=== PATIENT | female | born 1945 | race Caucasian/White ===

== ENCOUNTER 2023-03-12 10:35 | Inpatient (IN) | payer MEDICARE, SELFPAY ==
[2023-03-12] VITALS (13 sets, daily range): BP systolic 139–182; BP diastolic 57–96; PULSE 85–106; RESP 16–30; TEMP 36.4–37.1; O2SAT 91–97; BMI 32.1; BMI 28.9
--- NOTE | 2023-03-12 10:36 | CT_ITS ---
We are attempting to reach an attending provider to discuss findings. An addendum with communication details will be sent when the communication is complete. STUDY: CT HEAD STROKE PROTOCOL W/O CONTRAST INJECTION REASON FOR EXAM: Female, 77 years old. Neuro deficit, acute, stroke suspected RADIATION DOSAGE (If Supplied By Facility): CTDIvol = ( 44.99 ) mGy, DLP = ( 849.54 ) mGycm TECHNIQUE: Transaxial CT imaging of the brain was performed without administration of intravenous contrast material. Individualized dose optimization techniques were used for this CT. COMPARISON: No relevant priors. FINDINGS: Normal soft tissue structures. Normal calvarium. There is mild cerebral atrophy with widening of the extra-axial spaces and ventricular dilatation. There are areas of decreased attenuation within the white matter tracts of the supratentorial brain, consistent with microvascular disease changes. Tiny lacuna is seen in the insular cortex of the left temporal lobe. Normal brainstem. Normal cerebellum. There is no intracranial hemorrhage. There are no findings of an acute ischemic infarction. Atherosclerotic calcific plaques of the vertebral arteries and cavernous portions of the internal carotid arteries bilaterally. Normal visualized paranasal sinuses. ASPECT score: 10 CT/STROKE Brain/Head without Cont IMPRESSION: Chronic involutional changes of the brain. Tiny lacuna is seen in the insular cortex of the left temporal lobe. Electronically Signed: Ramses Sheehan MD at 10:52 EDT ,
--- NOTE | 2023-03-12 10:36 | EKG12_ITS ---
Test Reason : STROKE Blood Pressure : / mmHG Vent. Rate : 105 BPM Atrial Rate : 105 BPM P-R Int : 176 ms QRS Dur : 110 ms QT Int : 356 ms P-R-T Axes : 000 106 155 degrees QTc Int : 470 ms Sinus tachycardia with frequent Premature ventricular complexes Low voltage QRS Right bundle branch block Lateral infarct , age undetermined Inferior infarct , age undetermined Abnormal ECG Confirmed by PANCHITO BARRY, SHARONDA ([id number]), purchasing expeditor ROMEO MERCHANT ([id number]) on 03/13/2023 1:12:12 PM Referred By: PL Confirmed By:SHARONDA FLANAGAN MD
--- NOTE | 2023-03-12 10:36 | CT_ITS ---
STUDY: CTA HEAD AND NECK WITH CONTRAST REASON FOR EXAM: Female, 77 years old. Neuro deficit, acute, stroke suspected RADIATION DOSAGE (If Supplied By Facility): CTDIvol = ( 15.07 ) mGy, DLP = ( 653.01 ) mGycm TECHNIQUE: CT angiography was performed with a multi-detector CT scanner. Data acquisition was obtained from the skull base through the vertex following intravenous administration of IV 100mL [id number]-[id number]. MIP images were reconstructed from the axial data set. Post-processing of the angiographic images was performed, with multiplanar reformation and 3D reconstruction. Individualized dose optimization techniques were used for this CT. COMPARISON: No relevant priors. FINDINGS: Normal bilateral petrous carotid arteries. There is calcified plaque formation of the right cavernous carotid artery, without a cross-sectional luminal stenosis. There is calcified plaque formation of the left cavernous carotid artery, without a cross-sectional luminal stenosis. Normal right A1 segments of the anterior cerebral artery. Normal left A1 segments of the anterior cerebral artery. Normal intact anterior communicating artery (ACOM). Normal bilateral A2 segments of the anterior cerebral arteries. Normal right M1 and M2 segments of the middle cerebral arteries, with a normal M1 bifurcation. Normal left M1 and M2 segments of the middle cerebral arteries, with a normal M1 bifurcation. Normal right posterior communicating artery (PCOM). Normal left posterior communicating artery (PCOM). Normal bilateral vertebral arteries. Normal basilar artery with a normal basilar bifurcation. The visualized bilateral superior cerebellar (SCA) arteries are normal. Normal bilateral P1, P2 and visualized P3 segments of the posterior cerebral arteries. There is no demonstrated aneurysm of the [place]. There is no demonstrated abnormality of the visualized brain. AORTIC ARCH: There is atherosclerotic calcific plaque formation of the aortic arch and great vessels arising from the aortic arch, without a hemodynamically significant stenosis. There is a normal origin of the brachiocephalic, left common carotid, and left subclavian arteries. RIGHT CAROTID ARTERIES: Normal right common carotid artery (CCA). Normal right common carotid bulb. Normal origin of the right internal carotid (ICA) artery without a hemodynamically significant stenosis. Normal visualized cervical portion of the right internal carotid artery. Normal origin of the right external carotid artery (ECA). LEFT CAROTID ARTERIES: Normal left common carotid artery (CCA). Normal left common carotid bulb. There is mild atherosclerotic plaque formation of the origin of the left internal carotid artery with less than 50% cross sectional diameter stenosis. Normal visualized cervical portion of the left internal carotid artery. Normal origin of the left external carotid artery (ECA). VERTEBRAL ARTERIES: Normal bilateral vertebral arteries. CT/STROKE CTA Head AND Neck W/Con IMPRESSION: Mild nonstenotic plaque at the origin of the left internal carotid artery N.B. : The above Results were Read Back by Ramses Sheehan MD to Cisco Wilson and understanding confirmed on 03/12/2023 11:02:57 (ET). Electronically Signed: Ramses Sheehan MD at 11:04 EDT ,
--- NOTE | 2023-03-12 10:37 | EX.ED.DYSGE1 ---
HPI History of Present Illness Chief Complaint: Stroke Alert Informant: patient and EMS Narrative Narrative: I discussed case with patient and directly with EMS providers. Evidently family called due to noting that her breathing sounded differently. But patient states that she is not short of breath and not having any chest pain. EMS arrived. They then noted that she had left facial droop and some weakness of the left arm. They think this developed shortly after getting there. But I am wondering if this might have been part of the whole issue. But in either case it appears as though this just started within the last 30 minutes or hour. I initially saw the patient in the hallway as EMS arrived. She clearly has left-sided weakness and left facial droop. But her lungs are clear. She does not need to be intubated now. We expedited and got her to CT scan to get those studies started. Further details will be obtained soon. Went back to see the patient after she got back from CT. I had already reviewed her CT image. I was talking with the patient and her daughter. Evidently the patient this morning fed her cat. She then felt a little short of breath and dizzy. She fell at the bottom of her steps but did not fall down steps. She hit her head on concrete but did not lose consciousness she did not feel as though she was hurt but she was having trouble getting up and walking. She therefore crawled to the top of the steps where she could activate Crista to call her daughter and asked for help. At this point of the discussion, the stroke neurologist connected in with the screen and initiated the stroke score. We will then come back again and get further details regarding this history because this history is more complex than just neurologic deficit. Patient now stating that she was not somewhat short of breath but that she heard kind of a funny sound when she would breathe. She also did feel weak. She has a new left facial droop. This was not there at about 9 or 930 this morning because the daughter FaceTime to her mother at that moment and her speech and face were normal. At this point patient states that she feels overall weak and the left side feels a little weak. But she has no other symptoms of pain trouble breathing nausea. Of note, she did have excision of a staghorn calculus from her right kidney about 4 to 5 weeks ago at [facility] but has been healing well from this and is not having urinary symptoms. PFSH PFSH Medical History (Updated 03/12/23 @ 12:[address] Josephine Womack, DO) History of hypercholesterolemia HTN (hypertension) Spinal stenosis of lumbar region at multiple levels Thrombocytopenia Home Medications etodolac 500 mg tablet 500 mg PO BID PRN PAIN 04/06/15 [History Last Taken 04/06/15 09:30] hydrochlorothiazide 12.5 mg capsule 12.5 mg PO DAILY EDEMA 04/06/15 [History Last Taken 04/06/15] losartan 100 mg tablet 100 mg PO DAILY BLOOD PRESSURE 04/06/15 [History Last Taken 04/06/15] metoprolol succinate 100 mg tablet,extended release 24 hr 100 mg PO DAILY BLOOD PRESSURE 04/06/15 [History Last Taken 04/06/15] simvastatin 20 mg tablet 20 mg PO QHS CHOLESTEROL 04/06/15 [History Last Taken 04/05/15] amlodipine 5 mg tablet 5 mg PO DAILY 03/12/23 [History Last Taken Unknown] Allergy/AdvReac Type Severity Reaction Status Date / Time latex Allergy Unknown Verified 04/06/15 13:59 Sulfa (Sulfonamide Allergy Unknown Verified 04/06/15 13:59 Antibiotics) Social History Smoking Status: Never smoker [facility] ED Constitutional Constitutional ED: Reports other Details: Patient felt chilled yesterday and nauseated yesterday but those are gone now. ; Denies chills, fever(s) or subjective Eyes Eyes: Denies change in vision or diplopia ENT ENT ED: Reports other Details: Some left facial weakness. ; Denies rhinorrhea or sore throat Cardiovascular Cardiovascular: Denies chest pain, palpitations or racing heartbeat Respiratory/Chest Respiratory/Chest: Reports other Details: See HPI ; Denies cough, dyspnea or sputum Gastrointestinal Gastrointestinal: Reports other Details: She had some nausea yesterday but it is gone today. ; Denies abdominal pain, diarrhea, melena, nausea or vomiting Genitourinary Genitourinary ED: Denies dysuria or hematuria Musculoskeletal Musculoskeletal: Denies myalgias or neck pain Integumentary Denies rash Neurologic Neurologic: Reports weakness; Denies headache(s) Hematologic/Lymphatic Hematologic/Lymphatic: Denies easy bleeding or easy bruising Allergic/Immunologic Allergic/Immunologic ED: Denies urticaria EXAM Physical Exam Narrative Exam Narrative: Patient is awake alert. She is very good informant although is her speech is a little bit slow. Her speech is not normally like this per her daughter. HEENT does show left facial weakness mostly lower portion of the face. Upper portion is not as involved. She has signs of old scars on her upper face and the left lower lip from skin cancer but these are chronic and unchanged. I am not seeing signs of trauma even though she did hit the left side of her forehead. I looked in her throat I see no acute abnormality. No swelling. No exudate. Her voice is a little bit raspy and quiet. Although she is normally quiet per her daughter, this is still not the patient's normal voice. But she complains of no pain. Eyes show normal range of motion and pupillary response. Neck is supple and shows no tenderness. Lungs actually sound clear. No wheezing or rhonchi. She does occasionally have transmitted upper airway sounds though. Saturations are normal at 95% on room air showing no hypoxia. Heart is regular. I hear no murmur. It sounds to be regular and looks like normal sinus with a rate of about 100 on the monitor. Does not appear to be atrial fibrillation. Abdomen is soft is nontender. She has prior scar from what looks like an ostomy. She has a healed small scar in her right back. No sign of infection. Extremities show a few small contusions to the skin of the left forearm but no tenderness. No pain with motion of her hips. Neurologic: She has some mild left facial droop, slow speech but its no sign of expressive or receptive aphasia. No difficulty understanding her at all. It is a little bit raspy but the speech itself is unlabored. Her left hand appears to be a little bit weaker than the right. But she can hold it up for full 10 seconds equal. She does have a fine tremor in both extremities which is evidently chronic. Although there does appear to be some left upper extremity weakness this does not rise to the level of getting a point on the NIH scale. The neurologist from [facility] also gave her an NIH of 1 for the facial droop. Const Vital Signs: 03/12/23 10:37 03/12/23 10:48 03/12/23 10:48 Temperature 97.5 F L Temperature Source Temporal Pulse Rate 104 H 106 H Respiratory Rate 30 H 20 H Respiratory Effort Respiratory Depth Respiratory Pattern Blood Pressure 180/62 H 182/96 H Blood Pressure Mean 101 124 Pulse Ox 96 95 Oxygen Delivery Method Room Air Room Air Nasal Cannula Oxygen Flow Rate (L/min) 2 03/12/23 10:56 03/12/23 11:06 03/12/23 11:30 Temperature Temperature Source Pulse Rate 104 H 92 Respiratory Rate 20 H 18 Respiratory Effort Short of Breath Respiratory Depth Shallow Respiratory Pattern Tachypnea Blood Pressure 173/90 H 155/65 H Blood Pressure Mean 117 95 Pulse Ox 94 95 Oxygen Delivery Method Room Air Room Air Room Air Oxygen Flow Rate (L/min) 03/12/23 12:01 03/12/23 12:00 Temperature 97.8 F Temperature Source Temporal Pulse Rate 92 95 Respiratory Rate 18 21 H Respiratory Effort Respiratory Depth Respiratory Pattern Blood Pressure 139/57 H 139/57 H Blood Pressure Mean 84 84 Pulse Ox 94 96 Oxygen Delivery Method Room Air Oxygen Flow Rate (L/min) MDM MDM MDM Narrative Medical decision making narrative: My independent interpretation the patient's CT of the head shows no acute process. 5 read shows no acute but there is any changes CTA showed old plaque at the origin of the left internal carotid. My independent interpretation of her single view AP chest x-ray shows no acute process and this is insistent with final reading. Patient's CBC showed minimal anemia and minimally low platelets with a normal white count. Patient's electrolytes were overall normal other than potassium of 3.4. Although this is low I do not believe this is the cause of her symptoms. Troponin is negative at 5. Although there is a story of difficulty breathing, patient really states that she had different sounds when she was breathing and I think these are upper airway sounds. I am wondering if these are secondary to vocal cord and laryngeal changes from her stroke as the origin of this. Per [facility] neurologist, with her low NIH of 1 she does not meet criteria for tPA. This also is even more likely not appropriate to give tPA due to her history of trauma this morning. Patient will be admitted. Lab Data Attestation: I reviewed the patient's lab results. Labs: Laboratory Results - last 24 hr 03/12/23 10:50 WBC 7.4 RBC 3.94 L Hgb 11.8 L Hct 36.4 L MCV 92.4 MCH 29.9 MCHC 32.4 RDW Std Deviation 44.2 H RDW Coeff of Darcy 13.1 Plt Count 122 L MPV 9.7 Immature Gran % (Auto) 0.500 Neut % (Auto) 70.7 H Lymph % (Auto) 14.7 L Gove % (Auto) 12.4 H Eos % (Auto) 1.2 Baso % (Auto) 0.5 Absolute Neuts (auto) 5.2 Absolute Lymphs (auto) 1.09 Nucleated RBC % 0 PT 14.0 INR 1.1 APTT 26.9 Sodium 138 Potassium 3.4 L Chloride 105 Carbon Dioxide 29.0 Anion Gap 4 L BUN 20 H Creatinine 0.86 Estim Creat Clear Calc 44.60 Est GFR (MDRD) Af Amer 82 Est GFR (MDRD) Non-Af 68 BUN/Creatinine Ratio 23.2 H Glucose 117 H Calcium 8.8 Troponin I High Sens 5 Radiography Diagnostic Testing: Clinical Impression(s) from Imaging Studies Brain CT 03/12/23 10:36 IMPRESSION: Chronic involutional changes of the brain. Tiny lacuna is seen in the insular cortex of the left temporal lobe. Electronically Signed: Ramses Sheehan MD at 10:52 EDT , ADDENDUM: 03/12/23 1100 IMPRESSION: Chronic involutional changes of the brain. Tiny lacuna is seen in the insular cortex of the left temporal lobe. N.B. : The above Results were Read Back by Ramses Sheehan MD to Dr Katie MD, and understanding confirmed on 03/12/2023 10:53:53 (ET). Electronically Signed: Ramses Sheehan MD at 10:52 EDT , Head/Neck CTA 03/12/23 10:36 IMPRESSION: Mild nonstenotic plaque at the origin of the left internal carotid artery N.B. : The above Results were Read Back by Ramses Sheehan MD to Cisco Wilson and understanding confirmed on 03/12/2023 11:02:57 (ET). Electronically Signed: Ramses Sheehan MD at 11:04 EDT , ADDENDUM: 03/12/23 1111 IMPRESSION: Mild nonstenotic plaque at the origin of the left internal carotid artery N.B. : The above Results were Read Back by Ramses Sheehan MD to Cisco Wilson and understanding confirmed on 03/12/2023 11:02:57 (ET). Electronically Signed: Ramses Sheehan MD at 11:04 EDT , Chest X-Ray 03/12/23 11:15 IMPRESSION: No acute abnormality is seen. Electronically Signed: Ramses Sheehan MD at 11:24 EDT , EKG Initial EKG: Comments: My independent interpretation the patient's EKG done for stroke shows sinus rhythm with tachycardic rate at 105. Computer is reading PVCs but I do not think this is accurate. I think she has right bundle branch block. None specific diffuse changes but no sign of acute infarct or ischemia. AK interval QRS duration and QTc are overall within normal limits. Management Discussion w/another healthcare provider: Hospitalist and [facility] Discharge Plan Dx/Rx/DC Orders Clinical Impression: Facial paralysis on left side, History of hypercholesterolemia, Fall at home, Acute CVA (cerebrovascular accident), History of hypertension Disposition Disposition: Acute Care Hospital [facility]
[2023-03-12 11:08] LABS: Absolute Lymphocyte Count 1.09 X10^3/uL (0.83-4.51); Absolute Neutrophil Count 5.2 X10^3/uL (2.0-7.7); Basophil# 0.04 X10^3/uL; Basophil% 0.5 % (0-1); Eosinophil# 0.09 X10^3/uL; Eosinophils% 1.2 % (0-5); Hematocrit 36.4 % (37-47); Hemoglobin 11.8 g/dL (12.0-15.0); Lymphocyte # 1.09 X10^3/ul (0.83-4.51); Lymphocyte % 14.7 % (19-41); Mean Corp Hgb Conc 32.4 g/dL (32-36); Mean Corpuscular Hgb 29.9 pg (27.0-32.0); Mean Corpuscular Volume 92.4 fL (81-99); Mean Platelet Vol. 9.7 fl (6.2-12.0); Monocyte# 0.92 X10^3/uL; Monocyte% 12.4 % (0-10); NRBC Flagged by Analyzer 0 % (0-5); Neutrophil # 5.22 X10^3/uL (2.7-7.7); Neutrophil % 70.7 % (47-70); Platelet Count 122 K/mm3 (150-450); RBC Distribution Width CV 13.1 % (11.6-14.6); RBC Distribution Width SD 44.2 fl (35.1-43.9); Red Blood Count 3.94 M/mm3 (4.2-5.4); White Blood Count 7.4 K/mm3 (4.4-11.0)
--- NOTE | 2023-03-12 11:15 | RAD_ITS ---
STUDY: X-RAY CHEST REASON FOR EXAM: Female, 77 years old. Neuro deficit, acute, stroke suspected TECHNIQUE: Single AP portable view of the chest. COMPARISON: None. FINDINGS: EKG electrodes are seen. Elevation of the right hemidiaphragm. The lungs are clear. There is no demonstrated pleural abnormality. Normal size heart. Normal mediastinum and karen. Normal visualized pulmonary arteries. There is atherosclerotic tortuosity of the aortic arch and descending thoracic aorta. There are diffuse degenerative changes of the visualized thoracic spine. Normal visualized ribs, clavicles, and shoulders. There is no demonstrated abnormality of the visualized soft tissue structures of the upper abdomen. RAD/Chest 1 View IMPRESSION: No acute abnormality is seen. Electronically Signed: Ramses Sheehan MD at 11:24 EDT ,
[2023-03-12 11:22] LABS: Anion Gap 4 (5-15); BUN 20 mg/dL (7-18); BUN/Creat Ratio 23.2 RATIO (10-20); Calcium,Total 8.8 mg/dL (8.5-10.1); Chloride 105 mmol/L (98-107); Creatinine, Serum 0.86 mg/dL (0.55-1.02); EST Glomerular Filtration Rate 68 mL/min (>60); Est Glom Filt Rate - Afr Amer 82 mL/min (>60); Glucose 117 mg/dL (74-106); International Normalized Ratio 1.1; Partial Thromboplast Time 26.9 Seconds (24.1-36.2); Potassium 3.4 mmol/L (3.5-5.1); Sodium Level 138 mmol/L (136-145); Troponin-I HS 5 pg/mL (3.0-54.0)
[2023-03-12] MEDS: Ondansetron 4 MG/2 ML Vial IV (11:51)
--- NOTE | 2023-03-12 11:59 | MRI_ITS ---
STUDY: MRI BRAIN WITHOUT CONTRAST REASON FOR EXAM: Female, 77 years old. Stroke TECHNIQUE: Standardized multiplanar fat and water weighted pulse sequences were obtained. COMPARISON: 03/12/2023 CT head FINDINGS: There is mild cerebral atrophy with widening of the extra-axial spaces and ventricular dilatation. There are multiple white matter hyperintensities, distributed throughout the deep white matter tracts of the cerebral hemispheres, consistent with moderate chronic white matter ischemic changes. There is increased DWI signal along the right posterior andrew radiata extending to the right mid insular ribbon concerning for acute to subacute posterior small (25%) MCA territory ischemia. Normal T2* images of the brain without demonstrated susceptibility artifact. There is no demonstrated hemosiderin stain. Normal bilateral basal ganglia. Normal thalami. There is no extra-axial fluid accumulation. Normal flow voids within the major intracranial circulation suggesting patency by spin echo criteria. Normal sella turcica, pituitary gland, infundibular stalk, optic chiasm and hypothalamus. Normal tectal plate and pineal gland. Normal midbrain, nicholas and medulla. Normal cerebellum. Normal basal cisterns. Normal bilateral temporal bones. Normal bilateral internal auditory canals. No demonstrated orbital abnormality, within the constraints of a routine brain study. Normal visualized paranasal sinuses. Normal calvarium and skull base. Normal visualized soft tissue structures. Normal visualized upper cervical spine. MRI/Brain without Contrast IMPRESSION: Findings consistent with acute to subacute right posterior MCA infarct measuring approximately 25% by volume within the posterior right andrew radiata and right insular ribbon. No evidence of acute intraparenchymal bleed. Electronically Signed: Albin Pena DO at 17:56 EDT ,
--- NOTE | 2023-03-12 11:59 | ECHOD_ITS ---
Reason For Study: TIA/STROKE Procedure This was a 2D Doppler, Color Flow transthoracic echocardiogram. Technically difficult study due to patient limitations. Definity deferred due to poor apical windows. Exam performed portable in patient room. Left Ventricle Normal LV size. Left ventricular systolic function is normal. The estimated ejection fraction is 65 %. Stage 1 diastolic dysfunction. No regional wall motion abnormalities noted. Right Ventricle Normal RV size. Normal systolic function. Atria Normal left atrium. Normal right atrium. Bubble contrast study negative for right to left interatrial shunt. Mitral Valve Normal mitral valve. Tricuspid Valve Normal tricuspid valve. Mild tricuspid valve insufficiency. Pulmonary artery systolic pressure is 30 mmHg. Aortic Valve Trisinus/trileaflet aortic valve. Pulmonic Valve Normal pulmonic valve. Great Vessels Normal aortic root. The pulmonary artery is normal size. Normal inferior vena cava. Pericardium/Pleural No pericardial effusion. Medication Performed a rapid injection of agitated mix of 9 cc saline and 1cc air to assess for atrial septal defect. MMode/2D Measurements & Calculations LVIDd: 4.1 cm IVSd: 1.1 cm LVIDs: 2.8 cm LVPWd: 1.0 cm FS: 31.4 % Time Measurements MV dec time: 0.13 sec Doppler Measurements & Calculations MV E max jeremy: 74.5 cm/sec Lat Peak E' Jeremy: 12.1 cm/sec Med Peak E' Jeremy: 13.7 cm/sec MV A max jeremy: 113.6 cm/sec E/E' lat: 6.2 E/E' med: 5.4 MV E/A: 0.66 MV V2 max: 118.0 cm/sec Ao V2 max: 154.2 cm/sec MV max P.6 mmHg MV dec slope: 559.0 cm/sec2 Ao max P.5 mmHg MV V2 mean: 75.3 cm/sec Ao V2 mean: 106.4 cm/sec MV mean P.5 mmHg Ao mean P.2 mmHg MV V2 VTI: 19.8 cm Ao V2 VTI: 34.8 cm AV (velocity ratio): 0.76 LV V1 max: 116.9 cm/sec PA V2 max: 88.2 cm/sec TR max jeremy: 250.2 cm/sec LV V1 max P.5 mmHg PA V2 mean: 59.1 cm/sec TR max P.0 mmHg LV V1 mean P.9 mmHg LV V1 mean: 80.3 cm/sec LV V1 VTI: 26.3 cm ECHO/Echo Complete Interpretation Summary Normal LV size. Left ventricular systolic function is normal. The estimated ejection fraction is 65 %. Bubble contrast study negative for right to left interatrial shunt. Stage 1 diastolic dysfunction. Pulmonary artery systolic pressure is 30 mmHg. Ordering Physician: Josephine Womack Referring Physician: NO PCP Performed By: Gabby Todd RCS
--- NOTE | 2023-03-12 12:00 | PN.HOSP_ITS ---
Reason for Visit Reason for Visit: Left-sided weakness and facial droop Objective Data Objective Data Vital Signs: Vital Signs Temp Pulse Resp BP Pulse Ox O2 Del Method O2 Flow Rate 97.5 F L 92 18 155/65 H 95 Room Air 2 03/12/23 10:48 03/12/23 11:30 03/12/23 11:30 03/12/23 11:30 03/12/23 11:30 03/12/23 11:30 03/12/23 10:48 Oxygen Flow Rate (L/min) 2 Oxygen Delivery Method Room Air Weight: 82.4 kg Body Mass Index (BMI) 32.1 Lab / Micro Data 03/12/23 10:50 03/12/23 10:50 Labs: Laboratory Results - last 24 hr 03/12/23 10:50: WBC 7.4, RBC 3.94 L, Hgb 11.8 L, Hct 36.4 L, MCV 92.4, MCH 29.9, MCHC 32.4, RDW Std Deviation 44.2 H, RDW Coeff of Darcy 13.1, Plt Count 122 L, MPV 9.7, Immature Gran % (Auto) 0.500, Neut % (Auto) 70.7 H, Lymph % (Auto) 14.7 L, [place] % (Auto) 12.4 H, Eos % (Auto) 1.2, Baso % (Auto) 0.5, Absolute Neuts (auto) 5.2, Absolute Lymphs (auto) 1.09, Nucleated RBC % 0, PT 14.0, INR 1.1, APTT 26.9, Sodium 138, Potassium 3.4 L, Chloride 105, Carbon Dioxide 29.0, Anion Gap 4 L, BUN 20 H, Creatinine 0.86, Estim Creat Clear Calc 44.60, Est GFR (MDRD) Af Amer 82, Est GFR (MDRD) Non-Af 68, BUN/Creatinine Ratio 23.2 H, Glucose 117 H, Calcium 8.8, Troponin I High Sens 5 Radiography Diagnostic Testing: Radiology Impression Brain CT 03/12/23 10:36 IMPRESSION: Chronic involutional changes of the brain. Tiny lacuna is seen in the insular cortex of the left temporal lobe. Electronically Signed: Ramses Sheehan MD at 10:52 EDT , ADDENDUM: 03/12/23 1100 IMPRESSION: Chronic involutional changes of the brain. Tiny lacuna is seen in the insular cortex of the left temporal lobe. N.B. : The above Results were Read Back by Ramses Sheehan MD to Dr Katie MD, and understanding confirmed on 03/12/2023 10:53:53 (ET). Electronically Signed: Ramses Sheehan MD at 10:52 EDT , Head/Neck CTA 03/12/23 10:36 IMPRESSION: Mild nonstenotic plaque at the origin of the left internal carotid artery N.B. : The above Results were Read Back by Ramses Sheehan MD to Cisco Wilson and understanding confirmed on 03/12/2023 11:02:57 (ET). Electronically Signed: Ramses Sheehan MD at 11:04 EDT , ADDENDUM: 03/12/23 1111 IMPRESSION: Mild nonstenotic plaque at the origin of the left internal carotid artery N.B. : The above Results were Read Back by Ramses Sheehan MD to Cisco Wilson and understanding confirmed on 03/12/2023 11:02:57 (ET). Electronically Signed: Ramses Sheehan MD at 11:04 EDT , Chest X-Ray 03/12/23 11:15 IMPRESSION: No acute abnormality is seen. Electronically Signed: Ramses Sheehan MD at 11:24 EDT , Assessment & Plan Assessment/Plan (1) Facial droop: (2) Left-sided weakness: (3) Fall at home: (4) Hypokalemia: (5) Anemia: (6) Left carotid artery stenosis: Charges/Coding Visit Charges Inpatient E&M: 86559 Init Hosp L2
--- NOTE | 2023-03-12 12:12 | CHAPLAIN ---
Type of Pastoral Visit ___ Initial Visit ___ Follow-up Visit ___ On-call Visit ___ General Patient Visit ___ Spiritual Assessment ___ Family Conference ___ Bereavement _x__ Rapid Response ___ Code Blue ___ Other (describe below) Pastoral Care Referral From ___ Patient ___ Family ___ Nurse ___ Physician ___ Tanker Driver ___ Major Sales Associate _x__ Other (describe below) Sacrament/Intervention ___ Active listening ___ Anointing ___ Alevism ___ Bereavement ___ Communion ___ Anu exploration ___ ___ Life review ___ Prayer ___ Reconciliation ___ Sacrament of Sick _x__ Supportive presence ___ Wedding ___ Other (describe below) Pastoral Comments responded to stroke alert; patient was immediately taken for CT; daughter of patient arrived separately and was taken by this peanut sorter to the room where pt had just been returned; introduced staff to daughter and remained available for support as needed;
--- NOTE | 2023-03-12 12:29 | HP.PCM.HOS_ITS ---
HPI - General General Date of Admission: 03/12/23 Date of Service: 03/12/23 Chief Complaint: Left facial droop/left upper extremity weakness HPI Narrative Mrs. Agudelo 77-year-old white female who presented to the emergency department at [facility] on 03/12/2023 after calling her family because she noted that her breathing sounded differently. Patient states on Friday night she had diarrhea from about 7 PM to 2 AM and then that last night she had nausea and vomiting through the evening and took her temperature and it was noted to be 100.1. She stated she woke up this morning and was feeling fine. States that issues with her breathing started shortly after she had talked to her daughter on FaceTime. Her daughter reported that there was no facial droop at the time she talked her on FaceTime however upon EMS arrival they noted that she had a left facial droop and some weakness of the left arm. Symptoms started within 30-60 minutes of her arrival to the emergency department and a stroke alert was called. She evidently got a little bit of short of breath and dizzy after she had fed her cats and fell at the bottom of her steps but did not fall down her steps. She reported she hit her head on the concrete but did not lose consciousness and did not feel as though she was hurt from this fall. She crawled to the top of the steps where she could activate Crista to call her daughter and ask for help. Stat CT was performed on arrival and showed chronic involutional changes along with tiny lacunar in the insular cortex of the left temporal lobe. CTA of the head and neck demonstrated mild nonstenotic plaque at the origin of the left internal carotid artery that was less than 50%. EKG showed left bundle branch block with no ST-T wave changes concerning for acute ischemia and normal intervals. Her chest x-ray was unremarkable. Stroke neurologist was in contact with the emergency department physician and her initial NIH was 1. With her fall no tPA was recommended but recommendation for admission was made for further work-up. NIH of 1 was related to her left facial droop. She did exhibit some very mild left upper extremity weakness but it was not enough to score her on her NIH per discussion with emergency department physician. Her daughter does report that she has a soft voice at baseline but states that her voice is a little bit softer and not quite at her baseline currently. Vital signs on presentation show a temperature of 97.5, heart rate 106 which has since de-escalated to 92, initial blood pressure was 180/62 but repeat is 139/57, initial respiratory rate was 30 but is now 18 and oxygen saturations were 96% on room air. Her CBC shows a mild anemia with a hemoglobin of 11.8 and thrombocytopenia with a platelet count of 122,000. Thrombocytopenia appears to be chronic and relatively stable. Her differential showed a mild monocytosis. Coags are normal. Her chemistry panel was overall unremarkable other than mild hypokalemia with a potassium of 3.4. Serum glucose was 117. Initial troponin was 5. [facility] Medical History History of hypercholesterolemia HTN (hypertension) Spinal stenosis of lumbar region at multiple levels Thrombocytopenia Home Medications etodolac 500 mg tablet 500 mg PO BID PRN PAIN 04/06/15 [History Last Taken 04/06/15 09:30] hydrochlorothiazide 12.5 mg capsule 12.5 mg PO DAILY EDEMA 04/06/15 [History Last Taken 04/06/15] losartan 100 mg tablet 100 mg PO DAILY BLOOD PRESSURE 04/06/15 [History Last Taken 04/06/15] metoprolol succinate 100 mg tablet,extended release 24 hr 100 mg PO DAILY BLOOD PRESSURE 04/06/15 [History Last Taken 04/06/15] simvastatin 20 mg tablet 20 mg PO QHS CHOLESTEROL 04/06/15 [History Last Taken 04/05/15] amlodipine 5 mg tablet 5 mg PO DAILY 03/12/23 [History Last Taken Unknown] Allergy/AdvReac Type Severity Reaction Status Date / Time latex Allergy Unknown Verified 04/06/15 13:59 Sulfa (Sulfonamide Allergy Unknown Verified 04/06/15 13:59 Antibiotics) no significant family history Surgical History (Updated 03/12/23 @ 12:[address] Josephine Womack DO) History of skin surgery Social History (Updated 03/12/23 @ 12:[address] Josephine Womack DO) household members: none housing: house Smoking Status: Never smoker alcohol intake: never substance use type: does not use ROS Constitutional Constitutional: Denies anorexia, change in weight, chills, fatigue, fever(s), malaise, night sweats, weakness or other Eyes Eyes: Denies blurry vision, change in eye color, change in vision, discharge from eye(s), double vision, erythema, eye pain, loss of vision or other ENT HEENT: Denies abnormal hearing, dysphagia, ear pain, epistaxis, headache(s), hearing loss, nasal congestion, nasal discharge, post nasal drip, sinus pressure, sore throat or other Cardiovascular Cardiovascular: Denies chest pain, claudication, dyspnea on exertion, edema, lightheadedness, orthopnea, palpitations, paroxysmal nocturnal dyspnea, rapid heart rate, syncope or other Respiratory/Chest Respiratory/Chest: Reports other Details: Change in the way her breathing sounded ; Denies cough, dyspnea, excessive phlegm production, hemoptysis, productive cough, shortness of breath at rest, shortness of breath with exertion or wheezing Gastrointestinal Gastrointestinal: Reports diarrhea, nausea and vomiting; Denies abdominal pain, coffee ground emesis, constipation, dyspepsia, hematemesis, hematochezia, loose stools, melena or other Genitourinary Genitourinary: Denies burning urination, difficulty urinating, dysuria, hematuria, nocturia, urinary frequency, urinary hesitancy, urinary incontinence, urinary urgency or other Musculoskeletal Musculoskeletal: Reports back pain; Denies arthralgias, joint pain, joint stiffness, joint swelling, myalgias, neck pain or other Neurologic Neurologic: Reports abnormal speech and focal weakness; Denies abnormal gait, confusion, disequilibrium, dizziness, headache(s), numbness, paresthesias, seizure-like activity, seizures, syncope, tingling, tremor(s) or other Psychiatric Psychiatric: Denies anxiety, depression, homicidal ideation, suicidal ideation or other Endocrine Endocrinology: Denies change in body appearance, cold intolerance, excessive sweating, heat intolerance, polydipsia, polyuria or other Hematologic/Lymphatic Hematologic/Lymphatic: Denies anemia, easy bleeding, easy bruising, lymphadenopathy or other Allergic/Immunologic Allergic/Immunologic: Denies rhinitis, hives, eczemia, asthma or other Vital Signs Vital Signs Vital Signs: 03/12/23 10:37 03/12/23 10:48 03/12/23 10:48 Temperature 97.5 F L Temperature Source Temporal Pulse Rate 104 H 106 H Respiratory Rate 30 H 20 H Respiratory Effort Respiratory Depth Respiratory Pattern Blood Pressure 180/62 H 182/96 H Blood Pressure Mean 101 124 Pulse Ox 96 95 Oxygen Delivery Method Room Air Room Air Nasal Cannula Oxygen Flow Rate (L/min) 2 03/12/23 10:56 03/12/23 11:06 03/12/23 11:30 Temperature Temperature Source Pulse Rate 104 H 92 Respiratory Rate 20 H 18 Respiratory Effort Short of Breath Respiratory Depth Shallow Respiratory Pattern Tachypnea Blood Pressure 173/90 H 155/65 H Blood Pressure Mean 117 95 Pulse Ox 94 95 Oxygen Delivery Method Room Air Room Air Room Air Oxygen Flow Rate (L/min) 03/12/23 12:01 03/12/23 12:00 Temperature 97.8 F Temperature Source Temporal Pulse Rate 92 95 Respiratory Rate 18 21 H Respiratory Effort Respiratory Depth Respiratory Pattern Blood Pressure 139/57 H 139/57 H Blood Pressure Mean 84 84 Pulse Ox 94 96 Oxygen Delivery Method Room Air Oxygen Flow Rate (L/min) Weight Weight: 82.4 kg Body Mass Index (BMI) 32.1 Physical Exam Const alert, oriented x3, no apparent distress and well nourished Constitutional Narrative: Obese, very pleasant, older, white female, lying in bed, appears comfortable and nontoxic, daughter and nursing staff at bedside General Appearance: cooperative HEENT normocephalic, head/scalp atraumatic, hearing grossly normal bilaterally and moist oral mucous membranes HEENT Narrative: Dentition is poor, Mallampati is 2, no thrush Eyes PERRL, EOMs intact bilaterally and conjunctivae normal Eyes Narrative: No scleral Neck no lymphadenopathy, supple, no JVD and no carotid bruits Neck Narrative: Trachea mid line, no thyroid enlargement Resp normal respiratory effort, no retractions, no use of accessory muscles and clear to auscultation bilaterally Auscultation: Negative for rales, rhonchi or wheezes Cardio regular rate, regular rhythm, S1 normal heart sound, S2 normal heart sound, no murmurs, no rub, no gallops and no clicks GI normal to inspection, nondistended, normoactive bowel sounds, soft to palpation and non-tender Extremity no clubbing, cyanosis or edema Extremity Narrative: Pedal pulses are 2+ Neuro oriented x3 Neuro Narrative: Left-sided facial droop with some mild weakness of the left eyelid however eyebrow raise seems to be intact at this time, very minimal left upper extremity weakness with no significant drift noted on exam, lower extremities are within normal limits, lower extremity strength seems to be intact, vocal quality is soft but speech is intelligible Psych affect normal Mood & Affect: anxious Results Lab / Micro Data Attestation: I reviewed the patient's lab results. 03/12/23 10:50 03/12/23 10:50 Labs: Laboratory Results - last 24 hr 03/12/23 10:50: WBC 7.4, RBC 3.94 L, Hgb 11.8 L, Hct 36.4 L, MCV 92.4, MCH 29.9, MCHC 32.4, RDW Std Deviation 44.2 H, RDW Coeff of Darcy 13.1, Plt Count 122 L, MPV 9.7, Immature Gran % (Auto) 0.500, Neut % (Auto) 70.7 H, Lymph % (Auto) 14.7 L, [place] % (Auto) 12.4 H, Eos % (Auto) 1.2, Baso % (Auto) 0.5, Absolute Neuts (auto) 5.2, Absolute Lymphs (auto) 1.09, Nucleated RBC % 0, PT 14.0, INR 1.1, APTT 26.9, Sodium 138, Potassium 3.4 L, Chloride 105, Carbon Dioxide 29.0, Anion Gap 4 L, BUN 20 H, Creatinine 0.86, Estim Creat Clear Calc 44.60, Est GFR (MDRD) Af Amer 82, Est GFR (MDRD) Non-Af 68, BUN/Creatinine Ratio 23.2 H, Glucose 117 H, Calcium 8.8, Troponin I High Sens 5 EKG Initial EKG: Attestation: I personally reviewed and interpreted this EKG as follows: Prior EKG tracings: not available for review EKG Rhythm Intrepretation: Sinus Rhythm (Normal intervals with left bundle branch block, some baseline artifact noted) Radiology Impression Brain CT 03/12/23 10:36 IMPRESSION: Chronic involutional changes of the brain. Tiny lacuna is seen in the insular cortex of the left temporal lobe. Electronically Signed: Ramses Sheehan MD at 10:52 EDT , ADDENDUM: 03/12/23 1100 IMPRESSION: Chronic involutional changes of the brain. Tiny lacuna is seen in the insular cortex of the left temporal lobe. N.B. : The above Results were Read Back by Ramses Sheehan MD to Dr Katie MD, and understanding confirmed on 03/12/2023 10:53:53 (ET). Electronically Signed: Ramses Sheehan MD at 10:52 EDT , Head/Neck CTA 03/12/23 10:36 IMPRESSION: Mild nonstenotic plaque at the origin of the left internal carotid artery N.B. : The above Results were Read Back by Ramses Sheehan MD to Cisco Wilson and understanding confirmed on 03/12/2023 11:02:57 (ET). Electronically Signed: Ramses Sheehan MD at 11:04 EDT , ADDENDUM: 03/12/23 1111 IMPRESSION: Mild nonstenotic plaque at the origin of the left internal carotid artery N.B. : The above Results were Read Back by Ramses Sheehan MD to Cisco Wilson and understanding confirmed on 03/12/2023 11:02:57 (ET). Electronically Signed: Ramses Sheehan MD at 11:04 EDT , Chest X-Ray 03/12/23 11:15 IMPRESSION: No acute abnormality is seen. Electronically Signed: Ramses Sheehan MD at 11:24 EDT , Assessment & Plan Assessment/Plan (1) Left carotid artery stenosis: (2) Anemia: (3) Hypokalemia: (4) Left-sided weakness: (5) Facial droop: (6) Fall at home: PLAN: Plan Left-sided facial droop/left upper extremity weakness -Left upper extremity weakness is extremely mild with facial droop being more pronounced -There does seem to be some left-sided eyelid weakness however eye raising seems to be intact at this time -Patient sounds if she has had recent gastrointestinal viral illness so Nesbitt's palsy could be in the differential depending on progression -Check echocardiogram -Check MRI of brain -Aspirin 81 mg daily -Atorvastatin 80 mg nightly -Check lipids -Check hemoglobin A1c -PT/OT consultation -Bedside swallow and speech consultation if abnormal -N.p.o. until passes bedside swallow Hypokalemia -Potassium replacement -Check a.m. magnesium level -Repeat BMP in a.m. Anemia -This is mild -No recent data in the computer since 2014 to know what her baseline hemoglobin has been running as of recently -Continue to monitor Fall -Etiology seems to be somewhat unclear -PT/OT consultation Left carotid artery stenosis -This was mild and at the origin of the left carotid artery -Stenosis is less than 50% -Continue outpatient follow-up -Address modifiable risk factors -Aspirin 81 mg daily Hypertension -We will hold home antihypertensives and allow for permissive hypertension given the above -As needed's available to address elevated pressures if need be Hyperlipidemia -Continue statin but at increased dose as noted above -Check lipids DVT prophylaxis -Enoxaparin daily CODE STATUS -DNR CCA okay for short-term intubation--> patient would not want trach and PEG Charges/Coding Visit Charges Inpatient E&M: 46354 Init Hosp L3
[2023-03-12 13:04] LABS: Hemoglobin A1c 5.5 % (3.8-5.6)
[2023-03-12] MEDS: Acetaminophen 325 MG Tablet 650 MG PO (15:31)
[2023-03-12] MEDS: Potassium Chloride Oral Tablet 20 MEQ 40 MEQ PO (15:31)
[2023-03-12] MEDS: LORazepam 0.5 MG Tablet PO (16:24)
[2023-03-12] MEDS: Atorvastatin Calcium 80 MG Tablet PO (20:30)
[2023-03-13] VITALS (7 sets, daily range): BP systolic 135–163; BP diastolic 68–77; PULSE 82–89; RESP 16–18; TEMP 36.4–37; O2SAT 92–96; BMI 28.9
[2023-03-13] MEDS: MELATONIN 3 MG TABLET PO (00:31)
[2023-03-13 07:27] LABS: Absolute Neutrophil Count 5.3 X10^3/uL (2.0-7.7); Basophil# 0.04 X10^3/uL; Basophil% 0.5 % (0-1); Eosinophil# 0.02 X10^3/uL; Eosinophils% 0.3 % (0-5); Hematocrit 37.7 % (37-47); Lymphocyte % 14.8 % (19-41); Mean Corp Hgb Conc 31.8 g/dL (32-36); Mean Corpuscular Hgb 29.4 pg (27.0-32.0); Mean Corpuscular Volume 92.4 fL (81-99); Mean Platelet Vol. 9.9 fl (6.2-12.0); Monocyte# 0.99 X10^3/uL; Monocyte% 13.3 % (0-10); NRBC Flagged by Analyzer 0 % (0-5); Neutrophil # 5.27 X10^3/uL (2.7-7.7); Neutrophil % 70.7 % (47-70); Platelet Count 146 K/mm3 (150-450); RBC Distribution Width CV 13.5 % (11.6-14.6); RBC Distribution Width SD 45.5 fl (35.1-43.9); Red Blood Count 4.08 M/mm3 (4.2-5.4); White Blood Count 7.5 K/mm3 (4.4-11.0)
[2023-03-13 08:11] LABS: ALB/GLOB Ratio 0.8 RATIO (0.9-2.4); AST(SGOT) 15 U/L (15-37); Alanine Aminotransfer ALT/SGPT 17 U/L (13-56); Albumin, Serum 3.3 g/dL (3.2-5.0); Alkaline Phosphatase 90 U/L (45-117); Anion Gap 7 (5-15); BUN 19 mg/dL (7-18); BUN/Creat Ratio 24.7 RATIO (10-20); Calcium,Total 9.4 mg/dL (8.5-10.1); Chloride 109 mmol/L (98-107); Cholesterol 145 mg/dL (200); Creatinine, Serum 0.77 mg/dL (0.55-1.02); EST Glomerular Filtration Rate 77 mL/min (>60); Est Glom Filt Rate - Afr Amer 93 mL/min (>60); Estimated Creatinine Clearance 41.72 ml/min; Globulin 4.1 g/dL (2.2-4.2); Glucose 111 mg/dL (74-106); High Density Lipoprotein 45 mg/dL; Magnesium 2.1 mg/dL (1.6-2.6); Potassium 3.8 mmol/L (3.5-5.1); Protein, Total 7.4 g/dL (6.4-8.2); Sodium Level 140 mmol/L (136-145); Triglycerides 140 mg/dL; Very Low Density Lipoprotein 28 mg/dL (5-40)
[2023-03-13] MEDS: Aspirin 81 MG TAB.CHEW PO (08:38)
[2023-03-13] MEDS: Clopidogrel Bisulfate 75 MG Tablet PO (08:43)
[2023-03-13] MEDS: Enoxaparin 40 MG/0.4 ML Syringe SC (08:43)
[2023-03-13] MEDS: Ondansetron 4 MG/2 ML Vial IV (09:04)
--- NOTE | 2023-03-13 09:09 | SP.MBSS_ITS ---
Modified Barium Swallow Patient Information Study Date: 03/13/23 Study Time: 09:30 Direct Billable Minutes: 200 Total Minutes procedure & reportin Diagnosis: I63.9 - Cerebral infarction, unspecified Referring Physician: Josephine Womack Reason for Referral: Objectively assess swallow function, risk for aspiration and to determine recommendations for LRD and compensatory strategies to improve safety of swallow. Medical History: Mitzi Agudelo is a 77yo F who presented to [facility] ED on 03/12/23 w/ chief complaint of facial droop, L sided weakness. Stat CT was performed on arrival and showed chronic involutional changes along with tiny lacunar in the insular cortex of the left temporal lobe. CTA of the head and neck demonstrated mild nonstenotic plaque at the origin of the left internal carotid artery that was less than 50%.? EKG showed a left bundle branch block with no ST-T wave changes concerning acute ischemia and normal intervals.? Her chest x-ray was unremarkable. MRI positive for right posterior MCA infarct. ST consulted for CVA work-up and patient failed RN dysphagia screening. Patient showing overt s/s of aspiration during Bedside Swallow Evaluation completed on 03/12/23 w/ further recommendations for MBSS on 03/13/23 to determine least restrictive diet. Current Diet Ordered: NPO, FFWP Dentition: WNL Mental Status: WNL Respiratory Status: Oxygenating on Room Air Penetration-Aspiration Scale Penetration-Aspiration Scale: OBJECTIVE ASSESSMENT OF SWALLOW FUNCTION (QUANTITATIVE ? PER TRIAL): PENETRATION / ASPIRATION SCALE (WATSON): 1 = does not enter airway 2 = enters airway/above vocal folds/ejected 3 = enters airway/above vocal folds/not ejected 4 = enters airway/contacts vocal folds/ejected 5 = enters airway/contacts vocal folds/not ejected 6 = enters airway/below vocal folds/ejected 7 = enters airway/below vocal folds/not ejected despite effort 8 = enters airway/below vocal folds/no effort VIDEOFLOROSCOPIC SCALE SCORE (WATSON): Grade I = aspiration of material that has penetrated into the laryngeal vestibule, intact cough reflex Grade II = aspiration < 10 % of the bolus, intact cough reflex Grade III = aspiration of < 10 % of the bolus, reduced cough reflex or aspiration of > 10 % of the bolus, intact cough reflex Grade IV = aspiration of > 10 % of the bolus, reduced cough reflex Penetration-Aspiration Scale Score Thin Liquid via small single sip from straw: Result: 1= does not enter airway Thin Liquid via small single sip from straw Trial 2: Result: 1= does not enter airway Thin Liquid via small single sip from cup: Result: 1= does not enter airway Larned Thick Liquid via small single sip from cup: Result: 1= does not enter airway Honey Thick Liquid via tsp: Result: 1= does not enter airway Pudding: Result: 1= does not enter airway Thin Liquid via large single sip from straw: Result: 2= enter airway/above vocal folds/ejected Thin Liquid via small single sip from straw Trial 3: Result: 2= enter airway/above vocal folds/ejected Thin Liquid via small single sip from straw Trial 4: Result: 1= does not enter airway Oral Phase Labial Seal: Escape beyond mid-chin Tongue Control During Bolus Hold: Posterior escape of greater than half of bolus Bolus Preparation/Mastication: Minimal chewing/mashing with majority of bolus unchewed Bolus Transport/Lingual Motion: Delayed initiation of tongue motion Oral Residue: Residue collection on oral structures Pharyngeal Phase Initiation of Pharyngeal Swallow: Bolus head in pyriforms Soft Palate Elevation: Trace column of contrast/air between soft palate and pharyngeal wall Laryngeal Elevation: Comp. Superior move thyroid cart w/comp. apprx arytenoid ca rt-epig pet Anterior Hyoid Excursion: Complete anterior movement Epiglottic Movement: Complete inversion Laryngeal Vestibule Closure at Height of Swallow: Complete; no air/contrast in laryngeal vestibule Pharyngeal Stripping Wave: Present - complete Pharyngoesophageal Segment Opening: Complete distension and complete duration; no obstruction of flow Tongue Base Retraction: Narrow column of contrast between tongue base & post. pharyngeal wall Pharyngeal Residue: Collection of residue within or on pharyngeal structures Diagnosis/Impression Diagnosis: R13.12 - Mild to Moderate Oropharyngeal Dysphagia Impression: Oral phase primarily marked by... - mastication insufficiency w/ solid pieces of Laura Doone cookie left unchewed. EXPLOSIVE ORDNANCE MANAGER had to manually remove cookie from oral cavity. - suboptimal lingual control w/ noted reduced lingual lateralization during mastication resulting in oral residue post deglutition and buccal pocketing (L side). - swallow onset delay resulting in premature bolus loss of >1/2 of bolus. - poor oral clearance secondary to reduced intraoral sensitivity and reduced intraoral strength resulting in poor oral clearance and buccal pocketing (L side). - moderate amount of oral residue present post deglutition which was seen spilling into the vallecula contributing to increased pharyngeal residues. - impaired labial seal d/t L facial droop resulting in moderate anterior spillage w/ trials via tsp and cup. Anterior spillage reduced when straw placed on the R side. Pharyngeal phase primarily marked by... - delayed pharyngeal swallow onset timing resulting in suboptimal bolus location upon swallow onset resulting in prandial penetration of thin liquids. Noted initial penetration of thin liquids via straw was significantly large bolus size. When EXPLOSIVE ORDNANCE MANAGER cued for smaller sips, improved airway closure. - poor pharyngeal motility attributed to narrow tongue base resulting in pharyngeal residues in the vallecula and pyriforms. Increased pharyngeal residues w/ thicker viscosities. Residues did somewhat decrease w/ use of double swallow. - no aspiration was observed during the study. Recommendations Diet: Puree Textures (Patient is appropriate to trial advanced PO trials w/ EXPLOSIVE ORDNANCE MANAGER.) and Thin Liquids Compensatory Strategies: Small Bites, Small Sips, Sips by straw only (Place straw on R side to decrease anterior spillage), Slow Rate, Multiple Swallows, Alternate bites/solids and sips/liquids, Sitting upright, Remain sitting upright for 30 minutes after PO intake, Minimize/decrease distractions and Assist with verbal cues to use recommended strategies (check for pocketing on L side after PO intake ) Supervision: Total Feed and 1:1 Close Supervision Recommend Repeat Modified Barium Swallow: TBD Need for Skilled Speech Therapy Services: Yes Comment: Patient requires intensive skilled speech-language intervention targeting continued diet texture management, training and implementation of recommended compensatory strategies, training and implementation of recommended oropharyngeal strengthening exercises to facilitate improved labial control/strength, lingual control/strength, swallow onset timing and pharyngeal motility. Education Completed: 1. Described result of evaluation., 2. Pt understands evaluation & agrees with goals and treatment plan. and 4. Family/caregivers understand evaluation & agree w/ goals & tx plan. Status Active ST Patient: Active Contact Information [facility] Speech Therapy:: Sophia Arroyo M.A. [facility]-EXPLOSIVE ORDNANCE MANAGER Speech-Language Pathologist [facility] [address] [place] [address] [email or web address] [phone]
--- NOTE | 2023-03-13 13:24 | CASEMGMT ---
Discharge Planning A list of acute rehab providers including quality and resource use data and consistent with the patient?s preferred geographic region, medical needs, and insurance network was created in CarePort Guide. This list was provided to the RN JODIE. Charlee Smith, Discharge Planning Asst.
--- NOTE | 2023-03-13 14:15 | PN.HOSP_ITS ---
Reason for Visit Reason for Visit: Left-sided weakness/left facial droop Subjective Subjective Left leg became weaker overnight and left arm is about the same may be mildly weak than yesterday. Patient went down for cookie swallow and has been approved for an oral diet by speech therapy. They are agreeable to rehab at discharge. Most recent NH is 5. Objective Data Objective Data Vital Signs: Vital Signs Temp Pulse Resp BP Pulse Ox O2 Del Method O2 Flow Rate 98.6 F 84 18 162/72 H 95 Room Air 2 03/13/23 08:00 03/13/23 08:00 03/13/23 08:00 03/13/23 08:00 03/13/23 08:00 03/13/23 08:00 03/12/23 10:48 Oxygen Flow Rate (L/min) 2 Oxygen Delivery Method Room Air Weight: 78.8 kg Body Mass Index (BMI) 28.9 Intake & Output: Intake and Output for Last 24 Hours 03/11/23 03/12/23 03/13/23 23:59 23:59 23:59 Intake Total 0 / 50 50 / 50 Output Total 400 / 600 350 / 350 Balance -400 / -550 -300 / -300 Lab / Micro Data 03/13/23 06:43 03/13/23 06:43 Labs: Laboratory Results - last 24 hr 03/13/23 06:43: WBC 7.5, RBC 4.08 L, Hgb 12.0, Hct 37.7, MCV 92.4, MCH 29.4, MCHC 31.8 L, RDW Std Deviation 45.5 H, RDW Coeff of Darcy 13.5, Plt Count 146 L, MPV 9.9, Immature Gran % (Auto) 0.400, Neut % (Auto) 70.7 H, Lymph % (Auto) 14.8 L, [place] % (Auto) 13.3 H, Eos % (Auto) 0.3, Baso % (Auto) 0.5, Absolute Neuts (auto) 5.3, Absolute Lymphs (auto) 1.10, Nucleated RBC % 0, Sodium 140, Potassium 3.8, Chloride 109 H, Carbon Dioxide 24.0, Anion Gap 7, BUN 19 H, Creatinine 0.77, Estim Creat Clear Calc 41.72, Est GFR (MDRD) Af Amer 93, Est GFR (MDRD) Non-Af 77, BUN/Creatinine Ratio 24.7 H, Glucose 111 H, Calcium 9.4, Phosphorus 3.0, Magnesium 2.1, Total Bilirubin 1.10 H, AST 15, ALT 17, Alkaline Phosphatase 90, Total Protein 7.4, Albumin 3.3, Globulin 4.1, Albumin/Globulin Ratio 0.8 L, Triglycerides 140, Cholesterol 145, LDL Cholesterol 72, VLDL Cholesterol 28, HDL Cholesterol 45 Radiography Diagnostic Testing: Radiology Impression Brain MRI 03/12/23 11:59 IMPRESSION: Findings consistent with acute to subacute right posterior MCA infarct measuring approximately 25% by volume within the posterior right andrew radiata and right insular ribbon. No evidence of acute intraparenchymal bleed. Electronically Signed: Albin Pena DO at 17:56 EDT , Physical Exam Const alert, oriented x3, no apparent distress and well nourished Constitutional Narrative: Obese, very pleasant, older, white female, sitting up in bed, appears comfortable and nontoxic, daughter is at bedside General Appearance: cooperative HEENT normocephalic, head/scalp atraumatic, hearing grossly normal bilaterally and moist oral mucous membranes Eyes PERRL, EOMs intact bilaterally and conjunctivae normal Eyes Narrative: No scleral Neck no lymphadenopathy, supple, no JVD and no carotid bruits Neck Narrative: Trachea mid line, no thyroid enlargement Resp normal respiratory effort, no retractions, no use of accessory muscles and clear to auscultation bilaterally Auscultation: Negative for rales, rhonchi or wheezes Cardio regular rate, regular rhythm, S1 normal heart sound, S2 normal heart sound, no murmurs, no rub, no gallops and no clicks GI normal to inspection, nondistended, normoactive bowel sounds, soft to palpation and non-tender Extremity no clubbing, cyanosis or edema Extremity Narrative: Pedal pulses are 2+ Neuro oriented x3, moves all extremities, No no focal motor deficits and no sensory deficits noted Neuro Narrative: Patient with ongoing facial droop, left upper extremity weakness is very minimal however left lower extremity weakness is considerable compared to yesterday, she is able to move all 4 extremities however movement is limited on the left, speech is somewhat garbled today Sensorium / Orientation: awake and alert Psych affect normal Psych Narrative: Very pleasant, interacts appropriately Mood & Affect: anxious Assessment & Plan Assessment/Plan (1) Left carotid artery stenosis: (2) Anemia: (3) Hypokalemia: (4) Left-sided weakness: (5) Facial droop: (6) Fall at home: PLAN: Plan Right MCA stroke -MRI done shows acute right posterior MCA infarct measuring 25% by volume in the posterior right andrew radiata and right insular ribbon with no evidence of bleeding -NIH on admission was 1 but progressed to a 5 and patient was not a candidate for thrombolytics due to her trauma with fall prior to presentation -Echocardiogram shows an EF of 65% with stage I diastolic dysfunction and pulmonary artery systolic pressure of 30 mmHg with a negative bubble study -Continue aspirin 81 mg daily -Continue atorvastatin 80 mg nightly -Plavix 75 mg daily started last evening by me when MRI resulted positive for stroke -Total cholesterol is 145/LDL 72/HDL 45/triglycerides 140 -Hemoglobin A1c is 5.5 -PT/OT following -Speech therapy is following and modified barium swallow done today -Patient was extremely high functioning prior to stroke and I believe she would be best served by acute rehab -She will need event monitor at discharge -[facility] neurology has evaluated the patient Dysphagia -Speech therapy following -Will need ongoing speech therapy -Was placed on a pur?e with thin liquid diet however she is supposed to be a one-to-one supervised feed with medications whole or crushed in applesauce and liquids by straw Hypokalemia -Resolved Thrombocytopenia -Appears to be chronic -Plan continue to monitor Anemia -Hemoglobin is 12 today Fall -Etiology seems to be somewhat unclear -PT/OT following Left carotid artery stenosis -This was mild and at the origin of the left carotid artery -Stenosis is less than 50% -Continue outpatient follow-up -Address modifiable risk factors -Aspirin 81 mg daily Hypertension -We will hold home antihypertensives and allow for permissive hypertension given the above -Restart home antihypertensives tomorrow -As needed's available to address elevated pressures if need be Hyperlipidemia -Continue DVT prophylaxis -Enoxaparin daily CODE STATUS -DNR CCA okay for short-term intubation--> patient would not want trach and PEG Charges/Coding Visit Charges Inpatient E&M: 30809 [facility] Hosp L3
--- NOTE | 2023-03-13 14:15 | CHAPLAIN ---
Type of Pastoral Visit ___ Initial Visit _x__ Follow-up Visit ___ On-call Visit ___ General Patient Visit ___ Spiritual Assessment ___ Family Conference ___ Bereavement ___ Rapid Response ___ Code Blue ___ Other (describe below) Pastoral Care Referral From _x__ Patient ___ Family ___ Nurse ___ Physician ___ Employment Law Attorney ___ Display Decorator ___ Other (describe below) Sacrament/Intervention _x__ Active listening ___ Anointing ___ Jainism ___ Bereavement ___ Communion _x__ Anu exploration ___ _x__ Life review _x__ Prayer ___ Reconciliation ___ Sacrament of Sick _x__ Supportive presence ___ Wedding ___ Other (describe below) Pastoral Comments patient was a stroke alert yesterday; pt is resting in the recliner now with a daughter at her side; pt is welcoming and acknowledges some anxiety yesterday and some spiritual comfort in prayers yesterday while in the machine for testing; pt has anu and knows that many people are praying for her; pt welcomes presence and prayer; pt will be going to a rehab within the hospital setting and is thankful for that
--- NOTE | 2023-03-13 14:28 | CASEMGMT ---
Addendum entered by Sophia Cain 03/13/23 15:38: KARLA FELICIANO provided patient and her daughter with medical alert system pamphlet and information for their review. Patient and daughter state they have not yet decided on a second choice for an acute rehab facility. KARLA FELICIANO to follow-up on this at a later date. Sophia ZHANG, RN, CM Original Note: RN JODIE behavioral health rn JODIE Face to Face with patient for initial transition planning/care coordination assessment. Patient's daughter, Kaleigh Hidalgo, is also at the bedside, per patent's permission. KARLA FELICIANO introduced self and role at [facility]. Patient sitting up in chair at bedside, alert and oriented. Patient willing to participate in assessment and is able to answer all questions appropriately.? Care providers, pharmacy, and demographics verified. Patient wishes to discharge home, but understands that she may need to discharge to an acute care rehab facility for a while first.?A list of Acute Rehab Facility providers including quality and resource use data and consistent with the patient?s preferred geographical region, medical needs, and insurance network were provided from the CarePort Guide. Patient and daughter state their first choice is [facility] Re[facility], and asked that we check back in a little while for their second choice. NASIM, Bella, updated with this information. Patient states she has no further needs or concerns at this time. CM to follow for discharge planning needs that may arise. PCP:Tali Specialists:Marquise (Manufacturing Executive, [facility]) Preferred Pharmacy: [facility] in [place] Insurance:[facility] Prescription Benefit:?Yes Living Will/HPOA:Yes/Yes: DaughterKaleigh, is HCPOA and daughterDenisse, is contingent LNOK:Daughters Kaleigh and Denisse Living Arrangements:Patient lives alone in a 1 story home, FFSU (except for laundry which is in the basement), 4 steps w/railing to enter, and 11 steps w/railing to basement. Prior to this admission, patient was independent in all ADLs and IADLs. Transportation: self and daughters DME: Raised toilet, cane, grab bars, rollator (states someone was borrowing it but that she can get it back from them), pulse ox, and glucometer (states this does not work well). HHC: Denies previous SNF and HHC. Disposition Plan:Patient would like to discharge home but is understanding that she may need to discharge to an acute rehab facility first. RN CM will continue to follow therapy and plans for a safe discharge. Sophia ZHANG, RN, CM
--- NOTE | 2023-03-13 16:38 | CASEMGMT ---
SW was informed by RN JODIE that patient is interested in [facility] Acute Rehab. SW made a referral and they can accept. Patient will need insurance authorization. NASIM will notify patient and family. Bella MOYA
[2023-03-13] MEDS: Atorvastatin Calcium 80 MG Tablet PO (21:42)
[2023-03-14 01:45] VITALS: BP 128/86; PULSE 88; RESP 18; TEMP 36.7; O2SAT 94
[2023-03-14 02:42] VITALS: BMI 28.9
[2023-03-14 05:43] VITALS: BP 152/73; PULSE 82; RESP 18; TEMP 36.3; O2SAT 95
[2023-03-14] MEDS: Acetaminophen 325 MG Tablet 650 MG PO ×2 (07:30→13:42)
[2023-03-14 07:34] VITALS: O2SAT 92
[2023-03-14 09:31] VITALS: BP 147/61; PULSE 75; RESP 18; TEMP 36.6; O2SAT 95
[2023-03-14] MEDS: Enoxaparin 40 MG/0.4 ML Syringe SC (09:37)
[2023-03-14 09:38] VITALS: PULSE 75
[2023-03-14] MEDS: Metoprolol(XL)Succ 100 MG Tablet PO (09:38)
[2023-03-14] MEDS: amLODIPine 5 MG Tablet PO (09:38)
[2023-03-14] MEDS: Aspirin 81 MG TAB.CHEW PO (09:38)
[2023-03-14] MEDS: Clopidogrel Bisulfate 75 MG Tablet PO (09:38)
--- NOTE | 2023-03-14 11:05 | CASEMGMT ---
SW completed a PHQ 9 with patient as she had a Stroke. Patient scored a 0 which indicates no depression. Patient declined any resources for counseling. Bella MOYA
[2023-03-14 13:12] VITALS: BMI 28.9
[2023-03-14 13:30] VITALS: BP 151/64; PULSE 76; RESP 18; TEMP 36.6; O2SAT 94
--- NOTE | 2023-03-14 14:37 | DS.PCM_ITS ---
Providers Date of Admission: 03/12/23 Primary Care Physician: Dr. Matheus Cesar MD Reason For Visit: L FACIAL DROOP/L UE WEAKNESS Diagnosis Discharge Diagnosis (1) Left carotid artery stenosis: Status: Acute Code(s): I65.22 - Occlusion and stenosis of left carotid artery (2) Anemia: Status: Acute Code(s): D64.9 - Anemia, unspecified (3) Hypokalemia: Status: Acute Code(s): E87.6 - Hypokalemia (4) Left-sided weakness: Status: Acute Code(s): R53.1 - Weakness (5) Facial droop: Status: Acute Code(s): R29.810 - Facial weakness (6) Fall at home: Status: Acute Code(s): W19.XXXA - Unspecified fall, initial encounter; Y92.009 - Unspecified place in unspecified non-institutional (private) residence as the place of occurrence of the external cause Plan Right MCA stroke -MRI done shows acute right posterior MCA infarct measuring 25% by volume in the posterior right andrew radiata and right insular ribbon with no evidence of bleeding -NIH on admission was 1 but progressed to a 5 and patient was not a candidate for thrombolytics due to her trauma with fall prior to presentation -Echocardiogram shows an EF of 65% with stage I diastolic dysfunction and pulmonary artery systolic pressure of 30 mmHg with a negative bubble study -Continue aspirin 81 mg daily -Continue atorvastatin 80 mg nightly -Plavix 75 mg daily started last evening by me when MRI resulted positive for stroke -Total cholesterol is 145/LDL 72/HDL 45/triglycerides 140 -Hemoglobin A1c is 5.5 -PT/OT following -Speech therapy is following and modified barium swallow done today -Patient was extremely high functioning prior to stroke and I believe she would be best served by acute rehab -She will need event monitor at discharge -[facility] neurology has evaluated the patient Dysphagia -Speech therapy following -Will need ongoing speech therapy -Was placed on a pur?e with thin liquid diet however she is supposed to be a one-to-one supervised feed with medications whole or crushed in applesauce and liquids by straw Hypokalemia -Resolved Thrombocytopenia -Appears to be chronic -Plan continue to monitor Anemia -Hemoglobin is 12 today Fall -Etiology seems to be somewhat unclear -PT/OT following Left carotid artery stenosis -This was mild and at the origin of the left carotid artery -Stenosis is less than 50% -Continue outpatient follow-up -Address modifiable risk factors -Aspirin 81 mg daily Hypertension -We will hold home antihypertensives and allow for permissive hypertension given the above -Restart home antihypertensives tomorrow -As needed's available to address elevated pressures if need be Hyperlipidemia -Continue DVT prophylaxis -Enoxaparin daily CODE STATUS -DNR CCA okay for short-term intubation--> patient would not want trach and PEG Medications at Discharge Home Medications hydrochlorothiazide 12.5 mg capsule 12.5 mg PO DAILY EDEMA 04/06/15 losartan 100 mg tablet 100 mg PO DAILY BLOOD PRESSURE 04/06/15 metoprolol succinate 100 mg tablet,extended release 24 hr 100 mg PO DAILY BLOOD PRESSURE 04/06/15 amlodipine 5 mg tablet 5 mg PO DAILY blood pressure 03/12/23 aspirin 81 mg chewable tablet 81 mg PO BREAKFAST #0 tabs 03/14/23 atorvastatin 80 mg tablet 80 mg PO QHS #0 tabs 03/14/23 clopidogrel 75 mg tablet 75 mg PO DAILY #0 tabs 03/14/23 sennosides 8.6 mg-docusate sodium 50 mg tablet (Stool Softener-Stimulant Laxative) 2 tab PO BID PRN PRN Constipation #0 tabs 03/14/23 Weight / BMI Weight Weight: 78.8 kg Body Mass Index (BMI) 28.9 ABG / Lab / Microbiology Data 03/13/23 06:43 03/13/23 06:43 Discharge Plan Admission Admit Date/Time: 03/12/23 11:53 Primary Reason for Your Visit: Stroke Attending Provider: Josephine Womack Primary Care Provider: Matheus Cesar Instructions Additional Instructions / Restrictions: 1. Please follow-up with an in network neurologist within the next 4 to 6 weeks Discharge Orders/Prescriptions Prescriptions: New clopidogrel 75 mg Tablet 75 mg PO DAILY Qty: 0 0RF atorvastatin 80 mg Tablet 80 mg PO QHS Qty: 0 0RF sennosides-docusate sodium [Stool Softener-Stimulant Laxat] 8.6-50 mg Tablet 2 tab PO BID PRN PRN (Reason: Constipation) Qty: 0 0RF aspirin 81 mg Tablet,Chewable 81 mg PO BREAKFAST Qty: 0 0RF Continued hydrochlorothiazide 12.5 MG capsule 12.5 mg PO DAILY losartan 100 MG tablet 100 mg PO DAILY metoprolol succinate 100 MG tablet 100 mg PO DAILY amlodipine 5 mg tablet 5 mg PO DAILY Discontinued simvastatin 20 MG tablet 20 mg PO QHS etodolac 500 MG tablet 500 mg PO BID Referrals / Follow Up: Matheus Cesar MD [Primary Care Provider] - Within 1 Week (after discharge from Rehab) NOT,DEFINED [Non-Staff] - Disposition Disposition (needs filled in before D/C Order can be placed): Inpatient Rehab Unit/Facility Charges/Coding Visit Charges Inpatient E&M: 08387 Disch Hosp >30min
--- NOTE | 2023-03-14 14:37 | PCM.DC.SUM ---
Providers Date of Admission: 03/12/23 Date of Discharge: 03/14/23 Primary Care Physician: Dr. Matheus Cesar MD Reason For Visit: L FACIAL DROOP/L UE WEAKNESS Diagnosis Discharge Diagnosis (1) Left carotid artery stenosis: Status: Acute Code(s): I65.22 - Occlusion and stenosis of left carotid artery (2) Anemia: Status: Acute Code(s): D64.9 - Anemia, unspecified (3) Hypokalemia: Status: Acute Code(s): E87.6 - Hypokalemia (4) Left-sided weakness: Status: Acute Code(s): R53.1 - Weakness (5) Facial droop: Status: Acute Code(s): R29.810 - Facial weakness (6) Fall at home: Status: Acute Code(s): W19.XXXA - Unspecified fall, initial encounter; Y92.009 - Unspecified place in unspecified non-institutional (private) residence as the place of occurrence of the external cause Medications at Discharge Home Medications hydrochlorothiazide 12.5 mg capsule 12.5 mg PO DAILY EDEMA 04/06/15 losartan 100 mg tablet 100 mg PO DAILY BLOOD PRESSURE 04/06/15 metoprolol succinate 100 mg tablet,extended release 24 hr 100 mg PO DAILY BLOOD PRESSURE 04/06/15 amlodipine 5 mg tablet 5 mg PO DAILY blood pressure 03/12/23 aspirin 81 mg chewable tablet 81 mg PO BREAKFAST #0 tabs 03/14/23 atorvastatin 80 mg tablet 80 mg PO QHS #0 tabs 03/14/23 clopidogrel 75 mg tablet 75 mg PO DAILY #0 tabs 03/14/23 sennosides 8.6 mg-docusate sodium 50 mg tablet (Stool Softener-Stimulant Laxative) 2 tab PO BID PRN PRN Constipation #0 tabs 03/14/23 Hospital Course Operations None Procedures 2-D Echocardiogram, EKG and - (CT brain/CTA head neck/chest x-ray/MRI brain/MBS) Summary of Care Provided Minutes Spent on Discharge: 38 Hospital Course: Mrs. Agudelo is a 77-year-old white female who presented to the emergency department at [facility] on 03/12/2023 after calling her family because she noted that her breathing sounded differently. Patient stated on Friday night she had diarrhea from about 7 PM to 2 AM and then the evening prior to presentation she had nausea and vomiting through the evening. She took her temperature and it was noted to be 100.1. She went to bed and woke up feeling fine on the morning of admission. She reported that the issues with her breathing started shortly after she had talked to her daughter on FaceTime. Her daughter reported that there was no facial droop at the time she talked to her however upon EMS arrival they noted that she had left facial droop and some weakness of her left arm. Symptoms started within 30 to 60 minutes of arrival however exact time of initiation of symptoms was unclear. Stroke alert was called on presentation. She reported that she got a little bit short of breath and dizzy after she had fed her cats and fell at the bottom of her steps but did not fall down the steps. She did report that she hit her head on concrete but did not lose consciousness and did not feel as if she was hurt from the fall. She crawled to the top of the steps where she could activate Crista to call her daughter and ask for help. At that time EMS was called. A stat CT of her head was performed on arrival and showed chronic involutional changes along with a tiny lacunar infarct in the insular cortex of the left temporal lobe. A CTA of her head neck demonstrated mild nonstenotic plaque at the origin of the left internal carotid artery that was less than 50%. EKG showed left bundle branch block with no ST-T wave changes concerning for acute ischemia. Her initial troponin was unremarkable. Stroke neurologist was contacted in the emergency department for further recommendations. Her NIH was 1 at the time of her presentation for her facial droop. She did exhibit some mild left upper extremity weakness but it was not enough to score her for her NIH per discussion with the emergency department physician. Vital signs on presentation show a temperature of 97.5, heart rate 106 which has since de-escalated to 92, initial blood pressure was 180/62 but repeat is 139/57, initial respiratory rate was 30 but is now 18 and oxygen saturations were 96% on room air. Her CBC shows a mild anemia with a hemoglobin of 11.8 and thrombocytopenia with a platelet count of 122,000. Thrombocytopenia appears to be chronic and relatively stable. Her differential showed a mild monocytosis. Coags are normal. Her chemistry panel was overall unremarkable other than mild hypokalemia with a potassium of 3.4. Serum glucose was 117. Initial troponin was 5. tPA was not recommended due to the trauma she sustained prior to presentation. She was admitted to the PCU where an MRI was performed. MRI demonstrated findings consistent with acute right posterior MCA infarct that measured approximately 25% by volume within the posterior right andrew radiata in the right insular ribbon with no evidence of intraparenchymal bleeding. Echocardiogram demonstrated normal LV function with an EF of 65%, stage I diastolic dysfunction, pulmonary artery systolic pressure of 30 mmHg and a negative bubble study. Neurology was consulted and they recommended continuing statin but increasing dose to 80 mg which she had already done, continuing with aspirin and Plavix for 21 days and then transitioning to aspirin 81 mg daily. We will also obtain an event monitor for 30 days at the time of discharge to rule out any atrial fibrillation. She did not have any arrhythmia on telemetry here. Unfortunately her symptoms evolved and she developed worsening left upper extremity weakness and some left lower extremity weakness. She was seen by physical and Occupational Therapy and they recommended ongoing rehab at the time of discharge. The patient was extremely high functioning and independent prior to admission. We recommended acute rehab and the patient was excepted. Her antihypertensives were held initially but able to be restarted on 03/14/2023. We held them to allow for permissive hypertension in the setting of suspected stroke. Modified barium swallow was performed by speech therapy and they found findings consistent with mild to moderate oropharyngeal dysphagia and recommended a pur?ed diet and thin liquids with compensatory strategies as noted in the full assessment. I have recommended that she follow-up with the stroke neurologist after discharge when she is completed rehab and follow-up with her primary care physician within a week after discharge. Patient was accepted for rehab and pre-CERT was obtained on 03/14/2023. Discharge diagnoses: Acute ischemic right MCA stroke Left-sided weakness Left-sided facial droop Dysphagia-mild to moderate oropharyngeal left artery carotid stenosis-less than 50% Hypokalemia-resolved Thrombocytopenia-chronic Anemia Fall Hypertension Hyperlipidemia Physical Exam Const alert, oriented x3, no apparent distress, no limitations and well nourished Constitutional Narrative: Overweight, very pleasant, older, white female, sitting up in bed, appears comfortable and nontoxic, family at bedside General Appearance: cooperative, comfortable, well kempt and well developed Orientation / Consciousness: awake, oriented to person, oriented to place and oriented to time Exam Limitations: no limitations Nutritional Appearance: overweight HEENT normocephalic, head/scalp atraumatic, hearing grossly normal bilaterally and moist oral mucous membranes HEENT Narrative: Some pooling of secretions in the left side of the oropharynx Eyes PERRL, EOMs intact bilaterally and conjunctivae normal Eyes Narrative: No scleral Neck no lymphadenopathy, supple, no JVD and no carotid bruits Neck Narrative: Trachea mid line, no thyroid enlargement Resp normal respiratory effort, no retractions, no use of accessory muscles and clear to auscultation bilaterally Auscultation: Negative for rales, rhonchi or wheezes Cardio regular rate, regular rhythm, S1 normal heart sound, S2 normal heart sound, no murmurs, no rub, no gallops and no clicks GI normal to inspection, nondistended, normoactive bowel sounds, soft to palpation and non-tender Extremity no clubbing, cyanosis or edema Extremity Narrative: Pedal pulses are 2+ Skin no rashes or lesions noted, no wounds, skin turgor normal and no jaundice Neuro oriented x3, moves all extremities, No no focal motor deficits and no sensory deficits noted Neuro Narrative: Patient with ongoing facial droop, left upper extremity weakness that is improved compared to yesterday and patient cannot open and close her hand, patient able to independently straight leg raise left lower extremity however still weak when compared to admission, speech is intelligible but slightly slurred Sensorium / Orientation: awake and alert Psych affect normal Psych Narrative: Very pleasant, interacts appropriately Mood & Affect: anxious Weight / BMI Weight Weight: 78.8 kg Body Mass Index (BMI) 28.9 ABG / Lab / Microbiology Data 03/13/23 06:43 03/13/23 06:43 D/C Instructions Discharge Diet: Low fat / Low cholesterol Meaningful Use Info Meaningful Use Diagnoses (Choose all that apply): Ischemic CVA CVA Therapy Assessed for PT,OT and/or ST?: Yes Ischemic Stroke Antithrombotic order at d/c?: Yes Dx of Atrial fib/flutter?: No Anticoagulant at discharge?: No Reason anticoagulant not ordered: Treatment not Indicated Statins at discharge?: Yes Primary Dx Acute Ischemic CVA?: Yes IV thrombolytic ordered during stay?: No Reason IV thrombolytic not ordered: Medical Contraindication Discharge Plan Admission Admit Date/Time: 03/12/23 11:53 Primary Reason for Your Visit: Stroke Attending Provider: Josephine Womack Primary Care Provider: Matheus Cesar Instructions Additional Instructions / Restrictions: 1. Please follow-up with an in network neurologist within the next 4 to 6 weeks as per discussion prior to your discharge Discharge Orders/Prescriptions Prescriptions: New clopidogrel 75 mg Tablet 75 mg PO DAILY Qty: 0 0RF atorvastatin 80 mg Tablet 80 mg PO QHS Qty: 0 0RF sennosides-docusate sodium [Stool Softener-Stimulant Laxat] 8.6-50 mg Tablet 2 tab PO BID PRN PRN (Reason: Constipation) Qty: 0 0RF aspirin 81 mg Tablet,Chewable 81 mg PO BREAKFAST Qty: 0 0RF Continued hydrochlorothiazide 12.5 MG capsule 12.5 mg PO DAILY losartan 100 MG tablet 100 mg PO DAILY metoprolol succinate 100 MG tablet 100 mg PO DAILY amlodipine 5 mg tablet 5 mg PO DAILY Discontinued simvastatin 20 MG tablet 20 mg PO QHS etodolac 500 MG tablet 500 mg PO BID Referrals / Follow Up: Matheus Cesar MD [Primary Care Provider] - Within 1 Week (after discharge from Rehab) NOT,DEFINED [Non-Staff] - Disposition Disposition (needs filled in before D/C Order can be placed): Inpatient Rehab Unit/Facility Charges/Coding Visit Charges Inpatient E&M: 88386 Disch Hosp >30min
--- NOTE | 2023-03-14 14:41 | CASEMGMT ---
Patient was approved to go to [facility] Acute Rehab. NASIM notified physician, RN, rn hemodialysis charge, patient, and her daughter Denisse. NASIM also let Denisse know patient will be able to wear clothes in the Rehab Unit. Denisse will put together some clothes and toiletries for patient. Denisse would like notified when patient is actually being moved over to the Rehab Unit. Plan: d/c to [facility] 4th floor Rehab Unit. Bella MOYA
--- NOTE | 2023-03-14 15:15 | NURSING ---
called report to su in inpatient rehab
--- NOTE | 2023-03-14 15:33 | CASEMGMT ---
NASIM called patient's daughter Denisse and left her a voice mail letting her know patient is being moved to the Rehab Unit right now. NASIM explained to Denisse on the message how to go to the Rehab Unit as well as NASIM's return number. Bella Estrada [employer]
== END 2023-03-14 15:53 | DRG 65 ==
LOC: ED 12:35 → PCU 12:38
PROVIDERS: Admitting Provider Internal Medicine; Emergency Provider Emergency Medicine; PCP Family Medicine; Visit Provider Internal Medicine
DX: I63.81 Other cerebral infarction due to occlusion or stenosis of small artery (principal); G81.94 Hemiplegia, unspecified affecting left nondominant side; D69.6 Thrombocytopenia, unspecified; D64.9 Anemia, unspecified; I10 Essential (primary) hypertension; I65.22 Occlusion and stenosis of left carotid artery; E78.5 Hyperlipidemia, unspecified; E87.6 Hypokalemia; R19.7 Diarrhea, unspecified; D72.821 Monocytosis (symptomatic); I44.7 Left bundle-branch block, unspecified; R53.1 Weakness; Z66 Do not resuscitate; R29.810 Facial weakness; N20.0 Calculus of kidney; Z79.82 Long term (current) use of aspirin; R13.10 Dysphagia, unspecified
CPT/HCPCS: 36415; 70450; 70496; 70498; 70551; 71045; 74230; 80048; 80053; 80061; 83036; 83735; 84100; 84484; 85025; 85610; 85730; 92526; 92610; 92611; 93005; 93306; 94668; 94762; 97110; 97112; 97116; 97162; 97166; 97530; 97535; 97802; 99252; 99285; J7030; Q9967; A4216; G0463; J2405

== ENCOUNTER 2023-03-14 15:40 | Inpatient (IN) | payer MEDICARE, SELFPAY ==
--- NOTE | 2023-03-14 16:11 | HP.PCM_ITS ---
HPI - General General Date of Admission: 03/14/23 Date of Service: 03/14/23 Chief Complaint: Ischemic CVA HPI Narrative JENNY LI, is a 77 YO F with a PMH of hypertension, hyperlipidemia, spinal stenosis of multiple areas in the lumbar spine, thrombocytopenia, nephrolithiasis with a right staghorn calculus recently treated with laser lithotripsy and history of multiple basal cell carcinomas who presented to the Ed at [facility] on 03/12/2023 after a fall at home. She had recently been ill with N/V/diarrhea for 2 days prior to the stroke and she had decreased oral intake. She was down on her landing leaning over and when she stood up she was SOB and very lightheaded and fell. She had been intermittently feeling SOB for 2 days. She denies any hx of AF and she also denies any hx of CAD. She struck her head on the floor and has a goose egg on the Left forehead. She was able to crawl up the steps and call her dtr. When her dtr arrived she noticed a L facial droop and some L arm weakness and called 911. She was taken to the [facility] ED. The stat NC CTB showed chronic involutional changes of the brain and a tiny lacunar in the insular cortex of the left temporal lobe. [facility] teleneurology was consulted and they did not recomnend TNK since her NIHSS was only 1. They requested a CTA be done and if positive the ER was to call back. CTA showed no large vessel occlusion or aneurysms but did show a mild nonstenotic plaque at the origin of the left ICA. She was admitted to the hospitalist service and started on started on ASA 81 mg daily. Her statin was changed to 80 mg of Atorvastatin daily. Significant lab in the emergency room included a potassium of 3.4 and a BUN of 20 with a creatinine of 0.86. Hemoglobin was 11.8 and platelets were 122,000. Chest x-ray showed no acute abnormalities. Lipid panel the morning following admission showed triglycerides of 140, total cholesterol of 145, LDL of 72 and an HDL of 45. MRI of the brain showed findings consistent with acute to subacute right posterior MCA infarct within the posterior right andrew radiata and the right insular ribbon. There was no evidence of bleeding. A modified barium swallow showed mild to moderate oropharyngeal dysphagia. Transthoracic echocardiogram showed a normal ejection fraction with stage I diastolic dysfunction and no wall motion abnormalities. Both atria were of normal size and there was no significant valvular heart disease. The bubble study was negative for right to left shunt. Second neurology consult was obtained with [facility] and at that time her NIH stroke scale score was 5. 2 for partial paralysis of the lower face, 1 for drift of the left upper extremity and 1 for drift of the left lower extremity. She also scored a 1 for mild to moderate dysarthria. The neurologist recommended adding Plavix 75 mg to aspirin 81 mg daily for a total of 21 days. In light of the thrombocytopenia Plavix was not added to the drug regimen initally but, it has been added at DC form the hospital. She was seen by PT/OT/ST in the hospital and a recommendation for acute inpt rehab was made. She was transferred to the acute inpt rehab unit at [facility] on 03/14/23 for 3 hours of therapy daily to restore function/independence at or near her level prior to the stroke. She lives by herself and was independent with all activities of daily living prior to the stroke. She drives. [facility] Medical History Basal cell carcinoma History of hypercholesterolemia HTN (hypertension) Spinal stenosis of lumbar region at multiple levels Staghorn kidney stones Thrombocytopenia Home Medications hydrochlorothiazide 12.5 mg capsule 12.5 mg PO DAILY EDEMA 04/06/15 [History Las t Taken 03/11/23] losartan 100 mg tablet 100 mg PO DAILY BLOOD PRESSURE 04/06/15 [History Last Taken 03/11/23] metoprolol succinate 100 mg tablet,extended release 24 hr 100 mg PO DAILY BLOOD PRESSURE 04/06/15 [History Last Taken 03/14/23] amlodipine 5 mg tablet 5 mg PO DAILY blood pressure 03/12/23 [History Last Taken 03/14/23] aspirin 81 mg chewable tablet 81 mg PO BREAKFAST Heart health #0 tabs 03/14/23 [Rx Last Taken 03/14/23] atorvastatin 80 mg tablet 80 mg PO QHS Cholestrol #0 tabs 03/14/23 [Rx Last Taken 03/13/23] clopidogrel 75 mg tablet 75 mg PO DAILY Blood thiner #0 tabs 03/14/23 [Rx Last Taken 03/13/23] sennosides 8.6 mg-docusate sodium 50 mg tablet (Stool Softener-Stimulant Laxative) 2 tab PO DAILY Constipation 03/14/23 [History Last Taken Unknown] Allergy/AdvReac Type Severity Reaction Status Date / Time latex Allergy Unknown Verified 04/06/15 13:59 Sulfa (Sulfonamide Allergy Unknown Verified 04/06/15 13:59 Antibiotics) Family History (Updated 03/14/23 @ 17:[address] Judit Medina DO) Mother CAD (coronary artery disease) Hypertension Father CAD (coronary artery disease) Hypertension Sister Hypertension Kidney disease due to HTN and she was on dialysis Other Hyperlipidemia Surgical History History of skin surgery Social History household members: none housing: house Smoking Status: Never smoker alcohol intake: never substance use type: does not use ROS Constitutional Constitutional: Reports weakness; Denies anorexia, change in weight, chills, fatigue, fever(s) or night sweats Eyes Eyes: Denies blurry vision, change in vision, eye pain or loss of vision ENT HEENT: Reports dysphagia; Denies abnormal hearing, headache(s), hearing loss, nasal congestion or sore throat Cardiovascular Cardiovascular: Reports lightheadedness; Denies chest pain, dyspnea on exertion, edema, orthopnea, palpitations, paroxysmal nocturnal dyspnea or syncope Respiratory/Chest Respiratory/Chest: Reports shortness of breath at rest; Denies cough, dyspnea, shortness of breath with exertion or wheezing Gastrointestinal Gastrointestinal: Denies abdominal pain, constipation, diarrhea, dyspepsia, hematemesis, hematochezia, nausea or vomiting Genitourinary Genitourinary: Reports other Details: she had a purewick catheter on the acute side of the hospital ; Denies dysuria, hematuria, nocturia, urinary frequency, urinary hesitancy, urinary incontinence or urinary urgency Musculoskeletal Musculoskeletal: Reports back pain; Denies joint pain, joint swelling or neck pain Neurologic Neurologic: Reports focal weakness and paresthesias; Denies confusion, disequilibrium, dizziness, headache(s), seizures or tremor(s) Psychiatric Psychiatric: Reports anxiety and other Details: She tells me that she has been feeling anxious in the hospital and she has not been sleeping well at night. ; Denies depression, homicidal ideation or suicidal ideation Endocrine Endocrinology: Denies change in body appearance, polydipsia or polyuria Hematologic/Lymphatic Hematologic/Lymphatic: Denies easy bleeding, easy bruising or lymphadenopathy Allergic/Immunologic Allergic/Immunologic: Denies rhinitis, eczemia or asthma Indicators for Scoring Admitted with or Primary Diagnosis of CVA/Stroke: Yes Hx of CVA/Stroke: Yes Modified Hobbs Score MRS Score at time of Evaluation: 5-Severe disability NIHSS NIHSS 1a. Level of Consciousness: Alert; keenly responsive 1b. LOC Questions: Answers BOTH questions correctly. 1c. LOC Commands: Performs both tasks correctly. 2. Best Gaze: Normal 3. Visual: No visual loss 4. Facial Palsy: Partial paralysis (total or near-total paralysis of lower face) 5a. Left Arm: Drift; arm drifts downward but doesn?t hit the bed 5b. Right Arm: No drift; arm holds 90 (or 45) degrees for full 10 seconds 6a. Left Leg: No drift; leg holds 30-degree position for full 5 seconds 6b. Right Leg: No drift; leg holds 30-degree position for full 5 seconds 7. Limb Ataxia: Absent 8. Sensory: [id number] sensory loss; (Left leg) 9. Best Language: No aphasia; normal 10. Dysarthria: [id number] dysarthria; 11. Extinction and Inattention: Visual, tactile, auditory, spatial, or personal inattention (tactile left leg) Total: 6 Stroke Questions Stroke Team Activated: Yes (Stroke team was activated from the ER at the time of her admission to [facility]. ) Physical Exam Const alert, oriented x3 and no apparent distress General Appearance: cooperative and well developed Orientation / Consciousness: Negative for confused HEENT normocephalic HEENT Narrative: She has a hematoma on the left forehead from hitting her head on the concrete floor when she fell at home due to lightheadedness. Eyes PERRL and EOMs intact bilaterally Neck No nuchal rigidity, no lymphadenopathy, no JVD and no carotid bruits General: trachea midline Resp clear to auscultation bilaterally Effort and Inspection: Negative for tachypneic or labored Cardio regular rate, regular rhythm, S1 normal heart sound, S2 normal heart sound, no murmurs, no rub and no gallops Cardio Narrative: No ectopy GI normal to inspection, nondistended, normoactive bowel sounds, soft to palpation and non-tender Extremity no calf tenderness General Extremity: Negative for edema Skin no wounds, no jaundice, no petechiae and no mottling General Skin Exam: no breakdown Rashes: no rashes Neuro Neuro Narrative: Left facial droop and weakness of the LUE and the LLE. Decreased sensation left side with extinction on the LLE only. No ataxia. PERRLA, EOMI. Dysarthria but no aphasia. + oropharyngeal dysphagia. Psych thought process normal, cooperative and affect normal Psych Narrative: She has been anxious, devika at night since admission to the hospital. Having a hard time sleeping. Appearance: appropriate Mood & Affect: anxious Thought Content: No suicidality, No homicidality and No hallucination(s) Assessment & Plan Assessment/Plan (1) Debility: (2) Ischemic cerebrovascular accident (CVA): PLAN: Cryptogenic (3) Hematoma: (4) Left-sided weakness: (5) Facial droop: (6) Dysarthria: (7) Dysphagia: QUALIFIERS: Dysphagia type: oropharyngeal phase Qualified Code(s): R13.12 - Dysphagia, oropharyngeal phase (8) History of hypercholesterolemia: (9) HTN (hypertension): QUALIFIERS: Hypertension type: primary hypertension Qualified Code(s): I10 - Essential (primary) hypertension (10) Basal cell carcinoma: PLAN: Multiple excisions in the past. (11) Staghorn kidney stones: PLAN: Treated at [facility] for this with laser lithotripsy (12) Left carotid artery stenosis: PLAN: < 50%, mild (13) Ureteral stent present: PLAN: Right PLAN: Plan PLAN PT for gait stability OT for ADL's ST for evaluation Analgesics as needed Bowel protocol Fall precautions Assess for Anxiety/Depression GI prophylaxis-not necessary at this time. Patient has no history of peptic ulcer disease and denies nausea and vomiting at this time. She also denies epigastric pain. DVT prophylaxis with Lovenox 40 mg subcu daily and MARY collins Follow up with Dr. Cesar and neurology following DC from IP Rehab AM lab including CMP, CBC, Mag and Phos ordered. DC HCTZ - ankle edema due to venous insufficiency and is best treated with compression. 30 day event monitor at DC form rehab since the stroke is cryptogenic. Watch PLT's closely on ASA, Plavix and Lovenox. Add trazodone at HS to help with insomnia Etiology of thrombocytopenia? Obtain Dr. Cesar's records. Charges/Coding Visit Charges Inpatient E&M: 50278 Init Hosp L3
[2023-03-14 16:46] VITALS: BP 145/59; PULSE 64; RESP 18; TEMP 36.6; O2SAT 95; BMI 28.2
[2023-03-14 17:03] VITALS: BMI 28.2
--- NOTE | 2023-03-14 17:59 | REHABEVAL_ITS ---
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 Status Changes from Prescreening?: No changes Identified Actual Problem List:: Alteration in Sleep, Alteration in Nutrition, Mobility Impaired, Self Care Deficit, Alteration/ Air Exchange, Fluid Change-Dehydration and Alteration-Leisure Activ. Potential Problem List:: DVT, Bleeding, Infection, UTI, Aspiration, Falls, Skin Integrity and Depression Risk of Complications DVT: LMWH and MARY Hose Bleeding: Monitor Lab Values, Nursing to Teach Precautions for anti-coagulation therapy., Wound, if applicable, to be assessed every shift. and Stroke patients assessed for lethargy or change in status. Infection: Clinical Staff to Monitor for S/S of infection: and S/S of infection include fever, redness, warmth, etc. Urinary Tract Infection: Monitor for frequency, burning, discomfort, or incontinence. and Nursing will obtain urine sample for urinalysis and C&S when ordered. Aspiration: Clinical staff will monitor for coughing, drooling, congestion., Speech will evaluate swallowing and dsyphasia. and Nursing will monitor patient swallowing during meals. Falls: Patient will be evaluated for Fall Precautions and Patient will be placed on Fall Precautions as indicated per protocol. Skin Breakdown: Nursing will assess skin daily using assessment tool. and Nursing will place on Skin Breakdown Precautions as indicated. Pain: Clinical staff will assess patient's pain level per protocol., Medications will be given, if needed, and the pain level reassessed. and Other methods: Massage, distraction, decrease stimulus, etc. used PRN. Plan of Care Patient requires physician specializing in physical medicine and rehab oversight to provide close medical supervision of rehab issues including: Pain Management, Sleep Problems, Bowel and Bladder, Medical and co-morbidity Management, DVT prophylaxis, Rehabilitation Leadership and Coordination of treatment team Patient needs Physical Therapy: For a minimum of 1 hour and At least 5 out of 7 days Patient needs Physical Therapy to improve:: Mobility, Strengthening, Transfers, Stretching, ROM, Endurance, Stairs, Gait and Balance Patient needs Occupational Therapy: For a minimum of 1 hour and At least 5 out of 7 days Patient needs Occupational Therapy to improve ADL's incl.: Eating, Grooming, Bathing, Dressing, Toileting, Toilet transfers, Community Reintegration, Higher functioning activities, Household tasks, Adaptive Equipment, Splinting and Other activities as determined Patient requires speech therapy: For a minimum of 1 hour and At least 5 out of 7 days Patient requires speech therapy for: Swallowing, Cognition, Language Skills and Compensatory Strategies Patient requires 24/7 Rehabilitation Nursing for: Pain Issues, Identifying and preventing risk factors, Monitoring and reporting current medical conditions, Assisting with ambulation, transfer, and all ADL's, Teaching patients about disease process and medications, Family teaching, Providing safe environment, Bowel and Bladder Issues, Skin integrity and Medication Management Patient needs Sole Molding Machine Operator/ Case Management for: Discharge Planning, Arranging Home Equipment or Services and Family Interventions Patient needs Dietary and Nutrition Services for: Adequate Nutrition, Nutritional Supplements and Nutritional Education Goals Patient will remain: free from falls and or injury at time of discharge. Patient will perform bed mobility at: MOD I level of assist. Patient will complete transfers from bed to chair at: MOD I level of assist. Patient will ambulate: - (150 feet with front wheel walker at mod I) Patient will complete upper body dressing at: MOD I level of assist. (Supervision) Patient will complete lower body dressing at: MOD I level of assist. (Minimal assistance) Patient will complete toileting at: MOD I level of assist. Patient will perform bathing at: Standby Assist. Patient will complete grooming at: MOD I level of assist. Patient will complete home management skills at: MOD I level of assist. Patient will achieve: - (1 curb step and 4 steps with bilateral handrails at mod I) Patient will have pain level of: of 3 or less Patient's skin will: remain intact Patient will receive: adequate nutrition. Discharge Planning Pt Prognosis for Sig. Practical Improv. w/in Reasonable Time: Good Estimated Length of stay (days): 28 Anticipated D/C Destination: TBD Was Preadmission Assessment Accurate?: Yes
[2023-03-14 21:12] VITALS: O2SAT 94
[2023-03-14 21:18] VITALS: BP 138/60; PULSE 62; RESP 18; TEMP 36.8; O2SAT 94
[2023-03-14 21:20] VITALS: PULSE 62; RESP 16; O2SAT 94
[2023-03-14 21:21] LABS: Mucous, Urine 0 SEEN /hpf (<or=2+); Squamous Epithelial Cells - UA 0 SEEN /hpf (5-10)
[2023-03-14 21:22] LABS: Color, Urine Yellow (Yellow); Glucose, Dipstick Normal (Normal); Ketone-Dipstick Negative (Negative); Leukocyte Esterase-Dipstick 500 /ul (Negative); Nitrite-Dipstick Positive (Negative); Occult Blood-Urine 150 /ul (Negative); Protein-Dipstick 100 mg/dl (Negative); Urine Bilirubin Dipstick Negative (Negative); Urine Clarity Sl. Cloudy (Clear); Urine Urobilinogen Normal (Normal)
[2023-03-14 21:28] LABS: Bacteria 2+ /hpf (None Seen); Red Blood Cells-Urine 0-5 SEEN /hpf (0-5); White Blood Cells 50-100 SEEN /hpf (0-5)
[2023-03-14 21:48] VITALS: BP 138/70; PULSE 62; RESP 18; TEMP 36.8; O2SAT 94
[2023-03-14] MEDS: traZODone 50 MG Tablet PO (21:58)
[2023-03-14] MEDS: Atorvastatin Calcium 80 MG Tablet PO (21:58)
[2023-03-15] MEDS: Enoxaparin 40 MG/0.4 ML Syringe SC (08:25)
[2023-03-15] MEDS: Losartan Potassium 100 MG Tablet PO (08:25)
[2023-03-15 08:26] VITALS: BP 135/66; PULSE 64; RESP 16; TEMP 36.6; O2SAT 93
[2023-03-15] MEDS: amLODIPine 5 MG Tablet PO (08:26)
[2023-03-15] MEDS: Aspirin 81 MG TAB.CHEW PO (08:26)
[2023-03-15] MEDS: Clopidogrel Bisulfate 75 MG Tablet PO (08:26)
[2023-03-15] MEDS: Senna/Docusate Sodium 1 Tablet 2 TABLET PO (08:26)
[2023-03-15 08:29] VITALS: PULSE 64
[2023-03-15] MEDS: Metoprolol(XL)Succ 100 MG Tablet PO (08:29)
[2023-03-15 09:01] LABS: Hematocrit 36.9 % (37-47); Hemoglobin 11.8 g/dL (12.0-15.0); Mean Corpuscular Hgb 29.7 pg (27.0-32.0); Mean Corpuscular Volume 92.9 fL (81-99); Mean Platelet Vol. 9.7 fl (6.2-12.0); Platelet Count 179 K/mm3 (150-450); RBC Distribution Width CV 12.9 % (11.6-14.6); RBC Distribution Width SD 44.2 fl (35.1-43.9); Red Blood Count 3.97 M/mm3 (4.2-5.4); White Blood Count 6.4 K/mm3 (4.4-11.0)
[2023-03-15 09:16] LABS: ALB/GLOB Ratio 0.7 RATIO (0.9-2.4); AST(SGOT) 19 U/L (15-37); Alanine Aminotransfer ALT/SGPT 17 U/L (13-56); Alkaline Phosphatase 82 U/L (45-117); Anion Gap 7 (5-15); BUN 24 mg/dL (7-18); BUN/Creat Ratio 25.6 RATIO (10-20); Calcium,Total 9.1 mg/dL (8.5-10.1); Chloride 106 mmol/L (98-107); Creatinine, Serum 0.94 mg/dL (0.55-1.02); EST Glomerular Filtration Rate 61 mL/min (>60); Est Glom Filt Rate - Afr Amer 74 mL/min (>60); Estimated Creatinine Clearance 42.59 ml/min; Globulin 4.2 g/dL (2.2-4.2); Glucose 143 mg/dL (74-106); Magnesium 2.1 mg/dL (1.6-2.6); Phosphorus 3.6 mg/dL (2.5-4.9); Potassium 3.6 mmol/L (3.5-5.1); Protein, Total 7.2 g/dL (6.4-8.2); Sodium Level 138 mmol/L (136-145)
[2023-03-15] MEDS: Potassium Chloride Oral Tablet 20 MEQ 40 MEQ PO (10:22)
[2023-03-15] MEDS: 0.9% Saline Lock 10 ML Syringe IV (10:23)
[2023-03-15] MEDS: 0.9% Normal Saline (1000mL) 1,000 ML 75 ML IV ×2 (10:23→21:49)
[2023-03-15] MEDS: Ceftriaxone 1 GM/50 ML BAG IV (11:43)
[2023-03-15 16:35] VITALS: O2SAT 95
[2023-03-15] MEDS: Ensure Plus High Protein 120 ML LIQUID PO (16:47)
[2023-03-15 19:31] VITALS: BP 133/67; PULSE 57; RESP 17; TEMP 36.7; O2SAT 97
[2023-03-15] MEDS: Atorvastatin Calcium 80 MG Tablet PO (21:19)
[2023-03-15] MEDS: traZODone 50 MG Tablet PO (21:19)
[2023-03-16 07:11] VITALS: O2SAT 95
[2023-03-16 08:00] VITALS: BP 135/57; PULSE 58; RESP 16; TEMP 36.7; O2SAT 95
[2023-03-16 08:14] VITALS: PULSE 70
[2023-03-16] MEDS: Senna/Docusate Sodium 1 Tablet 2 TABLET PO (08:14)
[2023-03-16] MEDS: Metoprolol(XL)Succ 100 MG Tablet PO (08:14)
[2023-03-16] MEDS: Ensure Plus High Protein 120 ML LIQUID PO ×2 (08:14→16:46)
[2023-03-16] MEDS: Aspirin 81 MG TAB.CHEW PO (08:15)
[2023-03-16] MEDS: Enoxaparin 40 MG/0.4 ML Syringe SC (08:15)
[2023-03-16] MEDS: Losartan Potassium 100 MG Tablet PO (08:15)
[2023-03-16] MEDS: Cefadroxil 500 MG CAPSULE 1000 MG PO ×2 (08:15→21:11)
[2023-03-16] MEDS: amLODIPine 5 MG Tablet PO (08:15)
[2023-03-16] MEDS: Clopidogrel Bisulfate 75 MG Tablet PO (08:15)
[2023-03-16] MEDS: 0.9% Normal Saline (1000mL) 1,000 ML 75 ML IV (11:47)
[2023-03-16] MEDS: Magnesium Hydroxide 30 ML UDC PO (15:35)
[2023-03-16 20:05] VITALS: BP 103/55; PULSE 59; RESP 15; TEMP 36.6; O2SAT 98
[2023-03-16] MEDS: traZODone 50 MG Tablet PO (21:12)
[2023-03-16] MEDS: Atorvastatin Calcium 80 MG Tablet PO (21:12)
[2023-03-17] MEDS: 0.9% Normal Saline (1000mL) 1,000 ML 75 ML IV (01:35)
[2023-03-17 05:47] VITALS: BMI 29.2
[2023-03-17 07:05] LABS: Anion Gap 4 (5-15); BUN 17 mg/dL (7-18); BUN/Creat Ratio 26.3 RATIO (10-20); Calcium,Total 8.5 mg/dL (8.5-10.1); Chloride 114 mmol/L (98-107); Creatinine, Serum 0.65 mg/dL (0.55-1.02); EST Glomerular Filtration Rate 94 mL/min (>60); Est Glom Filt Rate - Afr Amer 114 mL/min (>60); Estimated Creatinine Clearance 40.04 ml/min; Glucose 106 mg/dL (74-106); Potassium 3.9 mmol/L (3.5-5.1); Sodium Level 143 mmol/L (136-145)
[2023-03-17] MEDS: Cefadroxil 500 MG CAPSULE 1000 MG PO ×2 (07:34→21:53)
[2023-03-17] MEDS: Senna/Docusate Sodium 1 Tablet 2 TABLET PO (07:34)
[2023-03-17 07:35] VITALS: PULSE 60
[2023-03-17] MEDS: Losartan Potassium 100 MG Tablet PO (07:35)
[2023-03-17] MEDS: Aspirin 81 MG TAB.CHEW PO (07:35)
[2023-03-17] MEDS: amLODIPine 5 MG Tablet PO (07:35)
[2023-03-17] MEDS: Metoprolol(XL)Succ 100 MG Tablet PO (07:35)
[2023-03-17] MEDS: Enoxaparin 40 MG/0.4 ML Syringe SC (07:35)
[2023-03-17] MEDS: Clopidogrel Bisulfate 75 MG Tablet PO (07:35)
[2023-03-17] MEDS: Ensure Plus High Protein 120 ML LIQUID PO (07:36)
[2023-03-17 07:49] VITALS: BP 132/63; PULSE 60; RESP 16; TEMP 36.5; O2SAT 96
--- NOTE | 2023-03-17 10:59 | PCM.PROGNOTE ---
Subjective Subjective Day #4/10 of antibiotics for E. coli UTI, currently on Cefadroxil Afebrile VSS Maintaining appropriate oxygen saturation on RA Oral intake is good Discussed with nursing - Nursing noted that she snores and also has 6-10 second apneic periods. Reviewed the PT/OT/ST notes Medication list reviewed. All lab from the weekend was reviewed again.......reviewed with nursing on Friday. All lab from today was personally reviewed as well. Sodium is 143 and the potassium is 3.9 today. BUN is down to 17 from 24 and the creatinine is 0.65, down from 0.94. Mitzi denies lightheadedness, vertigo, CP, SOB at rest, SOB with exertion, cough, nausea, vomiting, abd pain, diarrhea, constipation, dysuria, calf pain and ankle swelling. She sleeps well for a few hours and then awakens at 2:30 AM and can not go back to sleep for a few hours. No hangover with the 50 mg of Trazodone. Objective Data Objective Data Vital Signs: Vital Signs Temp Pulse Resp BP Pulse Ox O2 Del Method 97.7 F L 60 16 132/63 H 96 Room Air 03/17/23 07:49 03/17/23 07:49 03/17/23 07:49 03/17/23 07:49 03/17/23 07:49 03/17/23 07:49 Oxygen Delivery Method Room Air Weight: 175 lb 14.862 oz Body Mass Index (BMI) 29.2 Intake & Output: Intake and Output for Last 24 Hours 03/15/23 03/16/23 03/17/23 23:59 23:59 23:59 Intake Total 2047.5 / 2047.5 2230 / 2470 1390 / 1390 Output Total 1200 / 1200 1400 / 1400 500 / 500 Balance 847.5 / 847.5 830 / 1070 890 / 890 Medical Nutrition Assessment Dietitian: Malnutrition Criteria Met Start: 03/15/23 13:23 Freq: Status: Active Protocol: Document 03/15/23 13:23 YAZAN (Rec: 03/15/23 13:23 YAZAN Desktop) Nutrition Malnutrition Evidence of Malnutrition Exists Yes Malnutrition (severe): Acute Illness/Injury Evidenced By Suboptimal Energy Intake ( Severe),Weight Loss (Severe) Clinical Problem Acute Disease or Injury Related Malnutrition Etiology related to issues w/ dysphagia and inadequate energy intake Signs/Symptoms as evidenced by 8.6% unintended wt loss and po intake meeting <50% of est nutritional needs x ~ 1 month Status Active Problem Recommendation Dietitian Recommendations/Changes Will continue liberal regular diet - consistency per JUNIOR SYSTEMS ANALYST - with ensure pudding w/ lunch, magic cup w/ dinner Continue ensure plus high protein 3x/day w/ medpass Continue to follow and monitor for changes in pt nutritional status and make additional rec as indicated Lab / Micro Data 03/15/23 08:35 03/17/23 05:35 Labs: Laboratory Results - last 24 hr 03/17/23 05:35: Sodium 143, Potassium 3.9, Chloride 114 H, Carbon Dioxide 25.0, Anion Gap 4 L, BUN 17, Creatinine 0.65, Estim Creat Clear Calc 40.04, Est GFR (MDRD) Af Amer 114, Est GFR (MDRD) Non-Af 94, BUN/Creatinine Ratio 26.3 H, Glucose 106, Calcium 8.5 Micro: Microbiology 03/14/23 21:10 Urine, Catheterized Urine Culture - Final Escherichia coli Physical Exam Const alert, oriented x3 and no apparent distress General Appearance: cooperative Orientation / Consciousness: Negative for confused HEENT moist oral mucous membranes Resp normal respiratory effort, normal air movement and clear to auscultation bilaterally Effort and Inspection: Negative for tachypneic Cardio regular rhythm, no murmurs, no rub and no gallops Rate: tachycardic GI normal to inspection, nondistended, normoactive bowel sounds, soft to palpation and non-tender Extremity no calf tenderness General Extremity: Negative for edema Skin General Skin Exam: Negative for no breakdown Rashes: No no rashes Psych thought process normal, cooperative and affect normal Assessment & Plan Assessment/Plan (1) Debility: (2) Ischemic cerebrovascular accident (CVA): (3) Hematoma: (4) Left-sided weakness: (5) Facial droop: (6) Dysarthria: (7) Dysphagia: QUALIFIERS: Dysphagia type: oropharyngeal phase Qualified Code(s): R13.12 - Dysphagia, oropharyngeal phase (8) History of hypercholesterolemia: (9) HTN (hypertension): QUALIFIERS: Hypertension type: primary hypertension Qualified Code(s): I10 - Essential (primary) hypertension (10) Basal cell carcinoma: (11) Staghorn kidney stones: (12) Left carotid artery stenosis: (13) Ureteral stent present: (14) UTI (urinary tract infection), bacterial: PLAN: Due to E. Coli PLAN: Plan 1. Continue therapy 2. Discontinue IV fluids 3. Overnight trending pulse ox 4. Continue antibiotics for E. coli urinary tract infection for 10 days since she recently had laser lithotripsy of a staghorn calculus and still has a 1 cm stone and a stent in the R ureter. 5. Increase the Trazodone at HS to 100 mg Charges/Coding Visit Charges Inpatient E&M: 08540 Subs Hosp L2
--- NOTE | 2023-03-17 16:34 | NURSING ---
Faxed medical record request to Dr Cesar's office.
[2023-03-17 19:53] VITALS: BP 125/65; PULSE 62; RESP 16; TEMP 36.8; O2SAT 96
[2023-03-17] MEDS: traZODone 100 MG Tablet PO (21:53)
[2023-03-17] MEDS: Atorvastatin Calcium 80 MG Tablet PO (21:53)
[2023-03-17 22:05] VITALS: PULSE 55; O2SAT 98
[2023-03-18 02:11] VITALS: BMI 29.2
--- NOTE | 2023-03-18 03:19 | NURSING ---
Reviewed and agree with Bola DUKES, documentation and assessment charting.
[2023-03-18 06:27] VITALS: O2SAT 98
[2023-03-18] MEDS: Aspirin 81 MG TAB.CHEW PO (09:39)
[2023-03-18] MEDS: amLODIPine 5 MG Tablet PO (09:40)
[2023-03-18] MEDS: Losartan Potassium 100 MG Tablet PO (09:40)
[2023-03-18] MEDS: Enoxaparin 40 MG/0.4 ML Syringe SC (09:40)
[2023-03-18] MEDS: Cefadroxil 500 MG CAPSULE 1000 MG PO ×2 (09:40→20:22)
[2023-03-18 09:41] VITALS: BP 138/51; PULSE 60
[2023-03-18] MEDS: Metoprolol(XL)Succ 100 MG Tablet PO (09:41)
[2023-03-18] MEDS: Clopidogrel Bisulfate 75 MG Tablet PO (09:41)
[2023-03-18] MEDS: Ensure Plus High Protein 120 ML LIQUID PO ×3 (09:53→17:42)
[2023-03-18 10:00] VITALS: BP 138/54; PULSE 60; RESP 18; TEMP 36.4; O2SAT 96
--- NOTE | 2023-03-18 11:42 | PCM.PROGNOTE ---
Subjective Subjective Day #4/10 antibiotics for complicated UTI. Afebrile VSS Maintaining appropriate oxygen saturation on RA Oral intake is good for nutrition and fluids. Discussed with nursing - no problems that need addressed. Had significant bradycardia on the overnight trending pulse ox but, only desaturated once to 89% for 8 sec. The HR was less than 59 > 67% 0f the time and less than 50 32% of the monitoring period. She is taking Metoprolol XL 100 mg daily. Reviewed the PT/OT/ST notes Medication list reviewed. She is sleeping better with the increase in the Trazodone. Objective Data Objective Data Vital Signs: Vital Signs Temp Pulse Resp BP Pulse Ox O2 Del Method FiO2 97.6 F L 60 18 138/54 H 96 Room Air 21 03/18/23 10:00 03/18/23 10:00 03/18/23 10:00 03/18/23 10:00 03/18/23 10:00 03/18/23 10:00 03/17/23 22:05 Oxygen Delivery Method Room Air Weight: 175 lb 14.862 oz Body Mass Index (BMI) 29.2 Intake & Output: Intake and Output for Last 24 Hours 03/16/23 03/17/23 03/18/23 23:59 23:59 23:59 Intake Total 2230 / 2470 2978.75 / 2978.75 Output Total 1400 / 1400 500 / 500 Balance 830 / 1070 2478.75 / 2478.75 Medical Nutrition Assessment Dietitian: Malnutrition Criteria Met Start: 03/15/23 13:23 Freq: Status: Active Protocol: Document 03/15/23 13:23 SLA (Rec: 03/15/23 13:23 SLA Desktop) Nutrition Malnutrition Evidence of Malnutrition Exists Yes Malnutrition (severe): Acute Illness/Injury Evidenced By Suboptimal Energy Intake ( Severe),Weight Loss (Severe) Clinical Problem Acute Disease or Injury Related Malnutrition Etiology related to issues w/ dysphagia and inadequate energy intake Signs/Symptoms as evidenced by 8.6% unintended wt loss and po intake meeting <50% of est nutritional needs x ~ 1 month Status Active Problem Recommendation Dietitian Recommendations/Changes Will continue liberal regular diet - consistency per ROUTE DRIVER COIN MACHINES - with ensure pudding w/ lunch, magic cup w/ dinner Continue ensure plus high protein 3x/day w/ medpass Continue to follow and monitor for changes in pt nutritional status and make additional rec as indicated Lab / Micro Data 03/15/23 08:35 03/17/23 05:35 Micro: Microbiology 03/14/23 21:10 Urine, Catheterized Urine Culture - Final Escherichia coli Physical Exam Const alert, oriented x3 and no apparent distress General Appearance: cooperative HEENT Mouth: dry mucous membranes Resp normal respiratory effort, no use of accessory muscles and clear to auscultation bilaterally Effort and Inspection: Negative for tachypneic or labored Cardio regular rate, regular rhythm and no gallops GI normal to inspection, nondistended, normoactive bowel sounds, non-tender and non-distended GI Narrative: no guarding with palpation Extremity Negative for no calf tenderness General Extremity: Negative for edema Skin General Skin Exam: no breakdown Rashes: no rashes Psych affect normal Assessment & Plan Assessment/Plan (1) Debility: (2) Ischemic cerebrovascular accident (CVA): (3) Hematoma: (4) Left-sided weakness: (5) Facial droop: (6) Dysarthria: (7) Dysphagia: QUALIFIERS: Dysphagia type: oropharyngeal phase Qualified Code(s): R13.12 - Dysphagia, oropharyngeal phase (8) History of hypercholesterolemia: (9) HTN (hypertension): QUALIFIERS: Hypertension type: primary hypertension Qualified Code(s): I10 - Essential (primary) hypertension (10) Basal cell carcinoma: (11) Staghorn kidney stones: (12) Left carotid artery stenosis: (13) Ureteral stent present: (14) UTI (urinary tract infection), bacterial: (15) Essential tremor: (16) Bradycardia: PLAN: Plan 1. Continue therapy 2. BP not at goal........the goal is < 130/80. Diastolics are good but, systolic is elevated. It is only mildly elevated.......may improve with a few good nights of sleep.......will continue to monitor. 3. She slept better with the increase in trazodone to 100 mg p.o. nightly last night. No hangover effect this morning. Charges/Coding Visit Charges Inpatient E&M: 81777 Subs Hosp L2
[2023-03-18] MEDS: Menthol/Lanolin/Calamine/Znox 113 GM Tube 1 APPLIC TOPICAL ×2 (12:24→20:23)
[2023-03-18 13:17] VITALS: BMI 29.2
[2023-03-18] MEDS: Miconazole Nitrate 43 GM Bottle 1 APPLIC TOPICAL ×2 (17:43→20:22)
[2023-03-18 20:00] VITALS: BP 137/57; PULSE 63; RESP 17; TEMP 37.1; O2SAT 96; BMI 29.2
[2023-03-18] MEDS: Atorvastatin Calcium 80 MG Tablet PO (20:22)
[2023-03-18] MEDS: traZODone 100 MG Tablet PO (21:45)
--- NOTE | 2023-03-19 02:16 | NURSING ---
Reviewed and agree with Deng DUKES, documentation and assessment charting.
[2023-03-19 07:56] VITALS: BP 128/64; PULSE 61; RESP 16; TEMP 36.3; O2SAT 97
[2023-03-19] MEDS: Menthol/Lanolin/Calamine/Znox 113 GM Tube 1 APPLIC TOPICAL ×2 (09:08→21:09)
[2023-03-19 09:09] VITALS: BP 128/64; PULSE 61
[2023-03-19] MEDS: Clopidogrel Bisulfate 75 MG Tablet PO (09:09)
[2023-03-19] MEDS: Losartan Potassium 100 MG Tablet PO (09:09)
[2023-03-19] MEDS: amLODIPine 5 MG Tablet PO (09:09)
[2023-03-19] MEDS: Metoprolol(XL)Succ 100 MG Tablet PO (09:09)
[2023-03-19] MEDS: Miconazole Nitrate 43 GM Bottle 1 APPLIC TOPICAL ×2 (09:09→21:09)
[2023-03-19] MEDS: Aspirin 81 MG TAB.CHEW PO (09:09)
[2023-03-19] MEDS: Cefadroxil 500 MG CAPSULE 1000 MG PO ×2 (09:09→21:09)
[2023-03-19] MEDS: Enoxaparin 40 MG/0.4 ML Syringe SC (09:10)
[2023-03-19] MEDS: Ensure Plus High Protein 120 ML LIQUID PO (09:13)
[2023-03-19 10:00] VITALS: PULSE 68; RESP 18; O2SAT 96
[2023-03-19 19:35] VITALS: BP 134/47; PULSE 53; RESP 16; TEMP 36.1; O2SAT 95
[2023-03-19] MEDS: Atorvastatin Calcium 80 MG Tablet PO (21:08)
[2023-03-19] MEDS: traZODone 100 MG Tablet PO (21:08)
[2023-03-19 23:18] VITALS: BMI 29.2
[2023-03-20 07:14] VITALS: BP 135/50; PULSE 53; RESP 16; TEMP 36.5; O2SAT 93
[2023-03-20 08:50] VITALS: PULSE 57; O2SAT 96
[2023-03-20] MEDS: Aspirin 81 MG TAB.CHEW PO (09:33)
[2023-03-20] MEDS: Losartan Potassium 100 MG Tablet PO (09:34)
[2023-03-20] MEDS: Cefadroxil 500 MG CAPSULE 1000 MG PO ×2 (09:34→21:59)
[2023-03-20] MEDS: amLODIPine 5 MG Tablet PO (09:34)
[2023-03-20] MEDS: Clopidogrel Bisulfate 75 MG Tablet PO (09:35)
[2023-03-20] MEDS: Menthol/Lanolin/Calamine/Znox 113 GM Tube 1 APPLIC TOPICAL ×2 (09:36→22:01)
[2023-03-20] MEDS: Miconazole Nitrate 43 GM Bottle 1 APPLIC TOPICAL ×2 (09:37→21:59)
[2023-03-20] MEDS: Enoxaparin 40 MG/0.4 ML Syringe SC (09:38)
[2023-03-20] MEDS: Senna/Docusate Sodium 1 Tablet 2 TABLET PO (09:43)
[2023-03-20 09:45] VITALS: BP 110/48; PULSE 55
[2023-03-20] MEDS: Metoprolol(XL)Succ 100 MG Tablet PO (09:45)
[2023-03-20 09:49] VITALS: BP 110/48; PULSE 55
--- NOTE | 2023-03-20 12:41 | CASEMGMT ---
Social Work IDT met with patient and dtrKaleigh, for Team meeting. Discussed patient's progress in PT/OT/ST/SN. Educated to [facility] with NRD 03/20 and continued stay is not guaranteed with each review. Pt lives home alone, but pt is making good progress. Educated to HHC vs OP therapy and DME options at DC. SW will continue to follow for DC planning. Will ReTeam weekly. Aga Bucio, FIELDWORK COORDINATOR DENSITY CONTROL PUNCHER
--- NOTE | 2023-03-20 15:21 | PCM.PROGNOTE ---
Subjective Subjective Juan Daniel was seen on team rounds today. Her daughter Kaleigh was present in the room. Afebrile VSS Maintaining appropriate oxygen saturation on RA Oral intake is good Discussed with nursing - no problems that need addressed Reviewed the PT/OT/ST notes - Making good progress. Medication list reviewed. Juan Daniel denies lightheadedness, chest pain, shortness of breath, cough, nausea/vomiting/abdominal pain, dysuria, calf pain. Has slept well the past 2 nights. Objective Data Objective Data Vital Signs: Vital Signs Temp Pulse Resp BP Pulse Ox O2 Del Method FiO2 97.7 F L 55 L 16 110/48 L 96 Room Air 03/20/23 07:14 03/20/23 09:49 03/20/23 07:14 03/20/23 09:49 03/20/23 08:50 03/20/23 08:50 03/17/23 22:05 Oxygen Delivery Method Room Air Weight: 175 lb 14.862 oz Body Mass Index (BMI) 29.2 Intake & Output: Intake and Output for Last 24 Hours 03/18/23 03/19/23 03/20/23 23:59 23:59 23:59 Intake Total 1020 / 1020 860 / 860 120 / 120 Balance 1020 / 1020 860 / 860 120 / 120 Medical Nutrition Assessment Dietitian: Malnutrition Criteria Met Start: 03/15/23 13:23 Freq: Status: Active Protocol: Document 03/15/23 13:23 SLA (Rec: 03/15/23 13:23 SLA Desktop) Nutrition Malnutrition Evidence of Malnutrition Exists Yes Malnutrition (severe): Acute Illness/Injury Evidenced By Suboptimal Energy Intake ( Severe),Weight Loss (Severe) Clinical Problem Acute Disease or Injury Related Malnutrition Etiology related to issues w/ dysphagia and inadequate energy intake Signs/Symptoms as evidenced by 8.6% unintended wt loss and po intake meeting <50% of est nutritional needs x ~ 1 month Status Active Problem Recommendation Dietitian Recommendations/Changes Will continue liberal regular diet - consistency per MACHINE ADJUSTER LEADER CASE TRIM - with ensure pudding w/ lunch, magic cup w/ dinner Continue ensure plus high protein 3x/day w/ medpass Continue to follow and monitor for changes in pt nutritional status and make additional rec as indicated Lab / Micro Data 03/15/23 08:35 03/17/23 05:35 Micro: Microbiology 03/14/23 21:10 Urine, Catheterized Urine Culture - Final Escherichia coli Physical Exam Const alert, oriented x3 and no apparent distress General Appearance: cooperative Orientation / Consciousness: Negative for confused Resp normal respiratory effort, normal air movement and clear to auscultation bilaterally Effort and Inspection: Negative for tachypneic or labored Cardio regular rate, regular rhythm, no rub and no gallops Cardio Narrative: MM at the apex is unchanged. GI normal to inspection, nondistended, normoactive bowel sounds, soft to palpation and non-tender Extremity no calf tenderness Skin General Skin Exam: no breakdown Rashes: no rashes Neuro Neuro Narrative: Less facial droop. Speech is less slurred. Psych affect normal Assessment & Plan Assessment/Plan (1) Debility: (2) Ischemic cerebrovascular accident (CVA): (3) Hematoma: (4) Left-sided weakness: (5) Facial droop: (6) Dysarthria: (7) Dysphagia: QUALIFIERS: Dysphagia type: oropharyngeal phase Qualified Code(s): R13.12 - Dysphagia, oropharyngeal phase (8) History of hypercholesterolemia: (9) HTN (hypertension): QUALIFIERS: Hypertension type: primary hypertension Qualified Code(s): I10 - Essential (primary) hypertension (10) Basal cell carcinoma: (11) Staghorn kidney stones: (12) Left carotid artery stenosis: (13) Ureteral stent present: (14) UTI (urinary tract infection), bacterial: PLAN: Due to E. Coli (15) Essential tremor: (16) Bradycardia: PLAN: Plan 1. Continue therapy 2. Decrease metoprolol XL to 50 mg daily starting in the AM 3. May need to do another overnight trending pulse ox or sleep study to see if she is still getting severely bradycardic at night. She is taking the beta fany for essential tremor. Prescribed by her PCP. 4. Add hydralazine 10 mg p.o. every 4 hours as needed systolic greater than 170 or diastolic greater than 90. 5. If the essential tremor recurs with decreasing the beta fany dose will try Primidone. Consider decreasing the Citalopram dose......SSRI's can cause an essential tremor although her tremor is most likely inherited. Charges/Coding Visit Charges Inpatient E&M: 95123 Subs Hosp L2
--- NOTE | 2023-03-20 15:33 | CHAPLAIN ---
Type of Pastoral Visit ___ Initial Visit _x__ Follow-up Visit ___ On-call Visit ___ General Patient Visit ___ Spiritual Assessment ___ Family Conference ___ Bereavement ___ Rapid Response ___ Code Blue ___ Other (describe below) Pastoral Care Referral From _x__ Patient ___ Family ___ Nurse ___ Physician ___ Public Transportation Inspector ___ Quality Supervisor ___ Other (describe below) Sacrament/Intervention __x_ Active listening ___ Anointing ___ Catholic ___ Bereavement ___ Communion _x__ Anu exploration ___ ___ Life review _x__ Prayer ___ Reconciliation ___ Sacrament of Sick ___ Supportive presence ___ Wedding ___ Other (describe below) Pastoral Comments patient reports updates on her progress and is encouraged by what has taken place and the personal care she is receiving; pt has a positive outlook and optimistic spirit which she attributes to her anu in God; pt has family support as well; pt enjoys talking with this solar installation foreman and requests prayer for further support
[2023-03-20 15:36] VITALS: BMI 29.2
--- NOTE | 2023-03-20 17:04 | CASEMGMT ---
Social Work Pt agreed to notify dtr to provide copies of advanced directives. Aga Bucio SAWMILL SUPERVISOR CREDIT UNION FIELD EXAMINER
[2023-03-20 21:00] VITALS: BP 120/60; PULSE 60; RESP 16; TEMP 37; O2SAT 95
[2023-03-20] MEDS: Atorvastatin Calcium 80 MG Tablet PO (21:59)
[2023-03-20] MEDS: traZODone 100 MG Tablet PO (21:59)
[2023-03-21 01:33] VITALS: BMI 29.2
[2023-03-21 07:49] VITALS: BP 127/60; PULSE 53
[2023-03-21] MEDS: Metoprolol(XL)Succ 50 MG Tablet PO (07:49)
[2023-03-21] MEDS: Losartan Potassium 100 MG Tablet PO (07:49)
[2023-03-21] MEDS: Cefadroxil 500 MG CAPSULE 1000 MG PO ×2 (07:51→23:06)
[2023-03-21] MEDS: Menthol/Lanolin/Calamine/Znox 113 GM Tube 1 APPLIC TOPICAL ×2 (07:52→23:09)
[2023-03-21] MEDS: Aspirin 81 MG TAB.CHEW PO (07:52)
[2023-03-21] MEDS: amLODIPine 5 MG Tablet PO (07:52)
[2023-03-21] MEDS: Clopidogrel Bisulfate 75 MG Tablet PO (07:52)
[2023-03-21] MEDS: Senna/Docusate Sodium 1 Tablet 2 TABLET PO (07:52)
[2023-03-21] MEDS: Enoxaparin 40 MG/0.4 ML Syringe SC (07:52)
[2023-03-21 07:54] VITALS: BP 127/60; PULSE 53; RESP 17; TEMP 36.4; O2SAT 95
[2023-03-21] MEDS: Miconazole Nitrate 43 GM Bottle 1 APPLIC TOPICAL ×2 (10:50→23:09)
[2023-03-21 17:00] VITALS: BMI 29.2
[2023-03-21 19:44] VITALS: BP 137/64; PULSE 56; RESP 16; TEMP 37; O2SAT 96
[2023-03-21] MEDS: Atorvastatin Calcium 80 MG Tablet PO (23:06)
[2023-03-21] MEDS: traZODone 100 MG Tablet PO (23:07)
[2023-03-22 08:00] VITALS: BP 140/58; PULSE 65; RESP 16; TEMP 37; O2SAT 96
[2023-03-22 09:56] VITALS: PULSE 60
[2023-03-22] MEDS: Metoprolol(XL)Succ 50 MG Tablet PO (09:56)
[2023-03-22] MEDS: Enoxaparin 40 MG/0.4 ML Syringe SC (09:57)
[2023-03-22] MEDS: amLODIPine 5 MG Tablet PO (09:57)
[2023-03-22] MEDS: Aspirin 81 MG TAB.CHEW PO (09:57)
[2023-03-22] MEDS: Losartan Potassium 100 MG Tablet PO (09:57)
[2023-03-22] MEDS: Clopidogrel Bisulfate 75 MG Tablet PO (09:57)
[2023-03-22] MEDS: Cefadroxil 500 MG CAPSULE 1000 MG PO ×2 (09:57→21:04)
[2023-03-22] MEDS: Miconazole Nitrate 43 GM Bottle 1 APPLIC TOPICAL ×2 (10:00→21:02)
[2023-03-22] MEDS: Menthol/Lanolin/Calamine/Znox 113 GM Tube 1 APPLIC TOPICAL ×2 (10:00→21:02)
[2023-03-22 17:00] VITALS: BMI 29.2
[2023-03-22] MEDS: Flu Vacc QS2023-24(65YR UP)/PF 240 MCG/0.7 ML Syringe IM (18:23)
[2023-03-22 20:57] VITALS: BP 131/71; PULSE 60; RESP 16; TEMP 36.1; O2SAT 97
[2023-03-22 21:00] VITALS: BMI 29.2
[2023-03-22] MEDS: traZODone 100 MG Tablet PO (21:03)
[2023-03-22] MEDS: Atorvastatin Calcium 80 MG Tablet PO (21:04)
[2023-03-22 22:00] VITALS: PULSE 60; RESP 16; O2SAT 97
[2023-03-23 08:32] VITALS: BP 135/65; PULSE 68; RESP 16; TEMP 36.7; O2SAT 94
[2023-03-23 09:11] VITALS: BP 135/65; PULSE 68
[2023-03-23] MEDS: Losartan Potassium 100 MG Tablet PO (09:11)
[2023-03-23] MEDS: Cefadroxil 500 MG CAPSULE 1000 MG PO ×2 (09:11→21:57)
[2023-03-23] MEDS: Metoprolol(XL)Succ 50 MG Tablet PO (09:11)
[2023-03-23] MEDS: amLODIPine 5 MG Tablet PO (09:12)
[2023-03-23] MEDS: Menthol/Lanolin/Calamine/Znox 113 GM Tube 1 APPLIC TOPICAL (09:12)
[2023-03-23] MEDS: Aspirin 81 MG TAB.CHEW PO (09:12)
[2023-03-23] MEDS: Enoxaparin 40 MG/0.4 ML Syringe SC (09:12)
[2023-03-23] MEDS: Miconazole Nitrate 43 GM Bottle 1 APPLIC TOPICAL ×2 (09:13→21:55)
[2023-03-23] MEDS: Clopidogrel Bisulfate 75 MG Tablet PO (09:13)
[2023-03-23 19:25] VITALS: BP 147/67; PULSE 60; RESP 15; TEMP 36.7; O2SAT 97
[2023-03-23 20:10] VITALS: BMI 29.2
[2023-03-23] MEDS: Atorvastatin Calcium 80 MG Tablet PO (21:57)
[2023-03-23] MEDS: traZODone 100 MG Tablet PO (21:57)
[2023-03-23 22:00] VITALS: PULSE 68; RESP 15; O2SAT 95
[2023-03-24 07:00] VITALS: BP 126/61; PULSE 60; RESP 16; TEMP 36.2; O2SAT 96
[2023-03-24 08:31] VITALS: PULSE 60
[2023-03-24] MEDS: amLODIPine 5 MG Tablet PO (08:31)
[2023-03-24] MEDS: Aspirin 81 MG TAB.CHEW PO (08:31)
[2023-03-24] MEDS: Clopidogrel Bisulfate 75 MG Tablet PO (08:31)
[2023-03-24] MEDS: Metoprolol(XL)Succ 50 MG Tablet PO (08:31)
[2023-03-24] MEDS: Losartan Potassium 100 MG Tablet PO (08:31)
[2023-03-24] MEDS: Enoxaparin 40 MG/0.4 ML Syringe SC (08:32)
[2023-03-24] MEDS: Miconazole Nitrate 43 GM Bottle 1 APPLIC TOPICAL ×2 (08:33→21:50)
[2023-03-24] MEDS: Menthol/Lanolin/Calamine/Znox 113 GM Tube 1 APPLIC TOPICAL (08:33)
[2023-03-24 11:28] VITALS: BMI 29.2
--- NOTE | 2023-03-24 16:11 | PCM.PROGNOTE ---
Subjective Subjective Afebrile VSS Maintaining appropriate oxygen saturation on RA Oral intake is good Discussed with nursing - no problems that need addressed Reviewed the PT/OT/ST notes Medication list reviewed. Mitzi denies lightheadedness, vertigo, CP, SOB at rest, SOB with exertion, cough, nausea, vomiting, abd pain, diarrhea, constipation, dysuria, calf pain and ankle swelling. she is sleeping well at night. Objective Data Objective Data Vital Signs: Vital Signs Temp Pulse Resp BP Pulse Ox O2 Del Method FiO2 97.1 F L 60 16 126/61 H 96 Room Air 21 03/24/23 07:00 03/24/23 08:31 03/24/23 07:00 03/24/23 07:00 03/24/23 07:00 03/24/23 07:00 03/17/23 22:05 Oxygen Delivery Method Room Air Weight: 175 lb 14.862 oz Body Mass Index (BMI) 29.2 Intake & Output: Intake and Output for Last 24 Hours 03/22/23 03/23/23 03/24/23 23:59 23:59 23:59 Intake Total 2210 / 2210 1120 / 1120 310 / 310 Output Total 300 / 300 420 / 420 Balance 1910 / 1910 1120 / 1120 -110 / -110 Medical Nutrition Assessment Dietitian: Malnutrition Criteria Met Start: 03/15/23 13:23 Freq: Status: Active Protocol: Document 03/15/23 13:23 SLA (Rec: 03/15/23 13:23 SLA Desktop) Nutrition Malnutrition Evidence of Malnutrition Exists Yes Malnutrition (severe): Acute Illness/Injury Evidenced By Suboptimal Energy Intake ( Severe),Weight Loss (Severe) Clinical Problem Acute Disease or Injury Related Malnutrition Etiology related to issues w/ dysphagia and inadequate energy intake Signs/Symptoms as evidenced by 8.6% unintended wt loss and po intake meeting <50% of est nutritional needs x ~ 1 month Status Active Problem Recommendation Dietitian Recommendations/Changes Will continue liberal regular diet - consistency per SUPERVISOR SINTERING PLANT - with ensure pudding w/ lunch, magic cup w/ dinner Continue ensure plus high protein 3x/day w/ medpass Continue to follow and monitor for changes in pt nutritional status and make additional rec as indicated Lab / Micro Data 03/15/23 08:35 03/17/23 05:35 Micro: Microbiology 03/14/23 21:10 Urine, Catheterized Urine Culture - Final Escherichia coli Physical Exam Const alert, oriented x3 and no apparent distress General Appearance: cooperative Resp normal respiratory effort, normal air movement and clear to auscultation bilaterally Effort and Inspection: Negative for tachypneic or labored Cardio regular rate, regular rhythm and no gallops Cardio Narrative: MM at the apex is unchanged. GI normal to inspection, nondistended, normoactive bowel sounds, soft to palpation and non-tender Extremity no calf tenderness General Extremity: Negative for edema Skin no wounds and no jaundice General Skin Exam: no breakdown Rashes: no rashes Neuro Neuro Narrative: Less facial droop. Speech is less slurred. Psych thought process normal, cooperative and affect normal Assessment & Plan Assessment/Plan (1) Debility: (2) Ischemic cerebrovascular accident (CVA): (3) Hematoma: (4) Left-sided weakness: (5) Facial droop: (6) Dysarthria: (7) Dysphagia: QUALIFIERS: Dysphagia type: oropharyngeal phase Qualified Code(s): R13.12 - Dysphagia, oropharyngeal phase (8) History of hypercholesterolemia: (9) HTN (hypertension): QUALIFIERS: Hypertension type: primary hypertension Qualified Code(s): I10 - Essential (primary) hypertension (10) Basal cell carcinoma: (11) Staghorn kidney stones: (12) Left carotid artery stenosis: (13) Ureteral stent present: (14) UTI (urinary tract infection), bacterial: PLAN: Due to E. Coli (15) Essential tremor: (16) Bradycardia: PLAN: Plan 1. Continue therapy Charges/Coding Visit Charges Inpatient E&M: 95029 Subs Hosp L2
[2023-03-24 19:32] VITALS: BP 132/70; PULSE 64; RESP 18; TEMP 35.8; O2SAT 93
[2023-03-24] MEDS: traZODone 100 MG Tablet PO (21:50)
[2023-03-24] MEDS: Atorvastatin Calcium 80 MG Tablet PO (21:50)
[2023-03-25 08:33] VITALS: PULSE 62
[2023-03-25] MEDS: Clopidogrel Bisulfate 75 MG Tablet PO (08:33)
[2023-03-25] MEDS: amLODIPine 5 MG Tablet PO (08:33)
[2023-03-25] MEDS: Metoprolol(XL)Succ 50 MG Tablet PO (08:33)
[2023-03-25] MEDS: Losartan Potassium 100 MG Tablet PO (08:33)
[2023-03-25] MEDS: Enoxaparin 40 MG/0.4 ML Syringe SC (08:33)
[2023-03-25] MEDS: Aspirin 81 MG TAB.CHEW PO (08:33)
[2023-03-25] MEDS: Menthol/Lanolin/Calamine/Znox 113 GM Tube 1 APPLIC TOPICAL (08:35)
[2023-03-25] MEDS: Miconazole Nitrate 43 GM Bottle 1 APPLIC TOPICAL ×2 (08:36→22:08)
[2023-03-25 08:38] VITALS: BP 139/69; PULSE 62; RESP 16; TEMP 36.6; O2SAT 94
[2023-03-25 13:05] VITALS: BMI 29.2
--- NOTE | 2023-03-25 15:22 | CASEMGMT ---
Advanced Directives Pt agreed to asked dtr to bring in copies of advanced directives. Aga Bucio, URBAN REDEVELOPMENT SPECIALIST OPERATIONS RESEARCH GROUP MANAGER
[2023-03-25 19:49] VITALS: BP 139/46; PULSE 60; RESP 16; TEMP 36.4; O2SAT 97
[2023-03-25 21:42] VITALS: BMI 29.2
[2023-03-25] MEDS: traZODone 100 MG Tablet PO (21:58)
[2023-03-25 22:00] VITALS: PULSE 72; RESP 16; O2SAT 98
[2023-03-25] MEDS: Atorvastatin Calcium 80 MG Tablet PO (22:08)
[2023-03-26 09:07] VITALS: BP 140/61; PULSE 61
[2023-03-26] MEDS: Metoprolol(XL)Succ 50 MG Tablet PO (09:07)
[2023-03-26] MEDS: Clopidogrel Bisulfate 75 MG Tablet PO (09:08)
[2023-03-26] MEDS: Enoxaparin 40 MG/0.4 ML Syringe SC (09:08)
[2023-03-26] MEDS: amLODIPine 5 MG Tablet PO (09:08)
[2023-03-26] MEDS: Aspirin 81 MG TAB.CHEW PO (09:08)
[2023-03-26] MEDS: Losartan Potassium 100 MG Tablet PO (09:08)
[2023-03-26 09:32] VITALS: BP 140/61; PULSE 61; RESP 16; TEMP 36.6; O2SAT 94
[2023-03-26] MEDS: Miconazole Nitrate 43 GM Bottle 1 APPLIC TOPICAL ×2 (11:19→21:22)
--- NOTE | 2023-03-26 11:58 | PN_ITS ---
Subjective Subjective Afebrile VSS-blood pressure is still fairly consistently mildly elevated. The diastolics have been within goal but the systolics have ranged from 132-140. Maintaining appropriate oxygen saturation on RA Oral intake is good Discussed with nursing - no problems that need addressed Reviewed the PT/OT/ST notes Medication list reviewed. She denies MARTINS, lightheadedness, CP, SOB, cough, abd pain, dysuria and calf pain. Sleeping much better at night. Tells me she feels she is making good progress in therapy. Objective Data Objective Data Vital Signs: Vital Signs Temp Pulse Resp BP Pulse Ox O2 Del Method FiO2 97.8 F 61 16 140/61 H 94 Room Air 21 03/26/23 09:32 03/26/23 09:32 03/26/23 09:32 03/26/23 09:32 03/26/23 09:32 03/26/23 10:00 03/17/23 22:05 Oxygen Delivery Method Room Air Weight: 175 lb 14.862 oz Body Mass Index (BMI) 29.2 Intake & Output: Intake and Output for Last 24 Hours 03/24/23 03/25/23 03/26/23 23:59 23:59 23:59 Intake Total 910 / 910 720 / 720 180 / 180 Output Total 300 / 300 Balance 610 / 610 720 / 720 180 / 180 Medical Nutrition Assessment Dietitian: Malnutrition Criteria Met Start: 03/15/23 13:23 Freq: Status: Active Protocol: Document 03/15/23 13:23 SLA (Rec: 03/15/23 13:23 SLA Desktop) Nutrition Malnutrition Evidence of Malnutrition Exists Yes Malnutrition (severe): Acute Illness/Injury Evidenced By Suboptimal Energy Intake ( Severe),Weight Loss (Severe) Clinical Problem Acute Disease or Injury Related Malnutrition Etiology related to issues w/ dysphagia and inadequate energy intake Signs/Symptoms as evidenced by 8.6% unintended wt loss and po intake meeting <50% of est nutritional needs x ~ 1 month Status Active Problem Recommendation Dietitian Recommendations/Changes Will continue liberal regular diet - consistency per CHIEF SCHOOL FINANCE OFFICER - with ensure pudding w/ lunch, magic cup w/ dinner Continue ensure plus high protein 3x/day w/ medpass Continue to follow and monitor for changes in pt nutritional status and make additional rec as indicated Lab / Micro Data 03/15/23 08:35 09/18/23 05:35 Micro: Microbiology 03/14/23 21:10 Urine, Catheterized Urine Culture - Final Escherichia coli Physical Exam Const alert and no apparent distress General Appearance: cooperative HEENT head/scalp atraumatic Resp normal respiratory effort, no use of accessory muscles and clear to auscultation bilaterally Effort and Inspection: Negative for tachypneic or labored Cardio regular rate, regular rhythm and no gallops GI normal to inspection, nondistended, normoactive bowel sounds, non-tender and non-distended GI Narrative: no guarding with palpation Extremity Negative for no calf tenderness General Extremity: Negative for edema Skin General Skin Exam: no breakdown Rashes: no rashes Psych affect normal Assessment & Plan Assessment/Plan (1) Debility: (2) Ischemic cerebrovascular accident (CVA): (3) Hematoma: (4) Left-sided weakness: (5) Facial droop: (6) Dysarthria: (7) Dysphagia: QUALIFIERS: Dysphagia type: oropharyngeal phase Qualified Code(s): R13.12 - Dysphagia, oropharyngeal phase (8) History of hypercholesterolemia: (9) HTN (hypertension): QUALIFIERS: Hypertension type: primary hypertension Qualified Code(s): I10 - Essential (primary) hypertension (10) Basal cell carcinoma: (11) Staghorn kidney stones: (12) Left carotid artery stenosis: (13) Ureteral stent present: (14) UTI (urinary tract infection), bacterial: PLAN: Due to E. Coli (15) Essential tremor: (16) Bradycardia: PLAN: Plan 1. Continue therapy 2. CBC, BMP in the AM 3. DC Amlodipine and Cozaar and start Lisinopril 10 mg BID. Continue Hydralazine PRN. Charges/Coding Visit Charges Inpatient E&M: 91035 Subs Hosp L2
[2023-03-26 15:36] VITALS: BMI 29.2
[2023-03-26] MEDS: Menthol/Lanolin/Calamine/Znox 113 GM Tube 1 APPLIC TOPICAL (21:21)
[2023-03-26] MEDS: traZODone 100 MG Tablet PO ×2 (21:21)
[2023-03-26] MEDS: Atorvastatin Calcium 80 MG Tablet PO (21:21)
[2023-03-26] MEDS: Lisinopril 10 MG Tablet PO (21:21)
[2023-03-26 21:32] VITALS: BP 99/51; PULSE 64; RESP 16; TEMP 36.8; O2SAT 97
[2023-03-26 22:00] VITALS: RESP 16
[2023-03-27 05:50] LABS: Hematocrit 34.3 % (37-47); Mean Corp Hgb Conc 32.1 g/dL (32-36); Mean Corpuscular Hgb 29.9 pg (27.0-32.0); Mean Corpuscular Volume 93.2 fL (81-99); Mean Platelet Vol. 10.1 fl (6.2-12.0); Platelet Count 274 K/mm3 (150-450); RBC Distribution Width SD 44.5 fl (35.1-43.9); Red Blood Count 3.68 M/mm3 (4.2-5.4); White Blood Count 6.4 K/mm3 (4.4-11.0)
[2023-03-27 06:27] LABS: Anion Gap 3 (5-15); BUN 17 mg/dL (7-18); BUN/Creat Ratio 19.8 RATIO (10-20); Calcium,Total 8.9 mg/dL (8.5-10.1); Chloride 111 mmol/L (98-107); Creatinine, Serum 0.86 mg/dL (0.55-1.02); EST Glomerular Filtration Rate 68 mL/min (>60); Est Glom Filt Rate - Afr Amer 82 mL/min (>60); Estimated Creatinine Clearance 46.56 ml/min; Glucose 112 mg/dL (74-106); Potassium 3.8 mmol/L (3.5-5.1); Sodium Level 142 mmol/L (136-145)
[2023-03-27 07:17] VITALS: BP 135/48; PULSE 60; RESP 16; TEMP 36.9; O2SAT 95
[2023-03-27] MEDS: Aspirin 81 MG TAB.CHEW PO (08:55)
[2023-03-27] MEDS: Enoxaparin 40 MG/0.4 ML Syringe SC (08:55)
[2023-03-27 08:56] VITALS: PULSE 64
[2023-03-27] MEDS: Metoprolol(XL)Succ 50 MG Tablet PO (08:56)
[2023-03-27] MEDS: Clopidogrel Bisulfate 75 MG Tablet PO (08:56)
[2023-03-27] MEDS: Lisinopril 10 MG Tablet PO ×2 (08:56→21:33)
[2023-03-27] MEDS: Menthol/Lanolin/Calamine/Znox 113 GM Tube 1 APPLIC TOPICAL ×2 (08:58→21:34)
[2023-03-27] MEDS: Miconazole Nitrate 43 GM Bottle 1 APPLIC TOPICAL ×2 (08:58→21:34)
[2023-03-27] MEDS: Senna/Docusate Sodium 1 Tablet 2 TABLET PO (08:59)
[2023-03-27 12:46] VITALS: BMI 29.2
--- NOTE | 2023-03-27 13:18 | CASEMGMT ---
Social Work IDT met with patient and dtr for Team meeting. Discussed patient's progress in PT/OT/ST/SN. Educated to [facility] insurance with NRD 04/02 and continued stay is not guaranteed with each review. Pt's goal is to return home alone. Pt will need 3-in-1 commode at DC and two handrails leading into basement. SW provided resources to dtr. Dtr will purchase shower chair. SW also educated and provided stroke support group brochure. Dtr provided advanced directives. Copies placed on chart. SW will continue to follow. ReTeam weekly. ELEANOR Joshua FRONT OFFICE ASSISTANT
[2023-03-27 19:38] VITALS: BP 120/44; PULSE 55; RESP 17; TEMP 36.8; O2SAT 97
[2023-03-27] MEDS: Atorvastatin Calcium 80 MG Tablet PO (21:33)
[2023-03-27] MEDS: traZODone 100 MG Tablet PO (21:35)
[2023-03-27 21:54] VITALS: BMI 29.2
[2023-03-28 08:02] VITALS: BP 133/61; PULSE 58; RESP 16; TEMP 36.9; O2SAT 95
[2023-03-28 08:37] VITALS: PULSE 58
[2023-03-28] MEDS: Clopidogrel Bisulfate 75 MG Tablet PO (08:37)
[2023-03-28] MEDS: Lisinopril 10 MG Tablet PO ×2 (08:37→22:50)
[2023-03-28] MEDS: Metoprolol(XL)Succ 50 MG Tablet PO (08:37)
[2023-03-28] MEDS: Aspirin 81 MG TAB.CHEW PO (08:37)
[2023-03-28] MEDS: Enoxaparin 40 MG/0.4 ML Syringe SC (08:37)
[2023-03-28] MEDS: Miconazole Nitrate 43 GM Bottle 1 APPLIC TOPICAL ×2 (08:40→22:52)
[2023-03-28] MEDS: Menthol/Lanolin/Calamine/Znox 113 GM Tube 1 APPLIC TOPICAL ×2 (08:40→22:52)
--- NOTE | 2023-03-28 11:37 | PCM.PROGNOTE ---
Subjective Subjective Mitzi was seen on team rounds yesterday. Her daughter was present for rounds in the room. Afebrile VSS - The HR is still on the low side. She denies lightheadedness and SOB with exertion. Maintaining appropriate oxygen saturation on RA Oral intake is good Discussed with nursing - no problems that need addressed. She is sleeping well at night. Reviewed the PT/OT/ST notes Medication list reviewed. Mitzi denies lightheadedness, vertigo, CP, SOB at rest, SOB with exertion, cough, nausea, vomiting, abd pain, diarrhea, constipation, dysuria, calf pain and ankle swelling. She feels as though she is making good progress and is doing much better this week than last. Objective Data Objective Data Vital Signs: Vital Signs Temp Pulse Resp BP Pulse Ox O2 Del Method FiO2 98.5 F 58 L 16 133/61 H 95 Room Air 21 03/28/23 08:02 03/28/23 08:37 03/28/23 08:02 03/28/23 08:02 03/28/23 08:02 03/28/23 08:02 03/17/23 22:05 Oxygen Delivery Method Room Air Weight: 175 lb 14.862 oz Body Mass Index (BMI) 29.2 Intake & Output: Intake and Output for Last 24 Hours 03/26/23 03/27/23 03/28/23 23:59 23:59 23:59 Intake Total 1020 / 1020 1200 / 1200 440 / 440 Output Total 2 / 2 Balance 1018 / 1018 1200 / 1200 440 / 440 Medical Nutrition Assessment Dietitian: Malnutrition Criteria Met Start: 03/15/23 13:23 Freq: Status: Active Protocol: Document 03/15/23 13:23 YAZAN (Rec: 03/15/23 13:23 YAZAN Desktop) Nutrition Malnutrition Evidence of Malnutrition Exists Yes Malnutrition (severe): Acute Illness/Injury Evidenced By Suboptimal Energy Intake ( Severe),Weight Loss (Severe) Clinical Problem Acute Disease or Injury Related Malnutrition Etiology related to issues w/ dysphagia and inadequate energy intake Signs/Symptoms as evidenced by 8.6% unintended wt loss and po intake meeting <50% of est nutritional needs x ~ 1 month Status Active Problem Recommendation Dietitian Recommendations/Changes Will continue liberal regular diet - consistency per ELECTRICIAN SUPERVISOR - with ensure pudding w/ lunch, magic cup w/ dinner Continue ensure plus high protein 3x/day w/ medpass Continue to follow and monitor for changes in pt nutritional status and make additional rec as indicated Lab / Micro Data 03/27/23 05:14 03/27/23 05:14 Micro: Microbiology 03/14/23 21:10 Urine, Catheterized Urine Culture - Final Escherichia coli Physical Exam Const alert, oriented x3 and no apparent distress General Appearance: cooperative Orientation / Consciousness: Negative for confused HEENT moist oral mucous membranes Resp normal respiratory effort, normal air movement and clear to auscultation bilaterally Effort and Inspection: Negative for tachypneic or labored Cardio regular rate, regular rhythm, no rub and no gallops Cardio Narrative: MM at the apex is unchanged. GI normal to inspection, nondistended, normoactive bowel sounds, soft to palpation, non-tender and non-distended GI Narrative: no guarding with palpation Extremity Negative for no calf tenderness General Extremity: Negative for edema Skin no wounds General Skin Exam: no breakdown Rashes: no rashes Psych thought process normal, cooperative and affect normal Assessment & Plan Assessment/Plan (1) Debility: (2) Ischemic cerebrovascular accident (CVA): (3) Hematoma: (4) Left-sided weakness: (5) Facial droop: (6) Dysarthria: (7) Dysphagia: QUALIFIERS: Dysphagia type: oropharyngeal phase Qualified Code(s): R13.12 - Dysphagia, oropharyngeal phase (8) History of hypercholesterolemia: (9) HTN (hypertension): QUALIFIERS: Hypertension type: primary hypertension Qualified Code(s): I10 - Essential (primary) hypertension (10) Basal cell carcinoma: (11) Staghorn kidney stones: (12) Left carotid artery stenosis: (13) Ureteral stent present: (14) UTI (urinary tract infection), bacterial: (15) Essential tremor: (16) Bradycardia: PLAN: Plan 1. Continue therapy 2. We discussed the goal for LDL and BP on rounds today. She is tolerating Lisinopril without a cough. I am still not happy with the bradycardia.......the only way we discovered the really low HR's less than 40 was on the overnight trending pulse ox. She had a episode of essential tremors when she was concentrating very hard on properly performing an exercise.........resolved when she rested. She is currently on a cardioselective beta fany, Metoprolol. I am going to try switching her to propanolol and maybe we can get by with a lower dose than the Metoprolol. If she is still bradycardic I may consider switching her to Primidone. ET is definitely exacerbated by anxiety. Start propanolol 20 mg BID Charges/Coding Visit Charges Inpatient E&M: 12579 Subs Hosp L2
[2023-03-28 14:46] VITALS: BMI 29.2
[2023-03-28 20:19] VITALS: BP 147/46; PULSE 61; RESP 16; TEMP 36.7; O2SAT 98
[2023-03-28 21:20] VITALS: BP 138/66; PULSE 68
[2023-03-28] MEDS: Propranolol 10 MG Tablet 20 MG PO (22:50)
[2023-03-28] MEDS: traZODone 100 MG Tablet PO (22:51)
[2023-03-28] MEDS: Atorvastatin Calcium 80 MG Tablet PO (22:51)
[2023-03-29] MEDS: Enoxaparin 40 MG/0.4 ML Syringe SC (05:00)
[2023-03-29 07:17] VITALS: BP 141/47; PULSE 54; RESP 16; TEMP 36.2; O2SAT 96
[2023-03-29] MEDS: Aspirin 81 MG TAB.CHEW PO (09:13)
[2023-03-29] MEDS: Menthol/Lanolin/Calamine/Znox 113 GM Tube 1 APPLIC TOPICAL (09:14)
[2023-03-29] MEDS: Lisinopril 10 MG Tablet PO ×2 (09:14→22:01)
[2023-03-29] MEDS: Clopidogrel Bisulfate 75 MG Tablet PO (09:14)
[2023-03-29] MEDS: Senna/Docusate Sodium 1 Tablet 2 TABLET PO (09:16)
[2023-03-29] MEDS: Miconazole Nitrate 43 GM Bottle 1 APPLIC TOPICAL (09:17)
[2023-03-29 12:13] VITALS: BMI 29.2
[2023-03-29 20:31] VITALS: BP 148/51; PULSE 63; RESP 16; TEMP 36.7; O2SAT 96
[2023-03-29 20:36] VITALS: BMI 29.2
[2023-03-29] MEDS: Propranolol 10 MG Tablet 20 MG PO (22:01)
[2023-03-29] MEDS: Atorvastatin Calcium 80 MG Tablet PO (22:01)
[2023-03-29] MEDS: traZODone 100 MG Tablet PO (22:01)
[2023-03-30] MEDS: Enoxaparin 40 MG/0.4 ML Syringe SC (06:11)
[2023-03-30 07:54] VITALS: BP 134/69; PULSE 53; RESP 16; TEMP 36.6; O2SAT 94
[2023-03-30] MEDS: Aspirin 81 MG TAB.CHEW PO (08:41)
[2023-03-30] MEDS: Lisinopril 10 MG Tablet PO ×2 (08:41→21:33)
[2023-03-30] MEDS: Clopidogrel Bisulfate 75 MG Tablet PO (08:41)
[2023-03-30] MEDS: Senna/Docusate Sodium 1 Tablet 2 TABLET PO (08:42)
[2023-03-30] MEDS: Propranolol 10 MG Tablet 20 MG PO ×2 (08:42→21:33)
[2023-03-30 08:52] VITALS: BMI 29.2
[2023-03-30 20:09] VITALS: BP 127/52; PULSE 58; RESP 18; TEMP 36.8; O2SAT 95
[2023-03-30 20:15] VITALS: BMI 29.2
[2023-03-30] MEDS: traZODone 100 MG Tablet PO (21:33)
[2023-03-30] MEDS: Atorvastatin Calcium 80 MG Tablet PO (21:33)
[2023-03-31] MEDS: Enoxaparin 40 MG/0.4 ML Syringe SC (06:19)
[2023-03-31 07:15] VITALS: BP 143/50; PULSE 54; RESP 16; TEMP 36.5; O2SAT 98
[2023-03-31] MEDS: Clopidogrel Bisulfate 75 MG Tablet PO (09:04)
[2023-03-31] MEDS: Aspirin 81 MG TAB.CHEW PO (09:04)
[2023-03-31] MEDS: Lisinopril 10 MG Tablet PO (09:04)
[2023-03-31] MEDS: Propranolol 10 MG Tablet 20 MG PO ×2 (09:05→21:10)
[2023-03-31 13:31] VITALS: BMI 29.2
--- NOTE | 2023-03-31 18:32 | PCM.PROGNOTE ---
Subjective Subjective Afebrile VSS-the systolic blood pressure is still consistently above goal. Diastolics are within normal limits. Maintaining appropriate oxygen saturation on RA Oral intake is good Discussed with nursing - no problems that need addressed Reviewed the PT/OT/ST notes Medication list reviewed. Mitzi denies lightheadedness, vertigo, CP, SOB at rest, SOB with exertion, cough, nausea, vomiting, abd pain, diarrhea, constipation, dysuria, calf pain and ankle swelling. She is sleeping well at night. Objective Data Objective Data Vital Signs: Vital Signs Temp Pulse Resp BP Pulse Ox O2 Del Method FiO2 97.7 F L 54 L 16 143/50 H 98 Room Air 21 03/31/23 07:15 03/31/23 07:15 03/31/23 07:15 03/31/23 07:15 03/31/23 07:15 03/31/23 07:15 03/17/23 22:05 Oxygen Delivery Method Room Air Weight: 175 lb 14.862 oz Body Mass Index (BMI) 29.2 Intake & Output: Intake and Output for Last 24 Hours 03/29/23 03/30/23 03/31/23 23:59 23:59 23:59 Intake Total 1440 / 1440 1140 / 1140 720 / 720 Balance 1440 / 1440 1140 / 1140 720 / 720 Medical Nutrition Assessment Dietitian: Malnutrition Criteria Met Start: 03/15/23 13:23 Freq: Status: Active Protocol: Document 03/15/23 13:23 SLA (Rec: 03/15/23 13:23 SLA Desktop) Nutrition Malnutrition Evidence of Malnutrition Exists Yes Malnutrition (severe): Acute Illness/Injury Evidenced By Suboptimal Energy Intake ( Severe),Weight Loss (Severe) Clinical Problem Acute Disease or Injury Related Malnutrition Etiology related to issues w/ dysphagia and inadequate energy intake Signs/Symptoms as evidenced by 8.6% unintended wt loss and po intake meeting <50% of est nutritional needs x ~ 1 month Status Active Problem Recommendation Dietitian Recommendations/Changes Will continue liberal regular diet - consistency per INTERNATIONAL MARKETING EXECUTIVE - with ensure pudding w/ lunch, magic cup w/ dinner Continue ensure plus high protein 3x/day w/ medpass Continue to follow and monitor for changes in pt nutritional status and make additional rec as indicated Lab / Micro Data 03/27/23 05:14 04/01/23 05:09 Micro: Microbiology 03/14/23 21:10 Urine, Catheterized Urine Culture - Final Escherichia coli Physical Exam Const alert, oriented x3 and no apparent distress General Appearance: cooperative Resp normal respiratory effort, normal air movement and clear to auscultation bilaterally Effort and Inspection: Negative for tachypneic or labored Cardio regular rate, regular rhythm, no murmurs, no rub and no gallops Cardio Narrative: MM at the apex is unchanged. GI normal to inspection, nondistended, normoactive bowel sounds, soft to palpation, non-tender and non-distended GI Narrative: no guarding with palpation Extremity Negative for no calf tenderness General Extremity: Negative for edema Skin General Skin Exam: no breakdown Rashes: no rashes Neuro Neuro Narrative: Less facial droop. Speech is less slurred. Psych thought process normal, cooperative and affect normal Assessment & Plan Assessment/Plan (1) Debility: (2) Ischemic cerebrovascular accident (CVA): (3) Hematoma: (4) Left-sided weakness: (5) Facial droop: (6) Dysarthria: (7) Dysphagia: QUALIFIERS: Dysphagia type: oropharyngeal phase Qualified Code(s): R13.12 - Dysphagia, oropharyngeal phase (8) History of hypercholesterolemia: (9) HTN (hypertension): QUALIFIERS: Hypertension type: primary hypertension Qualified Code(s): I10 - Essential (primary) hypertension (10) Basal cell carcinoma: (11) Staghorn kidney stones: (12) Left carotid artery stenosis: (13) Ureteral stent present: (14) UTI (urinary tract infection), bacterial: (15) Essential tremor: (16) Bradycardia: PLAN: Plan 1. Continue therapy 2. Increase lisinopril to 15 mg p.o. twice daily 3. BMP in the a.m. Charges/Coding Visit Charges Inpatient E&M: 43129 Subs Hosp L2
[2023-03-31 19:38] VITALS: BP 117/51; PULSE 60; RESP 16; TEMP 37.2; O2SAT 96
[2023-03-31] MEDS: traZODone 100 MG Tablet PO (21:10)
[2023-03-31] MEDS: Atorvastatin Calcium 80 MG Tablet PO (21:10)
[2023-03-31] MEDS: Lisinopril 5 MG Tablet 15 MG PO (21:15)
[2023-03-31 21:16] VITALS: BMI 29.2
[2023-04-01] MEDS: Enoxaparin 40 MG/0.4 ML Syringe SC (06:04)
[2023-04-01 06:11] LABS: Anion Gap 4 (5-15); BUN 15 mg/dL (7-18); BUN/Creat Ratio 20.7 RATIO (10-20); Calcium,Total 8.7 mg/dL (8.5-10.1); Chloride 109 mmol/L (98-107); Creatinine, Serum 0.72 mg/dL (0.55-1.02); EST Glomerular Filtration Rate 83 mL/min (>60); Est Glom Filt Rate - Afr Amer 100 mL/min (>60); Estimated Creatinine Clearance 40.04 ml/min; Glucose 106 mg/dL (74-106); Potassium 3.5 mmol/L (3.5-5.1); Sodium Level 143 mmol/L (136-145)
[2023-04-01] MEDS: Clopidogrel Bisulfate 75 MG Tablet PO (08:21)
[2023-04-01] MEDS: Propranolol 10 MG Tablet 20 MG PO ×2 (08:21→20:44)
[2023-04-01] MEDS: Aspirin 81 MG TAB.CHEW PO (08:21)
[2023-04-01] MEDS: Lisinopril 5 MG Tablet 15 MG PO ×2 (08:22→20:44)
[2023-04-01 09:08] VITALS: BP 146/65; PULSE 59; RESP 16; TEMP 36.7; O2SAT 94
[2023-04-01] MEDS: Acetaminophen 325 MG Tablet 650 MG PO (11:01)
[2023-04-01 17:00] VITALS: BMI 29.2
[2023-04-01] MEDS: traZODone 100 MG Tablet PO (20:43)
[2023-04-01] MEDS: Atorvastatin Calcium 80 MG Tablet PO (20:44)
[2023-04-01 21:13] VITALS: BP 107/57; PULSE 58; RESP 16; TEMP 37; O2SAT 95
[2023-04-02 05:00] VITALS: BMI 29.2
[2023-04-02] MEDS: Enoxaparin 40 MG/0.4 ML Syringe SC (05:25)
[2023-04-02 07:38] VITALS: BP 124/52; PULSE 56; RESP 16; TEMP 37; O2SAT 94
[2023-04-02] MEDS: Lisinopril 5 MG Tablet 15 MG PO ×2 (08:33→21:01)
[2023-04-02] MEDS: Clopidogrel Bisulfate 75 MG Tablet PO (08:33)
[2023-04-02] MEDS: Aspirin 81 MG TAB.CHEW PO (08:33)
[2023-04-02] MEDS: Propranolol 10 MG Tablet 20 MG PO ×2 (08:33→21:01)
--- NOTE | 2023-04-02 15:09 | PCM.PROGNOTE ---
Subjective Subjective Afebrile VSS-blood pressures well controlled. Heart rate is ranged from 53-59 over the past 4 days. She denies lightheadedness. Maintaining appropriate oxygen saturation on RA Oral intake is good Discussed with nursing - no problems that need addressed. Reviewed the PT/OT/ST notes Medication list reviewed. Mitzi tells me that she is sleeping well at night. She has a good appetite and feels like she has made good progress while on rehab. She gets an occasional frontal headache that is relieved with Tylenol. She denies rhinitis, sore throat, cough, chest pain, palpitations, shortness of breath, nausea/vomiting/abdominal pain, diarrhea, constipation, dysuria and calf tenderness. She feels more steady when she is ambulating and is not losing her balance. She is not anxious or depressed. Objective Data Objective Data Vital Signs: Vital Signs Temp Pulse Resp BP Pulse Ox O2 Del Method FiO2 98.6 F 56 L 16 124/52 H 94 Room Air 21 04/02/23 07:38 04/02/23 07:38 04/02/23 07:38 04/02/23 07:38 04/02/23 07:38 04/02/23 07:38 03/17/23 22:05 Oxygen Delivery Method Room Air Weight: 175 lb 14.862 oz Body Mass Index (BMI) 29.2 Intake & Output: Intake and Output for Last 24 Hours 03/31/23 04/01/23 04/02/23 23:59 23:59 23:59 Intake Total 840 / 840 1280 / 1280 800 / 800 Balance 840 / 840 1280 / 1280 800 / 800 Medical Nutrition Assessment Dietitian: Malnutrition Criteria Met Start: 03/15/23 13:23 Freq: Status: Active Protocol: Document 03/15/23 13:23 YAZAN (Rec: 03/15/23 13:23 YAZAN Desktop) Nutrition Malnutrition Evidence of Malnutrition Exists Yes Malnutrition (severe): Acute Illness/Injury Evidenced By Suboptimal Energy Intake ( Severe),Weight Loss (Severe) Clinical Problem Acute Disease or Injury Related Malnutrition Etiology related to issues w/ dysphagia and inadequate energy intake Signs/Symptoms as evidenced by 8.6% unintended wt loss and po intake meeting <50% of est nutritional needs x ~ 1 month Status Active Problem Recommendation Dietitian Recommendations/Changes Will continue liberal regular diet - consistency per INSPECTOR RAG SORTING - with ensure pudding w/ lunch, magic cup w/ dinner Continue ensure plus high protein 3x/day w/ medpass Continue to follow and monitor for changes in pt nutritional status and make additional rec as indicated Lab / Micro Data 03/27/23 05:14 04/01/23 05:09 Micro: Microbiology 03/14/23 21:10 Urine, Catheterized Urine Culture - Final Escherichia coli Physical Exam Const alert, oriented x3 and no apparent distress Constitutional Narrative: Pleasant and appropriate. Makes excellent eye contact. General Appearance: cooperative Eyes PERRL and EOMs intact bilaterally Neck supple Resp normal respiratory effort, normal air movement and clear to auscultation bilaterally Effort and Inspection: Negative for tachypneic or labored Cardio regular rate, regular rhythm and no gallops Rate: bradycardia GI normal to inspection, nondistended, normoactive bowel sounds, soft to palpation and non-tender Extremity no calf tenderness General Extremity: Negative for edema Skin General Skin Exam: no breakdown Rashes: no rashes Neuro Neuro Narrative: Still with a Left facial droop. No dysarthria. No aphasia. No extinction of the LLE today. Better sensation in the LUE than at admission. No ataxia. Psych thought process normal, cooperative and affect normal Psych Narrative: She is calm and making good eye contact. Appearance: appropriate Attitude: No agitated Assessment & Plan Assessment/Plan (1) Debility: (2) Ischemic cerebrovascular accident (CVA): (3) Hematoma: (4) Left-sided weakness: (5) Facial droop: (6) Dysarthria: (7) Dysphagia: QUALIFIERS: Dysphagia type: oropharyngeal phase Qualified Code(s): R13.12 - Dysphagia, oropharyngeal phase (8) History of hypercholesterolemia: (9) HTN (hypertension): QUALIFIERS: Hypertension type: primary hypertension Qualified Code(s): I10 - Essential (primary) hypertension (10) Basal cell carcinoma: (11) Staghorn kidney stones: (12) Left carotid artery stenosis: (13) Ureteral stent present: (14) UTI (urinary tract infection), bacterial: (15) Essential tremor: (16) Bradycardia: PLAN: Plan 1. Continue therapy 2. DC Plavix after 21 days on DAPT - this would make the last day of ASA and Plavix 04/04/23. She will continue on ASA 81 mg daily after the 6th. 3. will discuss the DC date tomorrow on TEAM rounds. 4. Will follow up with PCP and neurology post DC and would benefit more from OP therapy going forward rather than C. DTR will be staying with her at least 1-2 weeks. 5. Needs Lipid panel and liver profile 1 month post DC. Charges/Coding Visit Charges Inpatient E&M: 91081 Subs Hosp L2
[2023-04-02 16:48] VITALS: BMI 29.2
[2023-04-02 19:14] VITALS: BP 155/57; PULSE 63; RESP 16; TEMP 36.7; O2SAT 98
[2023-04-02] MEDS: traZODone 100 MG Tablet PO (21:00)
[2023-04-02] MEDS: Atorvastatin Calcium 80 MG Tablet PO (21:01)
[2023-04-02 21:18] VITALS: PULSE 54; O2SAT 97
[2023-04-02 21:26] VITALS: O2SAT 98
[2023-04-02 21:30] VITALS: BMI 29.2
[2023-04-03] MEDS: Enoxaparin 40 MG/0.4 ML Syringe SC (05:33)
--- NOTE | 2023-04-03 08:36 | CASEMGMT ---
Social Work IDT met with patient and dtr for Team meeting. Discussed patient's progress in PT/OT/ST/SN. Educated to [facility] insurance with NRD 04/04, requesting DC date set. Pt and dtr agreeable to DC 04/05. Requesting outpatient therapy at [facility]. Dtr obtained all needed DME. Dtr to transport at [place]. No other needs noted. SW faxed referral to [place] for PT/OT/ST. Plan: DC home 04/05, [facility] PT/OT/ST Aga Bucio, PRICE ACCURACY SUPERVISOR SOLAR SITE ASSESSMENT SPECIALIST
[2023-04-03] MEDS: Clopidogrel Bisulfate 75 MG Tablet PO (08:45)
[2023-04-03] MEDS: Propranolol 10 MG Tablet 20 MG PO ×2 (08:45→21:08)
[2023-04-03] MEDS: Aspirin 81 MG TAB.CHEW PO (08:45)
[2023-04-03] MEDS: Lisinopril 5 MG Tablet 15 MG PO ×2 (08:46→21:08)
[2023-04-03 10:00] VITALS: BP 147/47; PULSE 59; RESP 16; TEMP 37; O2SAT 95
[2023-04-03 15:33] VITALS: BMI 29.2
[2023-04-03] MEDS: Acetaminophen 325 MG Tablet 650 MG PO (18:29)
--- NOTE | 2023-04-03 19:16 | PN_ITS ---
Subjective Subjective Patient seen, examined on team rounds. Her daughter was present. She has no new problems, concerns, issues, complaints. She is progressing in therapy, will be discharging home soon. Objective Data Objective Data Vital Signs: Vital Signs Temp Pulse Resp BP Pulse Ox O2 Del Method O2 Flow Rate 98.6 F 59 L 16 147/47 H 95 Room Air 0 04/03/23 10:00 04/03/23 10:00 04/03/23 10:00 04/03/23 10:00 04/03/23 10:00 04/03/23 10:00 04/02/23 21:18 FiO2 21 04/02/23 21:18 Oxygen Flow Rate (L/min) 0 Oxygen Delivery Method Room Air Weight: 79.8 kg Body Mass Index (BMI) 29.2 Intake & Output: Intake and Output for Last 24 Hours 04/01/23 04/02/23 04/03/23 23:59 23:59 23:59 Intake Total 1280 / 1280 920 / 920 780 / 780 Balance 1280 / 1280 920 / 920 780 / 780 Medical Nutrition Assessment Dietitian: Malnutrition Criteria Met Start: 03/15/23 13:23 Freq: Status: Active Protocol: Document 03/15/23 13:23 SLA (Rec: 03/15/23 13:23 SLA Desktop) Nutrition Malnutrition Evidence of Malnutrition Exists Yes Malnutrition (severe): Acute Illness/Injury Evidenced By Suboptimal Energy Intake ( Severe),Weight Loss (Severe) Clinical Problem Acute Disease or Injury Related Malnutrition Etiology related to issues w/ dysphagia and inadequate energy intake Signs/Symptoms as evidenced by 8.6% unintended wt loss and po intake meeting <50% of est nutritional needs x ~ 1 month Status Active Problem Recommendation Dietitian Recommendations/Changes Will continue liberal regular diet - consistency per FLAP LINING BINDER - with ensure pudding w/ lunch, magic cup w/ dinner Continue ensure plus high protein 3x/day w/ medpass Continue to follow and monitor for changes in pt nutritional status and make additional rec as indicated Lab / Micro Data 03/27/23 05:14 04/01/23 05:09 Micro: Microbiology 03/14/23 21:10 Urine, Catheterized Urine Culture - Final Escherichia coli Physical Exam Const alert General Appearance: cooperative HEENT normocephalic Eyes PERRL and EOMs intact bilaterally Neck supple, no JVD and no carotid bruits Resp normal respiratory effort, normal air movement and clear to auscultation bilaterally Cardio regular rate and regular rhythm GI normal to inspection, nondistended, normoactive bowel sounds, non-tender and non-distended Extremity normal capillary refill General Extremity: Negative for edema Skin no rashes or lesions noted General Skin Exam: no breakdown Psych affect normal Appearance: appropriate Assessment & Plan Assessment/Plan (1) Debility: (2) Ischemic cerebrovascular accident (CVA): (3) Dysphagia: QUALIFIERS: Dysphagia type: oropharyngeal phase Qualified Code(s): R13.12 - Dysphagia, oropharyngeal phase (4) HTN (hypertension): QUALIFIERS: Hypertension type: primary hypertension Qualified Co de(s): I10 - Essential (primary) hypertension (5) Essential tremor: (6) Left-sided weakness: PLAN: Plan 77 year old female with below past history hospitalized for right MCA stroke with left hemiparesis, admitted to for 3 hours daily rehabilitation, strengthening, prior to discharge home. * Debility - PT/OT. * Dysphagia - ST. * Pain - Tylenol 650mg q6 prn. * Bowel - Senna/colace 2 tablets daily, Dulcolax 10mg pr prn, MOM 30ml po prn. * DVT prophylaxis - Lovenox 40mg sc daily. * Stroke - Aspirin 81mg daily indefinitely, Plavix 75mg daily thru 04/04/2023. * Hyperlipidemia - Atorvastatin 80mg qhs. * Hypertension - Propranolol 20mg bid, Lisinopril 15mg bid, Hydralazine 10mg q4h prn. * Tinea corporis - Miconazole topical bid prn. * Essential tremor - Propranolol 20mg bid. * Insomnia - Trazodone 100mg qhs.
[2023-04-03 20:00] VITALS: BP 136/60; PULSE 60; RESP 16; TEMP 36.3; O2SAT 95
[2023-04-03 20:47] VITALS: BMI 29.2
[2023-04-03] MEDS: traZODone 100 MG Tablet PO (21:08)
[2023-04-03] MEDS: Atorvastatin Calcium 80 MG Tablet PO (21:08)
[2023-04-03 22:00] VITALS: PULSE 78; RESP 16; O2SAT 97
[2023-04-04] MEDS: Enoxaparin 40 MG/0.4 ML Syringe SC (06:37)
[2023-04-04] MEDS: Acetaminophen 325 MG Tablet 650 MG PO (06:54)
--- NOTE | 2023-04-04 08:08 | DS.PCM_ITS ---
Providers Date of Admission: 03/14/23 Primary Care Physician: Dr. Matheus Cesar MD Reason For Visit: RIGHT MCA Diagnosis Discharge Diagnosis (1) Debility: Status: Acute Code(s): R53.81 - Other malaise (2) Ischemic cerebrovascular accident (CVA): Status: Acute Code(s): I63.9 - Cerebral infarction, unspecified (3) Dysphagia: Status: Acute Code(s): R13.10 - Dysphagia, unspecified Qualifiers: Dysphagia type: oropharyngeal phase Qualified Code(s): R13.12 - Dysphagia, oropharyngeal phase (4) HTN (hypertension): Status: Chronic Code(s): I10 - Essential (primary) hypertension Qualifiers: Hypertension type: primary hypertension Qualified Code(s): I10 - Essential (primary) hypertension (5) Essential tremor: Status: Chronic Code(s): G25.0 - Essential tremor (6) Left-sided weakness: Status: Acute Code(s): R53.1 - Weakness Plan 77 year old female with below past history hospitalized for right MCA stroke with left hemiparesis, admitted to for 3 hours daily rehabilitation, strengthening, prior to discharge home. * Debility - PT/OT. * Dysphagia - ST. * Pain - Tylenol 650mg q6 prn. * Bowel - Senna/colace 2 tablets daily, Dulcolax 10mg pr prn, MOM 30ml po prn. * DVT prophylaxis - Lovenox 40mg sc daily. * Stroke - Aspirin 81mg daily indefinitely, Plavix 75mg daily thru 04/04/2023. * Hyperlipidemia - Atorvastatin 80mg qhs. * Hypertension - Propranolol 20mg bid, Lisinopril 15mg bid, Hydralazine 10mg q4h prn. * Tinea corporis - Miconazole topical bid prn. * Essential tremor - Propranolol 20mg bid. * Insomnia - Trazodone 100mg qhs. Medications at Discharge Home Medications hydrochlorothiazide 12.5 mg capsule 12.5 mg PO DAILY EDEMA 04/06/15 amlodipine 5 mg tablet 5 mg PO DAILY blood pressure 03/12/23 aspirin 81 mg chewable tablet 81 mg PO BREAKFAST [facility] #0 tabs 03/14/23 acetaminophen 325 mg tablet 650 mg (2 x 325 mg) PO Q6H PRN PRN Pain Score 4-10 #0 tabs 04/04/23 atorvastatin 80 mg tablet 80 mg PO QHS 30 days #30 tabs 04/04/23 lisinopril 5 mg tablet 15 mg (3 x 5 mg) PO BID 30 days #180 tabs 04/04/23 propranolol 10 mg tablet 20 mg (2 x 10 mg) PO BID 30 days #120 tabs 04/04/23 trazodone 100 mg tablet 100 mg PO QHS 30 days #30 tabs 04/04/23 Hospital Course Operations None Procedures None Summary of Care Provided Minutes Spent on Discharge: 35 Hospital Course: 77 year old female with below past medical history hospitalized for right MCA stroke, admitted to for 3 hours daily rehabilitation, strengthening, prior to discharge home. Discharge home with daughter(s) support 04/05/2023, [facility] PT/OT/ST. Physical Exam Const alert General Appearance: cooperative HEENT normocephalic Eyes PERRL and EOMs intact bilaterally Neck supple, no JVD and no carotid bruits Resp normal respiratory effort, normal air movement and clear to auscultation bilaterally Cardio regular rate and regular rhythm GI normal to inspection, nondistended, normoactive bowel sounds, non-tender and non-distended Extremity normal capillary refill General Extremity: Negative for edema Skin no rashes or lesions noted General Skin Exam: no breakdown Psych affect normal Appearance: appropriate Medical Records Data Medical Nutrition Assessment Dietitian: Malnutrition Criteria Met Start: 03/15/23 13:23 Freq: Status: Active Protocol: Document 03/15/23 13:23 SLA (Rec: 03/15/23 13:23 SLA Desktop) Nutrition Malnutrition Evidence of Malnutrition Exists Yes Malnutrition (severe): Acute Illness/Injury Evidenced By Suboptimal Energy Intake ( Severe),Weight Loss (Severe) Clinical Problem Acute Disease or Injury Related Malnutrition Etiology related to issues w/ dysphagia and inadequate energy intake Signs/Symptoms as evidenced by 8.6% unintended wt loss and po intake meeting <50% of est nutritional needs x ~ 1 month Status Active Problem Recommendation Dietitian Recommendations/Changes Will continue liberal regular diet - consistency per [employer] - with ensure pudding w/ lunch, magic cup w/ dinner Continue ensure plus high protein 3x/day w/ medpass Continue to follow and monitor for changes in pt nutritional status and make additional rec as indicated Weight / BMI Weight Weight: 79.8 kg Body Mass Index (BMI) 29.2 ABG / Lab / Microbiology Data 03/27/23 05:14 04/01/23 05:09 Microbiology: Microbiology 03/14/23 21:10 Urine, Catheterized Urine Culture - Final Escherichia coli Indicators for Scoring Admitted with or Primary Diagnosis of CVA/Stroke: Yes Hx of CVA/Stroke: Yes Modified Jorge A Score MRS Score at time of Evaluation: 5-Severe disability NIHSS NIHSS 1a. Level of Consciousness: Alert; keenly responsive 1b. LOC Questions: Answers BOTH questions correctly. 1c. LOC Commands: Performs both tasks correctly. 2. Best Gaze: Normal 3. Visual: No visual loss 4. Facial Palsy: Normal symmetrical movements 5a. Left Arm: Drift; arm drifts downward but doesn?t hit the bed 5b. Right Arm: No drift; arm holds 90 (or 45) degrees for full 10 seconds 6a. Left Leg: No drift; leg holds 30-degree position for full 5 seconds 6b. Right Leg: No drift; leg holds 30-degree position for full 5 seconds 7. Limb Ataxia: Absent 8. Sensory: Normal; no sensory loss 9. Best Language: No aphasia; normal 10. Dysarthria: [id number]-[id number]-[id number] dysarthria; 11. Extinction and Inattention: No abnormality Total: 2 Stroke Questions Stroke Team Activated: Yes a.Reviewed Inclusion/Exclusion criteria: Yes Was Patient considered for Endovascular Intervention?: No IV Thrombolytic Administered: No No contraindications from thrombolytic administration: Yes Risks, Benefits, Alternatives Discussed: Yes Not given: Patient refusal: No D/C Instructions Discharge Diet: No restrictions Discharge Activity: Return to Normal Activity, May Shower and Use Walker Weight Bearing Status: Weight bearing as tolerated Call your doctor if you observe: Fever of 101 or Higher, Inability to urinate, Inability to have a bowel movement, Shortness of breath, Dizziness, Fainting spells, Swelling in the ankles, Chest pain and Uncontrolled pain Additional Instructions: Discharge home with daughter(s) support 04/05/2023, [facility] PT/OT/ST. Meaningful Use Info Meaningful Use Diagnoses (Choose all that apply): Ischemic CVA CVA Therapy Assessed for PT,OT and/or ST?: Yes Ischemic Stroke Antithrombotic order at d/c?: Yes Dx of Atrial fib/flutter?: No Statins at discharge?: Yes Primary Dx Acute Ischemic CVA?: Yes Discharge Plan Admission Admit Date/Time: 03/14/23 15:40 Primary Reason for Your Visit: Debility. Attending Provider: Judit Medina Primary Care Provider: Matheus Cesar Instructions Additional Instructions / Restrictions: Discharge home with daughter(s) support 04/05/2023, [facility] PT/OT/ST. Discharge Orders/Prescriptions Prescriptions: New atorvastatin 80 mg Tablet 80 mg PO QHS 30 Days Qty: 30 0RF acetaminophen 325 mg Tablet 650 mg PO Q6H PRN PRN (Reason: Pain Score 4-10) Qty: 0 0RF propranolol 10 mg Tablet 20 mg PO BID 30 Days Qty: 120 0RF trazodone 100 mg Tablet 100 mg PO QHS 30 Days Qty: 30 0RF lisinopril 5 mg Tablet 15 mg PO BID 30 Days Qty: 180 0RF Continued amlodipine 5 mg tablet 5 mg PO DAILY aspirin 81 mg Tablet,Chewable 81 mg PO BREAKFAST Qty: 0 0RF Discontinued losartan 100 MG tablet 100 mg PO DAILY metoprolol succinate 100 MG tablet 100 mg PO DAILY clopidogrel 75 mg Tablet 75 mg PO DAILY Qty: 0 0RF atorvastatin 80 mg Tablet 80 mg PO QHS Qty: 0 0RF sennosides-docusate sodium [Stool Softener-Stimulant Laxat] 8.6-50 mg Tablet 2 tab PO DAILY No Action hydrochlorothiazide 12.5 MG capsule 12.5 mg PO DAILY Hold Instructions: Ordered Referrals / Follow Up: Matheus Cesar MD [Primary Care Provider] - 04/10/23 11:40 am Disposition Disposition (needs filled in before D/C Order can be placed): Home, Self Care
[2023-04-04] MEDS: Clopidogrel Bisulfate 75 MG Tablet PO (08:22)
[2023-04-04] MEDS: Lisinopril 5 MG Tablet 15 MG PO ×2 (08:23→20:59)
[2023-04-04] MEDS: Aspirin 81 MG TAB.CHEW PO (08:23)
[2023-04-04] MEDS: Propranolol 10 MG Tablet 20 MG PO ×2 (08:23→20:59)
[2023-04-04 10:00] VITALS: BP 151/41; PULSE 65; RESP 18; TEMP 36.6; O2SAT 98
[2023-04-04 12:17] VITALS: BMI 29.2
--- NOTE | 2023-04-04 12:28 | NURSING ---
pt stated that she wants to wait and talk to her PCP before deciding on a neurologist to f/u with. Dr Jimenez aware.
[2023-04-04 19:22] VITALS: BP 151/52; PULSE 58; RESP 16; TEMP 36.9; O2SAT 97
[2023-04-04] MEDS: traZODone 100 MG Tablet PO (20:59)
[2023-04-04 21:00] VITALS: PULSE 58; RESP 16; O2SAT 97; BMI 29.2
[2023-04-04] MEDS: Atorvastatin Calcium 80 MG Tablet PO (21:00)
[2023-04-04 21:32] VITALS: BMI 29.2
[2023-04-05] MEDS: Enoxaparin 40 MG/0.4 ML Syringe SC (06:19)
[2023-04-05 07:06] VITALS: BP 151/77; PULSE 63; RESP 16; TEMP 36.6; O2SAT 95
[2023-04-05] MEDS: Aspirin 81 MG TAB.CHEW PO (08:31)
[2023-04-05] MEDS: Propranolol 10 MG Tablet 20 MG PO (08:32)
[2023-04-05] MEDS: Lisinopril 5 MG Tablet 15 MG PO (08:32)
[2023-04-05 10:00] VITALS: BMI 29.2
[2023-04-05 10:40] VITALS: BP 151/77; PULSE 63; RESP 16; TEMP 36.6; O2SAT 95
--- NOTE | 2023-04-05 10:40 | NURSING ---
Patient and family aware of discharge instructions.
== END 2023-04-05 10:40 | disposition home or self-care (01) | DRG 57 ==
PROVIDERS: Admitting Provider Internal Medicine; PCP Family Medicine; Referring Provider Internal Medicine; Visit Provider Internal Medicine
DX: I69.354 Hemiplegia and hemiparesis following cerebral infarction affecting left non-dominant side (principal); N39.0 Urinary tract infection, site not specified; B35.4 Tinea corporis; I10 Essential (primary) hypertension; G25.0 Essential tremor; E78.00 Pure hypercholesterolemia, unspecified; I69.322 Dysarthria following cerebral infarction; I87.2 Venous insufficiency (chronic) (peripheral); I69.392 Facial weakness following cerebral infarction; B96.20 Unspecified Escherichia coli [E. coli] as the cause of diseases classified elsewhere; Z79.82 Long term (current) use of aspirin; R13.12 Dysphagia, oropharyngeal phase; Z23 Encounter for immunization; Z79.899 Other long term (current) drug therapy
CPT/HCPCS: 36415; 80048; 80053; 81001; 83735; 84100; 85027; 87077; 87086; 87088; 87186; 92507; 92523; 92526; 92610; 94668; 94762; 97110; 97112; 97116; 97129; 97130; 97162; 97165; 97530; 97535; 97802; 97803; J7030; 90662; A4216

== ENCOUNTER 2023-04-07 13:47 | Outpatient (RCR) | payer MEDICARE, SELFPAY ==
--- NOTE | 2023-04-07 17:08 | HP.PTEVAL ---
Patient's Visit Information Visit Information Visit Information: JENNY LI is a 77 year old F referred to Physical Therapy by Dr. Bright Jimenez MD with a diagnosis of STROKE. Date of Evaluation: 04/07/23 Physical Therapist: Mic Ricks, PT, Cert MDT, OCS Visit Plan Frequency: 2x /Week Duration: 4 Weeks Plan: LATEX ALLERGY PT INTERVTIONS PROGRESSIVE GAIT TRAINING /BALANCE TRAINING ,BLE STRENGTHENING , FUNCTIONAL STRENGTHENING AND ENDURANCE PROGRAM Subjective Subjective: This 77 y/o female presents to physical therapy with CVA with left side weakness. Patient had CVA Mar 12 , at home with difficulty with walking. Patient went to ER at [facility] . Patient had CATSCAN and MRI showed patient had blood clot of right MCA artery. Patient was transferred to Rehab on Mar 14 patient then d/c to home 04/05/23 . Patient uses FWW progressed to cane. Patient has difficulty with ADLS and housework tasks with decrease endurance. Patient lives in 1 story home with on step and 4steps and rail. Patient has tube/shower with seat grab bars. Patient denies paresthesia/tingling. Patient sleeping okay . No falls . Patient condition affects QOL and function. Patient goals to get stronger and walk better. VOCATION: retired SOCIAL: single Objective Objective: POSTURE: mild forward posture GAIT: reciprocal pattern with 2 point gait with cane slow bridgette PALPATION: unremarkable NEURO: intact ,denies paresthesia/tingling ,tone normal ,reflexes Achilles ,patella 2/3 STAIRS: one step at time MMT: quads/hams 4/5 ,hip flexion/abduction 4-/5 ,ankle 4/5 Balance/Special Test Scores Functional Gait Assessment Score: 16 % Disability: 46.6700 CATSIB Score (Max score 120 seconds): 56 Lower Extremity Functional Score: 32 30 Second Chair Rise Test Seconds: 8 Goals Goal 1:: Patient to be I with HEP Goal Time Frame: 2-4 Weeks Goal 2:: Patient to improve CATSIB by 5-10 points to improve balance and function Goal Time Frame: 4-6 Weeks Goal 3:: Patient to improve LFES score by 5-10 points to improve function and GAIT Goal Time Frame: 4-6 Weeks Goal 4:: Patient to improve functional gait assessment score by 5-10 points to improve QOL and function Goal Time Frame: 4-6 Weeks Goal 5:: Patient to ambulation with device at community distances Goal Time Frame: 4-6 Weeks Rehabilitation Potential Physical Therapy Diagnosis: This patient had CVA with impairments of decrease gait ,balance and endurance affects ADLS and housework chores thus benefit from skilled PT Rehabilitation Potential: Good Anticipated Interventions Patient/Client Instruction: Educate patient on: Condition and Plan of Care For the Purpose of:: To decrease pain, To increase ROM, To improve muscle performance and motor function, To improve ability to perform ADL's, To increase tolerance to activity/condition/position, To improve ability of physical actions for home/community/work/leisure, To improve gait and locomotor functions, To improve health of tissue and To improve tolerance to ADL's Therapeutic Exercise to Include: Strength training, Endurance training, Balance training, Flexibilty training, Gait and locomotor training and Active ROM Comment: BLE For the Purpose of:: To decrease pain, To improve muscle performance and motor function, To improve ability to perform ADL's, To increase tolerance to activity/condition/position, To improve ability of physical actions for home/community/work/leisure, To improve gait and locomotor functions, To improve endurance, To improve balance, To improve safety with gait and To improve tolerance to ADL's Text: Thank you for the opportunity to evaluate your patient. For Medicare and Medicare HMO plans, please review the plan of care and approve it. It will need to be FAXED BACK to us at [phone] for Medicare purposes. For Medicare only, by signing this I certify the plan of care. Please let me know if there are questions or concerns regarding this plan of care. Physician Signature: Date:
--- NOTE | 2023-04-07 17:08 | HP.SP.EVAL ---
History History Date of Eval: 04/07/23 Attending Doctor: Referring Doctor: Reason for Referral: STROKE. RX HERE Previous speech therapy: Yes Results: Rehab Admitted Date: 03/14/23 D/C Date: 04/04/23 Other Relevant Medical History/Diagnoses/Surgery: JENNY LI is a 77 year old female who presents to [facility] on 04/07/23 following d/c from the hospital on 04/05/23 following dx of ischemic stroke. Jenny spent 3 weeks on rehab where she participated in PT, OT, and ST. Jenny accompanied this date with daughter, Kaleigh. Jenny reports that she is in charge of finances (write checks and keeps a checkbook of bills and other expenses) and medications at home independently, but her daughters do double check the medicines since being home (5 prescriptions, plus a few as needed). Pt has a calendar on her computer that then connects to the calendar on her phone. Pt's daughter reporting Pt is rather tech-savvy. Prior to CVA Pt was fully independent and living alone. Pt's daughters plan to check on her throughout the next few weeks, fully assist with showers, and have prepared meals for her to heat up. Jenny reports being cleared to drive, however does not want to at this time. Smoking Status: Never smoker Hx Smoking: No Hx Tobacco Use: No Pain Is pain an issue with your current prescribed condition?: No Personal Preferred language: Indonesian Patient Allergies Allergies Allergies: Allergies latex Allergy (Verified 04/06/15 13:59) Unknown Sulfa (Sulfonamide Antibiotics) Allergy (Verified 04/06/15 13:59) Unknown CLQT CLQT CLQT Administered: Yes CLQT: Cognitive Linguistic Quick Test (CLQT) is a criterion - referenced assessment designed for adults between the ages of 18 and 89 with known or suspected neurological dysfuntions. The CLQT is to assess strength and weaknesses in five cognitive domains. Severity ratings are within normal limits, mild, moderate, severe deficits. The subtests are as follows: Date: 04/07/23 Attention Attention: WNL Memory Memory: WNL Executive Functions Executive Functions: WNL Language Language: WNL Visuospatial Skills Visuospatial Skills: WNL Composite Severity Rating Composite Severity Rating: WNL Clock Drawing Severity Rating Clock Drawing Severity Rating: WNL CLQT Comments Cognitive Domain Scores: -: Cognitive Domain Scores ? Personal Facts (memory and language ability): 02/04 WITHIN CRITIERION CUT OFF SCORE ? Symbol Cancellation (nonlinguistic task of visual attention and perception, integrity of the upper/lower quadrants of the left/right visual herron): 06/10 WITHIN CRITIERION CUT OFF SCORE ? Confrontation Naming (aphasia, perseveration, verbosity): 04/08 WITHIN CRITIERION CUT OFF SCORE ? Clock Drawing (screening of all cognitive domains): WITHIN CRITIERION CUT OFF SCORE ? Story Retelling (memory and comprehension, arousal, attention, storage capacity, narrative skills): 01/06 WITHIN CRITIERION CUT OFF SCORE ? Symbol Trails (nonlinguistic task to assess planning, self-monitoring, working memory, and visual attention, and impulsivity): 04/08 WITHIN CRITIERION CUT OFF SCORE ? Generative Naming (word retrieval skills, perseveration): 01/05 WITHIN CRITIERION CUT OFF SCORE ? Design Memory (nonlinguistic task to assess visual discrimination & analysis, attention, and visual memory, impulsivity, perseveration): 12/03 WITHIN CRITIERION CUT OFF SCORE ? Mazes (planning, mental flexibility, self-monitoring, visual discrimination, and impulsivity): 01/04 WITHIN CRITIERION CUT OFF SCORE ? Design Generation (nonlinguistic task of creativity and mental flexibility): 11/09 WITHIN CRITIERION CUT OFF SCORE Severity Rating Domain Scores: Attention = 197/215 (WNL); Memory = 165/185 (WNL); Executive Functioning = 29/40 (WNL); Language = 32/37 (WNL); Visuospatial Skills = 94/105 (WNL); Clock Drawing = (WNL). Observations during Assessment: -: During the divergent naming task where Jenny was tasked to name words that start with the letter M. Pt naming 3 items that start with M and then lost attention to task and diverted back to naming animals which was the goal of the previous task. ST did not cue during this time. Pt continued with naming 7 animals, until realizing that she was off topic. Pt recognizing she was supposed to be naming items that start with M, and was able to get back on task independently. Per chart review, Pt having difficulty with attention skills like this while in the hospital. Would suspect that Pt would have had difficulty during most of these tasks if ST was talking to Pt or the door to noisy hallway was opened creating a distraction. Reference: Neuro-QoL instrument In past 7 days I had to read something several times to understand it: Rarely (once) My thinking was slow: Sometimes (2-3 times) I had to work really hard to pay attention or i would make a mistake: Sometimes (2-3 times) I had trouble concentrating: Sometimes (2-3 times) How much DIFFICULTY do you currently reading & following complex instructions (e.g. directions for new medication: Somewhat planning for & keeping appts that are not part of weekly routine: None managing your time to do most of your daily activities: None learning new tasks or instructions: None Neuro-QOL Score Raw Score: 31 T - Score: 46.0 Radiation Oncology Patient Plan Plan Plan: Will recommend Pt for weekly outpatient speech therapy to address mild cognitive impairment characterized by deficits in executive functioning, attention, problem solving/reasoning, and safety awareness in functional life related skills included but not limited to finance management, medication management, and cooking. Pt would benefit from cognitive training to improve cognitive functioning and ensure safety at home since she is living independently and was completely independent prior to CVA. Without skilled ST services, the Pt is at risk for decreased independence completing daily living tasks. Recommendations Treatment Warranted: Yes Treatment Warranted: Cognition Progress Prognosis: Excellent Frequency Frequency: 1x/Week Duration: 6 Weeks Goals that are Established Determination:: Goals will be added/modified as deemed necessary and appropriate. Therapy will be discontinued when results of re-evaluation indicate therapy is no longer needed or lack of progress has been documented. Goal #1-5 Goal #1: Jenny will independently complete complex problem solving, reasoning, and executive function tasks including but not limited to functional ADL tasks such as managing finances, safety awareness, and paying bills with 80% acc during 2/3 sessions. Goal #2: Jenny will independently complete complex problem solving, reasoning, and executive function tasks including but not limited to functional ADL tasks such as medication management, meal planning, and using cellphone/calendar with 80% acc during 2/3 sessions. Goal #3: Jenny will complete mod complex sustained, alternating, divided attention tasks with 80% acc independently across 3 measured opportunities. Education Patient has Indicated that the Following Identified Educational Needs: None The Patient has indicated that they have no educational or learning abilities that may effect their care.: Yes Patient Instruction Patient Education: Diagnosis, Treatment Plan and Goals Person Taught: Patient and Family Teaching Method: Discussion and Demonstration Response to teaching: Return demonstration and Verbalize understanding
--- NOTE | 2023-06-10 17:59 | HP.SP.DC_ITS ---
ST Discharge Summary Discharged: Discharge: JENNY LI is a 78 year old female who presented to [facility] on 04/07/23 following a dx of CVA. Pt attended initial evaluation with goals created to target managing finances, managing medications, safety awareness, meal planning, and using phone and calendar. After evaluation, follow up visits were not scheduled by Pt. Following chart review, there was documentation for an emergency room visit on 04/12/23 with suggestions for a transfer to [facility]. Pt being discharged from speech therapy caseload on this date 06/10/23 d/t Pt absence in attending additional treatment visits. Thank you for allowing me to participate in the care of your patient. Will reevaluate at Pt?s request following script from physician.
== END 2023-04-14 19:00 | disposition home or self-care (01) ==
LOC: SP 13:47
PROVIDERS: PCP Family Medicine; Referring Provider Family Medicine Geriatric Medicine; Visit Provider Family Medicine
DX: Z86.73 Personal history of transient ischemic attack (TIA), and cerebral infarction without residual deficits (principal)
CPT/HCPCS: 97110; 97162

== ENCOUNTER 2023-04-12 14:02 | Emergency (ER) | payer MEDICARE, SELFPAY ==
[2023-04-12 14:03] VITALS: BP 158/66; PULSE 87; RESP 20; TEMP 37.3; O2SAT 95
--- NOTE | 2023-04-12 14:30 | CT_ITS ---
STUDY: CT ABDOMEN AND PELVIS WITH CONTRAST REASON FOR EXAM: Female, 77 years old. RLQ abdominal pain RADIATION DOSAGE (If Supplied By Facility): CTDIvol = ( 16.27 ) mGy, DLP = ( 1043.07 ) mGycm TECHNIQUE: Transaxial images were obtained from the dome of the diaphragm to the symphysis pubis without oral contrast. IV 100mL Isovue-370 was administered. Sagittal and coronal images were reconstructed. Individualized dose optimization techniques were used for this CT. COMPARISON: None. FINDINGS: Mild bilateral lower lobe atelectasis, right slightly more significant compared to the left. Remainder of the lung bases are clear. Normal cardiac size. Low-attenuation lesion identified within the posterior aspect of the right liver lobe measuring 1.5 cm, likely liver cyst. Otherwise normal liver. Normal gallbladder and extrahepatic biliary system. Normal spleen. Normal pancreas. Normal right adrenal gland. Hypertrophy of the left adrenal gland. Right perinephric stranding with cagu-[id number]-dxcufjbo hydronephrosis. There is a right ureteral stent in place with distal pigtail within the distal right ureter, not reaching the urinary bladder. There is a right lower renal pole stone measuring 4.4 mm. Minimal left perinephric stranding with tiny low-attenuation structures, too small to characterize, measuring less than 6 mm and statistically consistent with small renal cysts. Otherwise normal left kidney. There is fluid within the distal esophagus suggestive of reflux. The stomach is decompressed, otherwise unremarkable. Normal small intestine. Areas of the colon with thickening of the wall more so along the right and distal descending portion concerning for colitis. Scattered diverticulosis with no signs of diverticulitis. There is non-visualization of the appendix. There is diffuse atherosclerotic calcification of the abdominal aorta, without a demonstrated aneurysm. Normal inferior vena cava. Normal retroperitoneum. Normal urinary bladder. The uterus is retroflexed, otherwise unremarkable. Normal abdominal wall. There are diffuse degenerative changes of the visualized lumbar spine. CT/Abdomen/Pelvis W IV Cont ONLY IMPRESSION: [id number] right hydronephrosis with right-sided ureteral stent in place. Malpositioning of the distal pigtail of the stent located within the distal right ureter, above the UV junction and not within the urinary bladder. Clinical correlation recommended and if indicated, urological consultation. Right lower renal pole stone measuring 4.4 mm. Colitis as described. No bowel obstruction. Electronically Signed: Kesha Worthington MD at 16:46 EDT ,
[2023-04-12] MEDS: Ondansetron 4 MG/2 ML Vial IV (14:45)
[2023-04-12] MEDS: 0.9% Normal Saline (1000mL) 1,000 ML 1000 ML IV (14:45)
--- NOTE | 2023-04-12 14:50 | EX.ED.DYSGE1 ---
HPI <CORDELL Mann - Last Filed: 04/12/23 20:59> History of Present Illness Chief Complaint: General Illness Narrative Narrative: Patient presenting today due to fatigue, fever, nausea, vomiting, and several episodes of foul-smelling diarrhea that started last night. Daughter is also in the room who reports to me that patient recently had a stroke about a month ago and was in a rehab facility up until a week ago when she was discharged home. She has been doing well until last night. She had a temperature today of 100.9 ?F. She denies any history of C. difficile or recent antibiotic use. She denies any hematemesis, blood in the stool, or urinary symptoms. She has a PMH of CVA, hypertension, hyperlipidemia, and right stent placed due to a right-sided kidney stone. PFSH <CORDELL Mann - Last Filed: 04/12/23 20:59> [facility] Medical History Basal cell carcinoma Essential tremor History of hypercholesterolemia HTN (hypertension) Left carotid artery stenosis Spinal stenosis of lumbar region at multiple levels Staghorn kidney stones Thrombocytopenia Home Medications hydrochlorothiazide 12.5 mg capsule 12.5 mg PO DAILY EDEMA 04/06/15 [History Last Taken 03/11/23] amlodipine 5 mg tablet 5 mg PO DAILY blood pressure 03/12/23 [History Last Taken 03/14/23] aspirin 81 mg chewable tablet 81 mg PO BREAKFAST Heart health #0 tabs 03/14/23 [Rx Last Taken 03/14/23] acetaminophen 325 mg tablet 650 mg (2 x 325 mg) PO Q6H PRN PRN Pain Score 4-10 #0 tabs 04/04/23 [Rx Last Taken Unknown] atorvastatin 80 mg tablet 80 mg PO QHS 30 days #30 tabs 04/04/23 [Rx Last Taken Unknown] lisinopril 5 mg tablet 15 mg (3 x 5 mg) PO BID 30 days #180 tabs 04/04/23 [Rx Last Taken Unknown] propranolol 10 mg tablet 20 mg (2 x 10 mg) PO BID 30 days #120 tabs 04/04/23 [Rx Last Taken Unknown] trazodone 100 mg tablet 100 mg PO QHS 30 days #30 tabs 04/04/23 [Rx Last Taken Unknown] Allergy/AdvReac Type Severity Reaction Status Date / Time latex Allergy Unknown Verified 04/12/23 14:08 Sulfa (Sulfonamide Allergy Unknown Verified 04/12/23 14:08 Antibiotics) Family History Mother CAD (coronary artery disease) Hypertension Father CAD (coronary artery disease) Hypertension Sister Hypertension Kidney disease due to HTN and she was on dialysis Other Hyperlipidemia Surgical History History of skin surgery Social History household members: none housing: house Smoking Status: Never smoker alcohol intake: never substance use type: does not use ROS <CORDELL Mann - Last Filed: 04/12/23 20:59> ROS ED Constitutional Constitutional ED: Reports chills, fatigue and fever(s) Cardiovascular Cardiovascular: Denies chest pain Respiratory/Chest Respiratory/Chest: Denies cough or dyspnea Gastrointestinal Gastrointestinal: Reports abdominal pain, diarrhea, nausea and vomiting; Denies melena Genitourinary Genitourinary ED: Denies dysuria, hematuria or urinary urgency Musculoskeletal Musculoskeletal: Denies arthralgias or myalgias Integumentary Denies rash EXAM <CORDELL Mann - Last Filed: 04/12/23 20:59> Physical Exam Const Vital Signs: 04/12/23 14:03 04/12/23 16:02 04/12/23 16:15 Temperature 99.2 F H 101.0 F H 101 F H Temperature Source Temporal Temporal Oral Pulse Rate 87 108 H 100 Respiratory Rate 20 H 32 H 27 H Blood Pressure 158/66 H 162/110 H Blood Pressure Mean 96 127 Pulse Ox 95 92 93 Oxygen Delivery Method Room Air Nasal Cannula Nasal Cannula Oxygen Flow Rate (L/min) 2 2 04/12/23 17:30 04/12/23 17:30 04/12/23 20:00 Temperature 99.9 F H Temperature Source Oral Pulse Rate 93 105 H Respiratory Rate 16 18 Blood Pressure 133/12 H 133/102 H 132/99 H Blood Pressure Mean 52 112 110 Pulse Ox 95 97 Oxygen Delivery Method Nasal Cannula Nasal Cannula Oxygen Flow Rate (L/min) 2 2 04/12/23 20:00 Temperature 99.0 F Temperature Source Pulse Rate 105 H Respiratory Rate 18 Blood Pressure 132/99 H Blood Pressure Mean 110 Pulse Ox 96 Oxygen Delivery Method Oxygen Flow Rate (L/min) Positive well nourished, well developed and no apparent distress General Appearance ED: well developed HEENT Reports normocephalic and head/scalp atraumatic Mouth ED: Yes moist mucous membranes normal Eyes PERRL and EOMs intact bilaterally Neck full ROM and supple Chest Wall inspection of chest normal Resp normal respiratory effort and clear to auscultation bilaterally Cardio regular rate and regular rhythm GI soft to palpation, non-distended and no masses GI Narrative: Right lower quadrant tenderness to palpation, no rigidity, guarding, or peritoneal signs. Back/Spine normal ROM and normal to inspection Extremity normal to inspection and full ROM Neuro oriented x3, CN's II-XII intact bilaterally, moves all extremities, no focal motor deficits and no sensory deficits noted Sensorium / Orientation: awake and alert Psych mental status grossly normal and thought process normal Skin no rashes or lesions noted and no wounds <Dr. Cisco Wilson MD - Last Filed: 04/12/23 19:56> Physical Exam Const Vital Signs: 04/12/23 14:03 04/12/23 16:02 04/12/23 16:15 Temperature 99.2 F H 101.0 F H 101 F H Temperature Source Temporal Temporal Oral Pulse Rate 87 108 H 100 Respiratory Rate 20 H 32 H 27 H Blood Pressure 158/66 H 162/110 H Blood Pressure Mean 96 127 Pulse Ox 95 92 93 Oxygen Delivery Method Room Air Nasal Cannula Nasal Cannula Oxygen Flow Rate (L/min) 2 2 04/12/23 17:30 04/12/23 17:30 04/12/23 20:00 Temperature 99.9 F H Temperature Source Oral Pulse Rate 93 105 H Respiratory Rate 16 18 Blood Pressure 133/12 H 133/102 H 132/99 H Blood Pressure Mean 52 112 110 Pulse Ox 95 97 Oxygen Delivery Method Nasal Cannula Nasal Cannula Oxygen Flow Rate (L/min) 2 2 04/12/23 20:00 Temperature 99.0 F Temperature Source Pulse Rate 105 H Respiratory Rate 18 Blood Pressure 132/99 H Blood Pressure Mean 110 Pulse Ox 96 Oxygen Delivery Method Oxygen Flow Rate (L/min) MDM <CORDELL Mann - Last Filed: 04/12/23 20:59> MDM MDM Narrative Medical decision making narrative: Patient presenting today with her daughters due to fatigue, abdominal pain, nausea, vomiting, and diarrhea that all started last night. She is actively vomiting during initial evaluation and appears ill. She was in a rehabilitation facility due to a stroke that occurred about a month ago but was discharged home on Friday and has been doing okay up until last night. She did have a surgery performed due to a kidney stone at [facility] around mid January with stent placement. She admits to a little bit of increased urinary frequency but denies other urinary symptoms. She is tachycardic during initial exam, febrile, and I am concerned for sepsis. She has been given IV fluids and Zofran. Labs obtained to rule out leukocytosis, anemia, electrolyte abnormality, UTI. CT of the abdomen and pelvis obtained to rule out kidney stone, appendicitis, bowel obstruction, diverticulitis, and other abdominal etiology. She does have a WBC of 1.8, lactic acid of 3.5, sepsis protocol has been started. She has been given additional fluids, Tylenol for her fever, UA does show a UTI, she has been started on Rocephin. Stool sample was obtained and patient does have C. difficile. CT of the abdomen pelvis shows right-sided hydronephrosis with malpositioning of the stent, she is going to be transferred due to us not having urology here this weekend. I have personally performed a face to face assessment of the patient and have reviewed the FELICITAS Note. I performed a substantive portion of the visit including all aspects of the following. My kuo findings include: History: Patient was recovering at home from a stroke. She had been doing pretty well. Then yesterday afternoon approximately 24 hours ago she started to get some diarrhea. This was followed by some abdominal pain on the right side mostly lower. A little bit side of her abdomen but not really into her back. She is also now developed nausea vomiting and fevers. She does have history of removal of a staghorn calculus mid January up at [facility]. She still has the stent in place. She has an existing stone in there that they plan to remove on April. At first the patient states she had no urinary symptoms but then stated that she does have increased frequency over the last day or so. But no dysuria. Family states she has a history of having UTIs without significant symptoms. Patient is also having chills. Exam: Patient looks somewhat ill. But she is awake alert appropriate. Blood pressure still preserved. She is borderline tachycardic. She does have a slight fever. Her abdomen is really not tender to palpate. She states it hurts along the right side but it does not really hurt more to press. She does have some mild CVA tenderness. Medical Decision Making: Patient will have blood work. She needs to have imaging to look at intra-abdominal process. Certainly she is high risk for infection with her recent surgery and relative inactivity and recent hospitalization. My independent interpretation of the CT scan of the abdomen shows significantly enlargement of the right kidney with perinephric stranding and hydronephrosis. She has a stent in place. The distal stent looks like the and may not be fully in the bladder at this time. This makes me wonder if it is draining appropriately. I am awaiting the final reading. If patient CBC shows a low white count. This is new. Patient does have a acute kidney injury with a creatinine at 1.46 when her baseline is about half of that. Patient's lactic acid is high at 3.5. Patient's lipase is normal. Patient's liver function is now normal. Patient's urinalysis shows cloudy urine with leukocyte esterase and greater than 100 white cells. 1+ bacteria. Patient is given IV fluids. We are giving her fluids and rechecking her after each liter. She will be given Tylenol for her fever. We will initiate antibiotics. I do not have urology on page here and I think she has a urologic issue with the root of this. It is appropriate she goes to the facility that did her recent procedure. I did discuss this with her and the family and that is what they want. Lab Data Lab results narrative: WBC 1.8, platelet 116, BUN 19, creatinine 1.46, GFR 37, lactic acid 3.5, bilirubin 1.5 Labs: Laboratory Results - last 24 hr 04/12/23 04/12/23 04/12/23 14:43 14:45 19:15 WBC 1.8 L RBC 4.15 L Hgb 12.3 Hct 38.3 MCV 92.3 MCH 29.6 MCHC 32.1 RDW Std Deviation 44.8 H RDW Coeff of Darcy 13.3 Plt Count 116 L MPV 10.5 Immature Gran % (Auto) 4.500 H Neut % (Auto) 79.2 H Lymph % (Auto) 14.0 L Wilbarger % (Auto) 0.6 Eos % (Auto) 0.6 Baso % (Auto) 1.1 H Absolute Neuts (auto) 1.4 L Absolute Lymphs (auto) 0.25 L Nucleated RBC % 0 Differential Comment SEE COMMENT Platelet Estimate SLT DEC RBC Morphology N CHROM Anisocytosis RARE Macrocytosis RARE Sodium 137 Potassium 3.6 Chloride 106 Carbon Dioxide 24.0 Anion Gap 7 BUN 19 H Creatinine 1.46 H Est GFR (MDRD) Af Amer 44 L Est GFR (MDRD) Non-Af 37 L BUN/Creatinine Ratio 13.0 Glucose 116 H Lactic Acid 3.5 H* 5.4 H* Calcium 9.0 Total Bilirubin 1.50 H AST 24 ALT 22 Alkaline Phosphatase 117 Total Protein 6.8 Albumin 3.1 L Globulin 3.7 Albumin/Globulin Ratio 0.8 L Lipase 31 Urine Color Yellow Urine Clarity Cloudy Urine pH 6.0 Ur Specific Elma 1.015 Urine Protein 30 H Urine Glucose (UA) Normal Urine Ketones Negative Urine Occult Blood 150 H Urine Nitrite Negative Urine Bilirubin Negative Urine Urobilinogen Normal Ur Leukocyte Esterase 500 H Urine RBC 5-10 SEEN Urine WBC >100 SEEN Ur Squamous Epith Cells 0-5 SEEN Ur Transition Epith Cell 0-5 SEEN Urine Bacteria 1+ Urine Mucus 0 SEEN Radiography Diagnostic Testing: Clinical Impression(s) from Imaging Studies Abdomen/Pelvis CT 04/12/23 14:30 IMPRESSION: [id number] right hydronephrosis with right-sided ureteral stent in place. Malpositioning of the distal pigtail of the stent located within the distal right ureter, above the UV junction and not within the urinary bladder. Clinical correlation recommended and if indicated, urological consultation. Right lower renal pole stone measuring 4.4 mm. Colitis as described. No bowel obstruction. Electronically Signed: Kesha Worthington MD at 16:46 EDT , <Dr. Cisco Wilson MD - Last Filed: 04/12/23 19:56> [facility] MDM Narrative Medical decision making narrative: Patient presenting today with her daughters due to fatigue, abdominal pain, nausea, vomiting, and diarrhea that all started last night. She is actively vomiting during initial evaluation and appears ill. She was in a rehabilitation facility due to a stroke that occurred about a month ago but was discharged home on Friday and has been doing okay up until last night. She did have a surgery performed due to a kidney stone at [facility] around mid January with stent placement. She admits to a little bit of increased urinary frequency but denies other urinary symptoms. She is tachycardic during initial exam, febrile, and I am concerned for sepsis. She has been given IV fluids and Zofran. Labs obtained to rule out leukocytosis, anemia, electrolyte abnormality, UTI. CT of the abdomen and pelvis obtained to rule out kidney stone, appendicitis, bowel obstruction, diverticulitis, and other abdominal etiology. She does have a WBC of 1.8, lactic acid of 3.5, sepsis protocol has been started. She has been given additional fluids, Tylenol for her fever, UA does show a UTI, she has been started on Rocephin. Stool sample was obtained and patient does have C. difficile. CT of the abdomen pelvis shows right-sided hydronephrosis with malpositioning of the stent, she is going to be transferred due to us not having urology here this weekend. I have personally performed a face to face assessment of the patient and have reviewed the FELICITAS Note. I performed a substantive portion of the visit including all aspects of the following. My kuo findings include: History: Patient was recovering at home from a stroke. She had been doing pretty well. Then yesterday afternoon approximately 24 hours ago she started to get some diarrhea. This was followed by some abdominal pain on the right side mostly lower. A little bit side of her abdomen but not really into her back. She is also now developed nausea vomiting and fevers. She does have history of removal of a staghorn calculus mid January up at [facility]. She still has the stent in place. She has an existing stone in there that they plan to remove on April. At first the patient states she had no urinary symptoms but then stated that she does have increased frequency over the last day or so. But no dysuria. Family states she has a history of having UTIs without significant symptoms. Patient is also having chills. Exam: Patient looks somewhat ill. But she is awake alert appropriate. Blood pressure still preserved. She is borderline tachycardic. She does have a slight fever. Her abdomen is really not tender to palpate. She states it hurts along the right side but it does not really hurt more to press. She does have some mild CVA tenderness. Medical Decision Making: Patient will have blood work. She needs to have imaging to look at intra-abdominal process. Certainly she is high risk for infection with her recent surgery and relative inactivity and recent hospitalization. My independent interpretation of the CT scan of the abdomen shows significantly enlargement of the right kidney with perinephric stranding and hydronephrosis. She has a stent in place. The distal stent looks like the and may not be fully in the bladder at this time. This makes me wonder if it is draining appropriately. I am awaiting the final reading. If patient CBC shows a low white count. This is new. Patient does have a acute kidney injury with a creatinine at 1.46 when her baseline is about half of that. Patient's lactic acid is high at 3.5. Patient's lipase is normal. Patient's liver function is now normal. Patient's urinalysis shows cloudy urine with leukocyte esterase and greater than 100 white cells. 1+ bacteria. Patient is given IV fluids. We are giving her fluids and rechecking her after each liter. She will be given Tylenol for her fever. We will initiate antibiotics. I do not have urology on page here and I think she has a urologic issue with the root of this. It is appropriate she goes to the facility that did her recent procedure. I did discuss this with her and the family and that is what they want. We did later get back patient's C. difficile which is positive. Her last antibiotics were back in January when she had the staghorn calculus removed. However, I do not think her acute symptoms with the low white count tachycardia inflammatory changes in the kidney and sepsis are due to C. difficile. I think her primary issue is the poor drainage in the right kidney and UTI. We have given her 2 L of fluid. Her blood pressure is still good but her lactate came back higher. I do not have an official weight on her at this time. I will give her another liter. That should be about 30 cc/kg. She does not need pressors as she is not hypotensive. Her heart rate is back down to the 90s. Lab Data Attestation: I reviewed the patient's lab results. Labs: Laboratory Results - last 24 hr 04/12/23 04/12/23 04/12/23 14:43 14:45 19:15 WBC 1.8 L RBC 4.15 L Hgb 12.3 Hct 38.3 MCV 92.3 MCH 29.6 MCHC 32.1 RDW Std Deviation 44.8 H RDW Coeff of Darcy 13.3 Plt Count 116 L MPV 10.5 Immature Gran % (Auto) 4.500 H Neut % (Auto) 79.2 H Lymph % (Auto) 14.0 L Wilbarger % (Auto) 0.6 Eos % (Auto) 0.6 Baso % (Auto) 1.1 H Absolute Neuts (auto) 1.4 L Absolute Lymphs (auto) 0.25 L Nucleated RBC % 0 Differential Comment SEE COMMENT Platelet Estimate SLT DEC RBC Morphology N CHROM Anisocytosis RARE Macrocytosis RARE Sodium 137 Potassium 3.6 Chloride 106 Carbon Dioxide 24.0 Anion Gap 7 BUN 19 H Creatinine 1.46 H Est GFR (MDRD) Af Amer 44 L Est GFR (MDRD) Non-Af 37 L BUN/Creatinine Ratio 13.0 Glucose 116 H Lactic Acid 3.5 H* 5.4 H* Calcium 9.0 Total Bilirubin 1.50 H AST 24 ALT 22 Alkaline Phosphatase 117 Total Protein 6.8 Albumin 3.1 L Globulin 3.7 Albumin/Globulin Ratio 0.8 L Lipase 31 Urine Color Yellow Urine Clarity Cloudy Urine pH 6.0 Ur Specific Elma 1.015 Urine Protein 30 H Urine Glucose (UA) Normal Urine Ketones Negative Urine Occult Blood 150 H Urine Nitrite Negative Urine Bilirubin Negative Urine Urobilinogen Normal Ur Leukocyte Esterase 500 H Urine RBC 5-10 SEEN Urine WBC >100 SEEN Ur Squamous Epith Cells 0-5 SEEN Ur Transition Epith Cell 0-5 SEEN Urine Bacteria 1+ Urine Mucus 0 SEEN Radiography Diagnostic Testing: Clinical Impression(s) from Imaging Studies Abdomen/Pelvis CT 04/12/23 14:30 IMPRESSION: [id number] right hydronephrosis with right-sided ureteral stent in place. Malpositioning of the distal pigtail of the stent located within the distal right ureter, above the UV junction and not within the urinary bladder. Clinical correlation recommended and if indicated, urological consultation. Right lower renal pole stone measuring 4.4 mm. Colitis as described. No bowel obstruction. Electronically Signed: Kesha Worthington MD at 16:46 EDT , <Dr. Cisco Wilson MD - Last Filed: 04/12/23 19:56> Critical Care Time Critical Care Time: Yes Critical care time (excluding procedures): 30-74 minutes, Discussing w/Patient &/or Family/Hunter Trapper, Discussing w/Consultants, Arranging Admission or Transfer, Performing Direct Patient Care at Bedside and - (42 minutes, reassess, further fluids, adding therapy, discussion with patient and family consultants and arranging transfer.) Discharge Plan Triage Chief Complaint: General Illness ED Midlevel Provider: Cheri Cedeño ED Provider: Cisco Wilson Dx/Rx/DC Orders Clinical Impression: JEANIE (acute kidney injury), History of renal stent, Leukopenia, Sepsis, Acute UTI Prescriptions: No Action hydrochlorothiazide 12.5 MG capsule 12.5 mg PO DAILY Hold Instructions: MD Ordered amlodipine 5 mg tablet 5 mg PO DAILY aspirin 81 mg Tablet,Chewable 81 mg PO BREAKFAST Qty: 0 0RF atorvastatin 80 mg Tablet 80 mg PO QHS 30 Days Qty: 30 0RF acetaminophen 325 mg Tablet 650 mg PO Q6H PRN PRN (Reason: Pain Score 4-10) Qty: 0 0RF propranolol 10 mg Tablet 20 mg PO BID 30 Days Qty: 120 0RF trazodone 100 mg Tablet 100 mg PO QHS 30 Days Qty: 30 0RF lisinopril 5 mg Tablet 15 mg PO BID 30 Days Qty: 180 0RF Primary Care Provider: Matheus Cesar Referrals: Matheus Cesar MD [Primary Care Provider] - Disposition Disposition: Acute Care Hospital Discharge Location: [facility] Discharge Date/Time: 04/12/23 20:37
[2023-04-12 14:52] LABS: Mucous, Urine 0 SEEN /hpf (<or=2+)
[2023-04-12 14:56] LABS: Color, Urine Yellow (Yellow); Glucose, Dipstick Normal (Normal); Ketone-Dipstick Negative (Negative); Leukocyte Esterase-Dipstick 500 /ul (Negative); Nitrite-Dipstick Negative (Negative); Occult Blood-Urine 150 /ul (Negative); Protein-Dipstick 30 mg/dl (Negative); Specific Gravity, Urine 1.015 (1.002-1.030); Urine Bilirubin Dipstick Negative (Negative); Urine Clarity Cloudy (Clear); Urine Urobilinogen Normal (Normal)
[2023-04-12 15:00] LABS: Absolute Lymphocyte Count 0.25 X10^3/uL (0.83-4.51); Absolute Neutrophil Count 1.4 X10^3/uL (2.0-7.7); Basophil# 0.02 X10^3/uL; Basophil% 1.1 % (0-1); Eosinophil# 0.01 X10^3/uL; Eosinophils% 0.6 % (0-5); Hematocrit 38.3 % (37-47); Hemoglobin 12.3 g/dL (12.0-15.0); Lymphocyte # 0.25 X10^3/ul (0.83-4.51); Mean Corp Hgb Conc 32.1 g/dL (32-36); Mean Corpuscular Hgb 29.6 pg (27.0-32.0); Mean Corpuscular Volume 92.3 fL (81-99); Mean Platelet Vol. 10.5 fl (6.2-12.0); Monocyte# 0.01 X10^3/uL; Monocyte% 0.6 % (0-10); NRBC Flagged by Analyzer 0 % (0-5); Neutrophil # 1.41 X10^3/uL (2.7-7.7); Neutrophil % 79.2 % (47-70); POSITIVE DIFFERENTIAL YES; Platelet Count 116 K/mm3 (150-450); RBC Distribution Width CV 13.3 % (11.6-14.6); RBC Distribution Width SD 44.8 fl (35.1-43.9); Red Blood Count 4.15 M/mm3 (4.2-5.4); White Blood Count 1.8 K/mm3 (4.4-11.0)
[2023-04-12 15:09] LABS: White Blood Cells >100 SEEN /hpf (0-5)
[2023-04-12 15:10] LABS: Bacteria 1+ /hpf (None Seen); Red Blood Cells-Urine 5-10 SEEN /hpf (0-5); Squamous Epithelial Cells - UA 0-5 SEEN /hpf (5-10); Transitional Epithelial - Ur 0-5 SEEN /hpf (0-5)
[2023-04-12 15:10] LABS: Differential Indicated SCAN CRITERIA MET
[2023-04-12 15:31] LABS: ALB/GLOB Ratio 0.8 RATIO (0.9-2.4); AST(SGOT) 24 U/L (15-37); Alanine Aminotransfer ALT/SGPT 22 U/L (13-56); Albumin, Serum 3.1 g/dL (3.2-5.0); Alkaline Phosphatase 117 U/L (45-117); Anion Gap 7 (5-15); BUN 19 mg/dL (7-18); Chloride 106 mmol/L (98-107); Creatinine, Serum 1.46 mg/dL (0.55-1.02); EST Glomerular Filtration Rate 37 mL/min (>60); Est Glom Filt Rate - Afr Amer 44 mL/min (>60); Globulin 3.7 g/dL (2.2-4.2); Glucose 116 mg/dL (74-106); Lipase 31 U/L (13-75); Potassium 3.6 mmol/L (3.5-5.1); Protein, Total 6.8 g/dL (6.4-8.2); Sodium Level 137 mmol/L (136-145)
[2023-04-12 15:39] LABS: Lactic Acid 3.5 mmol/L (0.4-1.9)
--- NOTE | 2023-04-12 15:39 | ED.RN ---
LAB CALLED [facility] OF 3.5 DR THOMPSON
[2023-04-12 15:49] LABS: Anisocytosis RARE; Macrocytosis RARE; Platelet Estimate SLT DEC (ADEQ); Red Cell Morphology N CHROM NORMAL (NORM C&C)
[2023-04-12 16:02] VITALS: BP 162/110; PULSE 108; RESP 32; TEMP 38.3; O2SAT 92
[2023-04-12] MEDS: 0.9% Normal Saline (1000mL) 1,000 ML 999 ML IV (16:07)
[2023-04-12 16:15] VITALS: PULSE 100; RESP 27; TEMP 38.3; O2SAT 93
[2023-04-12] MEDS: Ceftriaxone 1 GM/50 ML BAG IV (16:38)
[2023-04-12] MEDS: Acetaminophen 500 MG Tablet 1000 MG PO (16:44)
--- NOTE | 2023-04-12 16:58 | NURSING ---
FAXED FACESHEET AND CT TO [facility]
[2023-04-12 17:30] VITALS: BP 133/102; BP 133/12; PULSE 93; RESP 16; O2SAT 95
--- NOTE | 2023-04-12 17:30 | NURSING ---
CALLED [facility], ETA IS 2 HRS
[2023-04-12 18:48] LABS: Reflex Lactate? Y
--- NOTE | 2023-04-12 19:05 | NURSING ---
report called to receiving ED
[2023-04-12 19:52] LABS: Lactic Acid 5.4 mmol/L (0.4-1.9)
[2023-04-12 20:00] VITALS: BP 132/99; PULSE 105; RESP 18; TEMP 37.2; TEMP 37.7; O2SAT 96; O2SAT 97
--- NOTE | 2023-04-13 01:04 | ED.RN ---
lab called with critical lab results. patient positive blood cultures. patient transferred to [facility] results faxed to them at this time
[2023-04-15 09:50] LABS: Pathologist Review Reviewed
== END 2023-04-12 20:37 | disposition short-term general hospital (02) ==
PROVIDERS: Physician Assistant; Emergency Provider Emergency Medicine; PCP Family Medicine; Visit Provider Emergency Medicine
DX: N17.9 Acute kidney failure, unspecified (principal); A41.9 Sepsis, unspecified organism; I10 Essential (primary) hypertension; E78.00 Pure hypercholesterolemia, unspecified; R11.2 Nausea with vomiting, unspecified; D72.819 Decreased white blood cell count, unspecified; N39.0 Urinary tract infection, site not specified; Z86.73 Personal history of transient ischemic attack (TIA), and cerebral infarction without residual deficits; Z85.89 Personal history of malignant neoplasm of other organs and systems; Z79.899 Other long term (current) drug therapy; Z79.82 Long term (current) use of aspirin; Z96.0 Presence of urogenital implants
CPT/HCPCS: 74177; 80053; 81001; 83605; 83690; 85025; 87040; 87077; 87186; 87493; 87506; 96365; 96375; 99285; J7030; Q9967; A4216; J2405

== ENCOUNTER 2023-09-27 15:49 | Emergency (ER) | payer MEDICARE, SELFPAY ==
[2023-09-27 15:52] VITALS: BP 125/62; PULSE 67; RESP 15; RESP 16; TEMP 36.1; O2SAT 100; O2SAT 99; BMI 23.3
[2023-09-27 15:59] VITALS: O2SAT 99
--- NOTE | 2023-09-27 16:15 | EKG12_ITS ---
Test Reason : SOB Blood Pressure : / mmHG Vent. Rate : 066 BPM Atrial Rate : 066 BPM P-R Int : 230 ms QRS Dur : 088 ms QT Int : 416 ms P-R-T Axes : 067 050 -02 degrees QTc Int : 436 ms Sinus rhythm with 1st degree A-V block Septal infarct , age undetermined Abnormal ECG Confirmed by Dmitriy Carreon ([id number]), editorial assistant GLORIA COPPOLA ([id number]) on 09/29/2023 11:09:30 AM Referred By: Confirmed By:Dmitriy Carreon
--- NOTE | 2023-09-27 16:20 | RAD_ITS ---
INDICATION: shortness of breath EXAMINATION/TECHNIQUE: X-RAY - XR Chest 2 Views COMPARISON: March 12, 2023 FINDINGS: LINES/DEVICES: None. LUNGS: No consolidation, edema or effusion. No pneumothorax. MEDIASTINUM AND CARDIOVASCULAR STRUCTURES: Cardiac silhouette not enlarged. Central airways and mediastinal contour are unremarkable. BONES AND SOFT TISSUES: Degenerative vertebral changes. RAD/Chest PA and Lateral IMPRESSION: No radiographic evidence of acute cardiopulmonary disease. Electronically Signed: Jose Da Silva DO at 17:00 EDT ,
--- NOTE | 2023-09-27 16:23 | EDS_ITS ---
HPI <COREDLL Mann - Last Filed: 09/27/23 20:28> History of Present Illness Chief Complaint: Shortness of Breath Narrative Narrative: Patient presenting today due to an episode of shortness of breath that occurred this afternoon. She reports that she had an episode of lightheadedness, she sat down in a chair and felt slightly short of breath and then immediately panicked because when she had her stroke previously, she had felt short of breath at that time and was scared that she could be having a stroke again. Her daughters are in the room and report that she started to hyperventilate and had to be calm down. She reports that she no longer feels short of breath and is feeling well. She denies any fevers, chills, recent illness, chest pain, history of blood clots, recent surgery/procedures/travel/immobilization. PFSH <CORDELL Mann - Last Filed: 09/27/23 20:28> [facility] Medical History Basal cell carcinoma Essential tremor History of hypercholesterolemia HTN (hypertension) Left carotid artery stenosis Spinal stenosis of lumbar region at multiple levels Staghorn kidney stones Thrombocytopenia Home Medications hydrochlorothiazide 12.5 mg capsule 12.5 mg PO DAILY EDEMA 04/06/15 [History Last Taken 03/11/23] amlodipine 5 mg tablet 5 mg PO DAILY blood pressure 03/12/23 [History Last Taken 03/14/23] aspirin 81 mg chewable tablet 81 mg PO BREAKFAST Heart health #0 tabs 03/14/23 [Rx Last Taken 03/14/23] acetaminophen 325 mg tablet 650 mg (2 x 325 mg) PO Q6H PRN PRN Pain Score 4-10 #0 tabs 04/04/23 [Rx Last Taken Unknown] atorvastatin 80 mg tablet 80 mg PO QHS 30 days #30 tabs 04/04/23 [Rx Last Taken Unknown] lisinopril 5 mg tablet 15 mg (3 x 5 mg) PO BID 30 days #180 tabs 04/04/23 [Rx Last Taken Unknown] propranolol 10 mg tablet 20 mg (2 x 10 mg) PO BID 30 days #120 tabs 04/04/23 [Rx Last Taken Unknown] trazodone 100 mg tablet 100 mg PO QHS 30 days #30 tabs 04/04/23 [Rx Last Taken Unknown] Allergy/AdvReac Type Severity Reaction Status Date / Time latex Allergy Unknown Verified 09/27/23 15:52 Sulfa (Sulfonamide Allergy Unknown Verified 09/27/23 15:52 Antibiotics) Family History Mother CAD (coronary artery disease) Hypertension Father CAD (coronary artery disease) Hypertension Sister Hypertension Kidney disease due to HTN and she was on dialysis Other Hyperlipidemia Surgical History History of skin surgery Social History household members: none housing: house Smoking Status: Never smoker alcohol intake: never substance use type: does not use ROS <CORDELL Mann - Last Filed: 09/27/23 20:28> ROS ED Constitutional Constitutional ED: Denies chills or fever(s) Cardiovascular Cardiovascular: Denies chest pain Respiratory/Chest Respiratory/Chest: Reports dyspnea; Denies cough Gastrointestinal Gastrointestinal: Denies abdominal pain, nausea or vomiting Genitourinary Genitourinary ED: Denies dysuria, hematuria or urinary urgency Musculoskeletal Musculoskeletal: Denies arthralgias or myalgias Integumentary Denies rash Neurologic Neurologic: Denies weakness EXAM <CORDELL Mann - Last Filed: 09/27/23 20:28> Physical Exam Const Vital Signs: 09/27/23 15:52 09/27/23 15:52 09/27/23 15:59 Temperature 96.9 F L 96.9 F L Temperature Source Oral Oral Pulse Rate 67 67 Respiratory Rate 16 15 Respiratory Effort Normal Non-Labored Respiratory Depth Normal Respiratory Pattern Normal Blood Pressure 125/62 H 125/62 H Blood Pressure Mean 83 83 Pulse Ox 100 99 Oxygen Delivery Method Room Air Room Air Room Air 09/27/23 17:26 Temperature 98 F Temperature Source Pulse Rate 73 Respiratory Rate 15 Respiratory Effort Respiratory Depth Respiratory Pattern Blood Pressure 137/68 H Blood Pressure Mean 91 Pulse Ox 99 Oxygen Delivery Method Positive well nourished, well developed and no apparent distress General Appearance ED: well developed HEENT Reports normocephalic and head/scalp atraumatic Mouth ED: Yes moist mucous membranes normal Eyes PERRL and EOMs intact bilaterally Neck full ROM and supple Chest Wall inspection of chest normal Resp normal respiratory effort and clear to auscultation bilaterally Cardio regular rate and regular rhythm GI soft to palpation, non-tender, non-distended and no masses Back/Spine normal ROM and normal to inspection Extremity normal to inspection and full ROM Neuro oriented x3, CN's II-XII intact bilaterally, moves all extremities, no focal motor deficits and no sensory deficits noted Sensorium / Orientation: awake and alert Psych mental status grossly normal and thought process normal Skin no rashes or lesions noted and no wounds <Dr. Helio Tovar, - Last Filed: 09/27/23 17:03> Physical Exam Const Vital Signs: 09/27/23 15:52 09/27/23 15:52 09/27/23 15:59 Temperature 96.9 F L 96.9 F L Temperature Source Oral Oral Pulse Rate 67 67 Respiratory Rate 16 15 Respiratory Effort Normal Non-Labored Respiratory Depth Normal Respiratory Pattern Normal Blood Pressure 125/62 H 125/62 H Blood Pressure Mean 83 83 Pulse Ox 100 99 Oxygen Delivery Method Room Air Room Air Room Air 09/27/23 17:26 Temperature 98 F Temperature Source Pulse Rate 73 Respiratory Rate 15 Respiratory Effort Respiratory Depth Respiratory Pattern Blood Pressure 137/68 H Blood Pressure Mean 91 Pulse Ox 99 Oxygen Delivery Method MDM <CORDELL Mann - Last Filed: 09/27/23 20:28> [facility] Narrative Medical decision making narrative: Patient presenting due to an episode of shortness of breath that occurred this afternoon. She immediately became anxious and started to hyperventilate because when she had a stroke in the past she felt short of breath during that time and was scared that she could be having another stroke. She does not have any strokelike symptoms or neurological deficits, NIH 0. She no longer feels short of breath and is feeling well however labs will be obtained to rule out leukocytosis, anemia, electrolyte abnormality, and ACS. Chest x-ray will be obtained to rule out cardiopulmonary abnormality. She has a low Wells score, low suspicion for PE. Her labs overall are unremarkable, chest x-ray negative for anything acute, she has not had any shortness of breath while being here. She has been reassured and will be discharged home in stable condition. She is comfortable with plan. Encouraged follow-up with PCP. Lab Data Attestation: I reviewed the patient's lab results. Labs: Laboratory Results - last 24 hr 09/27/23 16:00 WBC 5.0 RBC 3.62 L Hgb 11.4 L Hct 33.9 L MCV 93.6 MCH 31.5 MCHC 33.6 RDW Std Deviation 45.0 H RDW Coeff of Daryc 13.2 Plt Count 165 MPV 10.6 Immature Gran % (Auto) 0.200 Neut % (Auto) 49.0 Lymph % (Auto) 40.3 [place] % (Auto) 8.9 Eos % (Auto) 0.6 Baso % (Auto) 1.0 Absolute Neuts (auto) 2.4 Absolute Lymphs (auto) 2.00 Nucleated RBC % 0 Sodium 141 Potassium 4.0 Chloride 109 H Carbon Dioxide 26.0 Anion Gap 6 BUN 16 Creatinine 0.92 Estim Creat Clear Calc 44.62 Est GFR (MDRD) Af Amer 75 Est GFR (MDRD) Non-Af 62 BUN/Creatinine Ratio 17.3 Glucose 111 H Calcium 9.2 Troponin I High Sens 8 Radiography X-Ray: Read by ED Physician Diagnostic Testing: Clinical Impression(s) from Imaging Studies Chest X-Ray 09/27/23 16:20 IMPRESSION: No radiographic evidence of acute cardiopulmonary disease. Electronically Signed: Jose Da Silva DO at 17:00 EDT Reading Location ID and State: [facility] / [place] Tel [phone], Service support , EKG Initial EKG: Comments: 66 bpm, sinus rhythm with first-degree AV block, no ST elevation, reviewed and interpreted by attending ED physician <Dr. Helio Tovar, - Last Filed: 09/27/23 17:03> [facility] Lab Data Labs: Laboratory Results - last 24 hr 09/27/23 16:00 WBC 5.0 RBC 3.62 L Hgb 11.4 L Hct 33.9 L MCV 93.6 MCH 31.5 MCHC 33.6 RDW Std Deviation 45.0 H RDW Coeff of Darcy 13.2 Plt Count 165 MPV 10.6 Immature Gran % (Auto) 0.200 Neut % (Auto) 49.0 Lymph % (Auto) 40.3 [place] % (Auto) 8.9 Eos % (Auto) 0.6 Baso % (Auto) 1.0 Absolute Neuts (auto) 2.4 Absolute Lymphs (auto) 2.00 Nucleated RBC % 0 Sodium 141 Potassium 4.0 Chloride 109 H Carbon Dioxide 26.0 Anion Gap 6 BUN 16 Creatinine 0.92 Estim Creat Clear Calc 44.62 Est GFR (MDRD) Af Amer 75 Est GFR (MDRD) Non-Af 62 BUN/Creatinine Ratio 17.3 Glucose 111 H Calcium 9.2 Troponin I High Sens 8 Radiography Diagnostic Testing: Clinical Impression(s) from Imaging Studies Chest X-Ray 09/27/23 16:20 IMPRESSION: No radiographic evidence of acute cardiopulmonary disease. Electronically Signed: Jose Da Silva DO at 17:00 EDT Reading Location ID and State: [facility] / [place] Tel [phone], Service support , Treatment and Re-Evaluation :: I have personally performed a face to face assessment of the patient and have reviewed the FELICITAS Note. I performed a substantive portion of the visit including all aspects of the following. My kuo findings include: History: Patient presents with feeling dizzy, short of breath, and near syncopal today. Patient states that when she had her stroke, she felt short of breath. Patient states she became worried that she was going to have another stroke. Patient states she felt like she was going to pass out and felt lightheaded. Patient states that now, her symptoms have completely resolved. Patient denies any chest pain or shortness of breath. Patient states she was nauseated but did not vomit. Exam: Vital signs are stable. Patient is afebrile. Patient is in no acute distress. Oral mucosa is pink and moist. Neck is supple. Trachea is midline. There is no JVD. Heart was regular rate and rhythm. Lungs are clear and equal bilaterally. Abdomen is soft. Bowel sounds are normal. There is no tenderness. Cranial nerves II through XII are intact. There are no focal motor or sensory deficits noted. Medical Decision Making: Differential diagnosis includes anxiety, pneumonia, cardiac dysrhythmia, cardiac ischemia, near syncope, and electrolyte abnormality. EKG will be obtained to assess for cardiac dysrhythmia and cardiac ischemia. Chest x-ray will be obtained to assess for pneumonia and pneumothorax. CBC will be obtained to assess for leukocytosis and anemia. Basic metabolic profile will be obtained to assess for electrolyte abnormality and renal function. High-sensitivity troponin will be obtained to assess for cardiac ischemia. EKG was obtained. On my independent interpretation, it showed a sinus rhythm with a first-degree AV block with a rate of 66. QRS interval and QTc intervals are within normal limits. There are no acute ST or T wave changes noted. PA and lateral chest x-ray was obtained. There are 2 views. On my independent interpretation, lung herron are clear. There is normal cardiac silhouette. Bony thorax is normal. There is no acute process noted. Radiologist also interpreted the x-ray and agrees. CBC was reviewed and was within normal limits. Basic metabolic profile was reviewed and was within normal limits. High-sensitivity troponin was reviewed and was normal at 8. Patient was advised of her findings. Patient was advised that this was most likely anxiety. Patient was instructed to follow-up with her primary care physician in 5 to 7 days. Patient was instructed to return if worse in any way. Patient understood and was agreeable with the plan. All questions were answered. Discharge Plan Triage Chief Complaint: Shortness of Breath ED Midlevel Provider: Cheri Cedeño ED Provider: Helio Tovar Dx/Rx/DC Orders Clinical Impression: Shortness of breath Instructions: ED Dyspnea Prescriptions: No Action hydrochlorothiazide 12.5 MG capsule 12.5 mg PO DAILY Hold Instructions: MD Ordered amlodipine 5 mg tablet 5 mg PO DAILY aspirin 81 mg Tablet,Chewable 81 mg PO BREAKFAST Qty: 0 0RF atorvastatin 80 mg Tablet 80 mg PO QHS 30 Days Qty: 30 0RF acetaminophen 325 mg Tablet 650 mg PO Q6H PRN PRN (Reason: Pain Score 4-10) Qty: 0 0RF propranolol 10 mg Tablet 20 mg PO BID 30 Days Qty: 120 0RF trazodone 100 mg Tablet 100 mg PO QHS 30 Days Qty: 30 0RF lisinopril 5 mg Tablet 15 mg PO BID 30 Days Qty: 180 0RF Primary Care Provider: Matheus Cesar Referrals: Matheus Cesar MD [Primary Care Provider] - 5-7 Days Activity Restrictions/Additional Instructions: Please follow-up with your PCP and return for any worsening of your symptoms. Disposition Disposition: Home, Self Care Discharge Date/Time: 09/27/23 17:27
[2023-09-27 16:28] LABS: Absolute Neutrophil Count 2.4 X10^3/uL (2.0-7.7); Basophil# 0.05 X10^3/uL; Eosinophil# 0.03 X10^3/uL; Eosinophils% 0.6 % (0-5); Hematocrit 33.9 % (37-47); Hemoglobin 11.4 g/dL (12.0-15.0); Lymphocyte % 40.3 % (19-41); Mean Corp Hgb Conc 33.6 g/dL (32-36); Mean Corpuscular Hgb 31.5 pg (27.0-32.0); Mean Corpuscular Volume 93.6 fL (81-99); Mean Platelet Vol. 10.6 fl (6.2-12.0); Monocyte# 0.44 X10^3/uL; Monocyte% 8.9 % (0-10); NRBC Flagged by Analyzer 0 % (0-5); Neutrophil # 2.43 X10^3/uL (2.7-7.7); Platelet Count 165 K/mm3 (150-450); RBC Distribution Width CV 13.2 % (11.6-14.6); Red Blood Count 3.62 M/mm3 (4.2-5.4)
[2023-09-27 16:45] LABS: Anion Gap 6 (5-15); BUN 16 mg/dL (7-18); BUN/Creat Ratio 17.3 RATIO (10-20); Calcium,Total 9.2 mg/dL (8.5-10.1); Chloride 109 mmol/L (98-107); Creatinine, Serum 0.92 mg/dL (0.55-1.02); EST Glomerular Filtration Rate 62 mL/min (>60); Est Glom Filt Rate - Afr Amer 75 mL/min (>60); Estimated Creatinine Clearance 44.62 ml/min; Glucose 111 mg/dL (74-106); Sodium Level 141 mmol/L (136-145); Troponin-I HS 8 pg/mL (3.0-54.0)
[2023-09-27 17:26] VITALS: BP 137/68; PULSE 73; RESP 15; TEMP 36.6; O2SAT 99
== END 2023-09-27 17:27 | disposition home or self-care (01) ==
PROVIDERS: Physician Assistant; Emergency Provider Emergency Medicine; PCP Family Medicine; Visit Provider Emergency Medicine
DX: R06.02 Shortness of breath (principal); R06.4 Hyperventilation; I10 Essential (primary) hypertension; E78.00 Pure hypercholesterolemia, unspecified; R42 Dizziness and giddiness; I44.0 Atrioventricular block, first degree
CPT/HCPCS: 71046; 80048; 84484; 85025; 93005; 99285; J7030; A4216

== ENCOUNTER 2024-05-14 19:06 | Observation (INO) | payer MEDICARE, SELFPAY ==
[2024-05-14] VITALS (8 sets, daily range): BP systolic 135–161; BP diastolic 61–101; PULSE 65–77; RESP 16–19; TEMP 36.4–36.6; O2SAT 95–99; BMI 20.7; BMI 18.1
--- NOTE | 2024-05-14 19:16 | CT_ITS ---
EXAM: CT ABDOMEN AND PELVIS WITH INTRAVENOUS CONTRAST CLINICAL INDICATION: abd pain TECHNIQUE: Helically acquired images were obtained of the abdomen and pelvis with intravenous contrast. This CT exam was performed using one or more of the following dose reduction techniques: automated exposure control, adjustment of the mA and/or kV according to patient size, and/or use of iterative reconstruction technique. CONTRAST: IV 100mL Isovue-370 RADIATION DOSE: CTDIvol = 12.80 mGy, DLP = 446.72 mGy-cm COMPARISON: 04/12/2023 FINDINGS: LOWER THORAX: Mild scarring in the right lung base. No cardiomegaly. No significant pericardial effusion. ABDOMEN: LIVER: Stable 1.8 cm right hepatic cyst. Otherwise negative liver. GALLBLADDER AND BILE DUCTS: Unremarkable. No calcified gallstones. No gallbladder distention or wall edema. No intra- or extrahepatic biliary ductal dilation. PANCREAS: Unremarkable. No focal cystic or solid mass. SPLEEN: Unremarkable. Normal size without focal cystic or solid mass. ADRENALS: Unremarkable. No nodules. KIDNEYS AND URETERS: Mild right hydronephrosis and proximal right hydroureter without definite obstructing stone. Evidence of mild thickening of the collecting system and proximal ureteral baker. Findings suggest pyelonephritis. Left kidney is unremarkable. Bilateral simple cysts, stable. Normal renal size and position. STOMACH AND BOWEL: Evaluation of the GI tract is limited by absence of oral contrast. Cannot exclude stomach wall thickening. Single loop of fluid-filled small bowel in the left abdomen could be related to partial obstruction or ileus. Moderate diffuse fecal retention. Diverticulosis without definite diverticulitis. PELVIS: APPENDIX: No evidence of acute appendicitis. BLADDER: Unremarkable. REPRODUCTIVE: Unremarkable as visualized. No mass. ABDOMEN and PELVIS: INTRAPERITONEAL SPACE: Unremarkable. No ascites or other fluid collection. No free air. BONES/JOINTS: Degenerative changes of the spine. No suspicious lytic or blastic abnormality. SOFT TISSUES: Increased size of the left paramidline abdominal wall hernia currently containing short segments of bowel surrounded by edema. Possible partial small bowel obstruction. Possible incarceration with edema. VASCULATURE: Moderate calcified plaque of the aorta without aneurysm. LYMPH NODES: Unremarkable. No enlarged lymph nodes. CT/Abdomen/Pelvis W IV Cont ONLY IMPRESSION: 1. Worsening of left paramidline abdominal wall hernia containing short segments of bowel surrounded by probable edema. There may be partial obstruction and incarceration is not excluded. 2. Abnormal appearance of the right renal collecting system and proximal ureter suggestive of pyelonephritis. Note: Small calcifications adjacent to the right ureter were present previously and do not represent ureteral stones. Electronically Signed: Mik Ulrich MD at 21:32 EST ,
--- NOTE | 2024-05-14 19:27 | ED.VIS.GI ---
HPI HPI - GI History of Present Illness Chief Complaint: Abd Pain Informant: patient Abdominal Pain/Flank Pain Onset: Today Context: Sudden Onset Timing: Continuous Quality: Sharp and Stabbing Location: LLQ Current Severity: Moderate Maximum Severity: Severe Worsened by: Nothing Relieved by: Nothing Nausea/Vomiting/Emesis GI Symptom: Positive for Nausea and Vomiting Onset: Today Severity: Moderate Diarrhea/Melena/Hematochezia GI Symptom: Negative for Diarrhea, Melena or Hematochezia Associated Symptoms Associated Symptoms: Negative for Dysuria, Frequency, Hematuria or Urgency Narrative Narrative: 79-year-old female history of prior appendectomy. Prior colostomy years ago with reversal due to a partial colon resection due to diverticulitis. Was feeling well. Has not been ill the last several days. Last bowel movement was yesterday. Denies any trouble urinating. No dysuria. No fever. No diarrhea. No significant constipation. Had sudden onset of left lower quadrant abdominal pain tonight. Where her prior colostomy was. Pain worsened she started with nausea and vomiting was brought in by squad treated with Zofran by them. Prior similar symptoms: No PFSH PFSH Medical History Hx of nephrolithotomy with removal of calculi Acquired absence of intestine Depression [place] (obstructive sleep apnea) Diabetes mellitus, type II Essential (primary) hypertension First degree AV block V-tach SVT (supraventricular tachycardia) Left-sided weakness Ischemic cerebrovascular accident (CVA) Debility Dysphagia Bradycardia Essential tremor Staghorn kidney stones Basal cell carcinoma Left carotid artery stenosis Thrombocytopenia History of hypercholesterolemia Spinal stenosis of lumbar region at multiple levels HTN (hypertension) Home Medications ?Medication ?Instructions ?Recorded ?Last Taken ?Type aspirin 81 mg chewable tablet 81 mg PO BREAKFAST [facility] #0 03/14/23 03/14/23 Rx tabs atorvastatin 80 mg tablet 80 mg PO QHS 30 days #30 tabs 04/04/23 Unknown Rx amlodipine 5 mg tablet 5 mg PO DAILY 01/09/24 Unknown History fluticasone propionate 50 1 spray intranasal DAILY PRN nasal 01/09/24 Unknown History mcg/actuation nasal congestion spray,suspension losartan 100 mg tablet 100 mg PO DAILY 01/09/24 Unknown History omeprazole 40 mg capsule,delayed 40 mg PO DAILY 01/09/24 Unknown History release sennosides 8.6 mg tablet (Senna 8.6 mg PO DAILY PRN constipation 01/09/24 Unknown History Laxative) acetaminophen 325 mg tablet 650 mg PO Q8 arthritis 01/28/24 Unknown History Allergy/AdvReac Type Severity Reaction Status Date / Time isradipine (From Dyna[facility]) Allergy Severe Rash Verified 05/14/24 19:10 morphine Allergy Severe twitching Verified 05/14/24 19:10 and rapid eye movement ramipril (From Altace) Allergy Severe Rash Verified 05/14/24 19:10 latex Allergy Rash Verified 05/14/24 19:10 Sulfa (Sulfonamide Allergy Unknown Verified 05/14/24 19:10 Antibiotics) Family History Mother CAD (coronary artery disease) Hypertension Father CAD (coronary artery disease) Hypertension Sister Hypertension Kidney disease due to HTN and she was on dialysis Other Hyperlipidemia Surgical History Hx of appendectomy History of skin surgery Social History household members: none housing: house Smoking Status: Never smoker alcohol intake: never substance use type: does not use ROS ROS ED ROS Narrative Left lower quadrant abdominal pain. Nausea and vomiting. Constitutional Constitutional ED: Denies chills or fever(s) ENT ENT ED: Denies ear pain Cardiovascular Cardiovascular: Denies chest pain Respiratory/Chest Respiratory/Chest: Denies cough or dyspnea Gastrointestinal Gastrointestinal: Reports abdominal pain, nausea and vomiting; Denies diarrhea or melena Genitourinary Genitourinary ED: Denies dysuria or hematuria Musculoskeletal Musculoskeletal: Denies arthralgias or back pain Integumentary Denies abscess or Abrasions Neurologic Neurologic: Denies headache(s) Psychiatric Psychiatric: Denies anxiety or depression Endocrine Endocrinology: Denies polydipsia Hematologic/Lymphatic Hematologic/Lymphatic: Denies easy bleeding Allergic/Immunologic Allergic/Immunologic ED: Denies mouth swelling, tongue swelling or urticaria EXAM Physical Exam Narrative Exam Narrative: 79-year-old female sitting upright in bed. Both daughters at bedside. Vital signs are stable afebrile. She does not look septic or toxic. H EENT exam unremarkable. Neck nontender. Lungs clear. Heart regular rhythm rate about 75 no murmur. Chest wall ribs nontender. Abdomen just to the left of her umbilicus she has an obvious palpable hernia that is incarcerated. Currently and unable to reduce it but she cannot tolerate me pushing on it very hard due to the pain. Her upper quadrants and right lower quadrants are nontender. No pulsatile mass. Moving all 4 extremities. Nontender no edema. She is awake and alert. Answering questions and following commands. Const Vital Signs: 05/14/24 19:06 05/14/24 21:06 05/14/24 21:09 Temperature 97.5 F L Temperature Source Oral Pulse Rate 76 76 Pulse Rate [1 (Initial Baseline)] Pulse Rate [2] Pulse Rate [3] Respiratory Rate 16 17 Respiratory Rate [1 (Initial Baseline)] Respiratory Rate [2] Respiratory Rate [3] Blood Pressure 141/101 H 140/62 H Blood Pressure [1 (Initial Baseline)] Blood Pressure [2] Blood Pressure [3] Blood Pressure Mean 114 88 Pulse Ox 99 97 Oxygen Delivery Method Room Air Nasal Cannula Nasal Cannula Oxygen Delivery Method [1 (Initial Baseline)] Oxygen Delivery Method [2] Oxygen Delivery Method [3] Oxygen Flow Rate (L/min) 2 2 Oxygen Flow Rate (L/min) [1 (Initial Baseline)] Oxygen Flow Rate (L/min) [2] Oxygen Flow Rate (L/min) [3] EtCo2 (Normal 35-45 , high quality CPR 10-20 & ROSC>/=40mmHg 32 EtCo2 (Normal 35-45 , high quality CPR 10-20 & ROSC>/=40mmHg [2] EtCo2 (Normal 35-45 , high quality CPR 10-20 & ROSC>/=40mmHg [3] 05/14/24 21:14 05/14/24 21:17 05/14/24 21:19 Temperature Temperature Source Pulse Rate 70 Pulse Rate [1 (Initial Baseline)] 70 Pulse Rate [2] 65 Pulse Rate [3] 77 Respiratory Rate 16 Respiratory Rate [1 (Initial Baseline)] 16 Respiratory Rate [2] 19 H Respiratory Rate [3] 17 Blood Pressure 161/68 H Blood Pressure [1 (Initial Baseline)] 161/68 H Blood Pressure [2] 135/66 H Blood Pressure [3] 142/62 H Blood Pressure Mean Pulse Ox 96 Oxygen Delivery Method Room Air Room Air Oxygen Delivery Method [1 (Initial Baseline)] Nasal Cannula Oxygen Delivery Method [2] Nasal Cannula Oxygen Delivery Method [3] Room Air Oxygen Flow Rate (L/min) Oxygen Flow Rate (L/min) [1 (Initial Baseline)] 2 Oxygen Flow Rate (L/min) [2] 2 Oxygen Flow Rate (L/min) [3] 0 EtCo2 (Normal 35-45 , high quality CPR 10-20 & ROSC>/=40mmHg 35 EtCo2 (Normal 35-45 , high quality CPR 10-20 & ROSC>/=40mmHg [2] 37 EtCo2 (Normal 35-45 , high quality CPR 10-20 & ROSC>/=40mmHg [3] 34 05/14/24 21:19 Temperature Temperature Source Pulse Rate Pulse Rate [1 (Initial Baseline)] Pulse Rate [2] Pulse Rate [3] Respiratory Rate Respiratory Rate [1 (Initial Baseline)] Respiratory Rate [2] Respiratory Rate [3] Blood Pressure Blood Pressure [1 (Initial Baseline)] Blood Pressure [2] Blood Pressure [3] Blood Pressure Mean Pulse Ox Oxygen Delivery Method Room Air Oxygen Delivery Method [1 (Initial Baseline)] Oxygen Delivery Method [2] Oxygen Delivery Method [3] Oxygen Flow Rate (L/min) Oxygen Flow Rate (L/min) [1 (Initial Baseline)] Oxygen Flow Rate (L/min) [2] Oxygen Flow Rate (L/min) [3] EtCo2 (Normal 35-45 , high quality CPR 10-20 & ROSC>/=40mmHg 36 EtCo2 (Normal 35-45 , high quality CPR 10-20 & ROSC>/=40mmHg [2] EtCo2 (Normal 35-45 , high quality CPR 10-20 & ROSC>/=40mmHg [3] Positive well nourished and well developed; Negative for obese, cachectic, contractures or unkempt General Appearance ED: well developed; Negative for unkempt, cachectic, contractures, NAD or pallor Nutritional Appearance: Negative for cachectic or obese HEENT Reports moist mucous membranes normocephalic and atraumatic; Negative for trauma or tenderness Eyes PERRL and EOMs intact bilaterally General Eye ED: Negative for pale conjunctiva or scleral icterus Neck no lymphadenopathy, supple and no JVD General: Negative for tenderness Carotids: Negative for other Lymph Lymphatic: Negative for other Resp normal respiratory effort and clear to auscultation bilaterally Effort and Inspection: Negative for respiratory distress Auscultation: Negative for rales, rhonchi or wheezes Cardio regular rate, regular rhythm, S1 normal heart sound, S2 normal heart sound and no murmurs GI non-distended and no masses; Negative for non-tender GI Narrative: Left periumbilical and lower quadrant incarcerated hernia. Very tender to palpation. Currently unable to reduce. Auscultation: normoactive bowel sounds Palpation: soft, tender and guarding Back/Spine no CVA tenderness General Back: Negative for CVA tenderness Cervical Spine: Negative for cervical spine tenderness Thoracic Spine / Upper Back: Negative for thoracic spinal tenderness Lumbar Spine / Lower Back: Negative for lumbar spinal tenderness Coccyx: Negative for other Extremity full ROM General Extremety ED: Negative for edema or tenderness General Extremity: Negative for edema Neuro CN's II-XII intact bilaterally and moves all extremities Sensorium / Orientation: alert, oriented to person, oriented to place and oriented to time Motor Exam: strength 5/5 throughout Psych mental status grossly normal and thought process normal Appearance: Negative for unkempt Skin no wounds General Skin Exam: Negative for jaundice or pallor Lesions: no lesions Rashes: no rashes Trauma: Negative for abrasion MDM MDM MDM Narrative Medical decision making narrative: 79-year-old female with prior diverticulitis with partial resection of her colon with a colostomy and reversal. Benitoight had sudden onset of abdominal pain around 6:00 that is worse and now with nausea and vomiting. Clinically this is incarcerated periumbilical hernia. She was given Dilaudid. I have tried to reduce it when ice pack on I cannot get it to go back in and she is having significant pain with pushing on the hernia. CAT scan and labs are done. The labs are unremarkable. CAT scan shows an obvious left lower quadrant periumbilical hernia. Dr. Michelle Brown of general surgery is aware of the patient and has reviewed the CAT scan herself and is on her way in to try to reduce the hernia if unsuccessful she may have to take her to the OR. Patient and family are aware of this. Patient has an incarcerated hernia. I did procedural sedation using propofol 50 mg iv. The general surgeon did the reduction of the hernia manually. Patient tolerated procedure well. Good reduction was obtained. She was sedated for about 20 minutes total time. She currently is awake and doing well at 10 PM. She will be admitted overnight for observation. Plan is to set her up for outpatient elective surgery in the near future. History & Record Review Discussion w/independent historian: Patient and Family Additional record(s) reviewed:: Prior inpatient record, Prior outpatient record, Prior ED visit and Prior labs Lab Data Attestation: I reviewed the patient's lab results. Lab results narrative: CBC white count of 5.5. H&H 12 and 37. Platelets 168. Electrolytes show gap 6. BUN of 22 creatinine 0.79. Glucose 147. Liver enzymes normal. Lipase normal at 49. Labs: Laboratory Results - last 24 hr 05/14/24 05/14/24 19:15 21:39 WBC 5.5 RBC 4.10 L Hgb 12.4 Hct 37.8 MCV 92.2 MCH 30.2 MCHC 32.8 RDW Std Deviation 45.0 H RDW Coeff of Darcy 13.2 Plt Count 168 MPV 9.9 Immature Gran % (Auto) 0.200 Neut % (Auto) 57.3 Lymph % (Auto) 33.3 [place] % (Auto) 7.8 Eos % (Auto) 0.5 Baso % (Auto) 0.9 Absolute Neuts (auto) 3.2 Absolute Lymphs (auto) 1.84 Nucleated RBC % 0 Sodium 140 Potassium 3.6 Chloride 105 Carbon Dioxide 29.0 Anion Gap 6 BUN 22 H Creatinine 0.79 Estim Creat Clear Calc 50.03 Est GFR (MDRD) Af Amer 90 Est GFR (MDRD) Non-Af 74 BUN/Creatinine Ratio 27.7 H Glucose 147 H Calcium 9.7 Total Bilirubin 0.80 AST 24 ALT 29 Alkaline Phosphatase 101 Total Protein 7.5 Albumin 3.9 Globulin 3.6 Albumin/Globulin Ratio 1.1 Lipase 49 Urine Color Yellow Urine Clarity Clear Urine pH 7.0 Ur Specific [place] 1.010 Urine Protein 15 H Urine Glucose (UA) Normal Urine Ketones Negative Urine Occult Blood 10 H Urine Nitrite Positive H Urine Bilirubin Negative Urine Urobilinogen Normal Ur Leukocyte Esterase Negative Urine RBC 0-5 SEEN Urine WBC 0-5 SEEN Ur Squamous Epith Cells 0 SEEN Urine Bacteria 4+ Urine Mucus 0 SEEN Radiography Diagnostic Testing: Clinical Impression(s) from Imaging Studies Abdomen/Pelvis CT 05/14/24 19:16 IMPRESSION: 1. Worsening of left paramidline abdominal wall hernia containing short segments of bowel surrounded by probable edema. There may be partial obstruction and incarceration is not excluded. 2. Abnormal appearance of the right renal collecting system and proximal ureter suggestive of pyelonephritis. Note: Small calcifications adjacent to the right ureter were present previously and do not represent ureteral stones. Electronically Signed: Mik Ulrich MD at 21:32 EST , Procedures Procedural Sedation 10: Consent Signed: Yes Any Problems With Anesthesia: No You/Your family experience fever (hyperthermia) w/anesthesia: No Sedation medication: Propofol Dose: 50 Route: IV Total Moderate Sedation Units: 20 Maliampati Score: Class II ASA Classification: I Comment:: Procedural sedation with propofol 50 mg IV. General surgeon did manual reduction of the incarcerated hernia. Procedure went well. Patient tolerated well. Approximately 20 minutes of procedural sedation. Awoke after sedation is doing well currently at 10 PM. Her vital signs and pulse ox remained stable the entire time with her pulse ox 97% or higher the entire time with oxygen. Discharge Plan Dx/Rx/DC Orders Clinical Impression: Abdominal pain, Incarcerated hernia, History of diverticulitis, History of bowel resection, History of diabetes mellitus Disposition Disposition: Acute Care Hospital [facility]
[2024-05-14 19:32] LABS: Absolute Lymphocyte Count 1.84 X10^3/uL (0.83-4.51); Absolute Neutrophil Count 3.2 X10^3/uL (2.0-7.7); Basophil# 0.05 X10^3/uL; Basophil% 0.9 % (0-1); Eosinophil# 0.03 X10^3/uL; Eosinophils% 0.5 % (0-5); Hematocrit 37.8 % (37-47); Hemoglobin 12.4 g/dL (12.0-15.0); Lymphocyte # 1.84 X10^3/ul (0.83-4.51); Lymphocyte % 33.3 % (19-41); Mean Corp Hgb Conc 32.8 g/dL (32-36); Mean Corpuscular Hgb 30.2 pg (27.0-32.0); Mean Corpuscular Volume 92.2 fL (81-99); Mean Platelet Vol. 9.9 fl (6.2-12.0); Monocyte# 0.43 X10^3/uL; Monocyte% 7.8 % (0-10); NRBC Flagged by Analyzer 0 % (0-5); Neutrophil # 3.17 X10^3/uL (2.7-7.7); Neutrophil % 57.3 % (47-70); Platelet Count 168 K/mm3 (150-450); RBC Distribution Width CV 13.2 % (11.6-14.6); White Blood Count 5.5 K/mm3 (4.4-11.0)
[2024-05-14] MEDS: HYDROmorphone 0.5 MG/0.5 ML SYRINGE 0.25 MG IV (19:42)
[2024-05-14 19:53] LABS: ALB/GLOB Ratio 1.1 RATIO (0.9-2.4); AST(SGOT) 24 U/L (15-37); Alanine Aminotransfer ALT/SGPT 29 U/L (13-56); Albumin, Serum 3.9 g/dL (3.2-5.0); Alkaline Phosphatase 101 U/L (45-117); Anion Gap 6 (5-15); BUN 22 mg/dL (7-18); BUN/Creat Ratio 27.7 RATIO (10-20); Calcium,Total 9.7 mg/dL (8.5-10.1); Chloride 105 mmol/L (98-107); Creatinine, Serum 0.79 mg/dL (0.55-1.02); EST Glomerular Filtration Rate 74 mL/min (>60); Est Glom Filt Rate - Afr Amer 90 mL/min (>60); Estimated Creatinine Clearance 50.03 ml/min; Globulin 3.6 g/dL (2.2-4.2); Glucose 147 mg/dL (74-106); Lipase 49 U/L (13-75); Potassium 3.6 mmol/L (3.5-5.1); Protein, Total 7.5 g/dL (6.4-8.2); Sodium Level 140 mmol/L (136-145)
--- NOTE | 2024-05-14 20:55 | HP.PCM.SX_ITS ---
HPI - General General Date of Admission: 05/14/24 Date of Service: 05/14/24 HPI Narrative JENYN LI, is a 79 F who presents due to left lower quadrant pain at 6 PM tonight. Patient did previously have diverticulitis and a colostomy and reversal in 1984. Patient is unaware of a hernia at this location. Previous CT from 2022 does show hernia at the previous colostomy site only containing fat. CT in the ER did show small bowel in this previous colostomy site left lower quadrant. Normal white blood cell count. Patient states when she came in her pain was a 6/10 did receive Dilaudid and went down to 3/10 with not trying to be reduced. Patient did have nausea and vomiting prior to coming in to the ER. Patient's other abdominal surgeries include an open appendectomy. [facility] Medical History Hx of nephrolithotomy with removal of calculi Acquired absence of intestine Depression [place] (obstructive sleep apnea) Diabetes mellitus, type II Essential (primary) hypertension First degree AV block V-tach SVT (supraventricular tachycardia) Left-sided weakness Ischemic cerebrovascular accident (CVA) Debility Dysphagia Bradycardia Essential tremor Staghorn kidney stones Basal cell carcinoma Left carotid artery stenosis Thrombocytopenia History of hypercholesterolemia Spinal stenosis of lumbar region at multiple levels HTN (hypertension) Home Medications ?Medication ?Instructions ?Recorded ?Last Taken ?Type aspirin 81 mg chewable tablet 81 mg PO BREAKFAST [employer] #0 03/14/23 03/14/23 Rx tabs atorvastatin 80 mg tablet 80 mg PO QHS hld 30 days #30 tabs 04/04/23 Unknown Rx amlodipine 5 mg tablet 5 mg PO DAILY bp 01/09/24 Unknown History fluticasone propionate 50 1 spray intranasal DAILY PRN nasal 01/09/24 Unknown History mcg/actuation nasal congestion spray,suspension losartan 100 mg tablet 100 mg PO DAILY bp 01/09/24 Unknown History omeprazole 40 mg capsule,delayed 40 mg PO DAILY gerd 01/09/24 Unknown History release sennosides 8.6 mg tablet (Senna 8.6 mg PO DAILY PRN constipation 01/09/24 Unknown History Laxative) acetaminophen 325 mg tablet 650 mg PO Q8 arthritis 01/28/24 Unknown History Allergy/AdvReac Type Severity Reaction Status Date / Time isradipine (From [facility]) Allergy Severe Rash Verified 05/14/24 19:10 morphine Allergy Severe twitching Verified 05/14/24 19:10 and rapid eye movement ramipril (From Altace) Allergy Severe Rash Verified 05/14/24 19:10 latex Allergy Rash Verified 05/14/24 19:10 Sulfa (Sulfonamide Allergy Unknown Verified 05/14/24 19:10 Antibiotics) Family History Mother CAD (coronary artery disease) Hypertension Father CAD (coronary artery disease) Hypertension Sister Hypertension Kidney disease due to HTN and she was on dialysis Other Hyperlipidemia Surgical History Hx of appendectomy History of skin surgery Social History household members: none housing: house Smoking Status: Never smoker alcohol intake: never substance use type: does not use ROS Constitutional Constitutional: Reports anorexia Eyes Eyes: Denies blurry vision ENT HEENT: Denies dysphagia Cardiovascular Cardiovascular: Denies chest pain Respiratory/Chest Respiratory/Chest: Denies cough Gastrointestinal Gastrointestinal: Reports abdominal pain, nausea and vomiting Genitourinary Genitourinary: Denies dysuria or urinary frequency Musculoskeletal Musculoskeletal: Denies joint swelling Integumentary Integumentary: Denies jaundice Neurologic Neurologic: Denies focal weakness Psychiatric Psychiatric: Denies depression Endocrine Endocrinology: Denies palpitations Hematologic/Lymphatic Hematologic/Lymphatic: Denies easy bleeding Vital Signs Vital Signs Vital Signs: 05/14/24 19:06 Temperature 97.5 F L Temperature Source Oral Pulse Rate 76 Respiratory Rate 16 Blood Pressure 141/101 H Blood Pressure Mean 114 Pulse Ox 99 Oxygen Delivery Method Room Air Weight Weight: 124 lb 8.979 oz Body Mass Index (BMI) 20.7 Physical Exam Const oriented x3 and no apparent distress Resp normal respiratory effort Cardio regular rate GI soft to palpation GI Narrative: Left lower quadrant hernia at previous colostomy, very tender to palpation unable to reduce without sedation. Results Lab / Micro Data 05/14/24 19:15 05/14/24 19:15 Labs: Laboratory Results - last 24 hr 05/14/24 19:15: WBC 5.5, RBC 4.10 L, Hgb 12.4, Hct 37.8, MCV 92.2, MCH 30.2, MCHC 32.8, RDW Std Deviation 45.0 H, RDW Coeff of Darcy 13.2, Plt Count 168, MPV 9.9, Immature Gran % (Auto) 0.200, Neut % (Auto) 57.3, Lymph % (Auto) 33.3, [place] % (Auto) 7.8, Eos % (Auto) 0.5, Baso % (Auto) 0.9, Absolute Neuts (auto) 3.2, Absolute Lymphs (auto) 1.84, Nucleated RBC % 0, Sodium 140, Potassium 3.6, Chloride 105, Carbon Dioxide 29.0, Anion Gap 6, BUN 22 H, Creatinine 0.79, Estim Creat Clear Calc 50.03, Est GFR (MDRD) Af Amer 90, Est GFR (MDRD) Non-Af 74, B UN/Creatinine Ratio 27.7 H, Glucose 147 H, Calcium 9.7, Total Bilirubin 0.80, AST 24, ALT 29, Alkaline Phosphatase 101, Total Protein 7.5, Albumin 3.9, Globulin 3.6, Albumin/Globulin Ratio 1.1, Lipase 49 Assessment & Plan Assessment/Plan (1) Incisional hernia: (2) UTI (urinary tract infection): PLAN: UA on admit +nitrite, +bacteria--checking culture. PLAN: Plan Did discuss with patient and her daughters plan for open incisional hernia repair with possible mesh and possible bowel resection including risk not limited to bleeding, infection, recurrent hernia, injury to another organ, anesthesia. Would plan to first try to reduce this with sedation if able to reduce patient may be able to go home tonight if tolerating p.o. pain controlled. However if patient continues to have pain we will consider admitting for observation to reevaluate. Patient and her daughters are agreeable with plan. Addendum: With sedation by the ER physician was able to get the hernia reduced. Will observe pt overnight, currently pain is resolved- if tolerating PO/pain still resolved will likely d/c tomorrow. Will check urine culture as UA +nitrite, bacteria on admit Trudy Brown M.D. Pager: [phone] [facility] [address] [place] [address], Outpatient [place], [address] [place] [address] Office: [phone] Charges/Coding Visit Charges Inpatient E&M: 85526 Init Hosp L3
[2024-05-14] MEDS: Propofol 200 MG/20 ML Vial 40 MG IV BOLUS (21:12)
[2024-05-14 21:43] LABS: Mucous, Urine 0 SEEN /hpf (<or=2+); Squamous Epithelial Cells - UA 0 SEEN /hpf (5-10)
[2024-05-14 21:53] LABS: Color, Urine Yellow (Yellow); Glucose, Dipstick Normal (Normal); Ketone-Dipstick Negative (Negative); Leukocyte Esterase-Dipstick Negative /ul (Negative); Nitrite-Dipstick Positive (Negative); Occult Blood-Urine 10 /ul (Negative); Protein-Dipstick 15 mg/dl (Negative); Urine Bilirubin Dipstick Negative (Negative); Urine Clarity Clear (Clear); Urine Urobilinogen Normal (Normal)
[2024-05-14 21:59] LABS: Bacteria 4+ /hpf (None Seen); Red Blood Cells-Urine 0-5 SEEN /hpf (0-5); White Blood Cells 0-5 SEEN /hpf (0-5)
[2024-05-14] MEDS: Ceftriaxone 1 GM/50 ML BAG IV (23:14)
[2024-05-15] MEDS: Acetaminophen 325 MG Tablet 650 MG PO (00:26)
[2024-05-15 04:48] VITALS: BP 137/67; PULSE 64; RESP 18; TEMP 36.9; O2SAT 98
[2024-05-15 08:46] VITALS: BP 147/69; PULSE 69; RESP 16; TEMP 36.6; O2SAT 96
--- NOTE | 2024-05-15 08:48 | PCM.PN.SRG ---
Subjective Subjective Patient denies any abdominal pain tolerated liquids yesterday. Objective Data Objective Data Vital Signs: Vital Signs Temp Pulse Resp BP Pulse Ox O2 Del Method O2 Flow Rate 98.4 F 64 18 137/67 H 98 Room Air 2 05/15/24 04:48 05/15/24 04:48 05/15/24 04:48 05/15/24 04:48 05/15/24 04:48 05/15/24 04:48 05/14/24 21:19 Oxygen Flow Rate (L/min) [3] 0 Oxygen Flow Rate (L/min) [2] 2 Oxygen Flow Rate (L/min) [1 ( 2 Initial Baseline)] Oxygen Flow Rate (L/min) 2 Oxygen Delivery Method [3] Room Air Oxygen Delivery Method [2] Nasal Cannula Oxygen Delivery Method [1 ( Nasal Cannula Initial Baseline)] Oxygen Delivery Method Room Air Weight: 119 lb 11.376 oz Body Mass Index (BMI) 18.1 Intake & Output: Intake and Output for Last 24 Hours 05/13/24 05/14/24 05/15/24 23:59 23:59 23:59 Intake Total 50 / 150 100 / 100 Balance 50 / 150 100 / 100 Lab / Micro Data 05/14/24 19:15 05/14/24 19:15 Labs: Laboratory Results - last 24 hr 05/14/24 19:15: WBC 5.5, RBC 4.10 L, Hgb 12.4, Hct 37.8, MCV 92.2, MCH 30.2, MCHC 32.8, RDW Std Deviation 45.0 H, RDW Coeff of Darcy 13.2, Plt Count 168, MPV 9.9, Immature Gran % (Auto) 0.200, Neut % (Auto) 57.3, Lymph % (Auto) 33.3, [place] % (Auto) 7.8, Eos % (Auto) 0.5, Baso % (Auto) 0.9, Absolute Neuts (auto) 3.2, Absolute Lymphs (auto) 1.84, Nucleated RBC % 0, Sodium 140, Potassium 3.6, Chloride 105, Carbon Dioxide 29.0, Anion Gap 6, BUN 22 H, Creatinine 0.79, Estim Creat Clear Calc 50.03, Est GFR (MDRD) Af Amer 90, Est GFR (MDRD) Non-Af 74, BUN/Creatinine Ratio 27.7 H, Glucose 147 H, Calcium 9.7, Total Bilirubin 0.80, AST 24, ALT 29, Alkaline Phosphatase 101, Total Protein 7.5, Albumin 3.9, Globulin 3.6, Albumin/Globulin Ratio 1.1, Lipase 49 05/14/24 21:39: Urine Color Yellow, Urine Clarity Clear, Urine pH 7.0, Ur Specific [place] 1.010, Urine Protein 15 H, Urine Glucose (UA) Normal, Urine Ketones Negative, Urine Occult Blood 10 H, Urine Nitrite Positive H, Urine Bilirubin Negative, Urine Urobilinogen Normal, Ur Leukocyte Esterase Negative, Urine RBC 0-5 SEEN, Urine WBC 0-5 SEEN, Ur Squamous Epith Cells 0 SEEN, Urine Bacteria 4+, Urine Mucus 0 SEEN Micro: Microbiology 05/14/24 21:39 Urine, Midstream Urine Culture - Preliminary GNR lactose director of anesthesia services Radiography Diagnostic Testing: Radiology Impression Abdomen/Pelvis CT 05/14/24 19:16 IMPRESSION: 1. Worsening of left paramidline abdominal wall hernia containing short segments of bowel surrounded by probable edema. There may be partial obstruction and incarceration is not excluded. 2. Abnormal appearance of the right renal collecting system and proximal ureter suggestive of pyelonephritis. Note: Small calcifications adjacent to the right ureter were present previously and do not represent ureteral stones. Electronically Signed: Mik Ulrich MD at 21:32 EST , Physical Exam Const oriented x3 and no apparent distress Resp normal respiratory effort Cardio regular rate GI soft to palpation GI Narrative: Minimally tender at site of hernia, hernia reduced, no peritoneal signs Inspection: Negative for abdominal distention Narrative: Patient denies any dysuria prior to coming in, urine cultures positive Assessment & Plan Assessment/Plan (1) Incisional hernia: (2) UTI (urinary tract infection): PLAN: UA on admit +nitrite, +bacteria--checking culture. E. coli greater than 100 K PLAN: Plan Patient still denies pain at that hernia site. Hernia still reduced. Patient is able to tolerate diet will DC home. Cultures were positive for E. coli will give Keflex on DC Trudy Brown M.D. Pager: [phone] [facility] [address] [place] [address], [facility], [address] [place] [address] Office: [phone]
--- NOTE | 2024-05-15 08:52 | PCM.DC.SUM ---
Providers Date of Admission: 05/14/24 Primary Care Physician: Dr. Matheus Cesar MD Reason For Visit: INCISIONAL HERNIA Diagnosis Discharge Diagnosis (1) Incisional hernia: Status: Acute Code(s): K43.2 - Incisional hernia without obstruction or gangrene (2) UTI (urinary tract infection): Status: Acute Code(s): N39.0 - Urinary tract infection, site not specified Plan: UA on admit +nitrite, +bacteria--checking culture. E. coli greater than 100 K Plan Patient still denies pain at that hernia site. Hernia still reduced. Patient is able to tolerate diet will DC home. Cultures were positive for E. coli will give Keflex on DC Trudy Brown M.D. Pager: [phone] [facility] [address] [place] [address], [address] [place] [id number] Office: [phone] Medications at Discharge Home Medications aspirin 81 mg chewable tablet 81 mg PO BREAKFAST Heart health #0 tabs 03/14/23 atorvastatin 80 mg tablet 80 mg PO QHS hld 30 days #30 tabs 04/04/23 amlodipine 5 mg tablet 5 mg PO DAILY bp 01/09/24 fluticasone propionate 50 mcg/actuation nasal spray,suspension 1 spray intranasal DAILY PRN nasal congestion 01/09/24 losartan 100 mg tablet 100 mg PO DAILY bp 01/09/24 omeprazole 40 mg capsule,delayed release 40 mg PO DAILY gerd 01/09/24 sennosides 8.6 mg tablet (Senna Laxative) 8.6 mg PO DAILY PRN constipation 01/09/24 acetaminophen 325 mg tablet 650 mg PO Q8 arthritis 01/28/24 cephalexin 500 mg tablet 500 mg PO TID 5 days #15 tabs 05/15/24 Hospital Course Operations None Procedures None Summary of Care Provided Minutes Spent on Discharge: 15 Hospital Course: Patient came to the ER due to incisional hernia that was incarcerated. CT and pelvis did show small bowel was in this hernia sac. With sedation from the ER doctor this was able to be reduced in the ER. Patient did stay overnight to make sure that this continued to be reduced and she was able to eat prior to being discharged planning for outpatient follow-up. Patient was also noted to have a UTI on admit culture grew E. coli greater than 100,000 patient was started on Rocephin and hospital and sent home with Keflex 500 p.o. 3 times daily x 5 days. Physical Exam Const alert, oriented x3 and no apparent distress Resp normal respiratory effort Cardio regular rate GI soft to palpation; Negative for non-distended GI Narrative: Left lower quadrant hernia reduced, minimal tenderness palpation otherwise denies pain, no peritoneal signs Weight / BMI Weight Weight: 119 lb 11.376 oz Body Mass Index (BMI) 18.1 ABG / Lab / Microbiology Data 05/14/24 19:15 05/14/24 19:15 Laboratory: Laboratory Results - last 24 hr 05/14/24 19:15: WBC 5.5, RBC 4.10 L, Hgb 12.4, Hct 37.8, MCV 92.2, MCH 30.2, MCHC 32.8, RDW Std Deviation 45.0 H, RDW Coeff of Darcy 13.2, Plt Count 168, MPV 9.9, Immature Gran % (Auto) 0.200, Neut % (Auto) 57.3, Lymph % (Auto) 33.3, [place] % (Auto) 7.8, Eos % (Auto) 0.5, Baso % (Auto) 0.9, Absolute Neuts (auto) 3.2, Absolute Lymphs (auto) 1.84, Nucleated RBC % 0, Sodium 140, Potassium 3.6, Chloride 105, Carbon Dioxide 29.0, Anion Gap 6, BUN 22 H, Creatinine 0.79, Estim Creat Clear Calc 50.03, Est GFR (MDRD) Af Amer 90, Est GFR (MDRD) Non-Af 74, BUN/Creatinine Ratio 27.7 H, Glucose 147 H, Calcium 9.7, Total Bilirubin 0.80, AST 24, ALT 29, Alkaline Phosphatase 101, Total Protein 7.5, Albumin 3.9, Globulin 3.6, Albumin/Globulin Ratio 1.1, Lipase 49 05/14/24 21:39: Urine Color Yellow, Urine Clarity Clear, Urine pH 7.0, Ur Specific [place] 1.010, Urine Protein 15 H, Urine Glucose (UA) Normal, Urine Ketones Negative, Urine Occult Blood 10 H, Urine Nitrite Positive H, Urine Bilirubin Negative, Urine Urobilinogen Normal, Ur Leukocyte Esterase Negative, Urine RBC 0-5 SEEN, Urine WBC 0-5 SEEN, Ur Squamous Epith Cells 0 SEEN, Urine Bacteria 4+, Urine Mucus 0 SEEN Microbiology: Microbiology 05/14/24 21:39 Urine, Midstream Urine Culture - Preliminary GNR lactose forecast analyst Radiography Diagnostic Testing: Radiology Impression Abdomen/Pelvis CT 05/14/24 19:16 IMPRESSION: 1. Worsening of left paramidline abdominal wall hernia containing short segments of bowel surrounded by probable edema. There may be partial obstruction and incarceration is not excluded. 2. Abnormal appearance of the right renal collecting system and proximal ureter suggestive of pyelonephritis. Note: Small calcifications adjacent to the right ureter were present previously and do not represent ureteral stones. Electronically Signed: Mik Ulrich MD at 21:32 EST , D/C Instructions Discharge Diet: No restrictions Call your doctor if your incision/area has: Increased Pain/ Swelling and Swelling at the incision site ((hernia site)) Please Follow Up With: Trudy Brown MD When: Call the office [phone] for an appointment Meaningful Use Info Meaningful Use Meaningful Use Diagnoses (Choose all that apply): None applicable Ischemic Stroke Statin Dosing Therapy Reference: STATIN DOSE THERAPY REFERENCE: * Patients > 75 years receive moderate or high dose statin therapy. * Patients 75 years or YOUNGER should receive HIGH intensity statin dose unless contraindicated. You will be required to document reason for non-treatment if statin daily dose does not meet guidelines. HIGH DOSE STATIN THERAPY DAILY Atorvastatin > than or = to 40 mg Rosuvastatin > than or = to 20 mg Amlodipine + Atorvastatin > than or = to 2.5/40 mg Ezetimibe + Simvastatin 10/80 mg Simvastatin 80mg Discharge Plan Admission Admit Date/Time: 05/14/24 22:10 Attending Provider: Trudy Brown Primary Care Provider: Matheus Cesar Discharge Orders/Prescriptions Prescriptions: New cephalexin 500 mg tablet 500 mg PO TID 5 Days Qty: 15 0RF Continued omeprazole 40 mg capsule,delayed release(DR/EC) 40 mg PO DAILY amlodipine 5 mg tablet 5 mg PO DAILY losartan 100 mg tablet 100 mg PO DAILY sennosides [Senna Laxative] 8.6 mg tablet 8.6 mg PO DAILY PRN (Reason: constipation) fluticasone propionate 50 mcg/actuation spray,suspension 1 spray intranasal DAILY PRN (Reason: nasal congestion) Rx Instructions: administer into each nostril acetaminophen 325 mg tablet 650 mg PO Q8 aspirin 81 mg Tablet,Chewable 81 mg PO BREAKFAST Qty: 0 0RF atorvastatin 80 mg Tablet 80 mg PO QHS 30 Days Qty: 30 0RF Referrals / Follow Up: Matheus Cesar MD [Primary Care Provider] - Disposition Disposition (needs filled in before D/C Order can be placed): Home, Self Care Charges/Coding Visit Charges Inpatient E&M: 71024 Disch Hosp
[2024-05-15] MEDS: amLODIPine 5 MG Tablet PO (09:44)
[2024-05-15] MEDS: Losartan Potassium 100 MG Tablet PO (09:44)
[2024-05-15] MEDS: Pantoprazole Sodium 40 MG Tablet PO (09:44)
== END 2024-05-15 12:16 | disposition home or self-care (01) ==
LOC: ED 22:07 → MS3 22:11
PROVIDERS: Admitting Provider Surgery; Emergency Provider Emergency Medicine; PCP Family Medicine; Visit Provider Surgery
DX: K43.0 Incisional hernia with obstruction, without gangrene (principal); E11.9 Type 2 diabetes mellitus without complications; N39.0 Urinary tract infection, site not specified; E78.00 Pure hypercholesterolemia, unspecified; B96.20 Unspecified Escherichia coli [E. coli] as the cause of diseases classified elsewhere; R11.2 Nausea with vomiting, unspecified; I10 Essential (primary) hypertension; Z79.82 Long term (current) use of aspirin; Z79.899 Other long term (current) drug therapy; G47.33 Obstructive sleep apnea (adult) (pediatric)
CPT/HCPCS: 74177; 80053; 81001; 83690; 85025; 87077; 87086; 87088; 87186; 96365; 96375; 99221; 99285; J7030; Q9967; A4216; G0378

== ENCOUNTER 2024-05-20 19:01 | Inpatient (IN) | payer MEDICARE, SELFPAY ==
[2024-05-20 19:02] VITALS: BP 122/95; PULSE 84; RESP 20; TEMP 35.9; O2SAT 98; BMI 18.8
--- NOTE | 2024-05-20 19:10 | CT_ITS ---
STUDY: CT ABDOMEN AND PELVIS WITH CONTRAST - URINARY TRACT REASON FOR EXAM: Female, 79 years old. Abdominal pain, where previous colostomy was RADIATION DOSAGE (If Supplied By Facility): CTDIvol = ( 12.50 ) mGy, DLP = ( 418.73 ) mGycm TECHNIQUE: IV 75mL Isovue-370 was administered. Transaxial images were obtained from the dome of the diaphragm to the symphysis pubis in the arterial, nephrographic and excretory phases. Multiplanar coronal and sagittal images were reformatted. The protocol utilizes one or more of the following dose reduction techniques: automated exposure control, adjustment of mA and/or kV according to patient size,and/or use of iterative reconstruction technique. COMPARISON: May 14, 2024 FINDINGS: There is stable bibasilar atelectasis and/or scarring within the lower lobes. The visualized portions of the heart are within normal limits. There is a stable enhancing focus within segment 4 of the liver which may reflect a hemangioma. There is a stable well-circumscribed low-attenuation round focus within segment 6 of the liver suggestive of a cyst or hemangioma. There is an additional stable too small to characterize low-attenuation focus within the right hepatic lobe. Normal gallbladder and extrahepatic biliary system. There is a stable well-circumscribed low-attenuation focus within the spleen which may reflect a cyst or hemangioma. Normal pancreas. Normal bilateral adrenal glands. Normal visualized stomach. There are prominent loops of distal small bowel with circumferential wall thickening. There are multiple colonic diverticula consistent with diverticulosis. There is circumferential wall thickening of the sigmoid colon. There is non-visualization of the appendix. There is diffuse atherosclerotic calcification of the abdominal aorta, without a demonstrated aneurysm. No retroperitoneal adenopathy. There are stable bilateral renal cysts. There is no hydronephrosis. Normal urinary bladder. There is a ventral hernia left of midline containing omentum with no loops of herniated bowel. There are diffuse degenerative changes of the visualized lumbar spine. CT/Abdomen/Pelvis W IV Cont ONLY IMPRESSION: Prominent loops of distal small bowel associated circumferential wall thickening, may reflect enteritis, cannot exclude an associated evolving partial small bowel obstruction or ileus. Circumferential wall thickening of the sigmoid colon, may be secondary to its incompletely distended state however cannot exclude colitis. Colonic diverticulosis. Ventral hernia left of midline containing omentum and no loops of bowel. Atherosclerosis. Electronically Signed: Alicia Kramer MD at 20:47 EST ,
--- NOTE | 2024-05-20 19:12 | EDS_ITS ---
HPI History of Present Illness Chief Complaint: Abd Pain Narrative Narrative: Patient is a 79-year-old female with past medical history of [place], type 2 diabetes, hypertension, SVT, V. tach, colostomy with reversal who presents to the emergency department chief complaint of abdominal pain. Patient states that she was here for similar symptoms on Friday she was diagnosed with a hernia and was encouraged to follow-up with surgery on Friday. States that the pain is returning and is very painful and rates this a 10 out of 10. States that she is extremely nauseous but has not vomited. Patient denies recent sick contacts. [facility] Medical History Hx of nephrolithotomy with removal of calculi Acquired absence of intestine Depression [place] (obstructive sleep apnea) Diabetes mellitus, type II Essential (primary) hypertension First degree AV block V-tach SVT (supraventricular tachycardia) Left-sided weakness Ischemic cerebrovascular accident (CVA) Debility Dysphagia Bradycardia Essential tremor [place] kidney stones Basal cell carcinoma Left carotid artery stenosis Thrombocytopenia History of hypercholesterolemia Spinal stenosis of lumbar region at multiple levels HTN (hypertension) Home Medications ?Medication ?Instructions ?Recorded ?Last Taken ?Type aspirin 81 mg chewable tablet 81 mg PO BREAKFAST Verimed #0 03/14/23 03/14/23 Rx tabs amlodipine 5 mg tablet 5 mg PO DAILY bp 01/09/24 Unknown History fluticasone propionate 50 1 spray intranasal DAILY PRN nasal 01/09/24 Unknown History mcg/actuation nasal congestion spray,suspension losartan 100 mg tablet 100 mg PO DAILY bp 01/09/24 Unknown History omeprazole 40 mg capsule,delayed 40 mg PO QMWF gerd 01/09/24 Unknown History release sennosides 8.6 mg tablet (Senna 8.6 mg PO DAILY PRN constipation 01/09/24 Unknown History Laxative) acetaminophen 325 mg tablet 650 mg PO Q8 arthritis 01/28/24 Unknown History atorvastatin 80 mg tablet 80 mg PO QMWF hld 05/20/24 Unknown History Allergy/AdvReac Type Severity Reaction Status Date / Time isradipine (From DynaCi) Allergy Severe Rash Verified 05/14/24 19:10 morphine Allergy Severe twitching Verified 05/14/24 19:10 and rapid eye movement ramipril (From Altace) Allergy Severe Rash Verified 05/14/24 19:10 latex Allergy Rash Verified 05/14/24 19:10 Sulfa (Sulfonamide Allergy Unknown Verified 05/14/24 19:10 Antibiotics) fentanyl AdvReac Mild Nausea/Vom/ Verified 05/20/24 20:16 Diarrhea Family History Mother CAD (coronary artery disease) Hypertension Father CAD (coronary artery disease) Hypertension Sister Hypertension Kidney disease due to HTN and she was on dialysis Other Hyperlipidemia Surgical History Hx of appendectomy History of skin surgery Social History household members: none housing: house Smoking Status: Never smoker alcohol intake: never substance use type: does not use ROS ROS ED ROS Narrative Constitutional: Denies any fevers, chills, headaches, lightness, dizziness Eyes: Denies change vision double vision blurry vision Cardiovascular: Denies chest pain Respiratory: Denies shortness of breath Abdomen: Complains of abdominal pain as noted above and nausea denies vomiting or diarrhea : Denies any urinary symptoms Neurological: Denies numbness, weakness, tingling Musculoskeletal: Denies back pain Skin: Denies rashes or lesions EXAM Physical Exam Narrative Exam Narrative: General: Patient was lying in bed did appear to be uncomfortable secondary to her abdominal pain Head: Atraumatic, normocephalic Eyes: PERRL bilateral, EOMI blood, no conjunctival injection noted Neck: Soft, supple, trach midline Cardiovascular: Regular rate and rhythm no murmurs gallops rubs noted Respiratory: Clear to auscultation bilaterally no rales rhonchi wheeze noted Abdomen: Soft, nondistended, tenderness to palpation in the left upper quadrant no rebound or guarding on exam Extremities: +5/5 strength in the bilateral upper and lower extremity Neurological: Patient is follow commands knew that she was at [facility] years 2023 Skin: Warm, dry, intact no rashes or lesions noted no overlying skin changes noted Const Vital Signs: 05/20/24 19:02 05/20/24 21:08 Temperature 96.6 F L 98.2 F Temperature Source Temporal Pulse Rate 84 70 Respiratory Rate 20 H 17 Blood Pressure 122/95 H 145/90 H Blood Pressure Mean 104 108 Pulse Ox 98 99 Oxygen Delivery Method Room Air MDM MDM MDM Narrative Medical decision making narrative: Patient is a 79-year-old female who presented to the emergency department the chief complaint of abdominal pain. Patient will have a workup performed here on the differential diagnose includes but not limited to bowel obstruction, hernia, viral gastroenteritis. Once workup is obtained reviewed she will be reevaluated. Patient CBC reviewed and was largely unremarkable no evidence leukocytosis white blood count normal at 7.9, hemoglobin stable at 14.5, platelet count was noted be 234. Patient's sodium normal at 139, potassium normal 3.7, creatinine normal at 0.73. Patient AST and ALT were 26 and 26 respectively. Patient's lipase normal at 53. Patient CT abdomen pelvis with IV contrast was reviewed and showed prominent loops of distal small bowel associated circumferential wall thickening may reflect enteritis cannot exclude an associated evolving partial small bowel obstruction or ileus. Circumferential wall thickening of the sigmoid colon may be secondary to its incomplete distended state however cannot exclude colitis. Colonic diverticulosis. There is a ventral hernia left of midline containing omentum and no loops of bowel. On reevaluation of the patient she is having tenderness to palpation in her abdomen and rates this pain a 8 out of 10. She is requesting more pain medication and nausea medication. At this point in time do believe the patient will warrant admission to the hospital will discuss case with hospitalist. Discussed case with Dr. Bustamante who accept patient for admission. Patient and family members are agreeable this plan at bedside all question concerns answered. Lab Data Labs: Laboratory Results - last 24 hr 05/20/24 19:20 WBC 7.9 RBC 4.75 Hgb 14.5 Hct 43.6 MCV 91.8 MCH 30.5 MCHC 33.3 RDW Std Deviation 44.8 H RDW Coeff of Darcy 13.2 Plt Count 234 MPV 9.8 Immature Gran % (Auto) 0.300 Neut % (Auto) 69.5 Lymph % (Auto) 23.4 [place] % (Auto) 5.7 Eos % (Auto) 0.3 Baso % (Auto) 0.8 Absolute Neuts (auto) 5.5 Absolute Lymphs (auto) 1.86 Nucleated RBC % 0 Sodium 139 Potassium 3.7 Chloride 106 Carbon Dioxide 27.0 Anion Gap 6 BUN 24 H Creatinine 0.73 Estim Creat Clear Calc 49.94 Est GFR (MDRD) Af Amer 99 Est GFR (MDRD) Non-Af 82 BUN/Creatinine Ratio 33.0 H Glucose 128 H Calcium 9.4 Total Bilirubin 0.50 AST 26 ALT 26 Alkaline Phosphatase 99 Total Protein 7.9 Albumin 4.0 Globulin 3.9 Albumin/Globulin Ratio 1.0 Lipase 53 Radiography Diagnostic Testing: Clinical Impression(s) from Imaging Studies Abdomen/Pelvis CT 05/20/24 19:10 IMPRESSION: Prominent loops of distal small bowel associated circumferential wall thickening, may reflect enteritis, cannot exclude an associated evolving partial small bowel obstruction or ileus. Circumferential wall thickening of the sigmoid colon, may be secondary to its incompletely distended state however cannot exclude colitis. Colonic diverticulosis. Ventral hernia left of midline containing omentum and no loops of bowel. Atherosclerosis. Electronically Signed: Alicia Kramer MD at 20:47 EST , Discharge Plan Triage Chief Complaint: Abd Pain ED Provider: Max Vargas Dx/Rx/DC Orders Clinical Impression: Intractable abdominal pain Primary Care Provider: Matheus Cesar Disposition Disposition: Acute Care [facility]
--- NOTE | 2024-05-20 19:18 | EKG12_ITS ---
Test Reason : DYSRHYTHMIA Blood Pressure : */* mmHG Vent. Rate : 68 BPM Atrial Rate : 68 BPM P-R Int : 192 ms QRS Dur : 114 ms QT Int : 410 ms P-R-T Axes : 55 47 31 degrees QTcB Int : 435 ms Normal sinus rhythm Low voltage QRS Incomplete right bundle branch block Septal infarct (cited on or before 07-May-2013) Cannot rule out Inferior infarct , age undetermined Abnormal ECG Confirmed by MECHELLE JI ([id number]), advertising editor ROMEO MERCHANT ([id number]) on 05/21/2024 11:50:35 AM Referred By: Confirmed By: MECHELLE JI
[2024-05-20 19:30] LABS: Absolute Lymphocyte Count 1.86 X10^3/uL (0.83-4.51); Absolute Neutrophil Count 5.5 X10^3/uL (2.0-7.7); Basophil# 0.06 X10^3/uL; Basophil% 0.8 % (0-1); Eosinophil# 0.02 X10^3/uL; Eosinophils% 0.3 % (0-5); Hematocrit 43.6 % (37-47); Hemoglobin 14.5 g/dL (12.0-15.0); Lymphocyte # 1.86 X10^3/ul (0.83-4.51); Lymphocyte % 23.4 % (19-41); Mean Corp Hgb Conc 33.3 g/dL (32-36); Mean Corpuscular Hgb 30.5 pg (27.0-32.0); Mean Corpuscular Volume 91.8 fL (81-99); Mean Platelet Vol. 9.8 fl (6.2-12.0); Monocyte# 0.45 X10^3/uL; Monocyte% 5.7 % (0-10); NRBC Flagged by Analyzer 0 % (0-5); Neutrophil # 5.53 X10^3/uL (2.7-7.7); Neutrophil % 69.5 % (47-70); Platelet Count 234 K/mm3 (150-450); RBC Distribution Width CV 13.2 % (11.6-14.6); RBC Distribution Width SD 44.8 fl (35.1-43.9); Red Blood Count 4.75 M/mm3 (4.2-5.4); White Blood Count 7.9 K/mm3 (4.4-11.0)
[2024-05-20] MEDS: Ondansetron 4 MG/2 ML Vial IV (19:34)
[2024-05-20] MEDS: HYDROmorphone 0.5 MG/0.5 ML SYRINGE IV ×2 (19:45→21:20)
[2024-05-20 19:49] LABS: AST(SGOT) 26 U/L (15-37); Alanine Aminotransfer ALT/SGPT 26 U/L (13-56); Alkaline Phosphatase 99 U/L (45-117); Anion Gap 6 (5-15); BUN 24 mg/dL (7-18); Calcium,Total 9.4 mg/dL (8.5-10.1); Chloride 106 mmol/L (98-107); Creatinine, Serum 0.73 mg/dL (0.55-1.02); EST Glomerular Filtration Rate 82 mL/min (>60); Est Glom Filt Rate - Afr Amer 99 mL/min (>60); Estimated Creatinine Clearance 49.94 ml/min; Globulin 3.9 g/dL (2.2-4.2); Glucose 128 mg/dL (74-106); Lipase 53 U/L (13-75); Potassium 3.7 mmol/L (3.5-5.1); Protein, Total 7.9 g/dL (6.4-8.2); Sodium Level 139 mmol/L (136-145)
--- NOTE | 2024-05-20 21:04 | PCM.HP.STD ---
[facility] - General General Date of Admission: 05/20/24 Date of Service: 05/20/24 Chief Complaint: Abdominal Pain and Nausea. HPI Narrative JENNY LI, is a 79 F with a past medical history of essential hypertension; on amlodipine and losartan, hyperlipidemia; on atorvastatin, DM-2; of unknown control, history of VT, history of SVT, history of 1st degree AVB, history of mild (<50%) Left carotid stenosis, history of CVA; with residual Left-sided weakness on BASA, history of thrombocytopenia, [place]; on CPAP, history of staghorn calculus; s/p nephrolithotomy at [facility] (2022), history of basal cell carcinoma; s/p multiple excisions, listed allergy to morphine (rash), listed allergy to ramipril (rash), listed allergy to sulfonamide antibiotics (?), history of depression, chronic constipation; on prn Senna, GERD; on omeprazole, OA; with history of mild Lumbar spinal stenosis with chronic debility, history of open appendectomy, history of severe diverticulitis; s/p partial colonic resection with colostomy and eventual reversal (1984) with subsequent development of a chronic hernia at colostomy site recent admission here from May 14, 2024 to May 15, [address] Brown of general surgery with CT scan of the abdomen and pelvis that admission revealing worsening of Left paramidline abdominal wall hernia containing short segments of bowel surrounded by probable edema with suspected partial obstruction and incarceration was not excluded in addition to abnormal appearance of the Right renal collecting system and proximal ureter suggestive of Pyelonephritis with small calcifications adjacent to the Right ureter were present previously and did not represent ureteral stones with patient confirmed by surgeon to have small bowel in her hernia sac with her incisional hernia reduced after sedation in the ER in addition to the patient then diagnosed with a UTI with urine cultures growing > 100K E. coli initially treated with IV Rocephin and then after and she was discharged home the next day on oral Cephalexin after she tolerated an her diet with plan to follow up with Dr. Brown as an outpatient on Friday, May 24, 2024 who now re-presents to [facility] ER complaining of abdominal pain and nausea. Ms. Li reports her symptoms began shortly after her discharge with very similar symptoms to her previous admission with a return of her abdominal pain that was severe, 04/08. She also endorses associated nausea with unpredictable constipation coupled with abdominal fullness, bloating and intermittent but increasingly more frequent painfully severe LLQ/rectal urgency but she denies vomiting, diarrhea or recent sick contacts. She denies related fever, chills, blood in stools, chest pain, SOB, cough, lower extremity swelling or headache but she does admit to soft stools after no BM for 6 days until she took OTC laxatives with 2 soft bowel movements. She is concerned the area of her colon anastomosis is causing her problem as she was told by her technical sales representatives at the [facility] after her most recent colonoscopy in October of this year that he did not like the way the surgeon reconnected her bowel and she has become increasingly worried it may need to be revised if her symptoms do not improve. In the ER she was noted to have CT evidence of prominent bowel loops of distal small bowel with associated circumferential wall thickening that may reflect enteritis with suspected evolving partial small bowel obstruction or ileus in addition to circumferential wall thickening of the sigmoid colon suspicious for colitis with colonic diverticulosis and ventral hernia Left of the midline containing omentum and no loops of bowel along with atherosclerosis. The ER physician then contacted the hospitalist service to admit this patient to the general medical with telemetric monitoring for ongoing care for a stay that is expected to extend beyond 2 midnights. [facility] Medical History Hx of nephrolithotomy with removal of calculi Acquired absence of intestine Depression [place] (obstructive sleep apnea) Diabetes mellitus, type II Essential (primary) hypertension First degree AV block V-tach SVT (supraventricular tachycardia) Left-sided weakness Ischemic cerebrovascular accident (CVA) Debility Dysphagia Bradycardia Essential tremor Staghorn kidney stones Basal cell carcinoma Left carotid artery stenosis Thrombocytopenia History of hypercholesterolemia Spinal stenosis of lumbar region at multiple levels HTN (hypertension) Home Medications ?Medication ?Instructions ?Recorded ?Last Taken ?Type aspirin 81 mg chewable tablet 81 mg PO BREAKFAST 2sms #0 03/14/23 03/14/23 Rx tabs amlodipine 5 mg tablet 5 mg PO DAILY bp 01/09/24 Unknown History fluticasone propionate 50 1 spray intranasal DAILY PRN nasal 01/09/24 Unknown History mcg/actuation nasal congestion spray,suspension losartan 100 mg tablet 100 mg PO DAILY bp 01/09/24 Unknown History omeprazole 40 mg capsule,delayed 40 mg PO QMWF gerd 01/09/24 Unknown History release sennosides 8.6 mg tablet (Senna 8.6 mg PO DAILY PRN constipation 01/09/24 Unknown History Laxative) acetaminophen 325 mg tablet 650 mg PO Q8 arthritis 01/28/24 Unknown History atorvastatin 80 mg tablet 80 mg PO QMWF hld 05/20/24 Unknown History Allergy/AdvReac Type Severity Reaction Status Date / Time isradipine (From AmorcyteaCi) Allergy Severe Rash Verified 05/14/24 19:10 morphine Allergy Severe twitching Verified 05/14/24 19:10 and rapid eye movement ramipril (From Altace) Allergy Severe Rash Verified 05/14/24 19:10 latex Allergy Rash Verified 05/14/24 19:10 Sulfa (Sulfonamide Allergy Unknown Verified 05/14/24 19:10 Antibiotics) fentanyl AdvReac Mild Nausea/Vom/ Verified 05/20/24 20:16 Diarrhea Family History Mother CAD (coronary artery disease) Hypertension Father CAD (coronary artery disease) Hypertension Sister Hypertension Kidney disease due to HTN and she was on dialysis Other Hyperlipidemia Surgical History Hx of appendectomy History of skin surgery Social History household members: none housing: house Smoking Status: Never smoker alcohol intake: never substance use type: does not use ROS ROS Narrative Review of Systems: Constitutional: Patient denies fever or chills. Eyes: Patient denies changes in vision or discharge rom eyes. ENT: Patient denies runny nose, sore throat or ear pain. Resp: Patient denies SOB or cough. CV: Patient denies chest pain, palpitations or heart racing. GI: Patient admits to severe abdominal pain with nausea and severe constipation as per HPI. She denies vomiting or blood in stools. : Patient denies dysuria or hematuria. MSK: Patient denies arthralgias or myalgias. Skin: Patient denies rash, abscess or jaundice. Psych: Patient denies symptoms of uncontrolled depression or anxiety. Neuro: Patient denies headache, paresthesias or focal neurologic deficits. Allergy: Patient denies lip swelling, tongue swelling or urticaria. Hematology: Patient denies easy bleeding or easy bruisability. Endocrinology: Patient denies polyuria, polydipsia or polyphagia. 14 point ROS otherwise negative except for positives noted above in HPI. Vital Signs Vital Signs Vital Signs: 05/20/24 19:02 Temperature 96.6 F L Temperature Source Temporal Pulse Rate 84 Respiratory Rate 20 H Blood Pressure 122/95 H Blood Pressure Mean 104 Pulse Ox 98 Oxygen Delivery Method Room Air Weight Weight: 124 lb 5.451 oz Body Mass Index (BMI) 18.8 Physical Exam Const alert, oriented x3, no apparent distress, average body habitus and healthy appearing General Appearance: cooperative HEENT normocephalic, head/scalp atraumatic and hearing grossly normal bilaterally HEENT Narrative: Mucous membranes dry. Eyes PERRL and EOMs intact bilaterally Neck no lymphadenopathy and supple Resp normal respiratory effort, no retractions, no use of accessory muscles and clear to auscultation bilaterally Cardio regular rate and regular rhythm GI soft to palpation GI Narrative: Mild TTP in LLQ with mild distention. Auscultation: hypoactive bowel sounds Extremity normal to inspection and full ROM Neuro oriented x3, CN's II-XII intact bilaterally, moves all extremities and no focal motor deficits Sensorium / Orientation: awake, alert, oriented to person, oriented to place and oriented to time Speech: speech normal Psych affect normal Results Medical Records Data Attestation: I reviewed the patient's medical records Lab / Micro Data Attestation: I reviewed the patient's lab results. 05/20/24 19:20 05/20/24 19:20 Labs: Laboratory Results - last 24 hr 05/20/24 19:20: WBC 7.9, RBC 4.75, Hgb 14.5, Hct 43.6, MCV 91.8, MCH 30.5, MCHC 33.3, RDW Std Deviation 44.8 H, RDW Coeff of Darcy 13.2, Plt Count 234, MPV 9.8, Immature Gran % (Auto) 0.300, Neut % (Auto) 69.5, Lymph % (Auto) 23.4, [place] % (Auto) 5.7, Eos % (Auto) 0.3, Baso % (Auto) 0.8, Absolute Neuts (auto) 5.5, Absolute Lymphs (auto) 1.86, Nucleated RBC % 0, Sodium 139, Potassium 3.7, Chloride 106, Carbon Dioxide 27.0, Anion Gap 6, BUN 24 H, Creatinine 0.73, Estim Creat Clear Calc 49.94, Est GFR (MDRD) Af Amer 99, Est GFR (MDRD) Non-Af 82, BUN/Creatinine Ratio 33.0 H, Glucose 128 H, Calcium 9.4, Total Bilirubin 0.50, AST 26, ALT 26, Alkaline Phosphatase 99, Total Protein 7.9, Albumin 4.0, Globulin 3.9, Albumin/Globulin Ratio 1.0, Lipase 53 Imaging Radiology Impression Abdomen/Pelvis CT 05/20/24 19:10 IMPRESSION: Prominent loops of distal small bowel associated circumferential wall thickening, may reflect enteritis, cannot exclude an associated evolving partial small bowel obstruction or ileus. Circumferential wall thickening of the sigmoid colon, may be secondary to its incompletely distended state however cannot exclude colitis. Colonic diverticulosis. Ventral hernia left of midline containing omentum and no loops of bowel. Atherosclerosis. Electronically Signed: Alicia Kramer MD at 20:47 EST , Assessment & Plan Assessment/Plan (1) Colitis: (2) Enteritis: (3) Intractable abdominal pain: (4) Incisional hernia: QUALIFIERS: Obstruction and gangrene presence: without obstruction or gangrene Qualified Code(s): K43.2 - Incisional hernia without obstruction or gangrene (5) History of bowel resection: (6) Ischemic cerebrovascular accident (CVA): (7) Left-sided weakness: (8) Osteoarthritis: QUALIFIERS: Osteoarthritis location: unspecified site Osteoarthritis type: unspecified Qualified Code(s): M19.90 - Unspecified osteoarthritis, unspecified site (9) Lumbar spinal stenosis: QUALIFIERS: Neurogenic claudication status: without neurogenic claudication Qualified Code(s): M48.061 - Spinal stenosis, lumbar region without neurogenic claudication PLAN: Plan 1. CT evidence of prominent bowel loops of distal small bowel with associated circumferential wall thickening that may reflect enteritis with suspected evolving partial small bowel obstruction or ileus in addition to circumferential wall thickening of the sigmoid colon suspicious for colitis with colonic diverticulosis and ventral hernia Left of the midline containing omentum and no loops of bowel - Admit to general medical floor with telemetric monitoring for treatment of Enteritis with suspected partial SBO and suspected Colitis noted on CT. Keep NPO and start Protonix 40 mg IV daily. Start empiric IV Rocephin and IV Flagyl to cover gram-negatives and anaerobes most commonly involved with colitis. Give IV Toradol prn for [id number] (level 1-5/10) pain or fever. Give IV Dilaudid prn for severe (level 6-10/10) pain. We will consult Dr. Brown of general surgery to follow up with this patient for her incisional hernia after very recent admission to her service and with help appreciated in advance. Finally, we will also consult gastroenterology to see this patient on-rounds in the AM with areas of inflammation in the small and large intestine with suspected suboptimal and increasingly dysfunctional colonic anastomosis with help appreciated in advance. 2. Recent admission here from May 14, 2024 to May 15, [address] Brown of general surgery with CT scan of the abdomen and pelvis that admission revealing worsening of Left paramidline abdominal wall hernia containing short segments of bowel surrounded by probable edema with suspected partial obstruction and incarceration was not excluded in addition to abnormal appearance of the Right renal collecting system and proximal ureter suggestive of Pyelonephritis with small calcifications adjacent to the Right ureter were present previously and did not represent ureteral stones with patient confirmed by surgeon to have small bowel in her hernia sac with her incisional hernia reduced after sedation in the ER in addition to the patient then diagnosed with a UTI with urine cultures growing > 100K E. coli initially treated with IV Rocephin and then after and she was discharged home the next day on oral Cephalexin complicating #1 - Noted with no acute pathologic urologic issues noted on CT this admission. 3. History of severe diverticulitis; s/p partial colonic resection with colostomy and eventual reversal (1984) with subsequent development of a chronic hernia at colostomy site compounding #1 & #2 - Noted. 4. History of CVA; with residual Left-sided weakness on BASA adding to the medical complexity of #1 - #3 - Noted. Restart BASA when patient resumes oral intake. 5. OA; with history of mild Lumbar spinal stenosis with chronic debility adding to the burden of disease outlined from #1 - #4 - PT/OT and Case Management to consult and treat on-rounds in the AM for further recommendations with help appreciated in advance. 6. History of open appendectomy - Noted. 7. Chronic constipation; on prn Senna - Noted. 8. GERD; on omeprazole - Continue PPI IV as noted above. 9. Essential hypertension; on amlodipine and losartan - Hold oral antihypertensives with patient NPO for the time being. Give IV Hydralazine for systolic blood pressure > 160 mmHg. 10. Hyperlipidemia; on atorvastatin - Resume statin once patient is restarted on diet. 11. DM-2; of unknown control - Keep NPO for now. FSBS q. 6 hours. Will avoid SSI to prevent hypoglycemia until patient resumes oral intake with blood glucose of 128 mg/dL present on admission. 12. History of VT - Noted. 13. History of SVT - Noted. 14. History of 1st degree AVB - Noted. 15. History of mild (<50%) Left carotid stenosis - Noted. 16. History of thrombocytopenia - Stable with platelet count of 234K present on admission. 17. [place]; on CPAP - Continue nocturnal CPAP as previous. 18. History of staghorn calculus; s/p nephrolithotomy at [facility] (2022) - Noted. 19. History of basal cell carcinoma; s/p multiple excisions - Noted for the sake of completeness. 20. Listed allergy to morphine (rash) - Noted with IV Benadryl ordered prn if rash should recur with Dilaudid. 21. Listed allergy to ramipril (rash) - Noted. 22. Listed allergy to sulfonamide antibiotics (?) - Noted. 23. History of depression - Patient not currently on antidepressant medication at time of admission. 24. DVT prophylaxis - Lovenox 40 mg sq daily plus SCD's. Total time: Approximately (but not less than) 75 minutes. Charges/Coding Visit Charges Inpatient E&M: 29006 Init Hosp L3
[2024-05-20 21:08] VITALS: BP 145/90; PULSE 70; RESP 17; TEMP 36.8; O2SAT 99
[2024-05-20] MEDS: Metoclopramide 10 MG/2 ML Vial 5 MG IV (21:19)
[2024-05-20 23:16] VITALS: RESP 15; BMI 20.3
[2024-05-20 23:38] VITALS: BP 132/62; PULSE 73; RESP 16; TEMP 36.4; O2SAT 97
[2024-05-20] MEDS: Ketorolac 15 MG/ML Vial IV (23:40)
[2024-05-20] MEDS: Ceftriaxone 1 GM/50 ML BAG IV (23:40)
[2024-05-20] MEDS: 0.9% Normal Saline (1000mL) 1,000 ML 70 ML IV (23:40)
[2024-05-21] VITALS (10 sets, daily range): BP systolic 126–146; BP diastolic 66–71; PULSE 64–83; RESP 15–18; TEMP 36.3–37.3; O2SAT 93–98; BMI 20.3
[2024-05-21] MEDS: metroNIDAZOLE 500 MG/100 ML BAG 100 MG IV ×4 (01:21→23:37)
[2024-05-21] MEDS: HYDROmorphone 0.5 MG/0.5 ML SYRINGE IV (04:44)
[2024-05-21 06:23] LABS: Absolute Lymphocyte Count 1.62 X10^3/uL (0.83-4.51); Absolute Neutrophil Count 4.3 X10^3/uL (2.0-7.7); Basophil# 0.04 X10^3/uL; Basophil% 0.6 % (0-1); Eosinophil# 0.02 X10^3/uL; Eosinophils% 0.3 % (0-5); Hematocrit 34.7 % (37-47); Hemoglobin 11.3 g/dL (12.0-15.0); Lymphocyte # 1.62 X10^3/ul (0.83-4.51); Lymphocyte % 24.7 % (19-41); Mean Corp Hgb Conc 32.6 g/dL (32-36); Mean Corpuscular Hgb 30.2 pg (27.0-32.0); Mean Corpuscular Volume 92.8 fL (81-99); Mean Platelet Vol. 10.1 fl (6.2-12.0); Monocyte# 0.58 X10^3/uL; Monocyte% 8.8 % (0-10); NRBC Flagged by Analyzer 0 % (0-5); Neutrophil # 4.29 X10^3/uL (2.7-7.7); Neutrophil % 65.3 % (47-70); Platelet Count 188 K/mm3 (150-450); RBC Distribution Width CV 13.2 % (11.6-14.6); RBC Distribution Width SD 45.1 fl (35.1-43.9); Red Blood Count 3.74 M/mm3 (4.2-5.4); White Blood Count 6.6 K/mm3 (4.4-11.0)
[2024-05-21 06:38] LABS: ALB/GLOB Ratio 1.1 RATIO (0.9-2.4); AST(SGOT) 18 U/L (15-37); Alanine Aminotransfer ALT/SGPT 18 U/L (13-56); Albumin, Serum 3.1 g/dL (3.2-5.0); Alkaline Phosphatase 75 U/L (45-117); Anion Gap 5 (5-15); BUN 24 mg/dL (7-18); Calcium,Total 8.8 mg/dL (8.5-10.1); Chloride 108 mmol/L (98-107); Creatinine, Serum 0.55 mg/dL (0.55-1.02); EST Glomerular Filtration Rate 114 mL/min (>60); Est Glom Filt Rate - Afr Amer 138 mL/min (>60); Estimated Creatinine Clearance 49.05 ml/min; Globulin 2.9 g/dL (2.2-4.2); Glucose 106 mg/dL (74-106); Phosphorus 3.7 mg/dL (2.5-4.9); Potassium 3.7 mmol/L (3.5-5.1); Sodium Level 139 mmol/L (136-145)
[2024-05-21] MEDS: Ondansetron 4 MG/2 ML Vial IV ×2 (07:47→13:36)
[2024-05-21] MEDS: Enoxaparin 40 MG/0.4 ML Syringe SC (08:00)
--- NOTE | 2024-05-21 08:40 | PCM.PN.HOSP ---
Reason for Visit Reason for Visit: Diagnoses Cerebral infarction, unspecified (05/20/24) Incisional hernia without obstruction or gangrene (05/20/24) Noninfective gastroenteritis and colitis, unspecified (05/20/24) Unspecified osteoarthritis, unspecified site (05/20/24) Spinal stenosis, lumbar region without neurogenic claudication (05/20/24) Unspecified abdominal pain (05/20/24) Weakness (05/20/24) Acquired absence of other specified parts of digestive tract (05/20/24) Subjective Subjective Feeling better. Abdomen less distended. +Flatus. Objective Data Objective Data Vital Signs: Vital Signs Temp Pulse Resp BP Pulse Ox O2 Del Method 36.3 C L 70 18 140/66 H 93 Room Air 05/21/24 08:18 05/21/24 08:18 05/21/24 08:18 05/21/24 08:18 05/21/24 08:18 05/21/24 08:18 Oxygen Delivery Method Room Air Weight: 55.4 kg Body Mass Index (BMI) 20.3 Intake & Output: Intake and Output for Last 24 Hours 05/19/24 05/20/24 05/21/24 23:59 23:59 23:59 Intake Total 250 / 250 Balance 250 / 250 Lab / Micro Data 05/21/24 05:46 05/21/24 05:46 Labs: Laboratory Results - last 24 hr 05/20/24 19:20: WBC 7.9, RBC 4.75, Hgb 14.5, Hct 43.6, MCV 91.8, MCH 30.5, MCHC 33.3, RDW Std Deviation 44.8 H, RDW Coeff of Darcy 13.2, Plt Count 234, MPV 9.8, Immature Gran % (Auto) 0.300, Neut % (Auto) 69.5, Lymph % (Auto) 23.4, [place] % (Auto) 5.7, Eos % (Auto) 0.3, Baso % (Auto) 0.8, Absolute Neuts (auto) 5.5, Absolute Lymphs (auto) 1.86, Nucleated RBC % 0, Sodium 139, Potassium 3.7, Chloride 106, Carbon Dioxide 27.0, Anion Gap 6, BUN 24 H, Creatinine 0.73, Estim Creat Clear Calc 49.94, Est GFR (MDRD) Af Amer 99, Est GFR (MDRD) Non-Af 82, BUN/Creatinine Ratio 33.0 H, Glucose 128 H, Calcium 9.4, Total Bilirubin 0.50, AST 26, ALT 26, Alkaline Phosphatase 99, Total Protein 7.9, Albumin 4.0, Globulin 3.9, Albumin/Globulin Ratio 1.0, Lipase 53 05/21/24 05:46: WBC 6.6, RBC 3.74 L, Hgb 11.3 L, Hct 34.7 L, MCV 92.8, MCH 30.2, MCHC 32.6, RDW Std Deviation 45.1 H, RDW Coeff of Darcy 13.2, Plt Count 188, MPV 10.1, Immature Gran % (Auto) 0.300, Neut % (Auto) 65.3, Lymph % (Auto) 24.7, [place] % (Auto) 8.8, Eos % (Auto) 0.3, Baso % (Auto) 0.6, Absolute Neuts (auto) 4.3, Absolute Lymphs (auto) 1.62, Nucleated RBC % 0, Sodium 139, Potassium 3.7, Chloride 108 H, Carbon Dioxide 26.0, Anion Gap 5, BUN 24 H, Creatinine 0.55, Estim Creat Clear Calc 49.05, Est GFR (MDRD) Af Amer 138, Est GFR (MDRD) Non-Af 114, BUN/Creatinine Ratio 44.0 H, Glucose 106, Calcium 8.8, Phosphorus 3.7, Magnesium 2.0, Total Bilirubin 0.40, AST 18, ALT 18, Alkaline Phosphatase 75, Total Protein 6.0 L, Albumin 3.1 L, Globulin 2.9, Albumin/Globulin Ratio 1.1, TSH 4.870 H Radiography Diagnostic Testing: Radiology Impression Abdomen/Pelvis CT 05/20/24 19:10 IMPRESSION: Prominent loops of distal small bowel associated circumferential wall thickening, may reflect enteritis, cannot exclude an associated evolving partial small bowel obstruction or ileus. Circumferential wall thickening of the sigmoid colon, may be secondary to its incompletely distended state however cannot exclude colitis. Colonic diverticulosis. Ventral hernia left of midline containing omentum and no loops of bowel. Atherosclerosis. Electronically Signed: Alicia Kramer MD at 20:47 EST , Physical Exam Const alert and no apparent distress HEENT head/scalp atraumatic and moist oral mucous membranes Resp normal respiratory effort, no retractions, no use of accessory muscles and clear to auscultation bilaterally Cardio regular rate, regular rhythm, S1 normal heart sound and S2 normal heart sound GI normal to inspection, nondistended, normoactive bowel sounds, soft to palpation, non-tender and non-distended Extremity normal to inspection Assessment & Plan Assessment/Plan (1) Colitis: (2) Enteritis: PLAN: Plan SBO vs enteritis. Overall improved. Consult GS and GI abx with CTX and metonidazole. PPI IV Small bowel series ordered. Chronic conditions: History of CVA; with residual Left-sided weakness on BASA adding to the medical complexity of #1 - #3 - Noted. Restart BASA when patient resumes oral intake. OA; with history of mild Lumbar spinal stenosis with chronic debility adding to the burden of disease outlined from #1 - #4 - PT/OT and Case Management to consult and treat on-rounds in the AM for further recommendations with help appreciated in advance. VTE prophylaxis: LMWH Charges/Coding Visit Charges Inpatient E&M: 32231 Subs Hosp L2
--- NOTE | 2024-05-21 10:05 | CASEMGMT ---
RN CM wastewater treatment supervisor CM to room to meet with patient for initial transition planning/care coordination assessment. RN CM introduced self and role at [facility]. Patient resting in bed, alert and oriented. Patient willing to participate in assessment and is able to answer all questions appropriately.? Care providers, pharmacy, and demographics verified. Strata: 2 PCP: Dr Cesar Specialists:Dr Camarillo-nephro @ [facility]/[place]. Dr Mendez/cardiology. Dr Polanco-surgeon. Preferred Pharmacy: [facility] in [place] Insurance:[email or web address] [facility] Prescription Benefit:?Yes LNOK:Daughters Kaleigh and Denisse Living Arrangements:Patient lives alone in a 1 story home w/ laundry in the basement. 4 steps to enter home w/railing. Pt denies any difficulty to stairs entering home or to basement. Prior to this admission, patient was independent in all ADLs and IADLs and manages her own medications. Pt states both of her daughters live close and could assist, if needed. Transportation: self and daughters DME: Pt states she uses no DME, but does have cane, grab bars, and rollator available, if needed. Pt interested in medical alert info. Same provided at this time. Pt denies further DME needs. HHC/SNF: Pt was @ [facility] in 2022 and also states had HHC through [facility] in the past. Discussed discharge planning. Pt wishes to return home and denies having any discharge needs/concerns. She denies the need for HHC or OP therapy. Made aware to ask for CM if any needs arise. Michael ZHANG RN, CM
[2024-05-21] MEDS: Pantoprazole Sodium 40 MG in 0.9% Normal Saline (100mL MB+) 100 ML 330 MG IV (11:10)
--- NOTE | 2024-05-21 11:10 | CASEMGMT ---
Social Work- Pt has directives on chart naming Debra, dtr, as primary agent and Aisha, dtr, as alternate agent. RYAN Hubbard
--- NOTE | 2024-05-21 12:16 | RAD_ITS ---
STUDY: X-RAY - ABDOMEN/PELVIS REASON FOR EXAM: Female, 79 years old. f/u SBO -- Films: Immediately post GG, 3h, 6 h, 12 h, and 24h TECHNIQUE: Immediate and 3 hour AP supine views of the abdomen and pelvis. COMPARISON: CT May 20, 2024 FINDINGS: On the immediate images there is contrast in the stomach and in nondilated loops of proximal small intestine. On the three-hour exam there is contrast within loops of distal small intestine and colon . There is mild distention of distal small intestinal loops. There is degenerative change of the spine. There is no demonstrated free abdominal air. RAD/Small Bowel Series Only IMPRESSION: No obstruction. Mild distention of distal small intestinal loops. Electronically Signed: You Phelps MD at 10:40 EST ,
--- NOTE | 2024-05-21 12:17 | EX.PCM.CON.S ---
Assessment & Plan Assessment/Plan (1) Enteritis: PLAN: Patient 79-year-old female who is admitted with signs and symptoms of gastroenteritis versus partial small bowel obstruction 1 week after admission for incarcerated incisional hernia. She shares a history that her bowels have not been normal since her previous hospitalization and she has had poor appetite. She describes a recurrence of the symptoms which led her to the hospital in the first place, however, her CT imaging does not show bowel within her incisional hernia. Instead, it shows some thickening of the distal small bowel with some associated tapering, however, this does not appear to be a high-grade lesion. It is possible this represents some narrowing of the bowel due to postoperative fusions from patient's prior appendectomy, or alternatively, this could be a manifestation of enteritis. Either way, at this point patient does not have intolerable nausea and vomiting so I have suggested we try to proceed with a small bowel follow-through sans use of nasogastric tube and just have her ingest the contrast orally. Patient is advised to remain out of bed in a chair during this time. If she has any difficulty with contrast ingestion then I would recommend immediate placement of a nasogastric tube with confirmation via KUB and then beginning the small bowel follow-through. Patient has a number of questions related to why she simply cannot proceed with incisional hernia repair at this moment as she is concerned for her risk for recurrent admissions until this is definitively managed. I described to her the interest in ensuring that she has intact GI function and how it would be not ideal to deal with either straining or severe distention postoperatively. Further, she describes some suboptimal nutrition and I share how this can be a risk for recurrence. Patient does have outpatient appointment already established for 05/24/[address] Brown (who saw her at her previous admission). It is likely this will need to be rescheduled, but we will see how patient responds over the next several hours to the small bowel follow-through. Will continue to follow. Thank you for the consultation. Dmitriy Fraire MD General Surgery Endocrine Surgery Pager: [facility] [address] [place] [address], [address] [place] [id number] Office: [phone] (2) Incisional hernia: QUALIFIERS: Obstruction and gangrene presence: without obstruction or gangrene Qualified Code(s): K43.2 - Incisional hernia without obstruction or gangrene PLAN: Patient with incisional hernia that contains omentum rather than bowel (however this hernia was incarcerated just a week ago). I have made no effort to try to displace the omentum from the hernia as I believe this creates a nice temporizing solution until she is able to go through with her hernia repair. As above, reasons for an interest in delaying hernia repair until patient is more medically optimized I reviewed inpatient initially regarding the except the explanation but then appears appreciative. HPI Consult Data Date of Consult: 05/21/24 HPI Narrative Reason for Consultation: SBO with recent admission for incarcerated incisional hernia HPI Narrative: JENNY LI, is a 79 F who presents to [facility] after experiencing acute onset abdominal pain that was associated with some nausea and vomiting over the last 24 hours. Patient states that her pain was largely centered in the lower abdomen about her hernia site on the left. She was recently admitted (05/14/2024 into 05/15/2024) for an incarcerated incisional hernia and shares that her pain was similar to when she presented for that issue. Following that hospitalization she confirms some difficulty with constipation and shares she was only able to have a bowel movement after taking senna as prescribed by her PCP. With this constipation she notes that she has had some poor appetite. Patient's ER visit yesterday included CT imaging of the abdomen pelvis. This study showed evidence of thickening of the distal small bowel and partial obstruction versus enteritis was radiology's impression. Additionally they noted that patient's incisional hernia contained omentum but no bowel. Patient has significant past medical history inclusive of a number of cardiovascular issues and reports recent CVA a year ago for which she remains on baby aspirin. Surgically?speaking patient has a history of open appendectomy followed by segmental colectomy with colostomy that was later reversed. Timing on this colon surgery was concluded in 1984. She reports that since that operation she has always felt like there was a difference with [her] bowels and reports that a autographer once told her that he did not like the way her colon was reconnected. [facility] Medical History Hx of nephrolithotomy with removal of calculi Acquired absence of intestine Depression AUSTIN (obstructive sleep apnea) Diabetes mellitus, type II Essential (primary) hypertension First degree AV block V-tach SVT (supraventricular tachycardia) Left-sided weakness Ischemic cerebrovascular accident (CVA) Debility Dysphagia Bradycardia Essential tremor Staghorn kidney stones Basal cell carcinoma Left carotid artery stenosis Thrombocytopenia History of hypercholesterolemia Spinal stenosis of lumbar region at multiple levels HTN (hypertension) Home Medications ?Medication ?Instructions ?Recorded ?Last Taken ?Type aspirin 81 mg chewable tablet 81 mg PO BREAKFAST Heart Spartoo #0 03/14/23 03/14/23 Rx tabs amlodipine 5 mg tablet 5 mg PO DAILY bp 01/09/24 Unknown History fluticasone propionate 50 1 spray intranasal DAILY PRN nasal 01/09/24 Unknown History mcg/actuation nasal congestion spray,suspension losartan 100 mg tablet 100 mg PO DAILY bp 01/09/24 Unknown History omeprazole 40 mg capsule,delayed 40 mg PO QMWF gerd 01/09/24 Unknown History release sennosides 8.6 mg tablet (Senna 8.6 mg PO DAILY PRN constipation 01/09/24 Unknown History Laxative) acetaminophen 325 mg tablet 650 mg PO Q8 arthritis 01/28/24 Unknown History atorvastatin 80 mg tablet 80 mg PO QMWF hld 05/20/24 Unknown History Allergy/AdvReac Type Severity Reaction Status Date / Time isradipine (From DynaCi) Allergy Severe Rash Verified 05/14/24 19:10 morphine Allergy Severe twitching Verified 05/14/24 19:10 and rapid eye movement ramipril (From Altace) Allergy Severe Rash Verified 05/14/24 19:10 latex Allergy Rash Verified 05/14/24 19:10 Sulfa (Sulfonamide Allergy Unknown Verified 05/14/24 19:10 Antibiotics) fentanyl AdvReac Mild Nausea/Vom/ Verified 05/20/24 20:16 Diarrhea Family History Mother CAD (coronary artery disease) Hypertension Father CAD (coronary artery disease) Hypertension Sister Hypertension Kidney disease due to HTN and she was on dialysis Other Hyperlipidemia Surgical History Hx of appendectomy History of skin surgery Social History household members: none housing: house Smoking Status: Never smoker alcohol intake: never substance use type: does not use Physical Exam Const alert, oriented x3, no apparent distress, healthy appearing and well nourished General Appearance: cooperative Resp normal respiratory effort GI GI Narrative: Nondistended, several scars across patient's abdomen with hernia palpable and present in the left lower quadrant but soft. Patient has mild tenderness about this area with palpation. Lab / Micro Data 05/21/24 05:46 05/21/24 05:46 Labs: Laboratory Results - last 24 hr 05/20/24 19:20: WBC 7.9, RBC 4.75, Hgb 14.5, Hct 43.6, MCV 91.8, MCH 30.5, MCHC 33.3, RDW Std Deviation 44.8 H, RDW Coeff of Darcy 13.2, Plt Count 234, MPV 9.8, Immature Gran % (Auto) 0.300, Neut % (Auto) 69.5, Lymph % (Auto) 23.4, Moh[place] % (Auto) 5.7, Eos % (Auto) 0.3, Baso % (Auto) 0.8, Absolute Neuts (auto) 5.5, Absolute Lymphs (auto) 1.86, Nucleated RBC % 0, Sodium 139, Potassium 3.7, Chloride 106, Carbon Dioxide 27.0, Anion Gap 6, BUN 24 H, Creatinine 0.73, Estim Creat Clear Calc 49.94, Est GFR (MDRD) Af Amer 99, Est GFR (MDRD) Non-Af 82, BUN/Creatinine Ratio 33.0 H, Glucose 128 H, Calcium 9.4, Total Bilirubin 0.50, AST 26, ALT 26, Alkaline Phosphatase 99, Total Protein 7.9, Albumin 4.0, Globulin 3.9, Albumin/Globulin Ratio 1.0, Lipase 53 05/21/24 05:46: WBC 6.6, RBC 3.74 L, Hgb 11.3 L, Hct 34.7 L, MCV 92.8, MCH 30.2, MCHC 32.6, RDW Std Deviation 45.1 H, RDW Coeff of Darcy 13.2, Plt Count 188, MPV 10.1, Immature Gran % (Auto) 0.300, Neut % (Auto) 65.3, Lymph % (Auto) 24.7, [place] % (Auto) 8.8, Eos % (Auto) 0.3, Baso % (Auto) 0.6, Absolute Neuts (auto) 4.3, Absolute Lymphs (auto) 1.62, Nucleated RBC % 0, Sodium 139, Potassium 3.7, Chloride 108 H, Carbon Dioxide 26.0, Anion Gap 5, BUN 24 H, Creatinine 0.55, Estim Creat Clear Calc 49.05, Est GFR (MDRD) Af Amer 138, Est GFR (MDRD) Non-Af 114, BUN/Creatinine Ratio 44.0 H, Glucose 106, Calcium 8.8, Phosphorus 3.7, Magnesium 2.0, Total Bilirubin 0.40, AST 18, ALT 18, Alkaline Phosphatase 75, Total Protein 6.0 L, Albumin 3.1 L, Globulin 2.9, Albumin/Globulin Ratio 1.1, TSH 4.870 H Imaging Radiology Impression Abdomen/Pelvis CT 05/20/24 19:10 IMPRESSION: Prominent loops of distal small bowel associated circumferential wall thickening, may reflect enteritis, cannot exclude an associated evolving partial small bowel obstruction or ileus. Circumferential wall thickening of the sigmoid colon, may be secondary to its incompletely distended state however cannot exclude colitis. Colonic diverticulosis. Ventral hernia left of midline containing omentum and no loops of bowel. Atherosclerosis. Electronically Signed: Alicia Kramer MD at 20:47 EST , Charges/Coding Visit Charges Inpatient E&M: 79310 Init Hosp L2
[2024-05-21] MEDS: Ketorolac 15 MG/ML Vial IV (13:35)
--- NOTE | 2024-05-21 16:37 | CON.PCM.GI_ITS ---
HPI Consult Data Date of Consult: 05/21/24 HPI Narrative Reason for Consultation: Abnormal CT scan HPI Narrative: JENNY LI, is a 79 F who presented with the chief complaint of abdominal pain. Patient states that she was here for similar symptoms on Friday she was diagnosed with a hernia and was encouraged to follow-up with surgery on Friday. States that the pain is returning and is very painful and rates this a 10 out of 10. States that she is extremely nauseous but has not vomited. Patient denies recent sick contacts. Recent admission here from May 14, 2024 to May 15, [address] Brown of general surgery with CT scan of the abdomen and pelvis that admission revealing worsening of Left paramidline abdominal wall hernia containing short segments of bowel surrounded by probable edema with suspected partial obstruction and incarceration was not excluded in addition to abnormal appearance of the Right renal collecting system and proximal ureter suggestive of Pyelonephritis with small calcifications adjacent to the Right ureter were present previously and did not represent ureteral stones with patient confirmed by surgeon to have small bowel in her hernia sac with her incisional hernia reduced after sedation in the ER in addition to the patient then diagnosed with a UTI with urine cultures growing > 100K E. coli initially treated with IV Rocephin and then after and she was discharged home the next day on oral Cephalexin after she tolerated an her diet with plan to follow up with Dr. Brown as an outpatient on Friday, May 24, 2024 who now re-presents to [facility] ER complaining of abdominal pain and nausea. Ms. Li reports her symptoms began shortly after her discharge with very similar symptoms to her previous admission with a return of her abdominal pain that was severe, 10/10. She also endorses associated nausea with unpredictable constipation coupled with abdominal fullness, bloating and intermittent but increasingly more frequent painfully severe LLQ/rectal urgency but she denies vomiting, diarrhea or recent sick contacts. She denies related fever, chills, blood in stools, chest pain, SOB, cough, lower extremity swelling or headache but she does admit to soft stools after no BM for 6 days until she took OTC laxatives with 2 soft bowel movements. She is concerned the area of her colon anastomosis is causing her problem as she was told by her overnight babysitter at the [facility] after her most recent colonoscopy in October of this year that he did not like the way the surgeon reconnected her bowel and she has become increasingly worried it may need to be revised if her symptoms do not improve. In the ER she was noted to have CT evidence of prominent bowel loops of distal small bowel with associated circumferential wall thickening that may reflect enteritis with suspected evolving partial small bowel obstruction or ileus in addition to circumferential wall thickening of the sigmoid colon suspicious for colitis with colonic diverticulosis and ventral hernia Left of the midline containing omentum and no loops of bowel along with atherosclerosis. [facility]LY [facility], [facility] Medical History Hx of nephrolithotomy with removal of calculi Acquired absence of intestine Depression AUSTIN (obstructive sleep apnea) Diabetes mellitus, type II Essential (primary) hypertension First degree AV block V-tach SVT (supraventricular tachycardia) Left-sided weakness Ischemic cerebrovascular accident (CVA) Debility Dysphagia Bradycardia Essential tremor Staghorn kidney stones Basal cell carcinoma Left carotid artery stenosis Thrombocytopenia History of hypercholesterolemia Spinal stenosis of lumbar region at multiple levels HTN (hypertension) Home Medications ?Medication ?Instructions ?Recorded ?Last Taken ?Type aspirin 81 mg chewable tablet 81 mg PO BREAKFAST 3D FUTURE VISION II #0 03/14/23 03/14/23 Rx tabs amlodipine 5 mg tablet 5 mg PO DAILY bp 01/09/24 Unknown History fluticasone propionate 50 1 spray intranasal DAILY PRN nasal 01/09/24 Unknown History mcg/actuation nasal congestion spray,suspension losartan 100 mg tablet 100 mg PO DAILY bp 01/09/24 Unknown History omeprazole 40 mg capsule,delayed 40 mg PO QMWF gerd 01/09/24 Unknown History release sennosides 8.6 mg tablet (Senna 8.6 mg PO DAILY PRN constipation 01/09/24 Unknown History Laxative) acetaminophen 325 mg tablet 650 mg PO Q8 arthritis 01/28/24 Unknown History atorvastatin 80 mg tablet 80 mg PO QMWF hld 05/20/24 Unknown History Allergy/AdvReac Type Severity Reaction Status Date / Time isradipine (From DynaCi) Allergy Severe Rash Verified 05/14/24 19:10 morphine Allergy Severe twitching Verified 05/14/24 19:10 and rapid eye movement ramipril (From Altace) Allergy Severe Rash Verified 05/14/24 19:10 latex Allergy Rash Verified 05/14/24 19:10 Sulfa (Sulfonamide Allergy Unknown Verified 05/14/24 19:10 Antibiotics) fentanyl AdvReac Mild Nausea/Vom/ Verified 05/20/24 20:16 Diarrhea Family History Mother CAD (coronary artery disease) Hypertension Father CAD (coronary artery disease) Hypertension Sister Hypertension Kidney disease due to HTN and she was on dialysis Other Hyperlipidemia Surgical History Hx of appendectomy History of skin surgery Social History household members: none housing: house Smoking Status: Never smoker alcohol intake: never substance use type: does not use ROS ROS Narrative Review of Systems: Constitutional: Patient denies fever or chills. Eyes: Patient denies changes in vision or discharge rom eyes. ENT: Patient denies runny nose, sore throat or ear pain. Resp: Patient denies SOB or cough. CV: Patient denies chest pain, palpitations or heart racing. GI: Patient admits to severe abdominal pain with nausea and severe constipation as per HPI. She denies vomiting or blood in stools. : Patient denies dysuria or hematuria. MSK: Patient denies arthralgias or myalgias. Skin: Patient denies rash, abscess or jaundice. Psych: Patient denies symptoms of uncontrolled depression or anxiety. Neuro: Patient denies headache, paresthesias or focal neurologic deficits. Allergy: Patient denies lip swelling, tongue swelling or urticaria. Hematology: Patient denies easy bleeding or easy bruisability. Endocrinology: Patient denies polyuria, polydipsia or polyphagia. 14 point ROS otherwise negative except for positives noted above in HPI. Physical Exam Const alert, oriented x3, no apparent distress, healthy appearing and well nourished General Appearance: cooperative Resp normal respiratory effort GI GI Narrative: Nondistended, several scars across patient's abdomen with hernia palpable and present in the left lower quadrant but soft. Patient has mild tenderness about this area with palpation. Medical Records Data Medical Nutrition Assessment Dietitian: Malnutrition Criteria Met Start: 05/21/24 15:32 Freq: Status: Active Protocol: Document 05/21/24 15:32 SB (Rec: 05/21/24 15:32 SB [id number]) Nutrition Malnutrition Evidence of Malnutrition Exists Yes Malnutrition (severe): Chronic Evidenced By Weight Loss (Severe),Physical Changes (Moderate) Intake Problem Inadequate Oral Intake Etiology related to GI dysfunction Signs/Symptoms as evidenced by NPO status. Status Active Problem Clinical Problem Chronic Disease or Condition Related Malnutrition Etiology severe related to inadequate oral intake Signs/Symptoms as evidenced by 30% unintentional weight loss x 13 months and moderate muscle wasting in clavicle area. Status Active Problem Recommendation Dietitian Recommendations/Changes Recommend advanced diet as tolerated to liberal regular d /t signs and symptoms of malnutrition. As diet is advanced will order 120ml vanilla glucerna 4x daily with [employer]. Reviewed and approved by Neo Stahl, MS, RDN, LD. Lab / Micro Data 05/21/24 05:46 05/21/24 05:46 Labs: Laboratory Results - last 24 hr 05/20/24 19:20: WBC 7.9, RBC 4.75, Hgb 14.5, Hct 43.6, MCV 91.8, MCH 30.5, MCHC 33.3, RDW Std Deviation 44.8 H, RDW Coeff of Darcy 13.2, Plt Count 234, MPV 9.8, Immature Gran % (Auto) 0.300, Neut % (Auto) 69.5, Lymph % (Auto) 23.4, Pike % (Auto) 5.7, Eos % (Auto) 0.3, Baso % (Auto) 0.8, Absolute Neuts (auto) 5.5, Absolute Lymphs (auto) 1.86, Nucleated RBC % 0, Sodium 139, Potassium 3.7, Chloride 106, Carbon Dioxide 27.0, Anion Gap 6, BUN 24 H, Creatinine 0.73, Estim Creat Clear Calc 49.94, Est GFR (MDRD) Af Amer 99, Est GFR (MDRD) Non-Af 82, B UN/Creatinine Ratio 33.0 H, Glucose 128 H, Calcium 9.4, Total Bilirubin 0.50, AST 26, ALT 26, Alkaline Phosphatase 99, Total Protein 7.9, Albumin 4.0, Globulin 3.9, Albumin/Globulin Ratio 1.0, Lipase 53 05/21/24 05:46: WBC 6.6, RBC 3.74 L, Hgb 11.3 L, Hct 34.7 L, MCV 92.8, MCH 30.2, MCHC 32.6, RDW Std Deviation 45.1 H, RDW Coeff of Darcy 13.2, Plt Count 188, MPV 10.1, Immature Gran % (Auto) 0.300, Neut % (Auto) 65.3, Lymph % (Auto) 24.7, Pike % (Auto) 8.8, Eos % (Auto) 0.3, Baso % (Auto) 0.6, Absolute Neuts (auto) 4.3, Absolute Lymphs (auto) 1.62, Nucleated RBC % 0, Sodium 139, Potassium 3.7, Chloride 108 H, Carbon Dioxide 26.0, Anion Gap 5, BUN 24 H, Creatinine 0.55, Estim Creat Clear Calc 49.05, Est GFR (MDRD) Af Amer 138, Est GFR (MDRD) Non-Af 114, BUN/Creatinine Ratio 44.0 H, Glucose 106, Calcium 8.8, Phosphorus 3.7, Magnesium 2.0, Total Bilirubin 0.40, AST 18, ALT 18, Alkaline Phosphatase 75, T otal Protein 6.0 L, Albumin 3.1 L, Globulin 2.9, Albumin/Globulin Ratio 1.1, TSH 4.870 H Imaging Radiology Impression Abdomen/Pelvis CT 05/20/24 19:10 IMPRESSION: Prominent loops of distal small bowel associated circumferential wall thickening, may reflect enteritis, cannot exclude an associated evolving partial small bowel obstruction or ileus. Circumferential wall thickening of the sigmoid colon, may be secondary to its incompletely distended state however cannot exclude colitis. Colonic diverticulosis. Ventral hernia left of midline containing omentum and no loops of bowel. Atherosclerosis. Electronically Signed: Alicia Kramer MD at 20:47 EST , Assessment & Plan Assessment/Plan (1) Colitis: (2) Enteritis: (3) Intractable abdominal pain: (4) Incisional hernia: QUALIFIERS: Obstruction and gangrene presence: without obstruction or gangrene Qualified Code(s): K43.2 - Incisional hernia without obstruction or gangrene (5) History of bowel resection: (6) Ischemic cerebrovascular accident (CVA): (7) Left-sided weakness: (8) Osteoarthritis: QUALIFIERS: Osteoarthritis location: unspecified site O steoarthritis type: unspecified Qualified Code(s): M19.90 - Unspecified osteoarthritis, unspecified site (9) Lumbar spinal stenosis: QUALIFIERS: Neurogenic claudication status: without neurogenic claudication Qualified Code(s): M48.061 - Spinal stenosis, lumbar region without neurogenic claudication PLAN: Plan 79-year-old with multiple comorbidities presenting with abdominal pain and having imaging consistent with enterocolitis. She has been on empiric antibiotics and steroids. She seems to be getting little better. There was also CT evidence of prominent bowel loops of distal small bowel with associated circumferential wall thickening that may reflect enteritis with suspected evolving partial small bowel obstruction or ileus in addition to circumferential wall thickening of the sigmoid colon suspicious for colitis with colonic diverticulosis and ventral hernia Left of the midline containing omentum and no loops of bowel. It appears as if her enteritis is likely secondary from small bowel inflammation from large bowel obstruction. It seems to have resolved with oral contrast. She does not have any abdominal pain. I would recommend checking stool test to make sure that there is no sign of infection due to her history of C. difficile colitis and enteritis can be from bacterial diseases such as Natalie, Campylobacter. I am okay with keeping her on antibiotics. I would advance her diet as tolerated to and get stool studies. Charges/Coding Visit Charges Inpatient E&M: 38282 Init Hosp L3
[2024-05-21] MEDS: Ceftriaxone 1 GM/50 ML BAG IV (22:38)
[2024-05-22] VITALS: PULSE 73
[2024-05-22 05:00] VITALS: BP 137/65; PULSE 65; RESP 15; TEMP 36.3; O2SAT 99
[2024-05-22] MEDS: Ketorolac 15 MG/ML Vial IV (05:19)
[2024-05-22] MEDS: metroNIDAZOLE 500 MG/100 ML BAG 100 MG IV (05:19)
[2024-05-22 05:34] VITALS: BMI 21.2
[2024-05-22 05:53] LABS: Absolute Lymphocyte Count 1.45 X10^3/uL (0.83-4.51); Basophil# 0.05 X10^3/uL; Basophil% 1.3 % (0-1); Eosinophil# 0.03 X10^3/uL; Eosinophils% 0.8 % (0-5); Hematocrit 33.8 % (37-47); Hemoglobin 11.1 g/dL (12.0-15.0); Lymphocyte # 1.45 X10^3/ul (0.83-4.51); Lymphocyte % 36.5 % (19-41); Mean Corp Hgb Conc 32.8 g/dL (32-36); Mean Corpuscular Hgb 31.1 pg (27.0-32.0); Mean Corpuscular Volume 94.7 fL (81-99); Mean Platelet Vol. 10.1 fl (6.2-12.0); Monocyte# 0.41 X10^3/uL; Monocyte% 10.3 % (0-10); NRBC Flagged by Analyzer 0 % (0-5); Neutrophil # 2.02 X10^3/uL (2.7-7.7); Neutrophil % 50.8 % (47-70); Platelet Count 172 K/mm3 (150-450); RBC Distribution Width CV 13.6 % (11.6-14.6); RBC Distribution Width SD 47.6 fl (35.1-43.9); Red Blood Count 3.57 M/mm3 (4.2-5.4)
[2024-05-22 06:19] LABS: Anion Gap 8 (5-15); BUN 25 mg/dL (7-18); BUN/Creat Ratio 42.8 RATIO (10-20); Calcium,Total 8.8 mg/dL (8.5-10.1); Chloride 113 mmol/L (98-107); Creatinine, Serum 0.58 mg/dL (0.55-1.02); EST Glomerular Filtration Rate 105 mL/min (>60); Est Glom Filt Rate - Afr Amer 128 mL/min (>60); Estimated Creatinine Clearance 50.47 ml/min; Glucose 86 mg/dL (74-106); Potassium 3.4 mmol/L (3.5-5.1); Sodium Level 144 mmol/L (136-145)
[2024-05-22 08:04] VITALS: O2SAT 93
--- NOTE | 2024-05-22 08:12 | PN.HOSP_ITS ---
Reason for Visit Reason for Visit: Diagnoses Cerebral infarction, unspecified (05/20/24) Incisional hernia without obstruction or gangrene (05/20/24) Noninfective gastroenteritis and colitis, unspecified (05/20/24) Unspecified osteoarthritis, unspecified site (05/20/24) Spinal stenosis, lumbar region without neurogenic claudication (05/20/24) Unspecified abdominal pain (05/20/24) Weakness (05/20/24) Acquired absence of other specified parts of digestive tract (05/20/24) Subjective Subjective No diarrhea. Had some loose stools after the small bowel series. Objective Data Objective Data Vital Signs: Vital Signs Temp Pulse Resp BP Pulse Ox O2 Del Method 36.3 C L 65 15 137/65 H 93 Room Air 05/22/24 05:00 05/22/24 05:00 05/22/24 05:00 05/22/24 05:00 05/22/24 08:04 05/22/24 08:04 Oxygen Delivery Method Room Air Weight: 57.9 kg Body Mass Index (BMI) 21.2 Intake & Output: Intake and Output for Last 24 Hours 05/20/24 05/21/24 05/22/24 23:59 23:59 23:59 Intake Total 1510 / 1510 200 / 200 Balance 1510 / 1510 200 / 200 Medical Nutrition Assessment Dietitian: Malnutrition Criteria Met Start: 05/21/24 15:32 Freq: Status: Active Protocol: Document 05/21/24 15:32 SB (Rec: 05/21/24 15:32 SB [id number]) Nutrition Malnutrition Evidence of Malnutrition Exists Yes Malnutrition (severe): Chronic Evidenced By Weight Loss (Severe),Physical Changes (Moderate) Intake Problem Inadequate Oral Intake Etiology related to GI dysfunction Signs/Symptoms as evidenced by NPO status. Status Active Problem Clinical Problem Chronic Disease or Condition Related Malnutrition Etiology severe related to inadequate oral intake Signs/Symptoms as evidenced by 30% unintentional weight loss x 13 months and moderate muscle wasting in clavicle area. Status Active Problem Recommendation Dietitian Recommendations/Changes Recommend advanced diet as tolerated to liberal regular d /t signs and symptoms of malnutrition. As diet is advanced will order 120ml vanilla glucerna 4x daily with medpass. Reviewed and approved by Neo Stahl, MS, RDN, LD. Lab / Micro Data 05/22/24 05:39 05/22/24 05:39 Labs: Laboratory Results - last 24 hr 05/22/24 05:39: WBC 4.0 L, RBC 3.57 L, Hgb 11.1 L, Hct 33.8 L, MCV 94.7, MCH 31.1, MCHC 32.8, RDW Std Deviation 47.6 H, RDW Coeff of Darcy 13.6, Plt Count 172, MPV 10.1, Immature Gran % (Auto) 0.300, Neut % (Auto) 50.8, Lymph % (Auto) 36.5, [place] % (Auto) 10.3 H, Eos % (Auto) 0.8, Baso % (Auto) 1.3 H, Absolute Neuts (auto) 2.0, Absolute Lymphs (auto) 1.45, Nucleated RBC % 0, Sodium 144, P otassium 3.4 L, Chloride 113 H, Carbon Dioxide 23.0, Anion Gap 8, BUN 25 H, Creatinine 0.58, Estim Creat Clear Calc 50.47, Est GFR (MDRD) Af Amer 128, Est GFR (MDRD) Non-Af 105, BUN/Creatinine Ratio 42.8 H, Glucose 86, Calcium 8.8, Phosphorus 3.0, Magnesium 2.0 Micro: Microbiology 05/22/24 03:00 Stool Stool Lactoferrin - Final 05/22/24 03:00 Stool Enteric Bacteriology - Final 05/22/24 03:00 Stool C. difficile GDH Antigen & Toxins - Final 05/22/24 03:00 Stool Clostridioides difficile (PCR) - Final Assessment & Plan Assessment/Plan (1) Colitis: (2) Enteritis: PLAN: Plan SBO * vs enteritis. Overall improved. * Consult GS and GI * Small bowel series ordered. * Stools positive for C. diff Ag, toxin negative. Most likely colonization and not a true infection at this time. Would hold on treatment at this time. * Overall improved since small bowel series. Patient is not having diarrhea, so I suspect she is an asymptomatic carrier, particularly since her toxin is negative. Since she is a carrier and she was treated empirically for possible enteritis, I would not treat further with abx as if she is an asymptomactic carrier, she could develop symptomatic Cdiff. Pt advised to notify her physician if she starts to develop watery diarrhea. 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 Restart BASA when patient resumes oral intake. * OA; with history of mild Lumbar spinal stenosis with chronic debility adding to the burden of disease outlined from #1 - #4 - PT/OT and Case Management to consult and treat on-rounds in the AM for further recommendations with help appreciated in advance. VTE prophylaxis: LMWH
--- NOTE | 2024-05-22 08:21 | PN.SURG_ITS ---
Subjective Subjective Patient seen and examined during AM rounds. She is found moving about her room, but reports feeling much better. She states she is still having frequent bowel movements. She has been placed on contact precautions due to positivity with C. difficile antigen testing. Objective Data Objective Data Vital Signs: Vital Signs Temp Pulse Resp BP Pulse Ox O2 Del Method 97.3 F L 65 15 137/65 H 93 Room Air 05/22/24 05:00 05/22/24 05:00 05/22/24 05:00 05/22/24 05:00 05/22/24 08:04 05/22/24 08:04 Oxygen Delivery Method Room Air Weight: 127 lb 10.362 oz Body Mass Index (BMI) 21.2 Intake & Output: Intake and Output for Last 24 Hours 05/20/24 05/21/24 05/22/24 23:59 23:59 23:59 Intake Total 1510 / 1510 200 / 200 Balance 1510 / 1510 200 / 200 Medical Nutrition Assessment Dietitian: Malnutrition Criteria Met Start: 05/21/24 15:32 Freq: Status: Active Protocol: Document 05/21/24 15:32 SB (Rec: 05/21/24 15:32 SB [id number]) Nutrition Malnutrition Evidence of Malnutrition Exists Yes Malnutrition (severe): Chronic Evidenced By Weight Loss (Severe),Physical Changes (Moderate) Intake Problem Inadequate Oral Intake Etiology related to GI dysfunction Signs/Symptoms as evidenced by NPO status. Status Active Problem Clinical Problem Chronic Disease or Condition Related Malnutrition Etiology severe related to inadequate oral intake Signs/Symptoms as evidenced by 30% unintentional weight loss x 13 months and moderate muscle wasting in clavicle area. Status Active Problem Recommendation Dietitian Recommendations/Changes Recommend advanced diet as tolerated to liberal regular d /t signs and symptoms of malnutrition. As diet is advanced will order 120ml vanilla glucerna 4x daily with medpass. Reviewed and approved by Neo Stahl, MS, RDN, LD. Lab / Micro Data 05/22/24 05:39 05/22/24 05:39 Labs: Laboratory Results - last 24 hr 05/22/24 05:39: WBC 4.0 L, RBC 3.57 L, Hgb 11.1 L, Hct 33.8 L, MCV 94.7, MCH 31.1, MCHC 32.8, RDW Std Deviation 47.6 H, RDW Coeff of Darcy 13.6, Plt Count 172, MPV 10.1, Immature Gran % (Auto) 0.300, Neut % (Auto) 50.8, Lymph % (Auto) 36.5, [place] % (Auto) 10.3 H, Eos % (Auto) 0.8, Baso % (Auto) 1.3 H, Absolute Neuts (auto) 2.0, Absolute Lymphs (auto) 1.45, Nucleated RBC % 0, Sodium 144, P otassium 3.4 L, Chloride 113 H, Carbon Dioxide 23.0, Anion Gap 8, BUN 25 H, Creatinine 0.58, Estim Creat Clear Calc 50.47, Est GFR (MDRD) Af Amer 128, Est GFR (MDRD) Non-Af 105, BUN/Creatinine Ratio 42.8 H, Glucose 86, Calcium 8.8, Phosphorus 3.0, Magnesium 2.0 Micro: Microbiology 05/22/24 03:00 Stool Stool Lactoferrin - Final 05/22/24 03:00 Stool Enteric Bacteriology - Final 05/22/24 03:00 Stool C. difficile GDH Antigen & Toxins - Final 05/22/24 03:00 Stool Clostridioides difficile (PCR) - Final Physical Exam Const oriented x3 and no apparent distress Resp normal respiratory effort GI GI Narrative: Nondistended, soft, nontender to palpation generally but patient reporting mild tenderness about her hernia which is soft Assessment & Plan Assessment/Plan (1) Enteritis: PLAN: Patient 79-year-old female who is admitted with signs and symptoms of gastroenteritis versus partial small bowel obstruction 1 week after admission for incarcerated incisional hernia. Patient completed a small bowel follow-through with normal transit time yesterday and has had frequent ongoing bowel movements since. Unfortunately she also tested positive for C. difficile antigen. Therefore, it seems possible that she had a bit of a paralytic infectious ileus. While she remains in contact precautions, she clinically appears well. With her bowel function intact I recommend advancing her diet but defer management of her C. difficile to hospitalist and gastroenterology. There are no plans for surgical intervention related to her incisional hernia this admission and patient is encouraged to call to cancel/reschedule her outpatient appointment with Dr. Brown to discuss repair of her incisional hernia further. Dmitriy Fraire MD General Surgery Endocrine Surgery Pager: [facility] [address] [place] [address], [facility], [address] [place] [id number] Office: [phone] (2) Incisional hernia: QUALIFIERS: Obstruction and gangrene presence: without obstruction or gangrene Qualified Code(s): K43.2 - Incisional hernia without obstruction or gangrene PLAN: Patient with incisional hernia that contains omentum rather than bowel (however this hernia was incarcerated just a week ago). I have made no effort to try to displace the omentum from the hernia as I believe this creates a nice temporizing solution until she is able to go through with her hernia repair. As above, reasons for an interest in delaying hernia repair until patient is more medically optimized I reviewed inpatient initially regarding the except the explanation but then appears appreciative. Charges/Coding Visit Charges Inpatient E&M: 96599 Subs Hosp L2
[2024-05-22] MEDS: Enoxaparin 40 MG/0.4 ML Syringe SC (09:07)
[2024-05-22 09:09] VITALS: BP 146/66; PULSE 78; RESP 18; TEMP 36.6; O2SAT 98
[2024-05-22] MEDS: Acetaminophen 325 MG Tablet 650 MG PO (10:57)
[2024-05-22] MEDS: Pantoprazole Sodium 40 MG in 0.9% Normal Saline (100mL MB+) 100 ML 330 MG IV (10:57)
[2024-05-22 11:28] VITALS: PULSE 67
--- NOTE | 2024-05-22 13:51 | DS.PCM_ITS ---
Providers Date of Admission: 05/20/24 Primary Care Physician: Dr. Matheus Cesar MD Consultations 05/20/24 23:15 Consult: Gastroenterology Routine Consulting Provider: BishopDick Reason for Consult: Colitis and Enteritis on CT with Severe Abdominal Pain. EMERGENT Consult: No Notified: Yes Date Notified: 05/21/24 Time Notified: 07:42 Method of Notification: Text Consult: General Surgery Routine Consulting Provider: Dmitriy Fraire Reason for Consult: Partial SBO and Enteritis on CT. EMERGENT Consult: No Notified: Yes Date Notified: 05/21/24 Time Notified: 07:39 Method of Notification: Text Reason For Visit: COLITIS & ENTERITIS WITH SEVERE ABDOMINAL Diagnosis Discharge Diagnosis (1) Colitis: Status: Acute Code(s): K52.9 - Noninfective gastroenteritis and colitis, unspecified (2) Enteritis: Status: Acute Code(s): K52.9 - Noninfective gastroenteritis and colitis, unspecified Plan SBO * vs enteritis. Overall improved. * Consult GS and GI * Small bowel series ordered. * Stools positive for C. diff Ag, toxin negative. Most likely colonization and not a true infection at this time. Would hold on treatment at this time. * Overall improved since small bowel series. Patient is not having diarrhea, so I suspect she is an asymptomatic carrier, particularly since her toxin is negative. Since she is a carrier and she was treated empirically for possible enteritis, I would not treat further with abx as if she is an asymptomactic carrier, she could develop symptomatic Cdiff. Pt advised to notify her physician if she starts to develop watery diarrhea. 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 Restart BASA when patient resumes oral intake. * OA; with history of mild Lumbar spinal stenosis with chronic debility adding to the burden of disease outlined from #1 - #4 - PT/OT and Case Management to consult and treat on-rounds in the AM for further recommendations with help appreciated in advance. VTE prophylaxis: LMWH Medications at Discharge Home Medications aspirin 81 mg chewable tablet 81 mg PO BREAKFAST Heart health #0 tabs 03/14/23 amlodipine 5 mg tablet 5 mg PO DAILY bp 01/09/24 fluticasone propionate 50 mcg/actuation nasal spray,suspension 1 spray intranasal DAILY PRN nasal congestion 01/09/24 losartan 100 mg tablet 100 mg PO DAILY bp 01/09/24 omeprazole 40 mg capsule,delayed release 40 mg PO QMWF gerd 01/09/24 sennosides 8.6 mg tablet (Senna Laxative) 8.6 mg PO DAILY PRN constipation 01/09/24 acetaminophen 325 mg tablet 650 mg PO Q8 arthritis 01/28/24 atorvastatin 80 mg tablet 80 mg PO QMWF hld 05/20/24 Hospital Course Operations None Procedures None Summary of Care Provided Minutes Spent on Discharge: 35 Medical Records Data Medical Nutrition Assessment Dietitian: Malnutrition Criteria Met Start: 05/21/24 15:32 Freq: Status: Active Protocol: Document 05/21/24 15:32 SB (Rec: 05/21/24 15:32 SB [id number]) Nutrition Malnutrition Evidence of Malnutrition Exists Yes Malnutrition (severe): Chronic Evidenced By Weight Loss (Severe),Physical Changes (Moderate) Intake Problem Inadequate Oral Intake Etiology related to GI dysfunction Signs/Symptoms as evidenced by NPO status. Status Active Problem Clinical Problem Chronic Disease or Condition Related Malnutrition Etiology severe related to inadequate oral intake Signs/Symptoms as evidenced by 30% unintentional weight loss x 13 months and moderate muscle wasting in clavicle area. Status Active Problem Recommendation Dietitian Recommendations/Changes Recommend advanced diet as tolerated to liberal regular d /t signs and symptoms of malnutrition. As diet is advanced will order 120ml vanilla glucerna 4x daily with medpass. Reviewed and approved by Neo Stahl, MS, RDN, LD. Weight / BMI Weight Weight: 57.9 kg Body Mass Index (BMI) 21.2 ABG / Lab / Microbiology Data 05/22/24 05:39 05/22/24 05:39 Laboratory: Laboratory Results - last 24 hr 05/22/24 05:39: WBC 4.0 L, RBC 3.57 L, Hgb 11.1 L, Hct 33.8 L, MCV 94.7, MCH 31.1, MCHC 32.8, RDW Std Deviation 47.6 H, RDW Coeff of Darcy 13.6, Plt Count 172, MPV 10.1, Immature Gran % (Auto) 0.300, Neut % (Auto) 50.8, Lymph % (Auto) 36.5, [place] % (Auto) 10.3 H, Eos % (Auto) 0.8, Baso % (Auto) 1.3 H, Absolute Neuts (auto) 2.0, Absolute Lymphs (auto) 1.45, Nucleated RBC % 0, Sodium 144, P otassium 3.4 L, Chloride 113 H, Carbon Dioxide 23.0, Anion Gap 8, BUN 25 H, Creatinine 0.58, Estim Creat Clear Calc 50.47, Est GFR (MDRD) Af Amer 128, Est GFR (MDRD) Non-Af 105, BUN/Creatinine Ratio 42.8 H, Glucose 86, Calcium 8.8, Phosphorus 3.0, Magnesium 2.0 Microbiology: Microbiology 05/22/24 03:00 Stool Stool Lactoferrin - Final 05/22/24 03:00 Stool Enteric Bacteriology - Final 05/22/24 03:00 Stool C. difficile GDH Antigen & Toxins - Final 05/22/24 03:00 Stool Clostridioides difficile (PCR) - Final Radiography Diagnostic Testing: Radiology Impression Small Bowel X-Ray 05/21/24 12:16 IMPRESSION: No obstruction. Mild distention of distal small intestinal loops. Electronically Signed: You Phelps MD at 10:40 EST , D/C Instructions Discharge Diet: No restrictions DC O2, CPAP, BIPAP Needs Additional Home O2 Discharge instructions: No DC home with Oxygen: No Meaningful Use Info Meaningful Use Meaningful Use Diagnoses (Choose all that apply): None applicable Ischemic Stroke Statin Dosing Therapy Reference: STATIN DOSE THERAPY REFERENCE: * Patients > 75 years receive moderate or high dose statin therapy. * Patients 75 years or YOUNGER should receive HIGH intensity statin dose unless contraindicated. You will be required to document reason for non-treatment if statin daily dose does not meet guidelines. HIGH DOSE STATIN THERAPY DAILY Atorvastatin > than or = to 40 mg Rosuvastatin > than or = to 20 mg Amlodipine + Atorvastatin > than or = to 2.5/40 mg Ezetimibe + Simvastatin 10/80 mg Simvastatin 80mg Discharge Plan Admission Admit Date/Time: 05/20/24 22:56 Primary Reason for Your Visit: Small bowel obstruction. Attending Provider: Helio Quintana Primary Care Provider: Matheus Cesar Consulting Providers: Tomas Schwab; Friend,Dick; Dmitriy Fraire Instructions Additional Instructions / Restrictions: You had what looked like a small bowel obstruction. Your tests were positive for Clostridioides Diff (C diff) antigen positive, but the toxin was negative. Typically C diff presents with diarrhea, this along with the negative toxin I do not feel that you are infected with Cdiff, but may be a carrier (one who is asymptomatic, but carries the bacteria). If you start to develop profuse watery diarrhea, that could be a Cdiff infection and you should notify your physician or return to the emergency room. Discharge Orders/Prescriptions Prescriptions: Continued omeprazole 40 mg capsule,delayed release(DR/EC) 40 mg PO QMWF amlodipine 5 mg tablet 5 mg PO DAILY losartan 100 mg tablet 100 mg PO DAILY sennosides [Senna Laxative] 8.6 mg tablet 8.6 mg PO DAILY PRN (Reason: constipation) fluticasone propionate 50 mcg/actuation spray,suspension 1 spray intranasal DAILY PRN (Reason: nasal congestion) Rx Instructions: administer into each nostril acetaminophen 325 mg tablet 650 mg PO Q8 aspirin 81 mg Tablet,Chewable 81 mg PO BREAKFAST Qty: 0 0RF atorvastatin 80 mg Tablet 80 mg PO QMWF Referrals / Follow Up: Matheus Cesar MD [Primary Care Provider] - Within 2 Weeks Trudy Brown MD [Med Staff - Active Staff] - 05/24/24 8:50 am Disposition Disposition (needs filled in before D/C Order can be placed): Home, Self Care Charges/Coding Visit Charges Inpatient E&M: 17117 Disch Hosp >30min
[2024-05-22 14:35] VITALS: BP 115/67; PULSE 60; RESP 18; TEMP 36.4; O2SAT 98
== END 2024-05-22 15:15 | disposition home or self-care (01) | DRG 391 ==
LOC: ED 21:23 → MS3 21:28
PROVIDERS: Admitting Provider Internal Medicine; Emergency Provider Emergency Medicine; PCP Family Medicine
DX: K52.9 Noninfective gastroenteritis and colitis, unspecified (principal); E43 Unspecified severe protein-calorie malnutrition; K56.600 Partial intestinal obstruction, unspecified as to cause; I69.352 Hemiplegia and hemiparesis following cerebral infarction affecting left dominant side; E11.9 Type 2 diabetes mellitus without complications; I10 Essential (primary) hypertension; Z93.3 Colostomy status; M19.90 Unspecified osteoarthritis, unspecified site; M48.061 Spinal stenosis, lumbar region without neurogenic claudication; E78.00 Pure hypercholesterolemia, unspecified; K21.9 Gastro-esophageal reflux disease without esophagitis; G47.33 Obstructive sleep apnea (adult) (pediatric); K43.2 Incisional hernia without obstruction or gangrene; K59.09 Other constipation; R53.1 Weakness; Z79.82 Long term (current) use of aspirin; Z79.899 Other long term (current) drug therapy; Z99.89 Dependence on other enabling machines and devices; Z85.828 Personal history of other malignant neoplasm of skin; Z90.49 Acquired absence of other specified parts of digestive tract; Z87.19 Personal history of other diseases of the digestive system; R53.81 Other malaise; Z68.21 Body mass index [BMI] 21.0-21.9, adult
CPT/HCPCS: 36415; 74177; 74250; 80048; 80053; 83630; 83690; 83735; 84100; 84443; 85025; 87177; 87209; 87493; 87506; 93005; 94668; 99284; Q9967; A4216; J2405

== ENCOUNTER 2024-06-07 09:17 | Day surgery (SDC) | payer MEDICARE, SELFPAY ==
[2024-06-07] VITALS (7 sets, daily range): BP systolic 136–152; BP diastolic 59–85; PULSE 64–80; RESP 16–18; TEMP 36.3–36.6; O2SAT 95–100; BMI 20.3
--- NOTE | 2024-06-07 10:22 | PCM.HP.BLA ---
History and Physical Date of Admission: 06/07/24 Date of Service: 05/24/24 MR#: [id number] Acct: [id number] Name: JENNY LI Rep #: [id number] : 1945 Provider: Dr. Trudy Brown MD Age/Sex: 79/F Location: [facility] Status: Signed Intake Vital Signs 05/21/2410:43 05/24/2408:37 05/24/2409:06 Height 5 ft 5 in 5 ft 5 in 5 ft 5 in Weight: 122 lb BMI 20.2 BP 153/78 H Blood Pressure Location Rt brachial Position Sitting Respiration 17 Pulse 70 Pulse Source Monitor Pulse Oximetry (%) 98 Oxygen Delivery Method room air Intake Visit Reasons: Hernia Chief Complaint: hernia Is patient in pain?: No Allergies isradipine (From DynaCirc) Allergy (Severe, Verified 05/24/24 09:07) Rashmorphine Allergy (Severe, Verified 05/24/24 09:07) twitching and rapid eye movementramipril (From Altace) Allergy (Severe, Verified 05/24/24 09:07) Rashlatex Allergy (Verified 05/24/24 09:07) RashSulfa (Sulfonamide Antibiotics) Allergy (Verified 05/24/24 09:07) Unknownfentanyl Adverse Reaction (Mild, Verified 05/24/24 09:07) Nausea/Vom/Diarrhea Medications ?Medication ?Instructions ?Recorded ?Confirmed ?Type aspirin 81 mg chewable tablet 81 mg PO BREAKFAST Heart health #0 03/14/23 05/24/24 Rx tabs amlodipine 5 mg tablet 5 mg PO DAILY bp 01/09/24 05/24/24 History fluticasone propionate 50 1 spray intranasal DAILY PRN nasal 01/09/24 05/24/24 History mcg/actuation nasal congestion spray,suspension losartan 100 mg tablet 100 mg PO DAILY bp 01/09/24 05/24/24 History omeprazole 40 mg capsule,delayed 40 mg PO QMWF gerd 01/09/24 05/24/24 History release sennosides 8.6 mg tablet (Senna 8.6 mg PO DAILY PRN constipation 01/09/24 05/24/24 History Laxative) acetaminophen 325 mg tablet 650 mg PO Q8 arthritis 01/28/24 05/24/24 History atorvastatin 80 mg tablet 80 mg PO QMWF hld 05/20/24 05/24/24 History Have you fallen in the past year?: No PFSH Medical History Lumbar spinal stenosis Osteoarthritis Hx of nephrolithotomy with removal of calculi Acquired absence of intestine Depression [place] (obstructive sleep apnea) Diabetes mellitus, type II Essential (primary) hypertension First degree AV block V-tach SVT (supraventricular tachycardia) Left-sided weakness Ischemic cerebrovascular accident (CVA) Debility Dysphagia Bradycardia Essential tremor [place] kidney stones Basal cell carcinoma Left carotid artery stenosis Thrombocytopenia History of hypercholesterolemia Spinal stenosis of lumbar region at multiple levels HTN (hypertension) Surgical History History of bowel resection Hx of appendectomy History of skin surgery Family History Mother CAD (coronary artery disease) HypertensionFather CAD (coronary artery disease) HypertensionSister Hypertension Kidney disease due to HTN and she was on dialysisOther Hyperlipidemia Social History household members: none housing: house Smoking Status: Never smoker alcohol intake: never substance use type: does not use HPI HPI HPI: 79-year-old female presents due to incisional left lower quadrant hernia from previous colostomy site. Patient had perforated diverticulitis and reversal of colostomy in 1984. Patient was seen in the ER about a week ago and this was reduced with sedation. Patient was also recently in the ER last Friday due to abdominal pain and CT at that time did not show any bowel in the hernia just omentum but there was some thickening of the small bowel questionable enteritis. Patient currently denies any abdominal pain or nausea or vomiting. Patient does state that previous GI doctor has had some concerns about the way she was anastomosis previously as it sounds like it was a [id number] and not into end as she states she does have problems with constipation. ROS General General: Yes weight change and fatigue; No appetite, colon cancer or breast cancer HEENT HEENT: No difficulty swallowing, eye injury, eye surgery, swollen glands or hoarseness Endo Endocrine: Yes diabetes mellitus; No thyroid disease, thyroid cancer, Hair loss, heat intolerance or cold intolerance Skin Skin: No rash or changing moles Musc Musculoskeletal: Yes arthritis; No back problems, rheumatoid arthritis, gout or joint pain Cardio Cardiovascular: Yes high blood pressure; No murmur, pacemaker, heart disease, atrial fibrillation, heart attack, heart stent, palpitations, shortness of breat with exertion or chest pain Psych Psychiatric: No depression, anxiety or hearing voices Resp Respiratory: No shortness of breath, No sleep apnea, No cough, No COPD, No asthma, No emphysema and No wheezing Gastro Gastrointestinal: No abdominal pain, No nausea or vomiting, No diarrhea, Yes constipation, No blood in stool, No acid reflux, No hemorrhoids, No ulcers, No gallbladder problem and No black,tarry stools Madi Hematologic: No blood thinners, No blood disorders, No bleeding, No anemia and No blood clots Neuro Neurologic: No numbness and No tingling Exam Const General: cooperative, healthy appearing, comfortable and no acute distress HENMT Head: normocephalic and atraumatic Neck Neck: supple Resp Effort & Inspection: normal respiratory effort Cardio Rate: regular rate GI Inspection: non-distended Palpation: soft, hernia (Left lower quadrant previous colostomy site-incarcerated with omentum) and nontender Skin General: no rashes or lesions noted Neuro General: CN's II-XI intact bilaterally Extrem General: normal to inspection Psych Mental Status: mental status grossly normal Attitude: cooperative Assessment and Plan Assessment and Plan (1) Hernia: (2) Incisional hernia: Status: Acute Qualifiers: Obstruction and gangrene presence: without obstruction or gangrene Qualified Code(s): K43.2 - Incisional hernia without obstruction or gangrene Comment: Left lower quadrant previous colostomy site Plan Will plan for an open incisional hernia repair with mesh. Discussed procedure including but not limited to risk of bleeding, infection, need to remove mesh, injury to another organ i.e. small bowel, and anesthesia. Patient is aware that would not plan to be looking at her anastomosis during this repair as she likely has a lot of adhesions and that could be more of a risk to injury as it does not seem that she has an obstruction at that site on either of her recent CAT scans. Trudy Brown M.D. Pager: [phone] [facility] [address] [place] [address], [facility], [address] [place] [address] Office: [phone] Coding Level of Care Code Off vis,est,level 3 Diagnoses Hernia K46.9 Incisional hernia, without obstruction or gangrene K43.2 Obstruction and gangrene presence: without obstruction or gangrene Clinical Quality Measures Falls Risk Screening/Assistive Devices Have you fallen in the past year?: No 05/24/24 1322 <Electronically signed by Trudy Brown MD> Date Trudy Brown MD
[2024-06-07 10:33] LABS: Bedside Glucose 86 mg/dL (74-106)
--- NOTE | 2024-06-07 10:45 | PRE.ANES_ITS ---
ASA Classification* ASA Classification ASA Classification: 3 Assessment & Plan Anesthesia* Anesthesia Assessment Anesthesia Assessment: Discussed sedation and/or anesthesia options, risks, benefits, and alternatives with patient/parents/legal guardian/POA. Questions invited. The patient/parents/legal guardian/POA seems to understand and agrees to proceed with anesthesia plan. Reviewed the physical assessment, medical history, allergy history and patient home medications list prior to surgery/procedure/anesthetic and documented any changes. Performed airway and anesthesia risk assessments. Anesthesia Type Anesthesia Type: General History Source History Obtained from:: Patient and Chart Anesthesia Focused Assessment* Temperature: 97.3 F Pulse Rate: 64 Blood Pressure: 149/63 Respiratory Rate: 18 Pulse Ox: 100 Oxygen Delivery Method: Room Air Airway Assessment Mouth opens: >3 cm Mallampati Score: I Teeth Condition: Caps/Crowns (Tooth #11 has a crown. It is tight.) and Missing (Several missing teeth.) Neck Range of motion (ROM): Full ROM Focused Labs Anesthesia Preop lab: CBC WBC 4.0 K/mm3 (4.4-11.0) L 05/22/24 05:39 RBC 3.57 M/mm3 (4.2-5.4) L 05/22/24 05:39 Hgb 11.1 g/dL (12.0-15.0) L 05/22/24 05:39 Hct 33.8 % (37-47) L 05/22/24 05:39 Plt Count 172 K/mm3 (150-450) 05/22/24 05:39 CHEMISTRY Potassium 3.4 mmol/L (3.5-5.1) L 05/22/24 05:39 Sodium 144 mmol/L (136-145) 05/22/24 05:39 Magnesium 2.0 mg/dL (1.6-2.6) 05/22/24 05:39 Phosphorus 3.0 mg/dL (2.5-4.9) 05/22/24 05:39 BUN 25 mg/dL (7-18) H 05/22/24 05:39 Creatinine 0.58 mg/dL (0.55-1.02) 05/22/24 05:39 Glucose 86 mg/dL (74-106) 05/22/24 05:39 POC Glucose 86 mg/dL (74-106) 06/07/24 09:59 TSH 4.870 uIU/mL (0.358-3.740) H 05/21/24 05:46 COAG PT 14.0 SECONDS (11.7-14.9) 03/12/23 10:50 Pre-Assessment Diagnosis/Proposed Procedure Planned Operative Procedure(s): (L) Hernia, Open Incisional Repair w/ Mesh Anesthesia History 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 When Was Last Pacemaker Check QUESTION #4 FULL TEXT: You/Your Family Experience fever (hyperthermia) with Anesthesia Last Oral Intake Last Oral intake: Last Oral Intake NPO since 00:00 06/07/24 09:43 Meds taken in AM with sips of No 06/07/24 09:43 water? Meds patient instructed to take am of surgery PONV PONV - tool and cutter grinder: PONV - tool and cutter grinder Female Yes 06/03/24 15:12 HX of Motion Sickness Yes 06/03/24 15:12 HX of N/V After Surgery Yes 06/03/24 15:12 Non-Smoker Yes 06/03/24 15:12 Duration of Surgery greater Yes 06/03/24 15:12 than 60 minutes Number of Risk Factors 5 06/03/24 15:12 PONV Score Severe Risk 06/03/24 15:12 Height & Weight Height & Weight: Anesthesia: Height & Weight Height 5 ft 5 in 06/07/24 09:43 Weight: 55.5 kg 06/07/24 09:43 Body Mass Index (BMI) 20.3 06/07/24 09:43 Respiratory Assessment Respiratory Assessment - tool and cutter grinder: Respiratory Tract Infection Hx - tool and cutter grinder Hx Respiratory Tract Infection No 06/03/24 15:12 STOP Sleep Apnea STOP Sleep Apnea - tool and cutter grinder: STOP Sleep Apnea - tool and cutter grinder Hx Hypertension Yes: CONTROLLED WITH MED 06/03/24 15:12 Hx Sleep Apnea No 06/03/24 15:12 CPAP No 06/03/24 15:12 BIPAP No 06/03/24 15:12 Do you snore loudly (louder No 06/03/24 15:12 than talking or can be heard Do you often feel tired/ No 06/03/24 15:12 fatigued/ sleepy during daytime? Has anyone observed you stop No 06/03/24 15:12 breathing during sleep? STOP Results Negative 06/03/24 15:12 QUESTION #5 FULL TEXT : Do you snore loudly (louder than talking or can be heard through closed doors)? 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 Specify any problems Hx of Preganancy in last 3 N/A 06/03/24 15:12 Months Nurse Filling Out Transfusion NBUCHER 06/03/24 15:12 & Questions: Date: 06/03/24 06/03/24 15:12 Time: 15:15 06/03/24 15:12 Patient unable to answer at this time (ie. confused, unrespo /Reproduction History /Reproductive History - tool and cutter grinder: /Reproductive Hx- tool and cutter grinder Hx Now No 06/03/24 15:12 Gestational Age (in weeks): EDC: Hx Hx Para Hx Section SAB No 06/03/24 15:12 Active Medications Active Medications: Current Medications Generic Name Dose Route Start Last Admin Trade Name Freq PRN Reason Stop Dose Admin Cefazolin Sodium 2 gm/ N/A 20 mls @ 400 mls/hr 06/07/24 11:00 IV 06/07/24 11:02 PREOP ONE Lactated Ringer's 1,000 mls @ 15 mls/hr 06/07/24 09:30 IV 06/12/24 22:49 .Q48H [facility] Protocol PFSH Medical History PONV (postoperative nausea and vomiting) History of Clostridium difficile infection Cancer Arthritis History of kidney stones High cholesterol Stroke/cerebrovascular accident Non-smoker History of echocardiogram History of stress test Cardiology follow-up encounter Lumbar spinal stenosis Osteoarthritis Hx of nephrolithotomy with removal of calculi Acquired absence of intestine Depression [place] (obstructive sleep apnea) Diabetes mellitus, type II Essential (primary) hypertension First degree AV block V-tach SVT (supraventricular tachycardia) Essential tremor Bradycardia [place] kidney stones Dysphagia Debility Ischemic cerebrovascular accident (CVA) Basal cell carcinoma Left carotid artery stenosis Thrombocytopenia Left-sided weakness History of hypercholesterolemia Spinal stenosis of lumbar region at multiple levels HTN (hypertension) Home Medications ?Medication ?Instructions ?Recorded ?Last Taken ?Type aspirin 81 mg chewable tablet 81 mg PO BREAKFAST Heart health #0 03/14/23 05/24/24 Rx tabs amlodipine 5 mg tablet 5 mg PO DAILY bp 01/09/24 06/06/24 History fluticasone propionate 50 1 spray intranasal DAILY PRN nasal 01/09/24 Unknown History mcg/actuation nasal congestion spray,suspension losartan 100 mg tablet 100 mg PO DAILY bp 01/09/24 06/06/24 History omeprazole 40 mg capsule,delayed 40 mg PO QMWF gerd 01/09/24 Unknown History release sennosides 8.6 mg tablet (Senna 8.6 mg PO DAILY PRN constipation 01/09/24 Unknown History Laxative) acetaminophen 325 mg tablet 650 mg PO Q8 arthritis 01/28/24 Unknown History atorvastatin 80 mg tablet 80 mg PO QMWF hld 05/20/24 Unknown History tramadol 50 mg tablet 50 mg PO Q6H PRN pain #7 tabs 06/07/24 Unknown Rx Allergy/AdvReac Type Severity Reaction Status Date / Time isradipine (From [facility]) Allergy Severe Rash Verified 06/07/24 09:40 morphine Allergy Severe twitching Verified 06/07/24 09:40 and rapid eye movement ramipril (From [facility]) Allergy Severe Rash Verified 06/07/24 09:40 latex Allergy Rash Verified 06/07/24 09:40 Sulfa (Sulfonamide Allergy Unknown Verified 06/07/24 09:40 Antibiotics) fentanyl AdvReac Mild Nausea/Vom/ Verified 06/07/24 09:40 Diarrhea Family History Mother CAD (coronary artery disease) Hypertension Father CAD (coronary artery disease) Hypertension Sister Hypertension Kidney disease due to HTN and she was on dialysis Other Hyperlipidemia Surgical History History of esophagogastroduodenoscopy (EGD) History of colonoscopy History of colostomy History of bowel resection Hx of appendectomy History of skin surgery Social History household members: none housing: house Smoking Status: Never smoker alcohol intake: never substance use type: does not use Review of Systems (Anesthesia) ROS Narrative System reviewed and no additional complaints, except as documented. Physical Exam Neuro Neuro Narrative: Patient is status post stroke. She has left-sided facial drooping. 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
--- NOTE | 2024-06-07 11:00 | HERN_PTH ---
PATIENT: JENNY LI [place] [facility] [facility] [id number] AGE/SX: 79/F ROOM: RE06/07/[address]: Dr. Trudy Brown MD : 1945 BED: DIS: 06/07/2024 SPEC #: [id number] RECD: 06/07/24 12:28 STATUS: GEOVANNA MARY #: [id number] NIKHIL: 06/07/24 11:[address]: Trudy Brown DEPT: SURGICAL PATHOLOGY RECD BY: Casper Mendoza ENTERED: 06/07/24 13:01 SP TYPE: Hernia OTHR DR: Dr. Matheus Cesar MD Tissues: HERNIA Procedures: Surgery Specimen Level II HEADER OPERATION: Hernia, open incisional repair with mesh PRE-OP DIAGNOSIS: Incisional hernia TISSUE SUBMITTED: Hernia sac MICROSCOPIC DIAGNOSIS Incision of hernia sac, herniorrhaphy: Fibrosis. No evidence of malignancy or inflammation. AM. 06/08/2024 MICROSCOPIC DESCRIPTION Slides are reviewed. GROSS DESCRIPTION Received in fixative is one container labeled with the patient's name and designated Hernia sac. The specimen consists of four irregular fragments of pink-arias soft tissue ranging in size from 0.5 to 5.0cm. Serial sections do not reveal mass lesions. Sound Controller sections are submitted in one cassette. 06/07/2024 TC:5 CPT:53869
[2024-06-07] MEDS: Cefazolin 2 GM in Syringe IV (11:05)
[2024-06-07] MEDS: Bupiv/Epi 0.25% 30 ML Vial (11:40)
--- NOTE | 2024-06-07 11:45 | PCM.OPRPT ---
Operative Report (Standard) Operative Information Date of Procedure: 06/07/24 Pre-Operative Diagnosis: Incisional hernia Post-Operative Diagnosis: Incarcerated incisional hernia Surgery/Procedure Performed: Incarcerated incisional hernia pair of mesh equipment analyst: Yes Venue Coordinator: Mirna Barber Tasks completed by wheelchair van operator first responder: Opening & closing Type of Anesthesia: General/Supplemental RN Documented Start/Stop Times: Operation Date: 06/07/24 11:00 Case Time Into Pre-Op 06/07/24 09:21 Anesthesia Start 06/07/24 11:00 Into Room 06/07/24 11:00 Out of Pre-Op 06/07/24 11:02 Procedure Start 06/07/24 11:14 Procedure End 06/07/24 11:56 Anesthesia End 06/07/24 12:05 Out of Room 06/07/24 12:05 Into Recovery 06/07/24 12:07 Into Phase II Recovery 06/07/24 12:23 Out of Recovery 06/07/24 12:23 Procedure Start Time: 11:14 Procedure Stop Time: 11:56 Select all DRAINS/GRAFTS/IMPLANTS that apply: Prosthetic device Prosthetic device details: Ventralex ST 6.4 cm hernia patch ref [id number] Lot [id number] Special Medications: Ancef 2 g IV x 1 Estimated Blood Loss: < 10 cc Specimen collected: Yes Description of specimen(s) removed: Hernia sac Description of surgery: Patient was brought into the room placed supine on the operating table. Correct patient, procedure, site, positioning, special, was verified prior to procedure. General anesthesia was induced. The abdomen was prepped draped in usual sterile fashion. The previous left lower quadrant transverse incision was reincised with a 15 blade scalpel. This was deepened with electrocautery. Omentum was freed up from the hernia sac and reduced back into the abdomen. The fascia around the hernia defect was cleared and the hernia defect measured 2 cm x 1.[address] hernia patch 6.4 cm was selected. This was secured laterally at its tails with 0 Nurolon horizontal mattress suture. The hernia defect was closed with two [id number] 0 Nurolon. The wound was irrigated with saline. Hemostasis was assured. The skin of the umbilicus was secured to the fascia using 3-0 Vicryl suture interrupted. The incision was closed with 3-0 Vicryl subdermal interrupted sutures and the skin was closed with interrupted 4-0 Monocryl sutures. Steri-Strips and Tegaderm and OpSite were placed over the incision and a pressure dressing was placed with abdominal binder. Patient was extubated. Patient tolerated procedure well and was taken to the postanesthesia care unit in stable condition. Surgical Findings: Incarcerated incisional hernia Complications Complications: No
--- NOTE | 2024-06-07 11:49 | DCINST_ITS ---
Discharge Instructions Diet Discharge Diet: Light diet - advance as tolerated Activity Discharge Activity: May Not Drive (while taking narcotic pain medications.) May shower in (days): 1 Lifting Restrictions: no lifting >20 lbs x 2 wks, no strenuous exercise for 4 wks Additional Activity Instructions:: Encourage abdominal binder for the first several days as it may help prevent seroma. Dressing / Incision Call your doctor if your incision/area has: Continuous Slow Oozing, Sudden Increased Bleeding, Increased Pain/ Swelling, Increased Redness, Foul Smelling Discharge and Swelling at the incision site Call your doctor if you observe: Fever of 101 or Higher Remove Dressing in: 2 days Cleanse incision/area with: Soap & Water Additional Dressing/Incision Instructions:: Leave pressure dressing on for 48 hours. Steri-Strips will fall off in 7 to 10 days, if they do not fall off okay to remove after 10 days. Follow Up Care Please Follow Up With: Trudy Brown MD When: Call the office for a follow-up appointment 2 weeks; after 5 PM and on the weekends call [phone] with any concerns. Test Results: Test results from this visit will be discussed in further detail at your follow- up appointment, if applicable. Discharge Plan Admission Attending Provider: Trudy Brown Primary Care Provider: Matheus Cesar Instructions Print Language: [place] Island[place] Discharge Orders/Prescriptions Prescriptions: New tramadol 50 mg tablet 50 mg PO Q6H PRN (Reason: pain) Qty: 7 0RF Continued omeprazole 40 mg capsule,delayed release(DR/EC) 40 mg PO QMWF amlodipine 5 mg tablet 5 mg PO DAILY losartan 100 mg tablet 100 mg PO DAILY sennosides [Senna Laxative] 8.6 mg tablet 8.6 mg PO DAILY PRN (Reason: constipation) fluticasone propionate 50 mcg/actuation spray,suspension 1 spray intranasal DAILY PRN (Reason: nasal congestion) Rx Instructions: administer into each nostril acetaminophen 325 mg tablet 650 mg PO Q8 atorvastatin 80 mg Tablet 80 mg PO QMWF Held aspirin 81 mg Tablet,Chewable 81 mg PO BREAKFAST Qty: 0 0RF Hold Instructions: Resume on 06/09/24. Referrals / Follow Up: Matheus Cesar MD [Primary Care Provider] - Disposition Disposition (needs filled in before D/C Order can be placed): Home, Self Care
--- NOTE | 2024-06-07 12:15 | PCM.POST.ANE ---
Anesthesia: Postop Eval I Current Vital Signs Temperature: 97.4 F Pulse Rate: 78 Blood Pressure: 144/85 Respiratory Rate: 16 Pulse Ox: 98 Oxygen Delivery Method: Room Air Assessment Airway patent: Yes Spontaneous unlabored respirations: Yes Mental status: Awake and Calm nausea: No Vomiting: No Anesthesia Complication: No Fluid Hydration Crystalloid volume administer (ml): 750 Total IV fluid infused: 750 Progress Note Anesthesia document: Postop Eval 1 completed: Yes
--- NOTE | 2024-06-07 17:50 | POSTOPAN2_ITS ---
Anesthesia Postop Eval I Sum Postop Eval Completion status Anesthesia document: Postop Eval 1 completed: Yes Anesthesia Postop Eval I Summary Anesthesia Postop Eval I Summary: Anesthesia Postop Eval I: Assessment Summary Airway patent Yes 06/07/24 12:15 [email or web address] Spontaneous unlabored Yes 06/07/24 12:15 COOKING [email or web address] respirations Mental status Awake,Calm 06/07/24 12:15 COOKING [email or web address] nausea No 06/07/24 12:15 COOKING [email or web address].[email or web address] Vomiting No 06/07/24 12:15 COOKING [email or web address] Anesthesia Postop Eval I: Fluid Summary Crystalloid volume administer 750 06/07/24 12:15 [email or web address] [email or web address] (ml) Colloids volume administered ( ml) Blood Product volume administered (ml) Total IV fluid infused 750 06/07/24 12:15 [email or web address] Anesthesia Postop Eval I: Summary Notes Anesthesia Complication No 06/07/24 12:15 [email or web address] Anesthesia Complication Comment: Post-operative progress note Anesthesia: Postop Eval II Evaluation Mental status: Awake Pain Level: 0 nausea: No Vomiting: No
--- NOTE | 2024-06-07 17:50 | PCM.POSTANE2 ---
Anesthesia Postop Eval I Sum Postop Eval Completion status Anesthesia document: Postop Eval 1 completed: Yes Anesthesia Postop Eval I Summary Anesthesia Postop Eval I Summary: Anesthesia Postop Eval I: Assessment Summary Airway patent Yes 06/07/24 12:15 [email or web address] Spontaneous unlabored Yes 06/07/24 12:15 RACK LOADER.[email or web address] respirations Mental status Awake,Calm 06/07/24 12:15 RACK [email or web address] nausea No 06/07/24 12:15 RACK LOADER.[email or web address] Vomiting No 06/07/24 12:15 RACK [email or web address].[email or web address] Anesthesia Postop Eval I: Fluid Summary Crystalloid volume administer 750 06/07/24 12:15 [email or web address] (ml) Colloids volume administered ( ml) Blood Product volume administered (ml) Total IV fluid infused 750 06/07/24 12:15 RACK [email or web address].[email or web address] Anesthesia Postop Eval I: Summary Notes Anesthesia Complication No 06/07/24 12:15 RACK [email or web address].[email or web address] Anesthesia Complication Comment: Post-operative progress note Anesthesia: Postop Eval II Evaluation Mental status: Awake Pain Level: 0 nausea: No Vomiting: No
== END 2024-06-07 13:44 | disposition home or self-care (01) ==
LOC: SDC 09:19 → AC 09:20
PROVIDERS: PCP Family Medicine; Referring Provider Surgery; Visit Provider Surgery
PROC: (CPT 49592; principal; 2024-06-07 10:45)
DX: K43.2 Incisional hernia without obstruction or gangrene (principal); E11.9 Type 2 diabetes mellitus without complications; I10 Essential (primary) hypertension; E78.00 Pure hypercholesterolemia, unspecified; Z79.899 Other long term (current) drug therapy; Z79.82 Long term (current) use of aspirin
CPT/HCPCS: 49592; 00832; 82962; 88302; C1781; J2405